=== PATIENT | female | born 1965 | race Caucasian/White ===

== ENCOUNTER 2020-08-08 08:57 | Outpatient (REF) | payer MEDICARE, MEDICAID, SELFPAY ==
--- NOTE | 2020-08-08 09:02 | EMG_ITS ---
HISTORY OF PRESENT ILLNESS: This is a 54-year-old woman who had surgery for brain tumor about 3 years ago in [place], complicated by a stroke. No details available. She is now here for pain and numbness in the right upper extremity. Neurological examination is unremarkable. IMPRESSION: Rule out carpal tunnel syndrome. NERVE CONDUCTION EMG STUDY: Normal electrodiagnostic study of the right upper extremity with no evidence of carpal tunnel syndrome or nerve entrapment. Normal EMG of the right C5 through T1 innervated muscles. MD YANNICK Jones/JORGE / [id number]
== END 2020-08-08 08:58 | disposition home or self-care (01) ==
LOC: HO.NEURO 08:57
PROVIDERS: PCP Family Medicine; Visit Provider Family Medicine
DX: R20.0 Anesthesia of skin (principal)
CPT/HCPCS: 95860; 95886; 95910

== ENCOUNTER 2020-08-28 08:18 | Outpatient (REF) | payer MEDICARE, MEDICAID, SELFPAY ==
--- NOTE | 2020-08-28 08:23 | MM_ITS ---
EXAMINATION: MM SCREENING DIGITAL BREAST TOMOSYNTHESIS, BILATERAL CLINICAL INFORMATION: Screening. Asymptomatic. Family history breast cancer, mother. The lifetime risk of breast cancer based on the Tyrer-Cuzick Model is 15%. COMPARISON: Mammography: 08/26/2019, 04/16/2018 TECHNIQUE: Digital breast tomosynthesis is performed in both the craniocaudal and mediolateral oblique views along with computer-aided detection (CAD). Synthesized 2D images are generated from the tomosynthesis. FINDINGS: The breasts are heterogeneously dense, which may obscure small masses (ACR BI-RADS breast composition Category c). There are no significant masses, abnormal calcifications, or other abnormalities. The axilla and skin contours are unremarkable. No significant changes. MM/MM tomosynthesis screening BI IMPRESSION: No mammographic evidence of malignancy. ASSESSMENT: BI-RADS 1: Negative RECOMMENDATION: Routine annual mammography screening. This patient's information was entered into a reminder system with a target due date for their next mammogram.
== END 2020-08-28 08:19 | disposition home or self-care (01) ==
LOC: HO.MAMMO 08:18
PROVIDERS: PCP Family Medicine; Visit Provider Family Medicine
DX: Z12.31 Encounter for screening mammogram for malignant neoplasm of breast (principal)
CPT/HCPCS: 77063; 77067

== ENCOUNTER 2021-09-02 15:29 | Outpatient (REF) | payer MEDICARE, MEDICAID, SELFPAY | END 2021-09-02 15:30 | disposition home or self-care (01) | LOC: HO.MAMMO 15:29 | PROVIDERS: PCP Family Medicine; Visit Provider Family Medicine | DX: Z13.89 Encounter for screening for other disorder (principal) ==

== ENCOUNTER 2021-10-02 13:32 | Outpatient (REF) | payer MEDICARE, MEDICAID, SELFPAY ==
--- NOTE | ~2021-10-02 | MM_ITS ---
EXAMINATION: MM SCREENING DIGITAL BREAST TOMOSYNTHESIS, BILATERAL CLINICAL INFORMATION: Screening. Asymptomatic. The lifetime risk of breast cancer based on the Tyrer-Cuzick Model is 14.3%. COMPARISON: Mammography: August 28, 2020 and studies dating back to December 18, 2011 TECHNIQUE: Digital breast tomosynthesis is performed in both the craniocaudal and mediolateral oblique views along with computer-aided detection (CAD). Synthesized 2D images are generated from the tomosynthesis. FINDINGS: The breasts are extremely dense, which lowers the sensitivity of mammography (ACR BI-RADS breast composition Category d). There are no significant masses, abnormal calcifications, or other abnormalities. MM/MM tomosynthesis screening BI IMPRESSION: There are no significant changes from prior study. ASSESSMENT: BI-RADS 1: Negative RECOMMENDATION: Routine annual mammography screening. This patient's information was entered into a reminder system with a target due date for their next mammogram.
== END 2021-10-02 13:33 | disposition home or self-care (01) ==
LOC: HO.MAMMO 13:32
PROVIDERS: Visit Provider Family Medicine
DX: Z12.31 Encounter for screening mammogram for malignant neoplasm of breast (principal)
CPT/HCPCS: 77063; 77067

== ENCOUNTER 2022-06-11 10:19 | Outpatient (REF) | payer OTHER, SELFPAY ==
--- NOTE | ~2022-06-11 | XR_ITS ---
EXAMINATION: XR KNEE, LEFT CLINICAL INFORMATION: Left knee pain COMPARISON: None TECHNIQUE: Four views of the left knee. This includes AP upright view. FINDINGS: No fracture or subluxation. Mild medial compartment joint space narrowing. Small medial and patellofemoral compartment marginal osteophytes. Enthesophyte formation of the patella. No joint effusion. The soft tissues are unremarkable. XR/XR knee LT 4V IMPRESSION: Very mild degenerative changes of the medial and patellofemoral compartments.
== END 2022-06-11 10:20 | disposition home or self-care (01) ==
LOC: HO.XRAY 10:19
PROVIDERS: PCP Family Medicine; Visit Provider Family Medicine
DX: M25.562 Pain in left knee (principal)
CPT/HCPCS: 73564

== ENCOUNTER 2022-07-17 13:23 | Outpatient (REF) | payer OTHER, SELFPAY | END 2022-07-17 13:24 | disposition home or self-care (01) | LOC: HO.MRI 13:23 | PROVIDERS: Visit Provider Family Medicine | DX: M25.562 Pain in left knee (principal) | CPT/HCPCS: 73721 ==

== ENCOUNTER 2022-07-20 15:07 | Outpatient (REF) | payer OTHER, SELFPAY | END 2022-07-20 15:08 | disposition home or self-care (01) | LOC: HO.HOSX 15:07 | PROVIDERS: Visit Provider Physician Assistant | DX: Z13.89 Encounter for screening for other disorder (principal) ==

== ENCOUNTER 2022-07-22 | Outpatient (REF) | payer OTHER, SELFPAY ==
--- NOTE | ~2022-07-22 | XR_ITS ---
EXAMINATION: XR KNEE AP STANDING, BILATERAL XR KNEE, LEFT CLINICAL INFORMATION: Knee pain. COMPARISON: 07/17/2022 and 06/11/2022. TECHNIQUE: AP bilateral standing view of the knees was obtained. Mamers view of the left knee. FINDINGS: BILATERAL KNEES: AP standing views of both knees demonstrate minimal marginal spurring about the medial joint space compartments. The joint space compartments are maintained. No fracture or dislocation is evident. LEFT KNEE: Mamers view of the left knee does not demonstrate any evidence of acute fracture. Minimal spurring is present about the margins without loss of joint space. XR/XR knee LT 1V IMPRESSION: No significant bony abnormality identified. Minimal degenerative change of the medial joint space compartments bilaterally and with mild spurring about the patellofemoral joint of the left knee.
--- NOTE | ~2022-07-22 | XR_ITS ---
EXAMINATION: XR KNEE AP STANDING, BILATERAL XR KNEE, LEFT CLINICAL INFORMATION: Knee pain. COMPARISON: 07/17/2022 and 06/11/2022. TECHNIQUE: AP bilateral standing view of the knees was obtained. [employer] view of the left knee. FINDINGS: BILATERAL KNEES: AP standing views of both knees demonstrate minimal marginal spurring about the medial joint space compartments. The joint space compartments are maintained. No fracture or dislocation is evident. LEFT KNEE: [employer] view of the left knee does not demonstrate any evidence of acute fracture. Minimal spurring is present about the margins without loss of joint space. XR/XR knee standing BI IMPRESSION: No significant bony abnormality identified. Minimal degenerative change of the medial joint space compartments bilaterally and with mild spurring about the patellofemoral joint of the left knee.
== END 2022-07-22 00:01 ==
LOC: HO.HOSX
PROVIDERS: Visit Provider Physician Assistant
DX: M25.562 Pain in left knee (principal); M54.16 Radiculopathy, lumbar region
CPT/HCPCS: 73560; 73565; 99212

== ENCOUNTER 2022-10-03 14:17 | Outpatient (REF) | payer OTHER, SELFPAY ==
--- NOTE | ~2022-10-03 | MM_ITS ---
EXAMINATION: MM SCREENING DIGITAL BREAST TOMOSYNTHESIS, BILATERAL CLINICAL INFORMATION: Screening. Asymptomatic. The lifetime risk of breast cancer based on the Tyrer-Cuzick Model is 7.1%. COMPARISON: Mammography: October 02, 2021 and studies dating back to February 22, 2016 TECHNIQUE: Digital breast tomosynthesis is performed in both the craniocaudal and mediolateral oblique views along with computer-aided detection (CAD). Synthesized 2D images are generated from the tomosynthesis. FINDINGS: The breasts are extremely dense, which lowers the sensitivity of mammography (ACR BI-RADS breast composition Category d). There are no significant masses, abnormal calcifications, or other abnormalities. MM/MM tomosynthesis screening BI IMPRESSION: No significant changes ASSESSMENT: BI-RADS 1: Negative RECOMMENDATION: Routine annual mammography screening. This patient's information was entered into a reminder system with a target due date for their next mammogram.
== END 2022-10-03 14:18 | disposition home or self-care (01) ==
LOC: HO.MAMMO 14:17
PROVIDERS: Visit Provider Family Medicine
DX: Z12.31 Encounter for screening mammogram for malignant neoplasm of breast (principal)
CPT/HCPCS: 77063; 77067

== ENCOUNTER 2023-07-23 13:39 | Outpatient (REF) | payer OTHER, SELFPAY ==
[2023-07-23 16:52] LABS: Estimated Average Glucose 146 mg/dL; Hemoglobin A1c % 6.7 % (<6.0)
== END 2023-07-23 13:40 | disposition home or self-care (01) ==
LOC: HO.HHCL 13:39
PROVIDERS: Visit Provider Family Medicine
DX: E11.9 Type 2 diabetes mellitus without complications (principal)
CPT/HCPCS: 36415; 83036

== ENCOUNTER 2023-10-23 08:43 | Outpatient (REF) | payer OTHER, SELFPAY | END 2023-10-23 08:44 | disposition home or self-care (01) | LOC: HO.MAMMO 08:43 | PROVIDERS: PCP Family Medicine; Visit Provider Family Medicine | DX: Z12.31 Encounter for screening mammogram for malignant neoplasm of breast (principal) | CPT/HCPCS: 77063; 77067 ==

== ENCOUNTER → 2023-10-23 09:00 | Outpatient (BNV) | payer OTHER, SELFPAY | PROVIDERS: PCP Family Medicine; Visit Provider Radiology Diagnostic Radiology | DX: Z12.31 Encounter for screening mammogram for malignant neoplasm of breast (principal) | CPT/HCPCS: 77063; 77067 ==

== ENCOUNTER 2023-11-19 09:21 | Outpatient (REF) | payer OTHER, SELFPAY ==
[2023-11-19 10:39] LABS: MANUAL DIFF FLAG NO
[2023-11-19 10:47] LABS: Basophils Percent Auto 0.3 % (0-2); Eosinophils Absolute Auto 0.1 X10*3/uL (0.0-0.4); Eosinophils Percent Auto 0.8 % (0-4); Hematocrit 45.5 % (37.0-47.0); Hemoglobin 14.9 g/dl (12.0-16.0); Imm Gran Abs Auto 0.02 X10*3/uL (0.00-0.03); Imm Gran Pct Auto 0.3 % (0.0-0.4); Lymphocytes Absolute Auto 2.7 X10*3/uL (1.2-4.9); Lymphocytes Percent Auto 34.7 % (20-40); Mean Corpuscular HGB Conc 32.7 g/dl (31.0-35.0); Mean Corpuscular Hemoglobin 28.7 pg (27.0-33.0); Mean Corpuscular Volume 87.5 fL (80.0-98.0); Mean Platelet Volume 10.6 fL (9.4-12.3); Monocytes Absolute Auto 0.6 X10*3/uL (0.1-1.2); Monocytes Percent Auto 7.8 % (2-11); Neutrophils Absolute Auto 4.3 x10*3/uL (2.0-8.3); Neutrophils Percent Auto 56.1 % (45-73); Platelet Count 198 X10*3/uL (160-400); Red Cell Distribution Width 13.3 % (11.0-16.0); White Blood Count 7.7 X10*3/uL (4.8-10.8)
[2023-11-19 11:21] LABS: Alanine Aminotransferase 32 U/L (0-31); Albumin Level 4.1 g/dL (3.5-5.0); Alkaline Phosphatase 76 U/L (39-117); Anion Gap 10 (12-20); Aspartate Amino Transferase 18 U/L (5-31); Bilirubin Total 0.8 mg/dL (0.0-1.0); Blood Urea Nitrogen 19 mg/dL (9-16); Calcium 9.8 mg/dL (8.4-10.2); Carbon Dioxide 27 mmol/L (22-29); Chloride 106 mmol/L (96-108); Estimated Glomerular Filt Rate > 60; Glucose Random 155 mg/dL (60-115); Potassium 4.4 mmol/L (3.3-5.1); Sodium 139 mmol/L (135-145); Total Protein 7.6 g/dL (6.5-8.0)
== END 2023-11-19 09:22 | disposition home or self-care (01) ==
LOC: HO.LAB 09:21
PROVIDERS: PCP Family Medicine; Visit Provider Nurse Practitioner
DX: Z01.818 Encounter for other preprocedural examination (principal)
CPT/HCPCS: 36415; 80053; 85025

== ENCOUNTER 2024-02-11 16:29 | Emergency (ER) | payer OTHER, SELFPAY ==
--- NOTE | ~2024-02-11 | CT_ITS ---
EXAMINATION: CT HEAD WITHOUT CONTRAST CLINICAL INFORMATION: Headache. Weakness. COMPARISON: CT head January 13, 2018 TECHNIQUE: Contiguous axial imaging was performed from the skull base to vertex without intravenous administration of contrast. Coronal and sagittal reformatted images are This CT examination was performed using dose optimization techniques as appropriate, variously including the following: *Automated exposure control *Adjustment of mA and/or kV according to patient size (this includes techniques or standardized protocols for targeted exams where dose is matched to indication/reason for exam; i.e. extremities or head) *Use of iterative reconstruction technique DLP: 557.36 mGy-cm FINDINGS: Right occipital craniotomy unchanged since prior study. Small area of focal encephalomalacia in the posterior portion right cerebral hemisphere stable since prior study. No acute intracranial abnormality. Ventricles are normal in size. No intracranial hemorrhage. No extra-axial collection. Box-white differentiation maintained. CT/CT head/brain wo IV con IMPRESSION: No acute intracranial pathology.
--- NOTE | ~2024-02-11 | CT_ITS ---
EXAMINATION: CT SOFT TISSUE NECK WITH CONTRAST CLINICAL INFORMATION: Soft tissue mass of the tongue. COMPARISON: CT neck from 08/31/2016. TECHNIQUE: Multidetector helical imaging was performed in the axial plane following the administration of 65 mL of Omnipaque 350 intravenous contrast. Multiple axial reformats and coronal/sagittal reconstructions were created the technologist workstation for review. This CT examination was performed using dose optimization techniques as appropriate, variously including the following: *Automated exposure control. *Adjustment of mA and/or kV according to patient size (this includes techniques or standardized protocols for targeted exams where dose is matched to indication/reason for exam; i.e. extremities or head). *Use of iterative reconstruction technique. DLP: 839 mGy-cm FINDINGS: No significant cutaneous thickening or subcutaneous inflammation. No discrete fluid collection within the deep tissues of the neck. The premaxillary, retromaxillary, pterygopalatine fossa, orbital apical, parapharyngeal, and prelaryngeal adipose tissue is maintained. Normal appearance of the parotid, submandibular, and thyroid glands. The left sublingual glands herniate through the left mylohyoid musculature, similar to exam from 2016. Scattered subcentimeter lymph nodes bilaterally, none of which are pathologically enlarged or abnormally enhancing. No demonstrated focal lesion or abnormal enhancement within the intrinsic tissues of the tongue. Normal mucosal contours of the pharynx and larynx without abnormal enhancement. Normal appearance of the hyoid bone, thyroid cartilage, or cartilaginous trachea. The airways remains widely patent. No radiopaque foreign bodies. The atlantooccipital and atlantoaxial articulations remain well aligned. There is anatomic alignment of the vertebral bodies and posterior elements. No evidence of acute fracture or subluxation of the cervical spine. The vertebral body heights are maintained. The intervertebral disc spaces are maintained. No evidence of epidural collection. There is no prevertebral soft tissue swelling. Normal opacification of the cervical arterial and venous structures. Changes of prior right retrosigmoid craniotomy for resection of a previously demonstrated mass along the right cerebellopontine angle. Chronic encephalomalacia of the lateral aspect of the right cerebellar hemisphere. The visualized portion of the skull base is without significant abnormalities. Mild mucosal thickening of the paranasal sinuses. The mastoid air cells and middle ear cavities are clear. No demonstrated significant periapical odontogenic disease. CT Upper Chest: Chronic partially calcified mediastinal lymph nodes. Otherwise, the visualized lung apices and upper mediastinum are within normal limits. CT/CT soft tissue neck w IV con IMPRESSION: 1. No demonstrated focal lesion, collection, lymphadenopathy, or abnormal enhancement within the soft tissues of the neck. 2. Chronic changes of prior right retrosigmoid craniotomy for resection of a previously demonstrated mass along the right cerebellopontine angle. Chronic encephalomalacia of the lateral aspect of the right cerebellar hemisphere.
[2024-02-11 16:50] VITALS: BP 123/78; PULSE 66; RESP 16; TEMP 36.8; O2SAT 98; BMI 26.4
--- NOTE | 2024-02-11 16:50 | ED.HA ---
HPI - Headache General Chief Complaint: Headache Stated Complaint: headache dizziness right eye bleeding Time Seen by Provider: 02/11/24 21:42 History of Present Illness HPI Narrative: The patient is a 58-year-old woman who says that at around 3 PM this afternoon she developed a headache that was associated with a sense of dizziness. It was a room spinning type dizziness. She was doing nothing in particular at the time. This was not associated with any fever, sweats, chills. She felt the pain primarily on the right side of her head. She says that she gets headaches from time to time but this was more significant than previous headaches. There was no associated neck stiffness. She had a craniotomy in 2017 for a meningioma. This was done at [facility] in [place]. The patient has also had problems with a sense of a lump under the left side of her tongue and under the left jaw. This has been present for some time. Related Data Home Medications ?Medication ?Instructions ?Recorded ?Confirmed acetaminophen 500 mg tablet 0 mg PO 07/22/22 atenolol 25 mg tablet 25 mg PO DAILY 07/22/22 blood sugar diagnostic (FreeStyle #10 ea 07/22/22 Lite Strips) clonazepam 0.5 mg tablet 0.5 mg PO DAILY PRN 07/22/22 diclofenac sodium 1 % topical gel 4 g topical BID 07/22/22 escitalopram oxalate 20 mg tablet 20 mg PO DAILY 07/22/22 glipizide 5 mg tablet 5 mg PO QAM 07/22/22 lancets 33 gauge (TRUEplus Lancets) #100 ea 07/22/22 levothyroxine 75 mcg tablet 75 mcg PO DAILY 07/22/22 lisinopril 5 mg tablet 5 mg PO DAILY 07/22/22 melatonin 1 mg tablet 1 mg PO BEDTIME PRN insomnia 07/22/22 metformin 750 mg tablet,extended 750 mg PO BID 07/22/22 release 24 hr omeprazole 20 mg capsule,delayed 20 mg PO DAILY 07/22/22 release pravastatin 10 mg tablet 10 mg PO DAILY 07/22/22 Previous Rx's ?Medication ?Instructions ?Recorded bisacodyl 5 mg tablet,delayed 10 mg (2 x 5 mg) PO BEDTIME 2 days 11/19/23 release (Dulcolax (bisacodyl)) #4 tabs peg 3350-electrolytes 236 240 ml PO Q10M 1 day #4,000 mL 11/19/23 gram-22.74 gram-6.74 gram-5.86 gram solution (Golytely) Allergies Allergy/AdvReac Type Severity Reaction Status Date / Time No Known Allergies Allergy Verified 02/11/24 16:55 Review of Systems Review of Systems: Yes all other systems are reviewed and are negative [facility] Past Medical History Medical History Benign meningioma Depression Dyslipidemia Hypertension Hypothyroid Anemia Surgical History H/O dilation and curettage H/O colonoscopy History of tubal ligation Family History Family History Mother Vaginal cancer Breast cancer Maternal Aunt Cancer Maternal Uncle Cancer Social History Social History Alcohol intake: never Patient Tobacco Use Status: Never used Tobacco Advance Directives: No Advance Directives Information Provided: Yes Current occupational status: unemployed Physical Exam Vital Signs: Vital Signs: Last Vital Signs Temp 97.9 F 02/11/24 22:39 Pulse 68 02/11/24 22:39 Resp 18 02/11/24 22:39 BP 118/76 02/11/24 22:39 Pulse Ox 98 02/11/24 22:39 O2 Del Method Room Air 02/11/24 22:39 BMI result Body Mass Index 26.4 Const: Other: The patient is awake and alert. She is pleasant cooperative. She does not appear toxic or in distress. HEENT: Other: No facial droop. Mucous membranes moist. There was a very vague suggestion of a slight elevation of the left side of the floor of the mouth. There is no tenderness of the floor of the mouth. I also feel that the patient's left submandibular gland is somewhat prominent and easily palpable. There is no trismus. Eyes: Other: Pupils are round and equal. There was a mild subconjunctival hemorrhage in the right eye. Neck: Other: No cervical adenopathy. The neck was entirely supple. Resp: Effort & Inspection: normal respiratory effort Auscultation: clear to auscultation bilaterally Cardio: Rate: regular rate Rhythm: regular rhythm Heart sounds: S1 normal heart sound present and S2 normal heart sound present Skin: Other: Skin is dry and unremarkable Neuro: Other: The patient is awake, alert, pleasant, cooperative. GCS is 15. She is oriented and appropriate. Her demeanor is nontoxic. Her neck is supple. Cranial nerves are intact. She has symmetrical strength in her extremities. No pronator drift. Gait is normal. She is neurologically intact and nontoxic. Extrem: Other: No peripheral edema Course Course Course Narrative: This is a rapid medical exam completed by Tracy LOBBY CONCIERGE: Additional HPI, ROS, PE not included below will be deferred to primary provider. Complaints of a right sided headache and dizziness as if the room is spinning. Has previously had a craniotomy to remove a benign tumor in [place] in 2017. Reports a mass under the tongue Denies fevers Medications Administered Discontinued Medications Generic Name Dose Route Start Last Admin Trade Name Freq PRN Reason Stop Dose Admin Diphenhydramine HCl 25 mg 02/11/24 21:55 02/11/24 22:04 Diphenhydramine Hcl 50 Mg/Ml Vial IVPUSH 02/11/24 21:56 25 mg ONCE ONE Administration Sodium Chloride 1,000 mls @ 999 mls/hr 02/11/24 22:00 02/11/24 22:01 Ns IV 02/11/24 23:00 999 mls/hr .Q1H1M SOFIA Administration Iohexol 60 ml 02/11/24 21:32 02/11/24 21:33 Iohexol 350 Mg/Ml 100 Ml Infus..Btl IV 02/11/24 21:33 60 ml ONCE ONE Administration Ketorolac Tromethamine 10 mg 02/11/24 21:55 02/11/24 22:04 Ketorolac Tromethamine 15 Mg/Ml Vial IVPUSH 02/11/24 21:56 10 mg ONCE ONE Administration Metoclopramide HCl 10 mg 02/11/24 21:55 02/11/24 22:03 Metoclopramide Hcl 10 Mg/2 Ml Vial IVPUSH 02/11/24 21:56 10 mg ONCE ONE Administration Medical Decision Making Medical Decision Making MDM Narrative: The patient is a very pleasant 58-year-old who presents with a headache that was associated with dizziness that started at around 15:00 today. She had a head CT that was done at approximately the 6 hour radha from the onset of her headaches that shows no acute findings. Clinically my suspicion for a subarachnoid hemorrhage is low. The patient's neck is very supple. I think that given the negative head CT and her benign clinical appearance that subarachnoid hemorrhage is probably very unlikely. She was treated for a migraine type headache with ketorolac, metoclopramide, and diphenhydramine. She felt much better. A secondary complaint was related to her mouth. She seems to have had a sense of swelling under the left tongue for some time. She seems to have a palpable gland on exam. Soft tissue neck CT has been ordered at triage in addition to the noncontrast head CT. The neck CT indicates ?the left sublingual glands herniate through the left mylohyoid musculature, similar to exam from 2016. ? My assumption is that this finding correlates with the findings on her physical exam. This suggests that these findings are stable. The patient felt better after IV treatment for her headache and I think she is well enough for discharge. She was advised to possibly follow up with the ENT if she would like additional evaluation regarding the left sublingual glands. Lab Data 02/11/24 18:57 02/11/24 18:57 Labs: Lab Results 02/11/24 Range/Units 18:57 WBC 7.2 (4.8-10.8) X10*3/uL RBC 4.99 (4.20-5.50) X10*6/uL Hgb 14.6 (12.0-16.0) g/dl Hct 43.9 (37.0-47.0) % MCV 88.0 (80.0-98.0) fL MCH 29.3 (27.0-33.0) pg MCHC 33.3 (31.0-35.0) g/dl RDW 12.7 (11.0-16.0) % Plt Count 208 (160-400) X10*3/uL MPV 10.5 (9.4-12.3) fL Immature Gran % (Auto) 0.1 (0.0-0.4) % Neut % (Auto) 55.2 (45-73) % Lymph % (Auto) 36.2 (20-40) % [place] % (Auto) 7.2 (2-11) % Eos % (Auto) 1.0 (0-4) % Baso % (Auto) 0.3 (0-2) % Lymph # (Auto) 2.6 (1.2-4.9) X10*3/uL [place] # (Auto) 0.5 (0.1-1.2) X10*3/uL Eos # (Auto) 0.1 (0.0-0.4) X10*3/uL Baso # (Auto) 0.0 (0.0-0.2) X10*3/uL Abs Immat Gran (auto) 0.01 (0.00-0.03) X10*3/uL Absolute Neuts (auto) 4.0 (2.0-8.3) x10*3/uL Absolute Nucleated RBC 0.000 (0.0-0.012) X10*3/uL Nucleated RBC % (auto) 0.0 (0.0-0.2) /100WBC Sodium 141 (135-145) mmol/L Potassium 4.1 (3.3-5.1) mmol/L Chloride 108 (96-108) mmol/L Carbon Dioxide 22 (22-29) mmol/L Anion Gap 15 (12-20) BUN 22 H (9-16) mg/dL Creatinine 0.71 (0.5-1.4) mg/dL Estim Creat Clear Calc 80.7 Estimated GFR > 60 Random Glucose 166 H (60-115) mg/dL Calcium 10.1 (8.4-10.2) mg/dL Total Bilirubin 0.5 (0.0-1.0) mg/dL AST 20 (5-31) U/L ALT 30 (0-31) U/L Alkaline Phosphatase 73 (39-117) U/L Total Protein 7.6 (6.5-8.0) g/dL Albumin 3.9 (3.5-5.0) g/dL Discharge Plan Discharge Clinical Impression: Headache, Fullness of submandibular gland Patient Disposition: Home, Self-Care Additional Instructions: Your testing in the emergency room today is very reassuring. There are no new findings on the CT scan of your head or on the CT scan of your neck. You seemed to have some chronic abnormality to your left submandibular gland. Fortunately this has appeared stable over many years. Please rest and take it easy tonight. Please plan on following up with your regular doctor soon to discuss this episode further. If at any point you wish to speak with a specialist about your left mandibular gland I would recommend that you contact an ENT doctor. I have by the name of Dr. Isidro as an ENT doctor in [place] for an option. Return to the emergency room if worse. Prescriptions: No Action escitalopram oxalate 20 mg tablet 20 mg PO DAILY clonazepam 0.5 mg tablet 0.5 mg PO DAILY PRN pravastatin 10 mg tablet 10 mg PO DAILY lisinopril 5 mg tablet 5 mg PO DAILY levothyroxine 75 mcg tablet 75 mcg PO DAILY melatonin 1 mg tablet 1 mg PO BEDTIME PRN (Reason: insomnia) metformin 750 mg tablet extended release 24 hr 750 mg PO BID glipizide 5 mg tablet 5 mg PO QAM atenolol 25 mg tablet 25 mg PO DAILY omeprazole 20 mg capsule,delayed release(DR/EC) 20 mg PO DAILY diclofenac sodium 1 % gel 4 g topical BID acetaminophen 500 mg tablet 0 mg PO (DME) lancets [TRUEplus Lancets] 33 gauge misc See Rx Instructions .ROUTE DAILY Qty: 100 Rx Instructions: As directed (DME) FreeStyle Lite Strips Strip See Rx Instructions .ROUTE BID Qty: 10 Rx Instructions: As directed peg 3350-electrolytes [Golytely] 236-22.74-6.74 -5.86 gram recon soln 240 ml PO Q10M 1 Days Qty: 4000 0RF Rx Instructions: until fecal effluent is clear; do not exceed a total volume of 2,000 mL bisacodyl [Dulcolax (bisacodyl)] 5 mg tablet,delayed release (DR/EC) 10 mg PO BEDTIME 2 Days Qty: 4 0RF Referrals: Clara Joseph MD [Primary Care Provider] - (Headache, chronic left submandibular gland swelling) Jules Isidro [Physician] - (Left submandibular gland swelling) Interventions: ED Discharge Assessment Last Done: 02/11/24 22:39 Discharge Date/Time: 02/11/24 22:43 Print Language: Sinhala
[2024-02-11 19:01] LABS: MANUAL DIFF FLAG NO
[2024-02-11 19:02] LABS: Basophils Percent Auto 0.3 % (0-2); Eosinophils Absolute Auto 0.1 X10*3/uL (0.0-0.4); Hematocrit 43.9 % (37.0-47.0); Hemoglobin 14.6 g/dl (12.0-16.0); Imm Gran Abs Auto 0.01 X10*3/uL (0.00-0.03); Imm Gran Pct Auto 0.1 % (0.0-0.4); Lymphocytes Absolute Auto 2.6 X10*3/uL (1.2-4.9); Lymphocytes Percent Auto 36.2 % (20-40); Mean Corpuscular HGB Conc 33.3 g/dl (31.0-35.0); Mean Corpuscular Hemoglobin 29.3 pg (27.0-33.0); Mean Platelet Volume 10.5 fL (9.4-12.3); Monocytes Absolute Auto 0.5 X10*3/uL (0.1-1.2); Monocytes Percent Auto 7.2 % (2-11); Neutrophils Percent Auto 55.2 % (45-73); Platelet Count 208 X10*3/uL (160-400); Red Blood Count 4.99 X10*6/uL (4.20-5.50); Red Cell Distribution Width 12.7 % (11.0-16.0); White Blood Count 7.2 X10*3/uL (4.8-10.8)
[2024-02-11 19:21] LABS: Alanine Aminotransferase 30 U/L (0-31); Albumin Level 3.9 g/dL (3.5-5.0); Alkaline Phosphatase 73 U/L (39-117); Anion Gap 15 (12-20); Aspartate Amino Transferase 20 U/L (5-31); Bilirubin Total 0.5 mg/dL (0.0-1.0); Blood Urea Nitrogen 22 mg/dL (9-16); Calcium 10.1 mg/dL (8.4-10.2); Carbon Dioxide 22 mmol/L (22-29); Chloride 108 mmol/L (96-108); Creatinine Clr Calc Pharmacy 80.7; Estimated Glomerular Filt Rate > 60; Glucose Random 166 mg/dL (60-115); Potassium 4.1 mmol/L (3.3-5.1); Sodium 141 mmol/L (135-145); Total Protein 7.6 g/dL (6.5-8.0)
[2024-02-11 21:09] VITALS: BP 118/76; PULSE 68; RESP 18; TEMP 36.6; O2SAT 98
[2024-02-11] MEDS: iohexoL 350 MG/ML 100 ML INFUS..BTL 60 ML IV (21:33)
[2024-02-11] MEDS: 0.9 % Sodium Chloride 1,000 ML 999 ML IV (22:01)
[2024-02-11] MEDS: Metoclopramide HCl 10 MG/2 ML VIAL IVPUSH (22:03)
[2024-02-11] MEDS: diphenhydrAMINE HCL 50 MG/ML VIAL 25 MG IVPUSH (22:04)
[2024-02-11] MEDS: Ketorolac Tromethamine 15 MG/ML VIAL 10 MG IVPUSH (22:04)
[2024-02-11 22:39] VITALS: BP 118/76; PULSE 68; RESP 18; TEMP 36.6; O2SAT 98
== END 2024-02-11 22:43 | disposition home or self-care (01) ==
PROVIDERS: Nurse Practitioner Family; Emergency Provider Emergency Medicine; PCP Family Medicine
DX: R51.9 Headache, unspecified (principal); R42 Dizziness and giddiness; M54.2 Cervicalgia; Z79.899 Other long term (current) drug therapy
CPT/HCPCS: 36415; 70450; 70491; 80053; 85025; 96374; 96375; 99283; 99284; J1200; J1885; J2765; Q9967

== ENCOUNTER 2024-02-15 10:04 | Outpatient (REF) | payer OTHER, SELFPAY ==
--- NOTE | ~2024-02-15 | XR_ITS ---
EXAMINATION: XR CHEST CLINICAL INFORMATION: Cough for one week COMPARISON: None available. TECHNIQUE: 2 views of the chest were obtained. FINDINGS: No significant abnormality is noted involving the heart, lungs, mediastinum, bony thorax or soft tissues. Some mild degenerative changes are present in the spine. XR/XR chest 2V IMPRESSION: Unremarkable examination.
== END 2024-02-15 10:05 | disposition home or self-care (01) ==
LOC: HO.HHCX 10:04
PROVIDERS: Visit Provider Emergency Medicine
DX: R05.1 Acute cough (principal)
CPT/HCPCS: 71046

== ENCOUNTER 2024-02-29 10:19 | Outpatient (REF) | payer OTHER, SELFPAY ==
[2024-02-29 11:47] LABS: Estimated Average Glucose 108 mg/dL; Hemoglobin A1c % 5.4 % (<6.0)
[2024-02-29 17:15] LABS: Alanine Aminotransferase 9 U/L (0-31); Albumin Level 4.3 g/dL (3.5-5.0); Alkaline Phosphatase 57 U/L (39-117); Anion Gap 13 (12-20); Aspartate Amino Transferase 14 U/L (5-31); Bilirubin Direct < 0.2 mg/dL (0.0-0.5); Bilirubin Total 0.1 mg/dL (0.0-1.0); Blood Urea Nitrogen 14 mg/dL (9-16); Calcium 9.3 mg/dL (8.4-10.2); Carbon Dioxide 25 mmol/L (22-29); Chloride 107 mmol/L (96-108); Cholesterol 169 mg/dL (<200); Estimated Glomerular Filt Rate > 60; Glucose Random 91 mg/dL (60-115); HDL Cholesterol 53 mg/dL (>40); LDL Cholesterol Calculated 107 mg/dL (<100); Potassium 4.4 mmol/L (3.3-5.1); Sodium 141 mmol/L (135-145); Total Protein 7.2 g/dL (6.5-8.0); Triglycerides 49 mg/dL (<150)
[2024-02-29 17:21] LABS: Creatinine Urine 64.92 mg/dL; Microalbumin Urine < 5.0 mg/L; TSH reflex Free T4 0.26 uIU/mL (0.32-4.0)
[2024-02-29 19:59] LABS: Free T4 (Free Thyroxine) 0.92 ng/dL (0.71-1.85)
== END 2024-02-29 10:20 | disposition home or self-care (01) ==
LOC: HO.HHCL 10:19
PROVIDERS: Visit Provider Family Medicine
DX: E11.9 Type 2 diabetes mellitus without complications (principal); E03.9 Hypothyroidism, unspecified
CPT/HCPCS: 36415; 80048; 80061; 80076; 82043; 82570; 83036; 84439; 84443

== ENCOUNTER 2024-04-11 09:51 | Outpatient (REF) | payer OTHER, SELFPAY ==
[2024-04-11 12:35] LABS: TSH reflex Free T4 1.45 uIU/mL (0.32-4.0)
== END 2024-04-11 09:52 | disposition home or self-care (01) ==
LOC: HO.HHCL 09:51
PROVIDERS: Visit Provider Family Medicine
DX: E03.9 Hypothyroidism, unspecified (principal)
CPT/HCPCS: 36415; 84443

== ENCOUNTER 2024-05-02 08:27 | Outpatient (REF) | payer OTHER, SELFPAY ==
[2024-05-02 11:50] LABS: Alanine Aminotransferase 23 U/L (0-31); Albumin Level 4.1 g/dL (3.5-5.0); Alkaline Phosphatase 63 U/L (39-117); Aspartate Amino Transferase 21 U/L (5-31); Bilirubin Direct 0.2 mg/dL (0.0-0.5); Bilirubin Total 0.9 mg/dL (0.0-1.0); Cholesterol 185 mg/dL (<200); HDL Cholesterol 63 mg/dL (>40); LDL Cholesterol Calculated 111 mg/dL (<100); Total Protein 7.7 g/dL (6.5-8.0); Triglycerides 57 mg/dL (<150)
== END 2024-05-02 08:28 | disposition home or self-care (01) ==
LOC: HO.HHCL 08:27
PROVIDERS: Visit Provider Family Medicine
DX: E78.5 Hyperlipidemia, unspecified (principal)
CPT/HCPCS: 36415; 80061; 80076

== ENCOUNTER 2024-05-08 09:41 | Emergency (ER) | payer OTHER, SELFPAY ==
--- NOTE | 2024-05-08 | ECG_ITS ---
Test Reason : CHEST PAIN Blood Pressure : / mmHG Vent. Rate : 081 BPM Atrial Rate : 081 BPM P-R Int : 144 ms QRS Dur : 078 ms QT Int : 384 ms P-R-T Axes : 048 -35 018 degrees QTc Int : 446 ms Normal sinus rhythm Left axis deviation Abnormal ECG No previous ECGs available Referred By: Generic ED Physician Electronically Signed By:Mesfin Elise
--- NOTE | ~2024-05-08 | XR_ITS ---
EXAMINATION: XR SHOULDER, LEFT CLINICAL INFORMATION: Left shoulder pain. COMPARISON: 10/13/2019 TECHNIQUE: Three views of the left shoulder. FINDINGS: Multiple foci of calcific tendinitis at the left greater tuberosity measure 1.6 x 0.6 x 0.9 cm, in aggregate, more pronounced as compared to prior. No acute fracture or malalignment. Mild acromioclavicular osteoarthritis. Glenohumeral joint is unremarkable. XR/XR shoulder LT min 2V IMPRESSION: 1. Calcific tendinitis at the left greater tuberosity, more pronounced as compared to prior. 2. Mild acromioclavicular osteoarthritis.
[2024-05-08 09:46] VITALS: BP 129/67; PULSE 95; RESP 20; TEMP 36; O2SAT 98; BMI 25.8
--- NOTE | 2024-05-08 10:05 | PC.NURSE ---
pt in triage with tech having ekg performed
--- NOTE | 2024-05-08 11:10 | ED_ITS ---
HPI - Extremity Problem General Chief complaint: Extremity Injury, Upper Stated complaint: L shoulder pain Time Seen by Provider: 05/08/24 10:12 Source: patient and patient placement coordinator Mode of arrival: ambulatory Limitations: language barrier History of Present Illness ED Provider: Sybil Gutierrez APRN HPI Narrative: 58-year-old female with a history of diabetes, hypertension, hyperlipidemia, anxiety, depression, hypothyroidism presents to the ER with complaints of 3 days of left-sided shoulder pain with no known injury or trauma. Patient reports no associated numbness, weakness, tingling of the extremity. Pain is worsened with movement of the extremity. She is right-hand dominant Taking Tylenol and Naprosyn at home with continued pain Related Data Home Medications ?Medication ?Instructions ?Recorded ?Confirmed acetaminophen 500 mg tablet 0 mg PO 07/22/22 atenolol 25 mg tablet 25 mg PO DAILY 07/22/22 blood sugar diagnostic (FreeStyle #10 ea 07/22/22 Lite Strips) clonazepam 0.5 mg tablet 0.5 mg PO DAILY PRN 07/22/22 diclofenac sodium 1 % topical gel 4 g topical BID 07/22/22 escitalopram oxalate 20 mg tablet 20 mg PO DAILY 07/22/22 glipizide 5 mg tablet 5 mg PO QAM 07/22/22 lancets 33 gauge (TRUEplus Lancets) #100 ea 07/22/22 levothyroxine 75 mcg tablet 75 mcg PO DAILY 07/22/22 lisinopril 5 mg tablet 5 mg PO DAILY 07/22/22 melatonin 1 mg tablet 1 mg PO BEDTIME PRN insomnia 07/22/22 metformin 750 mg tablet,extended 750 mg PO BID 07/22/22 release 24 hr omeprazole 20 mg capsule,delayed 20 mg PO DAILY 07/22/22 release pravastatin 10 mg tablet 10 mg PO DAILY 07/22/22 Previous Rx's ?Medication ?Instructions ?Recorded bisacodyl 5 mg tablet,delayed 10 mg (2 x 5 mg) PO BEDTIME 2 days 11/19/23 release (Dulcolax (bisacodyl)) #4 tabs peg 3350-electrolytes 236 240 ml PO Q10M 1 day #4,000 mL 11/19/23 gram-22.74 gram-6.74 gram-5.86 gram solution (Golytely) bisacodyl 5 mg tablet,delayed 20 mg (4 x 5 mg) PO ONCE 1 day #4 04/07/24 release (Dulcolax (bisacodyl)) tabs peg 3350-electrolytes 236 240 ml PO Q10M #4,000 mL 04/07/24 gram-22.74 gram-6.74 gram-5.86 gram solution diclofenac sodium 1 % topical gel 4 g topical QID #100 grams 05/08/24 (Voltaren Arthritis Pain) ketorolac 10 mg tablet 10 mg PO Q8H 5 days #15 tabs 05/08/24 prednisone 20 mg tablet 20 mg PO DAILY #5 tabs 05/08/24 Allergies Allergy/AdvReac Type Severity Reaction Status Date / Time No Known Allergies Allergy Verified 05/08/24 09:49 Review of Systems Review of Systems: Yes all other systems are reviewed and are negative Constitutional: Constitutional: Reports no additional constitutional complaints, Denies body ache(s), Denies chills, Denies fever(s), Denies head ache(s) and Denies weakness Eyes: Eyes: Reports no additional eye complaints and Denies change in vision ENT: Reports system reviewed and no additional complaints, except as documented, Denies dizziness, Denies headache(s), Denies nasal congestion, Denies nasal discharge and Denies neck pain Cardiovascular: Cardiovascular: Reports no additional cardiovascular complaints, Denies chest pain, Denies leg edema and Denies dyspnea Respiratory: Respiratory: Reports no additional respiratory complaints, Denies cough and Denies dyspnea Gastrointestinal: Gastrointestinal: Reports no additional gastrointestinal complaints, Denies abdominal pain, Denies diarrhea, Denies nausea and Denies vomiting Genitourinary: Genitourinary: Reports no additional female genitourinary complaints and Denies urinary incontinence Musculoskeletal: Musculoskeletal: Reports no additional musculoskeletal complaints, Denies back pain, Reports arthralgias, Denies joint swelling, Denies neck pain, Denies numbness, Reports radiating pain into limb and Denies tingling Integumentary/Breasts: Skin/Breast: Reports system reviewed and no additional complaints, except as docu and Denies rash Neurologic: Reports system reviewed and no additional complaints, except as documented, Denies Abnormal speech present, Denies dizziness, Denies headache(s), Denies numbness, Denies tingling and Denies weakness PMFSH Past Medical History Attestation statement: The following information was validated with the patient. Source: old records reviewed and nursing notes reviewed Medical History Benign meningioma Depression Dyslipidemia Hypertension Hypothyroid Anemia Surgical History H/O dilation and curettage H/O colonoscopy History of tubal ligation Family History Family History Mother Vaginal cancer Breast cancer Maternal Aunt Cancer Maternal Uncle Cancer Social History Social History Alcohol intake: never Patient Tobacco Use Status: Never used Tobacco Advance Directives: No Advance Directives Information Provided: Yes Do you have a plan to hurt others: No Plan Current occupational status: unemployed Physical Exam Vital Signs: Vital Signs: Last Vital Signs Temp 96.8 F 05/08/24 09:46 Pulse 95 05/08/24 09:46 Resp 20 05/08/24 09:46 BP 129/67 05/08/24 09:46 Pulse Ox 98 05/08/24 09:46 O2 Del Method Room Air 05/08/24 09:46 BMI result Body Mass Index 25.8 Const: General: cooperative, healthy appearing, comfortable and no acute distress Orientation/consciousness: patient oriented x3 Limitations: no limitations HEENT: Head: Yes normal to inspection Ears: hearing grossly normal bilaterally General nose exam: Normal external nose present Face and sinus: Yes normal facial exam Mouth: Normal oral and palatal mucosa present Throat: Yes posterior oropharynx normal Eyes: General: appearance normal, both eyes and all related structures Pupils: Equal, round and reactive pupils present Neck: Neck: Yes normal visual inspection Chest: Chest palpation & inspection: normal inspection of the chest Resp: Effort & Inspection: normal respiratory effort Auscultation: clear to auscultation bilaterally Cardio: Rate: regular rate Rhythm: regular rhythm Peripheral pulses: Peripheral pulses 2+ throughout GI: Inspection: Yes normal to inspection Palpation (GI): Soft to palpation and nontender Auscultation: normal bowel sounds Back/Spine/Pelvis: Thoracic/Lumbar Spine: thoracic and lumbar spine normal to inspection Skin: General skin exam: no rashes or lesions noted Neuro: General: patient oriented x3, no focal motor deficits and normal sensation to monofilament Cranial nerves: Yes Equal, round and reactive pupils present Cognition (Neuro): normal cognition Speech: No Abnormal speech present Gait exam (Neuro): Normal gait present Motor exam (neuro): 5/5 motor strength present throughout Extrem: Other: Pain on palpation over the left proximal humerus which is worsened with abduction of the extremity. No pain over the distal joints with full range of motion of the distal joints. 2+ radial and ulnar pulses. Normal sensation distally. General: Yes normal to inspection Course Course Course Narrative: X-ray shows tendinitis. EKG nonischemic. Patient will be given Toradol. Blood sugars are well controlled at home. Will give low-dose prednisone in addition to NSAIDs, Jeanine Reviewed worrisome signs and symptoms of when to return to the emergency room. Comfortable plan for discharge home Medical Decision Making Medical Decision Making MDM Narrative: 58-year-old female with a history of diabetes, hypertension, hyperlipidemia, anxiety, depression, hypothyroidism presents to the ER with complaints of 3 days of left-sided shoulder pain with no known injury or trauma. Patient reports no associated numbness, weakness, tingling of the extremity. Pain is worsened with movement of the extremity. She is right-hand dominant Pain on palpation over the left proximal humerus which is worsened with abduct ion of the extremity. No pain over the distal joints with full range of motion of the distal joints. 2+ radial and ulnar pulses. Normal sensation distally. Will check x-ray Differential Diagnosis Differential Diagnoses: The differential diagnosis associated with the presentation includes Tendonitis, bursitis Low suspicion for fracture, dislocation, vascular injury Admission/Observation Consideration of admission/observation: Escalation of care including admi ssion/observation considered Low suspicion for fracture, dislocation, vascular injury requiring advanced imaging, urgent orthopedic consultation Independent Interpretation I performed an independent interpretation of an: EKG and Plain X-Ray Interpretation: I independently viewed the x-ray and agree with the radiology report I independently reviewed the EKG which shows normal sinus rhythm with a rate 81, normal [place], normal QRS, or QT Radiology Impression Discussion of test interpretation with radiology: I have reviewed the radiologist's reading. Radiologist Impression: [address] [address] XRay Report Signed Patient: Jolie Werner MR#: [id number] : 1965 Acct:[id number] Age/Sex: 58 / F ADM Date: 05/08/24 Loc: HO.ED Attending Dr: Ordering Physician: Generic ED Physician Date of Service: 05/08/24 Procedure(s): XR shoulder LT min 2V Accession Number(s): [id number] cc: Clara Joseph MD; Generic ED Physician~ EXAMINATION: XR SHOULDER, LEFT CLINICAL INFORMATION: Left shoulder pain. COMPARISON: 10/13/2019 TECHNIQUE: Three views of the left shoulder. FINDINGS: Multiple foci of calcific tendinitis at the left greater tuberosity measure 1.6 x 0.6 x 0.9 cm, in aggregate, more pronounced as compared to prior. No acute fracture or malalignment. Mild acromioclavicular osteoarthritis. Glenohumeral joint is unremarkable. XR/XR shoulder LT min 2V IMPRESSION: 1. Calcific tendinitis at the left greater tuberosity, more pronounced as compared to prior. 2. Mild acromioclavicular osteoarthritis. Tests considered The following testing was considered but not selected: Low suspicion for fracture, dislocation, vascular injury requiring advanced imaging, Prescription Management I considered prescription management with: Pain Medication Chronic Conditions Patient?s care impacted by: Diabetes Discharge Plan Discharge Clinical Impression: Tendonitis Patient Disposition: Home, Self-Care Instructions: Tendinitis (ED) Additional Instructions: Heat or ice to the area Gentle stretching Take medications as prescribed Follow-up with orthopedics for any continued symptoms. Of note, you may need referral from primary care doctor. Physical therapy may also be helpful Prescriptions: New ketorolac 10 mg tablet 10 mg PO Q8H 5 Days Qty: 15 0RF diclofenac sodium [Voltaren Arthritis Pain] 1 % gel 4 g topical QID Qty: 100 0RF Rx Instructions: apply to affected area prednisone 20 mg tablet 20 mg PO DAILY Qty: 5 0RF No Action bisacodyl [Dulcolax (bisacodyl)] 5 mg tablet,delayed release (DR/EC) 20 mg PO ONCE 1 Days Qty: 4 0RF Rx Instructions: take at noon the day before colonoscopy peg 3350-electrolytes 236-22.74-6.74 -5.86 gram recon soln 240 ml PO Q10M Qty: 4000 0RF Rx Instructions: Refer to prep instructions given/ mailed to you from GI OFFICE. until fecal effluent is clear escitalopram oxalate 20 mg tablet 20 mg PO DAILY clonazepam 0.5 mg tablet 0.5 mg PO DAILY PRN pravastatin 10 mg tablet 10 mg PO DAILY lisinopril 5 mg tablet 5 mg PO DAILY levothyroxine 75 mcg tablet 75 mcg PO DAILY melatonin 1 mg tablet 1 mg PO BEDTIME PRN (Reason: insomnia) metformin 750 mg tablet extended release 24 hr 750 mg PO BID glipizide 5 mg tablet 5 mg PO QAM atenolol 25 mg tablet 25 mg PO DAILY omeprazole 20 mg capsule,delayed release(DR/EC) 20 mg PO DAILY diclofenac sodium 1 % gel 4 g topical BID acetaminophen 500 mg tablet 0 mg PO (DME) lancets [TRUEplus Lancets] 33 gauge misc See Rx Instructions .ROUTE DAILY Qty: 100 Rx Instructions: As directed (DME) FreeStyle Lite Strips Strip See Rx Instructions .ROUTE BID Qty: 10 Rx Instructions: As directed peg 3350-electrolytes [Golytely] 236-22.74-6.74 -5.86 gram recon soln 240 ml PO Q10M 1 Days Qty: 4000 0RF Rx Instructions: until fecal effluent is clear; do not exceed a total volume of 2,000 mL bisacodyl [Dulcolax (bisacodyl)] 5 mg tablet,delayed release (DR/EC) 10 mg PO BEDTIME 2 Days Qty: 4 0RF Referrals: [facility] – [place] [facility] [Provider Group] - 1 week Print Language: Macedonian
[2024-05-08] MEDS: Ketorolac Tromethamine 30 MG/ML VIAL IM (11:33)
[2024-05-08 11:41] VITALS: BP 129/67; PULSE 95; RESP 20; TEMP 36; O2SAT 98
--- NOTE | 2024-05-08 11:42 | PC.NURSE ---
pt medicated per DEC for 10 left shoulder pain
== END 2024-05-08 11:42 | disposition home or self-care (01) ==
PROVIDERS: Emergency Provider Emergency Medicine; PCP Family Medicine
DX: M75.32 Calcific tendinitis of left shoulder (principal); R07.89 Other chest pain; Z79.899 Other long term (current) drug therapy
CPT/HCPCS: 73030; 93005; 96372; 99284; J1885

== ENCOUNTER → 2024-05-08 10:06 | Outpatient (BNV) | payer OTHER, SELFPAY | PROVIDERS: Emergency Provider Emergency Medicine; PCP Family Medicine; Visit Provider Internal Medicine Cardiovascular Disease | DX: R07.9 Chest pain, unspecified (principal) | CPT/HCPCS: 93010 ==

== ENCOUNTER 2024-05-17 07:11 | Outpatient (REF) | payer OTHER, SELFPAY ==
[2024-05-17 08:27] LABS: Blood Urea Nitrogen 19 mg/dL (9-16); Estimated Glomerular Filt Rate > 60
== END 2024-05-17 07:12 | disposition home or self-care (01) ==
LOC: HO.LAB 07:11
PROVIDERS: PCP Family Medicine; Visit Provider Otolaryngology
DX: Z01.812 Encounter for preprocedural laboratory examination (principal); R22.1 Localized swelling, mass and lump, neck
CPT/HCPCS: 36415; 82565; 84520

== ENCOUNTER 2024-05-24 10:26 | Outpatient (AMB) | payer OTHER, SELFPAY ==
--- NOTE | 2024-05-24 10:29 | A.OFFVIS_ITS ---
Vital Signs 05/24/24 10:33 Height 5 ft 6 in Weight 160 lb BMI 25.8 Handedness Right Intake Visit Reasons: New Prob - LT shoulder pain Intake Note: Jolie is a 58 year old right hand dominant female who presents today for a evaluation of her left shoulder pain. No hx of Injury. Patient reports ongoing pain for about 2 weeks. Her pain is on the lateral aspect of her left shoulder. She states that her pain is worse when she is laying on her shoulder. Patient has tried taking Tylenol and it gave her relief. She mentions that she got an in jeciton at the ED which helped with the inflammation but she continues to have mild pain. [employer]: [employer] Present (Onel ([id number])) Allergies No Known Allergies Allergy (Verified 05/24/24 10:31) HPI HPI New Prob - LT shoulder pain: Details: 58-year-old right hand dominant female, who is Bahamian speaking, presents in the office today for an evaluation of left shoulder pain. The patient presented to the ED on 05/08/24 with a complaint of left shoulder pain for three days. X-rays of the left shoulder were obtained. She was prescribed ketorolac 10 mg PO Q8H, diclofenac sodium 4 g topical QID, and prednisone 20 mg PO daily. ? ? While in the office today, the patient reports ongoing pain for about two weeks. She claims her pain is on the lateral aspect of the left shoulder and increases when laying on the left upper extremity. Patient does not recall any known injury. She confirms the use of Tylenol with relief. She also reports receiving an injection (Toradol) in the ED which helped with inflammation but she continu es to have mild pain. ? ? Patient has a significant medical history of diabetes mellitus. Last A1c of 5.4 was on 02/29/24. ? PFS Medical History Benign meningioma Depression Dyslipidemia Hypertension Hypothyroid Anemia Surgical History H/O dilation and curettage H/O colonoscopy History of tubal ligation Family History Mother Vaginal cancer Breast cancer Maternal Aunt Cancer Maternal Uncle Cancer Social History Alcohol intake: never Patient Tobacco Use Status: Never used Tobacco Current occupational status: unemployed Review of Systems Const All systems reviewed & are unremarkable except as noted in HPI and below Physical Exam Vital Signs: BMI result Body Mass Index 25.8 Const General: cooperative, healthy appearing and no acute distress Resp Effort & Inspection: normal respiratory effort and able to speak in complete sentences Cardio Rate: regular rate Peripheral pulses: Peripheral pulses 2+ throughout GI Palpation (GI): Soft to palpation Skin Lesions: no lesions Rashes: no rashes Extrem Other: Left shoulder: Forward flexion and abduction to 90 degrees. Able to reach back pocket. Pain with cross-body reach. Unable to do resisted testing due to pain. ? Office Procedures Joint Injection/Aspiration Joint Injection/Aspiration Primary Site: left shoulder Prep: site was prepped using aseptic technique, ethochloride spray was applied and injection warnings given Injected: 40 mg of, DepoMedrol, with 8 mL of (2% plain lido ) and in the subcromial space Approach Used: posterolateral Procedure: The patient tolerated the procedure well, but had some pain with the injection and there was some relief with the local anesthesia Coding 31041 - Large joint Procedure code (CPT) selection complete Assessment & Plan Assessment & Plan (1) Calcific tendonitis of left shoulder: Code(s): M75.32 - Calcific tendinitis of left shoulder Category: Medical Plan Ms. Gil Jackson is a 58-year-old right hand dominant female, who is Bahamian speaking, presents in the office today for an evaluation of left shoulder pain. The patient presented to the ED on 05/08/24 with a complaint of left shoulder pain for three days. X-rays of the left shoulder were obtained. She was prescrib ed ketorolac 10 mg PO Q8H, diclofenac sodium 4 g topical QID, and prednisone 20 mg PO daily. ? ? While in the office today, the patient reports ongoing pain for about two weeks. She claims her pain is on the lateral aspect of the left shoulder and increases when laying on the left upper extremity. Patient does not recall any known injury. She confirms the use of Tylenol with relief. She also reports receiving an injection (Toradol) in the ED which helped with inflammation but she continues to have mild pain. ? ? Patient has a significant medical history of diabetes mellitus. Last A1c of 5.4 was on 02/29/24.? ? The patient was offered a cortisone injection in the left shoulder with 40 mg of Depo-Medrol. The patient was explained the risks, benefits, and alternatives to receiving this injection. After receiving consent for the injection, the patient had the procedure done while in the office today. The patient tolerated the procedure well with no complications.? ? Due to the patient?s history of diabetes, they were instructed to monitor her blood glucose level. The patient was informed that they could see a rise in their numbers and if the numbers became too high, they were instructed to call their PCP. The patient was also informed that they could have facial flushing as a side effect of the injection, but this will pass.? ? An order was placed for the patient to attend physical therapy. Follow-up will be PRN, or sooner if needed. ? ? X-rays of the left shoulder, obtained on 05/08/24, revealed: 1. Calcific tendinitis at the left greater tuberosity, more pronounced? as compared to prior.? 2. Mild acromioclavicular osteoarthritis.? Orders: Orders PT Evaluation and Treatment Today M75.32 - Calcific tendinitis of left shoulder Patient Instructions: Scribed by Mayuri Tee medical orderly, for Sabine Martinez PA-C on 05/24/2024 at 10:41 am, EST.? Coding Level of Care Code Est Pt Level 3 (07053) Diagnoses Calcific tendonitis of left shoulder M75.32 CPT Codes Coding - 77449 Large joint: 02617 - Large joint ([id number])
[2024-05-24 10:33] VITALS: BMI 25.8
== END 2024-05-24 11:09 | disposition home or self-care (01) ==
PROVIDERS: PCP Family Medicine; Visit Provider Physician Assistant
DX: M75.32 Calcific tendinitis of left shoulder (principal)
CPT/HCPCS: 20610; 99213

== ENCOUNTER → 2024-05-24 10:26 | Outpatient (BNVA) | payer OTHER, SELFPAY | PROVIDERS: PCP Family Medicine; Visit Provider Physician Assistant | DX: M75.32 Calcific tendinitis of left shoulder (principal) | CPT/HCPCS: 20610; 99212; J1010 ==

== ENCOUNTER 2024-07-21 11:00 | Outpatient (RCR) | payer OTHER, SELFPAY ==
--- NOTE | 2024-06-15 16:32 | MHC.PT.EP ---
[facility] [place] Office [place] Office [place] Office [address] [phone] F: [phone] F: [phone] F: [phone] F: [phone] Physical Therapy Plan of Care Date of Evaluation: 06/15/24 Date of Surgery: Diagnosis: L shoulder calcific tendonitis Assessment: Pt is a 58 y/o F with Hx of stroke, HTN and diabetes who is referred to PT for eval and treat of L shoulder calcific tendonitis resulting in decreased tolerance or ability for ADL's, reaching above head and functional reaching behind head or into back pocket secondary to decreased shoulder ROM and strength, calcific deposit at greater tuberosity and TTP over greater tuberosity and UT/deltoid. Pt is motivated and is deemed an appropriate candidate to receive skilled PT services to address their physical impairments in order to improve their function. Frequency and Duration: The patient will be seen 2x/week for 5 weeks Short Term Goals: Initiate home exercise program. Pt will report at most 4/10 pain; initial 8/10. Pt will improve L shoulder flex to 140; initial 85. Assisted Goals: Pt will be I with home exercise program. Pt will report at most 2/10 pain getting dressed; initial 8/10. Pt will report at most 2/10 pain reaching for a high shelf; initial 8/10. Pt will improve SPADI score by at least 13 points. Treatment Plan: Modalities to reduce pain, spasms and effusion. Manual therapy to restore motion and function. Therapeutic exercise to improve strength and flexibility. Neuromuscular re-education for posture and balance. Therapeutic activities to return to functional activities of daily living. Electronically signed by: Davis Rodrigez PT. Please sign and return to therapist. Thank you for your referral.
--- NOTE | 2024-07-21 13:01 | MHC.PT.DC ---
[facility] [place] Office [place] Office [place] Office [address] Gemini Meyer [address] [facility] [phone] F: [phone] F: [phone] F: [phone] F: [phone] Physical Therapy Discharge Report Diagnosis: L shoulder calcific tendonitis Date of Surgery: Date of Evaluation: 06/15/24 Date of Discharge: 07/21/24 Treatments to Date: 7 Cancellations to Date: No Shows to Date: Discharge Status: Achieved Goals Improved Function Independent with HEP Discharge Summary: Jolie has been an active and motivated participant in her program in and out of the home; she reports she has been doing her program at home and has been pain free wishing to DC today and PT is in agreement as she has met her goals. Electronically signed by: Davis Rodrigez PT. Please sign and return to therapist. Thank you for your referral.
== END 2024-07-21 13:01 | disposition home or self-care (01) ==
LOC: HO.PT 11:00
PROVIDERS: PCP Family Medicine; Visit Provider Physician Assistant
DX: M75.32 Calcific tendinitis of left shoulder (principal)
CPT/HCPCS: 97014; 97033; 97110; 97161; 97530

== ENCOUNTER 2024-10-11 08:19 | Outpatient (REF) | payer OTHER, SELFPAY ==
[2024-10-11 12:05] LABS: Alanine Aminotransferase 25 U/L (0-31); Albumin Level 4.3 g/dL (3.5-5.0); Alkaline Phosphatase 72 U/L (39-117); Aspartate Amino Transferase 25 U/L (5-31); Bilirubin Direct 0.3 mg/dL (0.0-0.5); Bilirubin Total 0.8 mg/dL (0.0-1.0); Cholesterol 198 mg/dL (<200); HDL Cholesterol 66 mg/dL (>40); LDL Cholesterol Calculated 116 mg/dL (<100); TSH reflex Free T4 3.06 uIU/mL (0.32-4.0); Triglycerides 83 mg/dL (<150)
== END 2024-10-11 08:20 | disposition home or self-care (01) ==
LOC: HO.HHCL 08:19
PROVIDERS: Visit Provider Family Medicine
DX: E78.5 Hyperlipidemia, unspecified (principal); E03.9 Hypothyroidism, unspecified
CPT/HCPCS: 36415; 80061; 80076; 84443

== ENCOUNTER 2024-10-13 11:04 | Outpatient (AMB) | payer OTHER, SELFPAY ==
--- NOTE | 2024-10-13 11:06 | MHC.OFFVIS ---
Intake Visit Reasons: [facility] referral for VV Intake Note: Pt c/o of intermittent LE swelling and pain. Safety Instruction Police Officer Required: Yes Safety Instruction Police Officer Name: [id number] Accompanied by: Self / Same As Patient Allergies No Known Allergies Allergy (Verified 05/24/24 10:31) HPI HPI [facility] referral for VV: Details: Jolie, a pleasant 59-year-old Georgian-speaking only female patient, is presenting today for concerns varicose veins, referred by her PCP. We utilized a qc scientist. Complaints include pain over varicosities, swelling of lower extremities, cramping, fatigue, and heaviness of the lower extremities. It has been affecting their daily activities including walking, standing, and physical activity. It is noted in bilateral legs. She is a diabetic, unknown last A1c. She is not a smoker Patient denies any previous venous surgery or injections. Patient denies any history of DVT/ PE. Patient denies any history of phlebitis. Trial of compression includes - elevation They now present for vascular evaluation regarding their varicose veins. [facility] Medical History Benign meningioma Depression Dyslipidemia Hypertension Hypothyroid Anemia Surgical History H/O dilation and curettage H/O colonoscopy History of tubal ligation Family History Mother Vaginal cancer Breast cancer Maternal Aunt Cancer Maternal Uncle Cancer Social History Alcohol intake: never Patient Tobacco Use Status: Never used Tobacco Current occupational status: unemployed Review of Systems Const Denies chills, Denies daytime sleepiness, Denies fatigue, Denies fever(s), Denies poor appetite, Denies snoring, Denies stops breathing during sleep, Denies weakness, Denies weight gain and Denies weight loss Eyes Denies loss of vision ENT Reports Normal hearing present, Denies dizziness and Denies hearing loss Card Denies chest pain, Denies irregular heart rhythm, Denies claudication, Denies leg edema, Denies lightheadedness, Denies palpitations, Denies dyspnea on exertion and Denies orthopnea Resp Denies cough, Denies excessive phlegm production, Denies dyspnea on exertion, Denies snoring and Denies wheezing GI Denies abdominal pain, Denies hematochezia, Denies change in bowel habits, Denies nausea and Denies vomiting Denies urinary frequency and Denies dysuria Musc Denies arthralgias, Denies muscle weakness, Denies numbness and Denies other Skin/Breast Denies nail changes and Denies rash Neuro Reports Normal hearing present, Denies Abnormal speech present, Denies dizziness, Denies loss of vision, Denies memory loss, Denies numbness, Denies Sensory deficit (Neuro) and Denies weakness Psych Denies depression and Denies memory loss Endo Denies fatigue and Denies palpitations Rishi/Lymph Denies easy bruising Aller/Immun Denies wheezing Physical Exam Const General: healthy appearing and no acute distress Orientation/consciousness: patient oriented x3 HEENT Head: Yes normal to inspection Ears: hearing grossly normal bilaterally Mouth: Normal oral and palatal mucosa present Resp Effort & Inspection: normal respiratory effort and able to speak in complete sentences Auscultation: clear to auscultation bilaterally Cardio Jugular venous distension: no JVD Rate: regular rate Rhythm: regular rhythm Heart sounds: S1 normal heart sound present and S2 normal heart sound present Bruits: no abdominal aortic bruits, no carotid bruits, no femoral bruits and no renal bruits Peripheral pulses: Peripheral pulses 2+ throughout GI Inspection: Yes normal to inspection Palpation (GI): No Abdominal aortic bruit present Skin General skin exam: no rashes or lesions noted Wounds: no wounds Hair: normal Neuro General: patient oriented x3 Cranial nerves: Yes Normal hearing present Cognition (Neuro): normal cognition Speech: No Abnormal speech present Gait exam (Neuro): Normal gait present Motor exam (neuro): 5/5 motor strength present throughout Sensory Exam: No Sensory deficit (Neuro) Extrem Other: Bilateral lower extremities: Trace peripheral edema noted. Spider veins noted around ankles. Small tortuosity noted on the right tibial area. Palpable DP pulses. CEAP: C - 3 E - primary A - superficial P - reflux General: Yes normal to inspection, Yes full ROM, Yes capillary refill normal and Yes normal gait Assessment & Plan Assessment & Plan (1) Varicose veins of both lower extremities with inflammation: Code(s): I83.11 - Varicose veins of right lower extremity with inflammation; I83.12 - Varicose veins of left lower extremity with inflammation Category: Medical Plan: Jolie is presenting today as a referral from her PCP for varicose veins. In short, the patient has evidence of venous insufficiency. I have discussed the pathophysiology with the patient. In addition I have provided informational material regarding venous disease to the patient. We have discussed conservative measures including compression, elevation, and exercise. I have also provided a handout regarding appropriate use of compression stockings (I discussed with the patient that unfortunately we do not have them translated into Georgian, she states she does read a little Andorran) and where to purchase good compression stockings as well. I had the rat breeder discuss the type of compression stockings and where she can purchase them and that it is more expensive if we prescribed them. I have taken the liberty of ordering venous insufficiency testing with the patient. They will follow up with me after testing. The patient had an opportunity to ask questions regarding the treatment plan. All questions were answered. Imaging studies, laboratory studies and physical exam results were discussed and reviewed in detail. No major barriers to understanding were identified. The patient expressed understanding and agreement with the above treatment plan. The patient is aware they should contact our office by phone for worsening of the current condition or the appearance of new symptoms. Thank you for allowing me to participate in the vascular care of this patient. If you have any questions or concerns regarding the treatment for the above condition please do not hesitate to contact me. The office telephone contact is [phone]. This note is constructed using voice recognition software. While every effort has been made to ensure accuracy, rn long term care errors may have been included. Thank you for allowing me to participate in the care of your patient. Yours sincerely, REBECCA Neves Orders: Orders US venous duplex LE BI 1 Week I83.11 - Varicose veins of right lower extremity with inflammation, I83.12 - Varicose veins of left lower extremity with inflammation Coding Level of Care Code New Pt Level 4 (62034) Diagnoses Varicose veins of both lower extremities with inflammation I83.11; I83.12
== END 2024-10-13 11:31 | disposition home or self-care (01) ==
PROVIDERS: PCP Family Medicine; Visit Provider Physician Assistant Surgical
DX: I83.11 Varicose veins of right lower extremity with inflammation (principal); I83.12 Varicose veins of left lower extremity with inflammation
CPT/HCPCS: 99204

== ENCOUNTER → 2024-10-13 11:04 | Outpatient (BNVA) | payer OTHER, SELFPAY | PROVIDERS: PCP Family Medicine; Visit Provider Physician Assistant Surgical | DX: I83.12 Varicose veins of left lower extremity with inflammation (principal); I83.11 Varicose veins of right lower extremity with inflammation | CPT/HCPCS: 99202 ==

== ENCOUNTER 2024-10-18 13:47 | Outpatient (REF) | payer OTHER, SELFPAY ==
--- NOTE | ~2024-10-18 | XR_ITS ---
EXAMINATION: XR HIP 2 OR MORE VIEWS LEFT WITH PELVIS HISTORY: chronic left hip pain COMPARISON: There are no prior studies for comparison. FINDINGS: A single AP view of the pelvis and two views of the left hip are submitted. Osseous mineralization is normal. There is no fracture or dislocation. There is moderate joint space narrowing. There is a 4.9 cm calcification in the pelvis which likely represents a uterine fibroid. XR/XR hip LT min 2V w/wo pel IMPRESSION: Moderate joint space narrowing. Electronically signed by: Fili Do MD 10/20/2024 09:49 AM EST
== END 2024-10-18 13:48 | disposition home or self-care (01) ==
LOC: HO.XRAY 13:47
PROVIDERS: PCP Family Medicine; Visit Provider Family Medicine
DX: M25.552 Pain in left hip (principal)
CPT/HCPCS: 73502

== ENCOUNTER → 2024-10-18 13:55 | Outpatient (BNV) | payer OTHER, SELFPAY | PROVIDERS: PCP Family Medicine; Visit Provider Radiology Diagnostic Radiology | DX: M25.552 Pain in left hip (principal) | CPT/HCPCS: 73502 ==

== ENCOUNTER 2024-10-22 09:11 | Emergency (ER) | payer OTHER, SELFPAY ==
--- NOTE | ~2024-10-22 | CT_ITS ---
CLINICAL HISTORY: headache CT head without contrast Comparison: 02/11/2024 Findings: No new intra-axial mass, midline shift, hydrocephalus, or acute hemorrhage. No significant atrophy-like change or white matter disease. There is no sinus or mastoid fluid. The orbits are unremarkable. There is no acute fracture. IMPRESSION: 1. No acute intracranial findings This document has been electronically signed by: Jeramy Beaver MD on 10/22/2024 11:03:24
[2024-10-22 09:22] VITALS: BP 156/81; PULSE 84; RESP 18; TEMP 36.6; O2SAT 98; BMI 25.4
[2024-10-22 09:41] VITALS: BP 146/57; PULSE 63; RESP 16; TEMP 37.1; O2SAT 97
--- NOTE | 2024-10-22 09:44 | ED.GENADULT ---
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 Cummings HPI narrative: 59-year-old female came in today for evaluation of headache and right eye blood shot and pain. 59-year-old female with history of right side craniotomy for a benign hemangioma removal in 2017 as a result patient has suffered from a minor stroke right-sided weakness residual, patient is able to function normally no need for instructional assistant to ambulate. Patient has been having headache on and off since the surgery, with worsening of the headache for the past 2 weeks, last night patient noticed blood shot in her right eye, no double vision, no visual loss, no weakness, no numbness. Related Data Home Medications ?Medication ?Instructions ?Recorded ?Confirmed acetaminophen 500 mg tablet 0 mg PO 07/22/22 atenolol 25 mg tablet 25 mg PO DAILY 07/22/22 blood sugar diagnostic (FreeStyle #10 ea 07/22/22 Lite Strips) clonazepam 0.5 mg tablet 0.5 mg PO DAILY PRN 07/22/22 escitalopram oxalate 20 mg tablet 20 mg PO DAILY 07/22/22 glipizide 5 mg tablet 5 mg PO QAM 07/22/22 lancets 33 gauge (TRUEplus Lancets) #100 ea 07/22/22 levothyroxine 75 mcg tablet 75 mcg PO DAILY 07/22/22 lisinopril 5 mg tablet 5 mg PO DAILY 07/22/22 melatonin 1 mg tablet 1 mg PO BEDTIME PRN insomnia 07/22/22 pravastatin 10 mg tablet 10 mg PO DAILY 07/22/22 famotidine 20 mg tablet 20 mg PO DAILY 10/13/24 Previous Rx's ?Medication ?Instructions ?Recorded bisacodyl 5 mg tablet,delayed 20 mg (4 x 5 mg) PO ONCE 1 day #4 04/07/24 release (Dulcolax (bisacodyl)) tabs peg 3350-electrolytes 236 240 ml PO Q10M #4,000 mL 04/07/24 gram-22.74 gram-6.74 gram-5.86 gram solution diclofenac sodium 1 % topical gel 4 g topical QID #100 grams 05/08/24 (Voltaren Arthritis Pain) ketorolac 10 mg tablet 10 mg PO Q8H 5 days #15 tabs 05/08/24 Allergies Allergy/AdvReac Type Severity Reaction Status Date / Time No Known Allergies Allergy Verified 10/22/24 09:25 Review of Systems Review of Systems: All other systems are reviewed and are negative Constitutional: Reports as per HPI and Reports no additional constitutional complaints Eyes: Reports as per HPI and Reports no additional eye complaints Reports system reviewed and no additional complaints, except as documented Cardiovascular: Reports as per HPI and Reports no additional cardiovascular complaints Respiratory: Reports as per HPI and Reports no additional respiratory complaints Gastrointestinal: Reports as per HPI and Reports no additional gastrointestinal complaints Genitourinary: Reports no additional female genitourinary complaints Musculoskeletal: Reports no additional musculoskeletal complaints Skin/Breast: Reports system reviewed and no additional complaints, except as docu Psychiatric: Reports no additional psychiatric complaints Endocrine: Reports no additional endocrine complaints Hematologic/Lymphatic: Reports no additional hematologic/lymphatic complaints Allergic/Immunologic: Reports no additional allergic/immunologic complaints Reports system reviewed and no additional complaints, except as documented and Reports Abnormal speech present [facility] Past Medical History Medical History Benign meningioma Depression Dyslipidemia Hypertension Hypothyroid Anemia Surgical History H/O dilation and curettage H/O colonoscopy History of tubal ligation Family History Family History Mother Vaginal cancer Breast cancer Maternal Aunt Cancer Maternal Uncle Cancer Social History Social History Alcohol intake: never Patient Tobacco Use Status: Never used Tobacco Smoked in Last 30 Days: No Use of substances other than those prescribed or required for medical reasons: No Advance Directives: No Advance Directives Information Provided: Yes Do you have a plan to hurt others: No Plan Current occupational status: unemployed Physical Exam ED Vital Signs: Vital Signs - 24 hr 10/22/24 09:22 10/22/24 09:41 Temperature 98 F 98.7 F Pulse Rate 84 63 Respiratory Rate 18 16 Blood Pressure 156/81 H 146/57 H Pulse Oximetry 98 97 Oxygen Delivery Method Room Air Room Air BMI result Body Mass Index 25.4 Vital signs have been reviewed and appear to be correct. Blood pressure elevated. Heart rate normal. Respiratory rate normal. Temperature normal. Oxygen saturation normal. Appearance: Alert. Oriented X3. No acute distress. Head: Normal external exam. Normocephalic. Atraumatic. No Mcdonald signs noted. No raccoon eyes noted Eyes: VA R 20/30,L20/40. General: appearance normal, both eyes and all related structures Visual Luu: normal visual luu by confrontation Alignment and Position: alignment normal and position normal Periorbital: periorbital findings normal Eyelids: Yes eyelids normal Conjunctivae: Right subconjunctival hemorrhage on the medial aspect of her right eye. Sclerae: sclerae normal Corneas: corneas normal Pupils: Equal, round and reactive pupils present and Pupil accommodation reflex normal EOM: EOM abnormal (Limited abduction of right eye) and No Nystagmus present Direct Ophthalmoscopy: normal light reflex, no photophobia, no papilledema and fundi normal bilaterally IOP right 14 left 16. ENT: TM's Normal. Pharynx normal. Uvula midline. Moist mucous membranes. No trismus noted. No drooling noted. No muffled voice noted. Neck: Normal inspection. Neck supple. FROM. No adenopathy. Thyroid Normal. No meningeal signs. No neck mass noted. CVS: Normal heart rate and rhythm. Heart sound normal. No murmurs noted. Pulses normal throughout. Respiratory: No respiratory distress. Painless inspiration. Breath sounds normal. No wheezes/rales/rhonchi noted. Chest nontender. No accessory muscle usage noted or decreased air movement noted. Abdomen: Soft and nontender. Bowel sounds normal in all 4 quadrants. No distention noted. No organomegaly noted. No visible injury noted. Back: No CVA tenderness. Full range of motion noted. Skin: Skin warm and dry. Normal skin color. Normal skin turgor. No rashes/lesions/lacerations noted. Extremities: No lower extremity edema. Extremities exhibit normal range of motion. Extremities nontender. Neuro: Mental status: Normal attention, orientation, memory, and affect. Cranial nerves: Pupils are equal, round and reactive to light, EOMI, visual luu are fall, face is symmetric, facial sensations are normal. Motor examination normal muscle tone, strength to 4 extremities. DTR are +2, planter's are flexor. Sensory exam; normal coordination, no ataxia, gait stable. Cerebellar exam: [id number]-ok-cvum and lxiy-ej-ihcj is normal. Extrapyramidal system: No tremors, no rigidity with normal facial expressions. Pronator drift not present Course Reevaluation(s) Reevaluation #1: Acute on chronic headache, right subconjunctival hemorrhage. No coagulopathy, no eye injury or trauma, patient feels better after Toradol and fluid, normal neuro exam. Will discharge to follow-up with PCP. Time: 10:41 Medications Administered Generic Name Dose Route Start Last Admin Trade Name Freq PRN Reason Stop Dose Admin Sodium Chloride 1,000 mls @ 999 mls/hr 10/22/24 09:58 10/22/24 10:22 Ns IV 10/22/24 10:58 999 mls/hr .Q1H1M ONE Administration Discontinued Medications Generic Name Dose Route Start Last Admin Trade Name Freq PRN Reason Stop Dose Admin Ketorolac Tromethamine 15 mg 10/22/24 09:58 10/22/24 10:23 Ketorolac Tromethamine 15 Mg/Ml Vial IVPUSH 10/22/24 09:59 15 mg ONCE ONE Administration Medical Decision Making Differential Diagnosis Differential Diagnoses: The differential diagnosis associated with the presentation includes (Subconjunctival hemorrhage, severe anemia, electrolyte derangement, CVA, acute on chronic headache, coagulopathy.) Admission/Observation Consideration of admission/observation: Escalation of care including admission/observation considered Lab Data MDM Lab Attestation statement: I reviewed the patient's lab results. 10/22/24 10:22 10/22/24 10:22 Labs: Lab Results 10/22/24 Range/Units 10:22 WBC 5.6 (4.8-10.8) X10*3/uL RBC 4.71 (4.20-5.50) X10*6/uL Hgb 13.8 (12.0-16.0) g/dl Hct 40.6 (37.0-47.0) % MCV 86.2 (80.0-98.0) fL MCH 29.3 (27.0-33.0) pg MCHC 34.0 (31.0-35.0) g/dl RDW 12.5 (11.0-16.0) % Plt Count 155 L D (160-400) X10*3/uL MPV 10.5 (9.4-12.3) fL Immature Gran % (Auto) 0.4 (0.0-0.4) % Neut % (Auto) 56.7 (45-73) % Lymph % (Auto) 31.5 (20-40) % Hoke % (Auto) 11.0 (2-11) % Eos % (Auto) 0.2 (0-4) % Baso % (Auto) 0.2 (0-2) % Lymph # (Auto) 1.8 (1.2-4.9) X10*3/uL Hoke # (Auto) 0.6 (0.1-1.2) X10*3/uL Eos # (Auto) 0.0 (0.0-0.4) X10*3/uL Baso # (Auto) 0.0 (0.0-0.2) X10*3/uL Abs Immat Gran (auto) 0.02 (0.00-0.03) X10*3/uL Absolute Neuts (auto) 3.2 (2.0-8.3) x10*3/uL Absolute Nucleated RBC 0.000 (0.0-0.012) X10*3/uL Nucleated RBC % (auto) 0.0 (0.0-0.2) /100WBC PT 11.3 (10.9-12.4) SEC INR 1.0 (0.9-1.1) APTT 28.0 (26.0-36.8) SEC Sodium 138 (135-145) mmol/L Potassium 4.7 (3.3-5.1) mmol/L Chloride 107 (96-108) mmol/L Carbon Dioxide 24 (22-29) mmol/L Anion Gap 12 (12-20) BUN 13 (9-16) mg/dL Creatinine 0.80 (0.5-1.4) mg/dL Estim Creat Clear Calc 69.5 Estimated GFR > 60 Random Glucose 143 H (60-115) mg/dL Calcium 9.5 (8.4-10.2) mg/dL Independent Interpretation I performed an independent interpretation of an: CT Scan (Head:) Radiology Impression Discussion of test interpretation with radiology: I have reviewed the radiologist's reading. Discharge Plan Discharge Clinical Impression: Headache, Subconjunctival hemorrhage of left eye Patient Disposition: Home, Self-Care Instructions: Subconjunctival Hemorrhage (ED) Prescriptions: No Action bisacodyl [Dulcolax (bisacodyl)] 5 mg tablet,delayed release (DR/EC) 20 mg PO ONCE 1 Days Qty: 4 0RF Rx Instructions: take at noon the day before colonoscopy peg 3350-electrolytes 236-22.74-6.74 -5.86 gram recon soln 240 ml PO Q10M Qty: 4000 0RF Rx Instructions: Refer to prep instructions given/ mailed to you from GI OFFICE. until fecal effluent is clear ketorolac 10 mg tablet 10 mg PO Q8H 5 Days Qty: 15 0RF diclofenac sodium [Voltaren Arthritis Pain] 1 % gel 4 g topical QID Qty: 100 0RF Rx Instructions: apply to affected area escitalopram oxalate 20 mg tablet 20 mg PO DAILY clonazepam 0.5 mg tablet 0.5 mg PO DAILY PRN pravastatin 10 mg tablet 10 mg PO DAILY lisinopril 5 mg tablet 5 mg PO DAILY levothyroxine 75 mcg tablet 75 mcg PO DAILY melatonin 1 mg tablet 1 mg PO BEDTIME PRN (Reason: insomnia) glipizide 5 mg tablet 5 mg PO QAM atenolol 25 mg tablet 25 mg PO DAILY acetaminophen 500 mg tablet 0 mg PO (DME) lancets [TRUEplus Lancets] 33 gauge misc See Rx Instructions .ROUTE DAILY Qty: 100 Rx Instructions: As directed (DME) FreeStyle Lite Strips Strip See Rx Instructions .ROUTE BID Qty: 10 Rx Instructions: As directed famotidine 20 mg tablet 20 mg PO DAILY Referrals: Clara Joseph MD [Primary Care Provider] - Print Language: Malay
[2024-10-22] MEDS: 0.9 % Sodium Chloride 1,000 ML 999 ML IV (10:22)
[2024-10-22] MEDS: Ketorolac Tromethamine 15 MG/ML VIAL IVPUSH (10:23)
[2024-10-22 10:27] LABS: MANUAL DIFF FLAG NO
[2024-10-22 10:36] LABS: Prothrombin Time 11.3 SEC (10.9-12.4)
[2024-10-22 10:37] LABS: Basophils Percent Auto 0.2 % (0-2); Eosinophils Percent Auto 0.2 % (0-4); Hematocrit 40.6 % (37.0-47.0); Hemoglobin 13.8 g/dl (12.0-16.0); Imm Gran Abs Auto 0.02 X10*3/uL (0.00-0.03); Imm Gran Pct Auto 0.4 % (0.0-0.4); Lymphocytes Absolute Auto 1.8 X10*3/uL (1.2-4.9); Lymphocytes Percent Auto 31.5 % (20-40); Mean Corpuscular Hemoglobin 29.3 pg (27.0-33.0); Mean Corpuscular Volume 86.2 fL (80.0-98.0); Mean Platelet Volume 10.5 fL (9.4-12.3); Monocytes Absolute Auto 0.6 X10*3/uL (0.1-1.2); Neutrophils Absolute Auto 3.2 x10*3/uL (2.0-8.3); Neutrophils Percent Auto 56.7 % (45-73); Platelet Count 155 X10*3/uL (160-400); Red Blood Count 4.71 X10*6/uL (4.20-5.50); Red Cell Distribution Width 12.5 % (11.0-16.0); White Blood Count 5.6 X10*3/uL (4.8-10.8)
[2024-10-22 10:40] LABS: Anion Gap 12 (12-20); Blood Urea Nitrogen 13 mg/dL (9-16); Calcium 9.5 mg/dL (8.4-10.2); Carbon Dioxide 24 mmol/L (22-29); Chloride 107 mmol/L (96-108); Creatinine Clr Calc Pharmacy 69.5; Estimated Glomerular Filt Rate > 60; Glucose Random 143 mg/dL (60-115); Potassium 4.7 mmol/L (3.3-5.1); Sodium 138 mmol/L (135-145)
[2024-10-22 10:48] LABS: Troponin-I High Sensitivity < 2.7 ng/L (<3.5-17.0)
[2024-10-22 11:35] VITALS: BP 128/70; PULSE 62; RESP 16; O2SAT 98
--- NOTE | 2024-10-22 11:39 | PC.NURSE ---
Pt came via triage from home for c/o of right eye redness and watering that started last night and headache that has been going on for the past 2 weeks but got worse last night. Hx of benign brain tumor in 2017 and stroke after tumor surgery pt reports. 22g Iv placed, labs obtained. IV fluids given per DEC.
[2024-10-22 12:22] VITALS: BP 137/60; PULSE 61; RESP 16; O2SAT 98
[2024-10-22 12:40] LABS: Appearance Urine Clear; Color Urine Yellow; Glucose Urine UA >=1000 mg/dL (Negative); Leukocyte Esterase Urine Negative (Negative); Nitrite Urine Negative (Negative); PH 5.5 (5.0-9.0); Specific Gravity - Urine 1.015 (1.005-1.025); UMIC TRIGGER UACC YES; Urine Blood Negative (Negative); Urine Ketones Trace mg/dL (Negative); Urine Protein Negative (Neg-Trace)
[2024-10-22 12:45] LABS: Bacteria Urine Trace (None Seen); Hyaline Casts Urine 0-2 /LPF (0-2); RBC Urine 0-2 /HPF (0-2); WBC Urine 0-5 /HPF (0-5)
[2024-10-22 14:55] VITALS: BP 128/60; PULSE 68; RESP 16; TEMP 36.9; O2SAT 97
[2024-10-22 16:13] VITALS: BP 128/52; PULSE 68; RESP 18; TEMP 36.9; O2SAT 97
== END 2024-10-22 16:14 | disposition home or self-care (01) ==
PROVIDERS: Emergency Provider Emergency Medicine; PCP Family Medicine
DX: R51.9 Headache, unspecified (principal); H11.31 Conjunctival hemorrhage, right eye; E11.9 Type 2 diabetes mellitus without complications; I10 Essential (primary) hypertension; D64.9 Anemia, unspecified; E03.9 Hypothyroidism, unspecified; Z79.899 Other long term (current) drug therapy; Z79.02 Long term (current) use of antithrombotics/antiplatelets
CPT/HCPCS: 36415; 70450; 80048; 81001; 84484; 85025; 85610; 85730; 96361; 96374; 99284; 99285; J1885

== ENCOUNTER → 2024-10-22 09:56 | Outpatient (BNV) | payer OTHER, SELFPAY | PROVIDERS: Emergency Provider Emergency Medicine; PCP Family Medicine; Visit Provider Specialist | DX: R51.9 Headache, unspecified (principal) | CPT/HCPCS: 70450 ==

== ENCOUNTER 2024-10-28 14:23 | Outpatient (REF) | payer OTHER, SELFPAY | END 2024-10-28 14:24 | disposition home or self-care (01) | LOC: HO.MAMMO 14:23 | PROVIDERS: PCP Family Medicine; Visit Provider Family Medicine | DX: Z12.31 Encounter for screening mammogram for malignant neoplasm of breast (principal) | CPT/HCPCS: 77063; 77067 ==

== ENCOUNTER 2024-11-08 13:34 | Outpatient (AMB) | payer OTHER, SELFPAY ==
--- NOTE | 2024-11-08 13:58 | A.OFFVIS_ITS ---
Vital Signs 11/08/24 14:02 Height 5 ft 4 in Weight 148 lb BMI 25.4 Handedness Right Intake Visit Reasons: New Prob - Left hip pain Intake Note: Jolie is a 59 year old female who presents today for a evaluation of her left hip pain. Patient reports ongoing pain for about 2 months. She states that her pain starts on the lateral aspect of the hip. Patient mentions that she notices a lump that comes and goes for a week. Pain is worse when she is laying down and her pain gets worse at night when sleeping. Patient has tried and failed Tylenol with no relief. 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 Gil Jackson is a 59-year-old female who presents to the office today for evaluation of left lateral hip pain. She denies any new injury or trauma to the area. She reports that she believes she has left hip osteoarthritis. She denies any groin pain. [facility] Medical History Benign meningioma Depression Dyslipidemia Hypertension Hypothyroid Anemia Surgical History H/O dilation and curettage H/O colonoscopy History of tubal ligation Family History Mother Vaginal cancer Breast cancer Maternal Aunt Cancer Maternal Uncle Cancer Social History Alcohol intake: never Patient Tobacco Use Status: Never used Tobacco Current occupational status: unemployed Review of Systems Const All systems reviewed & are unremarkable except as noted in HPI and below Physical Exam Vital Signs: BMI result Body Mass Index 25.4 Const General: cooperative, healthy appearing and no acute distress Resp Effort & Inspection: normal respiratory effort and able to speak in complete sentences Cardio Rate: regular rate Peripheral pulses: Peripheral pulses 2+ throughout Skin Lesions: no lesions Rashes: no rashes Extrem Other: Left hip: Normal to inspection. No ecchymosis, erythema, or edema. Full hip ROM in all planes. Tenderness to palpation over the greater trochanteric bursa. 5/5 strength with resisted hip flexion, knee extension, abduction, and abduction. Able to perform straight leg raise. NVI. Office Procedures AMB Joint Injection/Aspiration Joint Injection/Aspiration Primary Site: other (left hip greater troch bursa ) Prep: site was prepped using aseptic technique, ethochloride spray was applied and injection warnings given Injected: 40 mg of, DepoMedrol and with 8 mL of (2% plain lido ) Approach Used: other (Lateral ) Procedure: The patient tolerated the procedure well, but had some pain with the injection and there was some relief with the local anesthesia Coding 49890 - Glenohumeral/Tronchanteric Bursa/Intraarticular Procedure code (CPT) selection complete Assessment & Plan Assessment & Plan (1) Greater trochanteric bursitis of left hip: Code(s): M70.62 - Trochanteric bursitis, left hip Category: Medical Plan Ms. Gil Jackson is a 59-year-old female who presents to the office today for evaluation of left lateral hip pain. She denies any new injury or trauma to the area. She reports that she believes she has left hip osteoarthritis. She denies any groin pain. The patient was offered a cortisone injection in the left greater trochanteric bursa with 40 mg of DepoMedrol. The patient was explained the risks, benefits, and alternatives to receiving this injection. After receiving consent for the injection, the patient had the procedure done while in the office today. The pat ient tolerated the procedure well with no complications. Follow-up will be p.r.n., or sooner if needed X-rays that were obtained on 10/18/2024 are available for my review and reveal moderate left hip osteoarthritis. No acute fracture dislocation. Coding Level of Care Code Est Pt Level 4 (25166) Diagnoses Greater trochanteric bursitis of left hip M70.62 CPT Codes Coding - Joint 7: 12539 - Glenohumeral/Tronchanteric Bursa/Intraarticular ([id number])
[2024-11-08 14:02] VITALS: BMI 25.4
--- OUTSIDE RECORDS SUMMARY | 2024-11-08 14:34 | XMS_ITS | Encounter Summary ---
Author Organization [employer] Address [address] [place] [address] 7t [place] [address] Care Team Providers Care Rn Appeals Name Role Phone Clara Joseph MD Primary Care Provider +- [phone] Hamida Evans PharmD Unavailable January Unavailable Galdino Lee MD Unavailable [phone] Encounter Details Date Type Department Care Team (Late st Contact Info) Description 03/19/2023 Abstract [facility] MEDICINE [address] [place] [address] Clara Joseph MD [address] [place], [place] [phone] Social History Tobacco Use Types Packs/Day Years Used Date Smoking Tobacco: Never Passive Smoke Exposure: Never Smokeless Tobacco: Never Depression Answer Date Recorded Patient Health Questionnaire-9 Score 7 12/17/2022 Depression Answer Date Recorded Patient Health Questionnaire-2 Score 3 12/17/2022 Comments Unknown Sex and Gender Information Value Date Recorded Sex Assigned at Female 08/11/2022 10:18 AM EDT Legal Sex Female 10:18 AM EDT Gender Identity Female 08/11/2022 10:18 AM EDT Sexual Orientation Don't know 08/11/2022 10 :18 AM EDT COVID-19 Exposure Response Date Recorded In the last 10 days, have yo u been in contact with someone who was confirmed or suspected to have Coronavirus/COVID-19? No / Unsure 03/04/2023 1:51 PM EDT documented as of this encounter Plan of Treatment Upcoming Encounters Date Type Department Care Team (Late st Contact Info) Description 11/14/2024 8:00 AM EST Office Visit [facility] ADULT DENTAL [address] [place] [address] Lillian Crawford [address] [place] [address] 12/09/2024 1:00 PM EST Medication Management [facility] MED[facility]INE [address] [place] [address] Hamida Evans PharmD [address] [place] [phone] documented as of this encounter Goals Goal Patient Goal Type Associated Problems Recent Progress Patient-Stated? Author Blood Pressure < 140/90 Blood Pressure 110/58(2024 1:28 PM EST) No Hamida Herman PharmD Hemoglobin A1c < 7 Result Component 8.2( 1:34 PM EST) No Hamida Herman PharmD documented as of this encounter Visit Diagnoses Not on filedocumented in this encounter Additional Health Concerns Assessment Noted Time PHQ-9 Depression Total Score: 7 12/18/19 23 10:36 AM EST documented as of this encounter Care Teams Rn Appeals Relationship Specialty Start Date End Date Clara Joseph MD [address] [place] [address] PCP - General Family Medicine 10/12/18 Hamida Evans, PharmD [address] [place] [address] Pharmacist Internal Medicine 01/07/23January [address] 3rd [place] [address] Gastroenterology 09/30/24 Galdino Lee MD [address] [facility] [address] [place] [address] Ophthalmology 10/24/24 Mary Patel PA-C Vascular 10/13/24 documented as of this encounter
--- OUTSIDE RECORDS SUMMARY | 2024-11-08 14:34 | XMS_ITS | Encounter Summary ---
Author Organization [employer] Address [address] [facility] 7t [place] [address] Care Team Providers Care Hydroelectric Station Operator Chief Name Role Phone Clara Joseph MD Primary Care Provider + [phone] Hamida Evans PharmD Unavailable [phone] January Unavailable Galdino Lee MD Unavailable [phone] Encounter Details Date Type Department Care Team (Late st Contact Info) Description 09/28/2023 Abstract [facility] MEDICINE [address] [place] [address] Clara Joseph MD [address] [place], [place] [phone] Social History Tobacco Use Types Packs/Day Years Used Date Smoking Tobacco: Never Passive Smoke Exposure: Never Smokeless Tobacco: Never Depression Answer Date Recorded Patient Health Questionnaire-9 Score 7 12/17/2022 Housing Stability Answer Date Recorded What is your housing situation today? I have ghada tripathi 07/27/[address] you li ve. Do you have problems with any of the following? None of the above 07/27/2023 Food Insecurity Answer Date Recorded Within the past 12 months, y ou worried that your food would run out before you got money to buy more: Never True 07/27/2023 Within the past 12 months,th e food you bought just didn't last and you didn't have enough money to get more: Never True Transportation Answer Date Recorded In the past 12 months, has l ack of transportation kept you from medical appts, meetings, work or from getting things needed for daily living? No 07/27/2023 Utilities Answer Date Recorded In the past 12 months, has t he electric, gas, oil or water company threatened to shut off services in your home? No 07/27/2023 Depression Answer Date Recorded Patient Health Questionnaire-2 Score 3 12/17/2022 Comments Unknown Sex and Gender Information Value Date Recorded Sex Assigned at Female 08/11/2022 10:18 AM EDT Legal Sex Female 10:18 AM EDT Gender Identity Female 08/11/2022 10:18 AM EDT Sexual Orientation Don't know 08/11/2022 10 :18 AM EDT documented as of this encounter Plan of Treatment Upcoming Encounters Date Type Department Care Team (Late st Contact Info) Description 11/14/2024 8:00 AM EST Office Visit [facility] ADULT DENTAL [address] [place] [address] Yvette, Lillian [address] [place] [address] 12/09/2024 1:00 PM EST Medication Management [facility] [address] [place] [address] Piers-Luz Marina Pniedasa, PharmD [address] [place] [address] documented as of this encounter Goals Goal Patient Goal Type Associated Problems Recent Progress Patient-Stated? Author Blood Pressure < 140/90 Blood Pressure 110/58(2024 1:28 PM EST) No Piers-Gambl e, Hamida, PharmD Hemoglobin A1c < 7 Result Component 8.2( 1:34 PM EST) No Piers-Gambl e, Hamida, PharmD documented as of this encounter Procedures Procedure Name Priority Date/Time Associated Diagnosis Comments DIABETES EYE EXAM Routine 09/25/2023 documented in this encounter Results * Diabetes Eye Exam (09/25/2023) Eye Exam Normal Normal us Historical Provider HEALTH MAINTENANCE Final Result documented in this encounter Visit Diagnoses Not on filedocumented in this encounter Additional Health Concerns Assessment Noted Time PHQ-9 Depression Total Score: 7 12/18/19 23 10:36 AM EST documented as of this encounter Care Teams Hydroelectric Station Operator Chief Relationship Specialty Start Date End Date Clara Joseph MD [address] [place] [address] PCP - General Family Medicine 10/12/18 Hamida Evans, QuocD [address] [place] [address] Pharmacist Internal Medicine 01/07/23January [address] 3rd [place] [address] Gastroenterology 09/30/24 Galdino Lee MD [address] [place] [address] Ophthalmology 10/24/24 Mary Patel PA-C Vascular 10/13/24 documented as of this encounter
--- OUTSIDE RECORDS SUMMARY | 2024-11-08 14:34 | XMS_ITS | Encounter Summary ---
Author Organization [employer] Address [address] [facility] 7t [place] [address] Care Team Providers Care Demo Specialist Name Role Phone Clara Joseph MD Primary Care Provider +- [phone] Hamida Evans PharmD Unavailable [phone] Danieljanuary Unavailable Encounter Details Date Type Department Care Team (Late st Contact Info) Description 10/11/2024 Orders Only [facility] MEDICINE [address] [place] [address] Clara Joseph MD [address] [place] [address] Social History Tobacco Use Types Packs/Day Years Used Date Smoking Tobacco: Never Passive Smoke Exposure: Never Smokeless Tobacco: Never Alcohol Use Standard Drinks/Week Comments Never 0 (1 standard drink = 0.6 oz pur e alcohol) Depression Answer Date Recorded Patient Health Questionnaire-9 Score 4 01/15/2024 Patient Health Questionnaire-9 Score 4 01/15/2024 Last PHQ-9: Questionnaire Data Not on file 0 01/15/2024 Housing Stability Answer Date Recorded What is your housing situation today? I have ghada tripathi 01/15/[address] you li ve. Do you have problems with any of the following? None of the above 01/15/2024 Food Insecurity Answer Date Recorded Within the past 12 months, y ou worried that your food would run out before you got money to buy more: Never True 01/15/2024 Within the past 12 months,th e food you bought just didn't last and you didn't have enough money to get more: Never True 02/2024 Transportation Answer Date Recorded In the past 12 months, has l ack of transportation kept you from medical appts, meetings, work or from getting things needed for daily living? No 01/15/2024 Utilities Answer Date Recorded In the past 12 months, has t he electric, gas, oil or water company threatened to shut off services in your home? No 01/15/2024 Depression Answer Date Recorded Patient Health Questionnaire-2 Score 2 01/15/2024 Comments Unknown Sex and Gender Information Value [...] Description 11/14/2024 8:00 AM EST Office Visit [facility] ADULT DENTAL [address] [place] [address] Yvette, Lillian [address] [place] [address] 12/09/2024 1:00 PM EST Medication Management [facility] MEDICINE [address] [place] [address] Hamida Evans, QuocD [address] [place] [address] documented as of this encounter Goals Goal Patient Goal Type Associated Problems Recent Progress Patient-Stated? Author Blood Pressure < 140/90 Blood Pressure 110/58(2024 1:28 PM EST) No Hamida Herman, PharmD Hemoglobin A1c < 7 Result Component 8.2( 1:34 PM EST) No aHmida Herman PharmD documented as of this encounter Procedures Procedure Name Priority Date/Time Associated Diagnosis Comments HEPATIC FUNCTION PANEL Routine 10/11/2024 8:20 AM EST LIPID PANEL, STANDARD Routine 10/11/2024 8:20 AM EST documented in this encounter Results * (ABNORMAL) Lipid Panel, Standard (10/11/2024 8:20 AM EST) Triglycerides 83 <150 mg/dL [facility] Comment:Desirable Triglyceri de: less than 150 mg/dLBorderline High Triglyceride 150-199 mg/dLHigh Triglyceride: 200-499 mg/dLVery High Triglyceride: greater than or equal to 5OO mg/dL Cholesterol 198 <200 mg/dL [facility] Comment:Desirable Cholestero l: less than 200 mg/dLBorderline High Cholesterol: 200-239 mg/dLHigh Cholesterol: greater than 239 mg/dL LDL Cholesterol Calculated 116(H) <100 mg/dL [facility] Comment:Desirable LDL: less than 100 mg/dLNear Optimal/Above Optimal LDL: 110- 129 mg/dLBorderline High LDL: 130-159 mg/dLHigh LDL: 160-189 mg/dLVery High LDL: greater than or equal to 190 mg/dL HDL Cholesterol 66 >40 mg/dL [facility] Comment:Desirable HDL: great er than 40 mg/dL Note: This HDL assay may give artificially low results in patients with liver disease. 10/11/2024 8:20 AM EST 10/11/2024 10:57 AM EST us Clara Joseph MD LAB BLOOD ORDERABLES Final Result [facility] [address] [place] [phone] * Hepatic Function Panel (10/11/2024 8:20 AM EST) Bilirubin, Total 0.8 0.0 - 1.0 mg/dL [facility] Bilirubin, Direct 0.3 0.0 - 0.5 mg/dL [facility] Aspartate Amino Transferase 25 5 - 31 U/L [facility] Alanine Aminotransferase 25 0 - 31 U/L [facility] Total Protein 8.0 6.5 - 8.0 g/dL [facility] Albumin Level 4.3 3.5 - 5.0 g/dL [facility] Alkaline Phosphatase 72 39 - 117 U/L [facility] 10/11/2024 8:20 AM EST 10/11/2024 10:57 AM EST Clara Joseph MD LAB BLOOD ORDERABLES Final Result [facility] [address] [place] [address] [phone] documented in this encounter Visit Diagnoses Not on filedocumented in this encounter Additional Health Concerns Assessment Noted Time PHQ-9 Depression Total Score: 4 01/15/20 10:43 AM EDT documented as of this encounter Care Teams Demo Specialist Relationship Specialty Start Date End Date Clara Joseph MD [address] [place] [address] PCP - General Family Medicine 10/12/18 Hamida Evans, PharmD [address] [place] [phone] Pharmacist Internal Medicine 01/07/23 Fredy January [address] [place] [address] Drive 3rd [place] [address] Gastroenterology 09/30/24 documented as of this encounter
--- OUTSIDE RECORDS SUMMARY | 2024-11-08 14:34 | XMS_ITS | Encounter Summary ---
Author Organization [employer] Address [address] [facility] [address]t [place] [address] Care Team Providers Care Emt I/99 Name Role Phone Clara Joseph MD Primary Care Provider +- [phone] Hamida Evans PharmD Unavailable [phone] January Unavailable Galdino Lee MD Unavailable [phone] Encounter Details Date Type Department Care Team (Late st Contact Info) Description 09/30/2024 Orders Only [facility] MEDICINE [address] [place], [place] [phone] Clara Joseph MD [address] [place], [place] [phone] Social History Tobacco Use Types Packs/Day Years [...] Description 11/14/2024 8:00 AM EST Office Visit [facility] ADULT DENTAL [address] [place] [address] Yvette, Lillian [address] [place] [address] 12/09/2024 1:00 PM EST Medication Management [facility] MEDICINE [address] [place] [address] Arts-Hamida Pineda, PharmD [address] [place] [address] documented as of this encounter Goals Goal Patient Goal Type Associated Problems Recent Progress Patient-Stated? Author Blood Pressure < 140/90 Blood Pressure 110/58(2024 1:28 PM EST) No Piers-Gambl e, Hamida, PharmD Hemoglobin A1c < 7 Result Component 8.2( 1:34 PM EST) No Piers-Gambl e, Hamida, PharmD documented as of this encounter Visit Diagnoses Not on filedocumented in this encounter Additional Health Concerns Assessment Noted Time PHQ-9 Depression Total Score: 4 01/15/20 10:43 AM EDT documented as of this encounter Care Teams Emt I/99 Relationship Specialty Start Date End Date Augusta, Clara, MD [address] [place] [address] PCP - General Family Medicine 10/12/18 Hamida Evans, QuocD [address] [place] [address] Pharmacist Internal Medicine 01/07/23January [address] 3rd [place] [address] Gastroenterology 09/30/24 Galdino Lee MD [address] [facility] [address] [place] [address] Ophthalmology 10/24/24 Mary Patel PA-C Vascular 10/13/24 documented as of this encounter
--- OUTSIDE RECORDS SUMMARY | 2024-11-08 14:34 | XMS_ITS | Clinical Summary ---
Author Organization [employer] Address [address] [facility] [address] [place] [address] Care Team Providers Care Economic Development Director Name Role Phone Clara Joseph MD Primary Care Provider + [phone] Hamida Evans PharmD Unavailable [phone] January Unavailable Galdino Lee MD Unavailable [phone] Allergies No known active allergies Medications escitalopram (Lexapro) 20 MG tabletIndication s:Depressive disorder Take 20 mg by mouth Once per day. 022 Active empagliflozin (Jardiance) 25 MGIndications:Ty pe 2 diabetes mellitus without complication, without long-term current use of insulin ([facility]) TAKE 1 TABLET BY MOUTH EVERY MORNING 30 tablet 6 024 Active lisinopril 5 MG tabletIndication s:Hypertension, unspecified type,Type 2 diabetes mellitus without complication, without long-term current use of insulin ([facility]) TAKE 1 TABLET BY MOUTH EVERY EVENING 30 tablet 11 024 Active melatonin tabletIndication s:Primary insomnia TAKE 1 TABLET BY MOUTH AT BEDTIME NEEDED FOR SLEEP 30 tablet 5 024 Active levothyroxine (Synthroid, Levoxyl) 75 MCG tabletIndication s:Acquired hypothyroidism TAKE 1 TABLET BY MOUTH EVERY MORNING 90 tablet 3 024 Active atenolol (Tenormin) 25 MG tabletIndication s:Primary hypertension TAKE 1 TABLET BY MOUTH EVERYDAY AT NOON 90 tablet 3 024 Active glucose (Glutose) 40 % gel oral gelIndications:T ype 2 diabetes mellitus without complication, without long-term current use of insulin ([facility]) Use as directed for low blood sugar 40 g 11 024 Active omeprazole OTC (PriLOSEC OTC) 20 MG EC tabletIndication s:Gastroesophage al reflux disease, unspecified whether esophagitis present Take 1 tablet (20 mg) by mouth before breakfast and before evening meal. Do not crush, chew, or split. 60 tablet 11 024 2024 Active TRUEplus Lancets 33G miscIndications: Type 2 diabetes mellitus without complication, without long-term current use of insulin ([facility]) TEST BLOOD SUGAR THREE TIMES DAILY 100 each 1 024 Active FREESTYLE LITE test stripIndications :Type 2 diabetes mellitus without complication, without long-term current use of insulin (CMS/HCC) TEST BLOOD SUGAR THREE TIMES DAILY 100 strip 1 024 Active MAGNESIUM OXIDE 400 POIndications:Po stmenopausal PT PURCHASING OTC Active rosuvastatin (Crestor) 40 MG tabletIndication s:Dyslipidemia TAKE 1 TABLET BY MOUTH AT BEDTIME 90 tablet 024 Active linaGLIPtin (Tradjenta) 5 MG tabletIndication s:Type 2 diabetes mellitus without complication, without long-term current use of insulin (CMS/[facility]) Take 1 tablet (5 mg) by mouth Once per day. 90 tablet 024 Active glipiZIDE (Glucotrol) 5 MG tabletIndication s:Type 2 diabetes mellitus without complication, without long-term current use of insulin ([facility]) TAKE 1 TABLET BY MOUTH ONCE DAILY BEFORE DINNER DIRECTED. DO NOT TAKE IF SKIPPING MEAL. 90 tablet 3 025 Active ezetimibe (Zetia) 10 MG tabletIndication s:Type 2 diabetes mellitus without complication, without long-term current use of insulin (CMS/[facility]) Take 1 tablet (10 mg) by mouth Once per day. 90 tablet 3 025 Active TRUEplus Lancets 33G miscIndications: Type 2 diabetes mellitus without complication, without long-term current use of insulin (CMS/HCC) TEST BLOOD SUGAR THREE TIMES DAILY 100 each 11 023 2023 Discontinued glucose blood (FREESTYLE LITE) test stripIndications :Type 2 diabetes mellitus without complication, without long-term current use of insulin ([facility]) TEST BLOOD SUGAR THREE TIMES DAILY 100 each 11 023 2023 Discontinued magnesium oxide (Mag-Ox) 400 mg tablet PATIENT PURCHASING OTC 2023 Discontinued(D uplicate order (will not trigger notification to Pharmacy)) rosuvastatin (Crestor) 40 MG tabletIndication s:Dyslipidemia TAKE 1 TABLET BY MOUTH AT BEDTIME 90 tablet 024 2023 Discontinued(R eorder (will not trigger notification to Pharmacy)) Dulaglutide (Trulicity) 1.5 MG/0.5ML solution auto-injectorInd ications:Type 2 diabetes mellitus without complication, without long-term current use of insulin ([facility]) INJECT ONE PEN (=1.5MG) SUBCUTANEOUSLY ONCE A WEEK DIRECTED 2 mL 3 024 2023 Discontinued(S dori effects) omeprazole (PriLOSEC) [address] capsuleIndicatio ns:Gastroesophag eal reflux disease, unspecified whether esophagitis present 024 2023 Discontinued(M ed list cleanup (will not trigger notification to Pharmacy)) Active Problems Patient Care Coordination No te Formatting of this note migh t be different from the original. Enrolled in [facility] DM and HTN clinic with Hamida Evans, QuocD, [facility] [employer] Contractor: Jeaneth, member services number [phone] [employer] Agency: [facility] [employer] [facility] [place], [facility] Problem Noted Date Diagnosed Date Meningioma 10/24/2024 Postmenopausal 10/24/2024 Overview (10/24/2024): - Prescribed MAGNESIUM OXIDE 400 PO 10/24/24 Assessment & Plan (10/24/2024 12:53 PM EST): - Prescribed MAGNESIUM OXIDE 400 PO 10/24/24 Gastroesophageal reflux disease 10/24/2024 Left hip pain 09/30/2024 Overview (10/20/2024): - hip LT min 2V w/wo pel 10/18/23 IMPRESSION: Moderate joint space narrowing. Complicated varicose veins 09/30/2024 Overview (10/13/2024): - Seen by Mary Patel PA-C of vascular 09/12/25 Abfraction 06/17/2024 Tooth hypersensitivity 06/17/2024 Left shoulder pain 05/09/2024 Overview (05/24/2024): -X ray 05/08/24 done in ER: Calcific tendinitis at the left greater tuberosity, more pronounced as compared to prior. Mild acromioclavicular osteoarthritis. -Seen by Sabine Martinez PA-C, orthopedics 05/24/24 for cortisone injection Pain of submandibular gland 04/06/2024 Overview (05/25/2024): Seen by ENT 03/16/24 Dr Isidro for left submandibular pain and swelling. Course of Omnicef given with recommend for CT if no improvement. -Seen by ENT 04/27/24 noted to have left submandibular gland hypertrophy with tenderness despite antibiotic course. CT scan of the neck was ordered Assessment & Plan (04/08/2024 11:13 AM EDT): Seen by ENT 03/16/24 Dr Isidro for left submandibular pain and swelling. Course of Omnicef given with recommend for CT if no improvement. Refusal of blood transfusion s as patient is Restorationist 04/05/2024 Colon cancer screening 09/23/2023 Overview (10/24/2024): -colonsocpy with Dr. Mejia 2013 -FOBT done by insurance negative 02/2023 -Referral done to GI 09/23/2023 -seen 11/19/2023 for colonoscopy intake, colonoscopy scheduled then canceled due to taking diabetic meds that am, they canceled twice - We will be calling GI to schedule a colonoscopy for patient 10/24/24 Assessment & Plan (10/24/2024 12:04 PM EST): -colonsocpy with Dr. Mejia 2013 -FOBT done by insurance negative 02/2023 -Referral done to GI 09/23/2023 -seen 11/19/2023 for colonoscopy intake, colonoscopy scheduled then canceled due to taking diabetic meds that am, they canceled twice - We will be calling GI to schedule a colonoscopy for patient 10/24/24 Assessment & Plan (04/08/2024 11:13 AM EDT): -colonsocpy with Dr. Mejia 2013 -FOBT done by insurance negative 02/2023 -Referral done to GI 09/23/2023 -seen 11/19/2023 for colonoscopy intake, colonoscopy scheduled then canceled due to taking diabetic meds that am -encouraged to call for rescheduling 04/06/24 Assessment & Plan (09/23/2023 11:18 AM EST): -colonsocpy with Dr. Mejia 2013 -FOBT done by insurance negative 02/2023 -Referral done to GI 09/23/2023 Nail lesion 09/23/2023 Overview (09/23/2023): Noted incidentally on diabetic foot exam. Photo taken. Llikely bruise, but advised to self monitor and If it does not improve , seek medical attention Assessment & Plan (09/23/2023 12:29 PM EST): Noted incidentally on diabetic foot exam. Photo taken. Llikely bruise, but advised to self monitor and If it does not improve , seek medical attention Localized gingival recession, moderate 3 Other specified health status 02/24/2023 Overview (09/30/2024): -next physical due after January 14, 2025 -eye care facilitated by followed by Dr. Galdino Lee of [facility] -dental home is pt does not remember name Assessment & Plan (09/23/2023 11:18 AM EST): -next physical due after January, -eye care facilitated by followed by Dr. Galdino Lee of [facility] -dental home is pt does not remember name History of meningioma 12/17/2022 Overview (02/12/2024): - Hx right sided mass meningioma incidentally found on MRI of the brain that revealed 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 - S/p surgical resection 03/23/[address] [facility]. - Continued instability, dizziness and right facial numbness and decreased taste. - continue yearly MRIs, last done 10/2018 no significant change -CT head 11/16/23 Right occipital craniotomy unchanged since prior study. Small area of focal encephalomalacia in the posterior portion right cerebral hemisphere stable since prior study. No acute intracranial abnormality. Ventricles are normal in size. No intracranial hemorrhage. No extra-axial collection. Box-white differentiation maintained. Assessment & Plan (09/21/2023 10:29 AM EST): - Hx right sided mass meningioma incidentally found on MRI of the brain that revealed 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 - S/p surgical resection 03/23/[address] [facility]. - Continued instability, dizziness and right facial numbness and decreased taste. - continue yearly MRIs, last done 10/2018 no significant change Assessment & Plan (01/23/2023 9:35 AM EDT): - Hx right sided mass meningioma incidentally found on MRI of the brain that revealed 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 - S/p surgical resection 03/23/[address] [facility]. - Continued instability, dizziness and right facial numbness and decreased taste. - continue yearly MRIs, last done 10/2018 no significant change Assessment & Plan (12/17/2022 9:11 AM EST): - Hx right sided mass meningioma incidentally found on MRI of the brain that revealed 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 - S/p surgical resection 03/23/17 at [facility] in [place]. - Continued instability, dizziness and right facial numbness and decreased taste. 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 - Pt followed by therapist and psychiatry. - She is compliant wit Clonazepam and Citalopram. Assessment & Plan (04/08/2024 11:13 AM EDT): Depression. - Pt followed by therapist and psychiatry. - She is compliant wit Clonazepam and Citalopram. Assessment & Plan (09/21/2023 10:36 AM EST): Depression. - Pt followed by therapist and psychiatry. - She is compliant wit Clonazepam and Citalopram. Assessment & Plan (01/23/2023 9:35 AM EDT): Depression. - Pt followed by therapist and psychiatry. - She is compliant wit Clonazepam and Citalopram. Assessment & Plan (12/17/2022 10:50 AM EST): Not controlled and not able to keep up with daily activities of living like cleaning, shoping, doing the dishes and she is looking for a personal care assistance. Heartburn 12/17/2022 Overview (12/17/2022): Resolved with omeprazole. Use prn. Advised against intake of irritating foods: acidic, fried, high fat, caffeine. Avoid lying down within 30-60 min after food intake. Assessment & Plan (09/21/2023 10:37 AM EST): Resolved with omeprazole. Use prn. Advised against intake of irritating foods: acidic, fried, high fat, caffeine. Avoid lying down within 30-60 min after food intake. Assessment & Plan (12/17/2022 9:12 AM EST): Resolved with omeprazole. Use prn. Advised against intake of irritating foods: acidic, fried, high fat, caffeine. Avoid lying down within 30-60 min after food intake. Onychomycosis of left great toe 12/17/2022 Assessment & Plan (12/17/2022 10:55 AM EST): Will do apple cider vinegar soaks and treat with.. Hypothyroidism 01/31/2013 Overview (04/08/2024): Lab Results Component Value Date TSH 0.26 (L) 02/29/2024 TSH 3.59 01/20/2023 Assessment & Plan (04/08/2024 11:13 AM EDT): Lab Results Component Value Date TSH 0.26 (L) 02/29/2024 TSH 3.59 01/20/2023 Assessment & Plan (01/15/2024 10:38 AM EDT): - Last TSH was 3.59 01/20/2023 - Continue levothyroxine 75mcg Assessment & Plan (09/21/2023 10:29 AM EST): - Last TSH was 3.75 03/2021 - Continue levothyroxine 75mcg Assessment & Plan (01/23/2023 9:35 AM EDT): - Last TSH was 3.75 03/2021 - Continue levothyroxine 75mcg. Assessment & Plan (12/17/2022 9:11 AM EST): - Last TSH was 3.75 03/2021 - Continue levothyroxine 75mcg. Allergic rhinitis 01/31/2013 Diabetes mellitus, type 2 06/25/2012 Overview (08/23/2024): Diabetes is controlled. Diabetes is followed with pharmacy [facility] by Dr. Hamida Evans PharmD, [facility]. Lab Results Component Value Date HGBA1C 7.1 (A) 08/23/2024 HGBA1C 5.4 02/29/2024 HGBA1C 8.6 (A) 01/15/2024 Lab Results Component Value Date CREATININE 0.78 02/29/2024 EGFR >60 02/29/2024 MICROALBCREU TNP 02/29/2024 LDLCHOLCAL 111 (H) 05/02/2024 -Santi/Arb: lisinopril 5mg -Statin therapy: rosuvastatin 20mg -Diabetic eye exam: per pt with Dr. Lee in 2022. -Diabetic foot exam: 09/23/23 -Continue lifestyle modifications -Continue current medications: Jardiance 25 mg -Discontinue Metformin 500 mg 01/15/24 due to GI upset. -Discontinue Glipizide 01/15/24 -Trulicity restarted because she declines Insulin 01/15/24, increased to 1.5mg once weekly by [facility] 02/25/24 Assessment & Plan (04/08/2024 11:12 AM EDT): Diabetes is controlled. Diabetes is followed with pharmacy [facility] by Dr. Hamida Evans PharmD, [facility]. Lab Results Component Value Date HGBA1C 5.4 02/29/2024 HGBA1C 8.6 (A) 01/15/2024 HGBA1C 6.7 (H) 07/23/2023 Lab Results Component Value Date CREATININE 0.78 02/29/2024 EGFR >60 02/29/2024 MICROALBCREU TNP 02/29/2024 LDLCHOLCAL 107 (H) 02/29/2024 -Santi/Arb: lisinopril 5mg -Statin therapy: rosuvastatin 20mg -Diabetic eye exam: per pt with Dr. Lee in 2022. -Diabetic foot exam: 09/23/23 -Continue lifestyle modifications -Continue current medications: Jardiance 25 mg -Discontinue Metformin 500 mg 01/15/24 due to GI upset. -Discontinue Glipizide 01/15/24 -Trulicity restarted because she declines Insulin 01/15/24, increased to 1.5mg once weekly by [facility] 02/25/24 Assessment & Plan (01/15/2024 10:31 AM EDT): Diabetes is uncontrolled. - Lab Results Component Value Date HGBA1C 6.7 (H) 07/23/2023 HGBA1C 7.8 (H) 04/09/2023 HGBA1C 10.2 (A) 12/17/2022 -No results found for: POCA1C - Lab Results Component Value Date MICROALBUR 2.1 03/12/2021 CREATININE 0.70 11/19/2023 -Santi/Arb: lisinopril 5mg -Statin therapy: rosuvastatin 20mg -Diabetic eye exam: per pt with Dr. Lee in 2022, will call for note. -Diabetic foot exam: 09/23/23 -Continue lifestyle modifications -Continue current medications: Jardiance 25 mg - Discontinue Metformin 500 mg 01/15/24 - Will restart Trulicity because she declines Insulin 01/15/24 - Discontinue Glipizide 01/15/24 Assessment & Plan (09/23/2023 12:24 PM EST): Diabetes is controlled. - Lab Results Component Value Date HGBA1C 6.7 (H) 07/23/2023 HGBA1C 7.8 (H) 04/09/2023 HGBA1C 10.2 (A) 12/17/2022 -No results found for: POCA1C - Lab Results Component Value Date MICROALBUR 2.1 03/12/2021 CREATININE 0.75 01/20/2023 -Santi/Arb: lisinopril 5mg -Statin therapy: rosuvastatin 20mg -Diabetic eye exam: per pt with Dr. Lee in 2022, will call for note. -Diabetic foot exam: 09/23/23 -Continue lifestyle modifications -Continue current medications: Assessment & Plan (12/17/2022 11:03 AM EST): Not controlled. A1c 10.2% 12/17/22. Referral to [facility] 12/17/22. Dyslipidemia 06/25/2012 Overview (08/23/2024): Lab Results Component Value Date TRIG 61 04/09/2023 -Previously changed from pravastatin to rosuvastatin for high intensity statin by [facility] - Rosuvastatin increased from 20mg once daily to 40mg once daily by [facility] 08/23/24 due to hyperlipidemia LDL Cholesterol Calculated Date Value Ref Range Status 05/02/2024 111 (H) <100 mg/dL Final Comment: Desirable LDL: less than 100 mg/dLNear Optimal/Above Optimal LDL: 110-129 mg/dLBorderline High LDL: 130-159 mg/dLHigh LDL: 160-189 mg/dLVery High LDL: greater than or equal to 190 mg/dL Assessment & Plan (09/23/2023 11:17 AM EST): Lab Results Component Value Date TRIG 61 04/09/2023 -continue lifestyle modifications ' Hypertension 06/25/2012 Overview (09/23/2023): -Blood pressure is at goal -Continue lifestyle modifications -Continue current medications Assessment & Plan (04/08/2024 11:12 AM EDT): -Blood pressure is at goal -Continue lifestyle modifications -Continue current medications Assessment & Plan (09/23/2023 11:17 AM EST): -Blood pressure is at goal -Continue lifestyle modifications -Continue current medications Assessment & Plan (12/17/2022 11:02 AM EST): Nto controlled. Refer to [facility] 12/17/22. Resolved Problems Problem Noted Date Diagnosed Date Resolved Date Dizzy 09/30/2024 10/20/2024 Excessive attrition of teeth , limited to enamel 05/11/2024 10/20/2024 Diabetes due to undrl condit ion w oth diabetic neuro comp 01/19/2024 10/20/2024 Dental calculus 04/02/2023 10/20/2024 Nausea and vomiting 02/19/2023 09/23/20 Overview (02/19/2023): -likely viral gastroenteritis -no evidence of dehydration on exam -no evidence of acute abdomen -supportive care with fluids -ER precautions discussed Assessment & Plan (09/21/2023 10:37 AM EST): -likely viral gastroenteritis -no evidence of dehydration on exam -no evidence of acute abdomen -supportive care with fluids -ER precautions discussed Assessment & Plan (02/19/2023 1:36 PM EDT): -likely viral gastroenteritis -no evidence of dehydration on exam -no evidence of acute abdomen -supportive care with fluids -ER precautions discussed Benign meningioma 11/21/2021 12/17/2022 Encounters Date Type Department Care Team Description 11/04/2024 Travel 10/28/2024 Orders Only [facility] [place] [address] Clara Joseph MD 10/24/2024 11:30 AM EST Office Visit [facility] [place] [address] Clara Joseph MD Gastroesophageal reflux disease, unspecified whether esophagitis present (Primary Dx); Postmenopausal; Meningioma ([facility]); 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 prior episode ([facility]); Type 2 diabetes mellitus without complication, without long-term current use of insulin ([facility]); Dietary counseling; Exercise counseling; Overweight; Colon cancer screening 10/24/2024 Telephone [facility] [place] [address] Claar Joseph MD [facility] GI Appt 10/24/2024 Travel 10/22/2024 Orders Only GENERIC EXTERNAL DATA DEPARTMENT Provider, Generic External Data 10/21/2024 Telephone [facility] [place] [address] Clara Joseph MD 10/19/2024 Telephone [facility] [place] [address] Clara Joseph MD Lab Orders 10/13/2024 Patient Outreach [facility] [place] [address] Clara Joseph MD Pre-visit Planning ([facility] screening was completed on 01/15/2024) 10/11/2024 Orders Only [facility] [place] [address] Clara Joseph MD 10/10/2024 Travel 10/09/2024 Refill [facility] [place] [address] Clara Joseph MD Type 2 diabetes mellitus without complication, without long-term current use of insulin (CMS/HCC) 10/07/2024 Telephone [facility] [place] [address] Clara Joseph MD 10/03/2024 Telephone [facility] [place] [address] Clara Joseph MD 09/30/2024 10:00 AM EST Office Visit [facility] [place] [address] Clara Joseph MD Left hip pain (Primary Dx); Dizzy; Complicated varicose veins; Type 2 diabetes mellitus without complication, without long-term current use of insulin (CMS/HCC); Gastroesophageal reflux disease, unspecified whether esophagitis present; 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 prior episode (CMS/HCC); Dyslipidemia; History of meningioma; Primary hypertension; Hypothyroidism, unspecified type; Other specified health status; Colon cancer screening 09/30/2024 Telephone [facility] [place] [address] Clara Joseph MD 09/30/2024 Orders Only [facility] [place] [address] Clara Joseph MD 09/30/2024 Travel 09/29/2024 Telephone [facility] [place] [address] Clara Joseph MD Medication Question 09/25/2024 Refill [facility] [place] [address] Clara Joseph MD Primary hypertension 09/15/2024 Refill [facility] [place] [address] Hamida Evans, [place] Type 2 diabetes mellitus without complication, without long-term current use of insulin (CMS/HCC) 09/05/2024 4:20 PM EST Office Visit [facility] [place] [address] Zeenat Saab, [employer] IN[employer]ER Epigastric pain (Primary Dx) 09/05/2024 Telephone [facility] [address] [place] [phone] Clara Joseph MD Nurse Triage 08/23/2024 Travel 08/22/2024 Orders Only [facility] [address] [place] [phone] Clara Joseph MD Type 2 diabetes mellitus without complication, without long-term current use of insulin ([facility]) (Primary Dx); Primary hypertension 08/21/2024 Refill [facility] [address] [place] [address] [phone] Clara Joseph MD Acquired hypothyroidism 08/19/2024 Telephone [facility] [address] [place] [address] [phone] Clara Joseph MD 08/17/2024 9:20 AM EST Office Visit [facility] [address] [place] [address] [phone] Marina Roca, Acute right eye pain (Primary Dx) 08/16/2024 Telephone [facility] [address] [place] [address] [phone] Clara Joseph MD Nurse Triage from Last 3 Months Immunizations Name Administration Dates Next Due Hep B, adult 07/18/2015,09/13/2014,05/01/2014 Influenza injectable quadriv alent IIV4 with preservative 07/02/2018 Influenza injectable quadriv alent preservative free 07/01/2023,06/30/2022,07/23/2021,08/02,08/04/2019,07/18/2015 Influenza, IIV3, injectable 09/13/2014, 0 Influenza, Split (incl. rachel fied surface antigen) 06/29/2013,06/25/2012 Influenza, seasonal, injecta ble, preservative free 06/30/2024,07/07/2016 Pfizer Covid-19 Vaccine 12+ 06/30/2024,1 ,09/01/2022,01/16,12/26/2020 Pfizer Covid-19 Vaccine 12+ Bivalent 09/01/2022, 01/21/2022 Pfizer Covid-19 Vaccine 12+ damian-sucrose (Box Cap) 01/21/2022 Pneumococcal Conjugate PCV 20 01/20/2023 Pneumococcal Polysaccharide PPSV23 07/18/2015, RSV Bivalent 01/26/2024 TD (adult), 2 Lf tetanus tox oid, preservative free, adsorbed 06/30/2022 Tdap 06/25/2012 Zoster, Recombinant 01/20/2022,11/21/2021 Family History Medical History Relation Name Comments Breast cancer Mother Vaginal cancer Mother Relation Name Status Comments Mother Social History Tobacco Use Types Packs/Day Years Used Date Smoking Tobacco: Never Passive Smoke Exposure: Never Smokeless Tobacco: Never Tobacco Cessation:Counseling Given: Not Answered Alcohol Use Standard Drinks/Week Comments Never 0 [...] Recorded Patient Health Questionnaire-2 Score 2 01/15/2024 Internet Access Answer Date Recorded Internet Access Q1 Yes 10/13/2024 Internet Access Q2 Not on file 10/13/2024 Comments Unknown Sex and Gender Information Value Date Recorded Sex Assigned at Female 08/11/2022 10:18 AM EDT Legal Sex Female 10:18 AM EDT Gender Identity Female 08/11/2022 10:18 AM EDT Sexual Orientation Don't know 08/11/2022 10 :18 AM EDT Last Filed Vital Signs Vital Sign Reading Time Taken Comments Blood Pressure 110/58 11/04/2024 1:28 PM EST Pulse 64 11/04/2024 1:28 PM EST Temperature 36.2 ??C (97.2 ??F) 10/24/2024 11:[address] Respiratory Rate 16 10/24/2024 11:39 AM EST Oxygen Saturation 100% 09/30/2024 9:38 AM EST Inhaled Oxygen Concentration - - Weight 68.9 kg (152 lb) 10/24/2024 11:39 AM EST Height 162.6 cm (5' 4 ) 10/24/2024 11:39 AM EST Body Mass Index 26.09 10/24/2024 11:39 AM EST Plan of Treatment Upcoming Encounters Date Type Department Care Team (Late st Contact Info) Description 11/14/2024 8:00 AM EST Office Visit [facility] ADULT DENTAL [address] [place] [address] Qasim Crawfordaris [address] [place] [address] 12/09/2024 1:00 PM EST Medication Management [facility] MEDICINE [address] [place] [address] Hamida Evans, PharmD [address] [place] [address] Health Maintenance Due Date Last Done Comments CT Colonography 1965 FIT DNA/Cologuard 1965 Sigmoidoscopy 1965 FIT 02/10/2024 02/09/2023, 02/09/2023 FOBT 02/10/2024 02/09/2023, 02/09/2023 Dental Oral Exam 11/12/2024 05/11/2024, , 05/19/2022, Additional history exists Dental Prophylaxis 11/12/2024 05/11/2024, 0 04/02/2023, 05/19/2022, Additional history exists Depression Screening 01/14/2025 01/15/2024, 01/15/20 SDOH Screening 01/14/2025 01/15/2024 Diabetes: Hemoglobin A1C 02/02/2025 025, 08/23/2024, 02/29/2024, Additional history exists Diabetes: Urine Protein Screening 02/28/2025 02/29/2024, 03/12/2021, 12/19/2019 Dental X-Ray: Bitewings 05/12/2025 05/11/20 24, 04/02/2023, 05/19/2022, Additional history exists Eye Exam 09/25/2025 09/25/2023 Alcohol/Substance Use Screening 09/30/2025 09/30/2024 Diabetes: Foot Exam 09/30/2025 09/30/2024, 09/30/2024, 09/30/2024, Additional history exists Lipid Panel 10/11/2025 10/11/2024, 04/12, 02/29/2024, Additional history exists Tobacco Screening 10/24/2025 10/24/2024 Mammogram 10/28/2026 10/28/2024, 10/12, 10/03/2022, Additional history exists Cervical Cancer Screening 03/14/2027 HPV/Cotest 03/14/2027 03/14/2022, 01/09/2017 Pap Smear 03/14/2027 03/14/2022, 03/14/2022 Dental X-Ray: Full Mouth 05/12/2027 05/11/2024, 06/12 DTaP/Tdap/Td Vaccines (3 - Td or Tdap) 06/30/2032 06/30/2022, 06/25/2012 Colonoscopy 01/29/2034 01/30/2024, 02/09, 02/22/2014 Colorectal Cancer Screening 01/29/2034 Hepatitis B Vaccines Completed 07/18/2015, 09/13/2014, 05/01/2014 Zoster Vaccines Completed 01/20/2022, 11/21/2021 HIV Screening Completed 01/20/2023 Hepatitis C Screening Completed 01/20/2023 Pneumococcal Vaccine: Pediatrics (0 to 5 Years) and At-Risk Patients (6 to 64 Years) Completed 01/20/2023, 07/18/2015, 07/29/2006 RSV Patients and Patients Aged 60 years or older Completed 01/26/2024 COVID-19 Vaccine Completed 06/30/2024, 01/2023, 09/01/2022, Additional history exists Influenza Vaccine Completed 06/30/2024, , 06/30/2022, Additional history exists HIB Vaccines Aged Out No longer eligi ble based on patient's age to complete this topic HPV Vaccines Aged Out No longer eligi ble based on patient's age to complete this topic Hepatitis A Vaccines Aged Out No long er eligible based on patient's age to complete this topic IPV Vaccines Aged Out No longer eligi ble based on patient's age to complete this topic Meningococcal Vaccine Aged Out No prakash sue eligible based on patient's age to complete this topic RSV under 20 months Aged Out No longe r eligible based on patient's age to complete this topic Rotavirus Vaccines Aged Out No longer eligible based on patient's age to complete this topic Goals Goal Patient Goal Type Associated Problems Recent Progress Patient-Stated? Author Blood Pressure < 140/90 Blood Pressure 110/58(2024 1:28 PM EST) No Hamida Herman PharmD Hemoglobin A1c < 7 Result Component 8.2( 1:34 PM EST) No Hamida Herman PharmD Procedures Procedure Name Priority Date/Time Associated Diagnosis Comments POCT GLYCATED HEMOGLOBIN, TOTAL Routine 11/04/2024 1:34 PM EST Type 2 diabetes mellitus without complication, without long-term current use of insulin ([facility]) BI MAMMOGRAM SCREENING TOMOSYNTHESIS BILATERAL Routine 10/28/2024 2:30 PM EST URINALYSIS, COMPLETE, WITH REFLEX TO CULTURE Routine 10/22/2024 12:[address] HEAD WO CONTRAST Routine 10/22/2024 1 1:03 AM EST HIGH SENSITIVITY TROPONIN I Routine 10/22/2024 10:22 AM EST BASIC METABOLIC PANEL Routine 10/22/2024 10:22 AM EST APTT Routine 10/22/2024 10:22 AM EST PROTHROMBIN TIME-INR Routine 10/22/2024 10:22 AM EST CBC WITH AUTO DIFFERENTIAL Routine 10/22/2024 10:22 AM EST XR HIP 2 OR 3 VIEWS LEFT Routine 10/18/2024 2:15 PM EST Left hip pain LIPID PANEL, STANDARD Routine 10/11/2024 8:20 AM EST HEPATIC FUNCTION PANEL Routine 8:20 AM EST TSH W/REFLEX TO FT4 Routine 10/11/2024 8 :20 AM EST Hypothyroidism, unspecified type POCT GLYCATED HEMOGLOBIN, TOTAL Routine 08/23/2024 11:12 AM EST Type 2 diabetes mellitus without complication, without long-term current use of insulin (CMS/HCC) PROPHYLAXIS - ADULT Routine 05/11/2024 9 :00 AM EDT Dental calculus DIAGNOSTIC - DIAGNOSTIC IMAGING - INTRAORAL - COMPREHENSIVE SERIES OF RADIOGRAPHIC IMAGES Routine 05/11/2024 9:00 AM EDT Dental calculus Localized gingival recession, moderate PERIODIC ORAL EVALUATION - ESTABLISHED PATIENT Routine 05/11/2024 9:00 AM EDT ALBUMIN, RANDOM URINE W/CREATININE Routine 02/29/2024 12:00 AM EDT Type 2 diabetes mellitus without complication, without long-term current use of insulin (CMS/HCC) HM COLONOSCOPY Routine 01/30/2024 12:30 PM EDT HM DIABETES EYE EXAM Routine 09/25/2023 FECAL GLOBIN BY IMMUNOCHEMISTRY Routine 02/09/2023 3:08 PM EDT HEPATITIS C AB W/REFL TO HCV RNA, QN, PCR Routine 01/20/2023 8:39 AM EDT Routine screening for STI (sexually transmitted infection) HIV 1/2 ANTIGEN/ANTIBODY, FOURTH GENERATION W/RFL Routine 01/20/2023 8:39 AM EDT Routine screening for STI (sexually transmitted infection) THINPREP IMAGING PAP AND HPV MRNA E6/E7, WITH CT/NG, TRICHOMONAS Routine 03/14/2022 12:12 PM EDT PAP SMEAR Routine 03/14/2022 12:00 AM EDT from Last 3 Months or Most Recently Relevant to Health Maintenance Results * (ABNORMAL) POCT HGB A1C (11/04/2024 1:34 PM EST) Only the most recent of2 resultswithin the time period is included. Hemoglobin A1C 8.2(A) 4.0 - 6.0 % QC Media Lot # [id number] Lot# Expiration Date ,[id number] Blood 11/04/2024 1:34 PM EST Clara Joseph MD POINT OF CARE TEST ENTER/E DIT ORDERABLES Final Result * BI Mammogram Screening Tomosynthesis Bilateral (10/28/2024 2:30 PM EST) Anatomical Region Laterality Modality Breast Bilateral Mammography 10/28/2024 2:30 PM EST Narrative 11/06/2024 4:16 PM EST ? [facility] ? [address] ?[place] [address] ? Mammography Report ? Signed ? Patient: Cordero Manuel,Jolie ?MR#: MM ?? [id number] ? : 1965 ?Acct:[id number] ? Age/Sex: 59 / F ?ADM Date: 01/17/25 ? Loc: HO.MAMMO ? Attending Dr: Clara Joseph MD ? Ordering Physician: Clara Joseph MD ?Results: 1N ?? egative ? Date of Service: 10/28/24 ?Follow Up: 1 Year From Orig ?? inal Mammogram ? Procedure(s): MM tomosynthesis screening BI ?? Accession Number(s): [id number] ? cc: Clara Joseph MD ? EXAMINATION: ?? MM SCREENING DIGITAL BREAST TOMOSYNTHESIS, BILATERAL ? CLINICAL INFORMATION: ? Screening. Asymptomatic. ? COMPARISON: ?? Mammography: Comparison is made with available priors ? TECHNIQUE: ?? Digital breast mammography with tomosynthesis is performed in both the ?? craniocaudal and mediolateral oblique views along with computer-aided ?? detection (CAD). ? FINDINGS: ?? The breasts are heterogeneously dense, which may obscure small masses ?? (ACR BI-RADS breast composition Category c). ? There are no significant masses, abnormal calcifications, or other ?? abnormalities. ? MM/MM tomosynthesis screening BI ?? IMPRESSION: ?? No mammographic evidence of malignancy. ? ASSESSMENT: ? BI-RADS BI-RADS 1 - Negative ? RECOMMENDATION: ?? Routine annual mammography screening. ? 1 year F/U ? This examination should not preclude the clinical evaluation of a ?? suspicious palpable abnormality. ? This patient's information was entered into a reminder system with a ?? target due date for their next mammogram. ? Electronically signed by: ??Bridgett Delong DO ??11/06/2024 04:13 PM EST ?? RP ? Dictated By: ?Bridgett Delong DO ? Signed By: ?<Electronically signed by Bridgett Delong, DO in OV> ? 11/06/24 1613 ? DD/ 1430 ? TD/TT: 10/28/24 1450 ? Litigation Support Analyst: ? Procedure Note Donotuseinterpreter, Image - [facility] [address] [place] [address] Mammography Report Signed Patient: Yeimy WerneradMR#: [id number] : 1965Acct:[id number] Age/Sex: 59 / FADM Date: 10/28/24 Loc: HO.MAMMO Attending Dr: Clara Joseph MD Ordering Physician: Clara Joseph MDResults: 1N egative Date of Service: 10/28/24Follow Up: 1 Year From Orig inal Mammogram Procedure(s): MM tomosynthesis screening BI Accession Number(s): [id number] cc: Clara Joseph MD EXAMINATION: MM SCREENING DIGITAL BREAST TOMOSYNTHESIS, BILATERAL CLINICAL INFORMATION: Screening. Asymptomatic. COMPARISON: Mammography: Comparison is made with available priors TECHNIQUE: Digital breast mammography with tomosynthesis is performed in both the craniocaudal and mediolateral oblique views along with computer-aided detection (CAD). FINDINGS: The breasts are heterogeneously dense, which may obscure small masses (ACR BI-RADS breast composition Category c). There are no significant masses, abnormal calcifications, or other abnormalities. MM/MM tomosynthesis screening BI IMPRESSION: No mammographic evidence of malignancy. ASSESSMENT: BI-RADS BI-RADS 1 - Negative RECOMMENDATION: Routine annual mammography screening. 1 year F/U This examination should not preclude the clinical evaluation of a suspicious palpable abnormality. This patient's information was entered into a reminder system with a target due date for their next mammogram. Electronically signed by: Bridgett Delong DO 11/06/2024 04:13 PM [facility] Dictated By: Bridgett Delong DO Signed By: <Electronically signed by Bridgett Delong DO in OV> 11/06/24 1613 DD/ 1430 TD/TT: 10/28/24 1450 Litigation Support Analyst: us Clara Joseph MD IMG BI PROCEDURES Edited R esult - Final * (ABNORMAL) Urinalysis, Complete, with Reflex to Culture (10/22/2024 12:26 PM EST) Color Urine Yellow [facility] Appearance Urine Clear [facility] PH 5.5 5.0 - 9.0 [facility] Glucose Urine UA >=1000(A) Negative mg/dL [facility] Urine Blood Negative Negative [facility] Specific [place] - Urine 1.015 1.005 - 1.025 [facility] Urine Protein Negative Neg-Trace mg/dL [facility] Urine Ketones Trace Negative mg/dL [facility] Nitrite Urine Negative Negative [facility] Leukocyte Esterase Urine Negative Negative [facility] RBC Urine 0-2 0 - 2 /HPF [facility] Urine WBC 0-5 0 - 5 /HPF [facility] Urine Squamous Epithelial Cell 11-20 0 - 2 /HPF [facility] Urine Bacteria Trace None Seen [facility] Hyaline Casts, Urine 0-2 0 - 2 /LPF [facility] 10/22/2024 12:2 6 PM EST 10/22/2024 12:36 PM EST Narrative [facility] - 10/22/2024 12:50 PM EST [id number], Clean Catch us Generic External Data Provider LAB URINE ORDERAB LES Final Result [facility] [address] [place] [address] [phone] * CT Head w/o Contrast (10/22/2024 11:03 AM EST) Anatomical Region Laterality Modality Head, Neck Computed Tomogra phy 10/22/2024 11:0 3 AM EST Narrative 10/22/2024 11:04 AM EST ? [facility] ?[address] ?[place] [address] ? CT Scan Report ? Signed ? Patient: Cordero Manuel,Jolie ?MR#: MM ?? [id number] ? : 1965 ?Acct:[id number] ? Age/Sex: 59 / F ?ADM Date: 10/22/24 ? Loc: HO.ED ? Attending Dr: ? Ordering Physician: Chalino Cummings MD ?? Date of Service: 10/22/24 ?? Procedure(s): CT head/brain wo IV con ?? Accession Number(s): [id number] ? cc: Clara Joseph MD; Chalino Cummings MD ? Report Number: ?? [id number]: Total DLP = ??533.00 mGy-cm ? CLINICAL HISTORY: headache ? CT head without contrast ? Comparison: 02/11/2024 ? Findings: ?? No new intra-axial mass, midline shift, hydrocephalus, or acute ?? hemorrhage. ?? No significant atrophy-like change or white matter disease. ? There is no sinus or mastoid fluid. ?? The orbits are unremarkable. ?? There is no acute fracture. ? IMPRESSION: ?? 1. No acute intracranial findings ? This document has been electronically signed by: Jeramy Beaver MD on ?? 10/22/2024 11:03:24 ? Dictated By: ?Jeramy Beaver MD ? Signed By: ?<Electronically signed by Jeramy Beaver MD in OV> ?10/22/24 1103 ? DD/ 1103 ? TD/TT: 10/22/24 1103 ? Litigation Support Analyst: ? Procedure Note Allison, Image - 10/22/[address] [address] [address] Scan Report Signed Patient: Yeimy WerneradMR#: [id number] : 1965Acct:[id number] Age/Sex: 59 / FADM Date: 10/22/24 Loc: HO.ED Attending Dr: Ordering Physician: Chalino Cummings MD Date of Service: 10/22/24 Procedure(s): CT head/brain wo IV con Accession Number(s): [id number] cc: Clara Joseph MD; Chalino Cummings MD Report Number: [id number]: Total DLP = 533.00 mGy-cm CLINICAL HISTORY: headache CT head without contrast Comparison: 02/11/2024 Findings: No new intra-axial mass, midline shift, hydrocephalus, or acute hemorrhage. No significant atrophy-like change or white matter disease. There is no sinus or mastoid fluid. The orbits are unremarkable. There is no acute fracture. IMPRESSION: 1. No acute intracranial findings This document has been electronically signed by: Jeramy Beaver MD on 10/22/2024 11:03:24 Dictated By: Jeramy Beaver MD Signed By: <Electronically signed by Jeramy Beaver MD in OV> 10/22/24 1103 DD/ 110 TD/TT: 10/22/24 110 Litigation Support Analyst: [facility] External Provider IMG CT PROCEDURES Edited Result - Final * High Sensitivity Troponin I (10/22/2024 10:22 AM EST) Pathologist [facility] TROPONIN I HIGH SENSITIVITY <2.7 <3.5 - 17.0 ng/L [facility] Comment:The [place] high sens itivity Troponin-I results should beused in conjunction with other diagnostic information suchas ECG, clinical observations and information, and patientsymptoms to aid in the diagnosis of [place]. 10/22/2024 10:2 2 AM EST 10/22/2024 10:25 AM EST Generic External Data Provider LAB BLOOD ORDERAB LES Final Result [facility] [address] [place] [phone] * (ABNORMAL) CBC auto differential (10/22/2024 10:22 AM EST) Pathologist [facility] White Blood Count 5.6 4.8 - 10.8 X10*3/uL [facility] Red Blood Count 4.71 4.20 - 5.50 X10*6/uL [facility] Hemoglobin 13.8 12.0 - 16.0 g/dl [facility] Hematocrit 40.6 37.0 - 47.0 % [facility] Mean Corpuscular Volume 86.2 80.0 - 98.0 fL [facility] Mean Corpuscular Hemoglobin 29.3 27.0 - 33.0 pg [facility] Mean Corpuscular HGB Conc 34.0 31.0 - 35.0 g/dl [facility] Red Cell Distribution Width 12.5 11.0 - 16.0 % [facility] Platelet Count 155(L) 160 - 400 X10*3/uL [facility] Mean Platelet Volume 10.5 9.4 - 12.3 fL [facility] Neutrophils Percent Auto 56.7 45 - 73 % [facility] Imm Gran Pct Auto 0.4 0.0 - 0.4 % [facility] Lymphocytes Percent Auto 31.5 20 - 40 % [facility] Monocytes Percent Auto 11.0 2 - 11 % [facility] Eosinophils Percent Auto 0.2 0 - 4 % [facility] Basophils Percent Auto 0.2 0 - 2 % [facility] NRBC Pct Auto 0.0 0.0 - 0.2 /100WBC [facility] Neutrophils Absolute Auto 3.2 2.0 - 8.3 x10*3/uL [facility] Imm Gran Abs Auto 0.02 0.00 - 0.03 X10*3/uL [facility] Lymphocytes Absolute Auto 1.8 1.2 - 4.9 X10*3/uL [facility] Monocytes Absolute Auto 0.6 0.1 - 1.2 X10*3/uL [facility] Eosinophils Absolute Auto 0.0 0.0 - 0.4 X10*3/uL [facility] Basophils Absolute Auto 0.0 0.0 - 0.2 X10*3/uL [facility] NRBC Abs Auto 0.000 0.0 - 0.012 X10*3/uL [facility] 10/22/2024 10:2 2 AM EST 10/22/2024 10:25 AM EST Generic External Data Provider LAB BLOOD ORDERAB LES Final Result Performing Organization Address [facility] Co de Phone Number [facility] [address] [place] [phone] * Partial Thromboplastin Time, Activated (APTT) (10/22/2024 10:22 AM EST) Partial Thromboplastin Time 28.0 26.0 - 36.8 SEC [facility] Comment:For information rega rding the monitoring of direct thrombininhibitors, please refer to Pharmacy. 10/22/2024 10:2 2 AM EST 10/22/2024 10:25 AM EST Generic External Data Provider LAB BLOOD ORDERAB LES Final Result Performing Organization Address [facility] Co de Phone Number [facility] [address] [place] [phone] * Prothrombin Time-INR (10/22/2024 10:22 AM EST) Prothrombin Time 11.3 10.9 - 12.4 SEC [facility] INTERNATIONAL NORM RATIO 1.0 0.9 - 1.1 [facility] Comment:INTERNATIONAL NORMAL IZED RATIO (INR) REFERENCE RANGES Reference RangeFor patients not on anticoagulant therapy: 0.9 - 1.1INR ranges for oral anticoagulanttherapy:For prevention and treatment of venous thrombosis and pulmonary embolism: 2.0 - 3.0For acute myocardial infarction with aspirin therapy: 2.0 - 3.0For acute myocardial infarction without aspirin therapy: 3.0 - 4.0For patients with mechanical prosthetic heart valves: 2.5 - 3.5 10/22/2024 10:2 2 AM EST 10/22/2024 10:25 AM EST Generic External Data Provider LAB BLOOD ORDERAB LES Final Result Performing Organization Address [facility]/ZIP Co de Phone Number [facility] [address] [place] [phone] * (ABNORMAL) Basic Metabolic Panel (10/22/2024 10:22 AM EST) Sodium 138 135 - 145 mmol/L [facility] Potassium 4.7 3.3 - 5.1 mmol/L [facility] Comment:Slight Hemolysis.Int erpret result with caution. Chloride 107 96 - 108 mmol/L [facility] Carbon Dioxide 24 22 - 29 mmol/L [facility] Anion Gap 12 12 - 20 [facility] Urea Nitrogen (BUN) 13 9 - 16 mg/dL [facility] Creatinine, Serum 0.80 0.5 - 1.4 mg/dL [facility] Creatinine Clr Calc Pharmacy 69.5 [facility] Comment:Provided height and weight: 162.56 cm,67.132 kg.eGFR (calculated from the MDRD study equation) and eCrCl(calculated from the Cockcroft-Gault equation) are based ondifferent parameters and may not yield comparable results.If eCrCl result is absurd, please check patient'sheight/weight. Estimated Glomerular Filt Rate >60 [facility] Comment:Chronic Kidney Disea se: Estimated GFR < 60 mL/min/1.62w9Sciylr Kidney Disease: Estimated GFR < 15 mL/min/1.73m2 Glucose 143(H) 60 - 115 mg/dL [facility] Calcium 9.5 8.4 - 10.2 mg/dL [facility] 10/22/2024 10:2 2 AM EST 10/22/2024 10:25 AM EST us Generic External Data Provider LAB BLOOD ORDERAB LES Final Result [facility] [address] [place] [phone] * XR Hip 2 or 3 Views Left (10/18/2024 2:15 PM EST) Anatomical Region Laterality Modality Lower Extremities, Hip Left Radiograp hic Imaging 10/18/2024 2:15 PM EST Narrative 10/20/2024 9:52 AM EST ? [facility] ?[address] ?[place] [address] ?XRay Report ? Signed ? Patient: Cordero Manuel,Jolie ?MR#: MM ?? [id number] ? : 1965 ?Acct:[id number] ? Age/Sex: 59 / F ?ADM Date: 10/18/24 ? Loc: HO.XRAY ? Attending Dr: Clara Joseph MD ? Ordering Physician: Clara Joseph MD ?? Date of Service: 10/18/24 ?? Procedure(s): XR hip LT min 2V w/wo pel ?? Accession Number(s): [id number] ? cc: lCara Joseph MD ? EXAMINATION: ??XR HIP 2 OR MORE VIEWS LEFT WITH PELVIS ? HISTORY: chronic left hip pain ? COMPARISON: There are no prior studies for comparison. ? FINDINGS: ?? A single AP view of the pelvis and two views of the left ?? hip are submitted. ??Osseous mineralization is normal. ??There is no ?? fracture or dislocation. ??There is moderate joint space narrowing. ? There is a 4.9 cm calcification in the pelvis which likely represents a ?? uterine fibroid. ? XR/XR hip LT min 2V w/wo pel ?? IMPRESSION: ?? Moderate joint space narrowing. ? Electronically signed by: ??Fili Do MD ??10/20/2024 09:49 AM EST ?? RP ? Dictated By: ?Fili Do MD ? Signed By: ?<Electronically signed by Fili Do MD in OV> ?10/20/24 0949 ? DD/ 1415 ? TD/TT: 10/18/24 1421 ? Litigation Support Analyst: ? Procedure Note Kye Cooper - 10/20/[address] [address] XRay Report Signed Patient: Gil JacksonYeimyadMR#: MM [id number] : 1965Acct:[id number] Age/Sex: 59 / FADM Date: 10/18/24 Loc: HO.XRAY Attending Dr: Clara Joseph MD Ordering Physician: Clara Joseph MD Date of Service: 10/18/24 Procedure(s): XR hip LT min 2V w/wo pel Accession Number(s): [id number] cc: Clara Joseph MD EXAMINATION: XR HIP 2 OR MORE VIEWS LEFT WITH PELVIS HISTORY: chronic left hip pain COMPARISON: There are no prior studies for comparison. FINDINGS: A single AP view of the pelvis and two views of the left hip are submitted. Osseous mineralization is normal. There is no fracture or dislocation. There is moderate joint space narrowing. There is a 4.9 cm calcification in the pelvis which likely represents a uterine fibroid. XR/XR hip LT min 2V w/wo pel IMPRESSION: Moderate joint space narrowing. Electronically signed by: Fili Do MD 10/20/2024 09:49 AM EST Dictated By: Fili Do MD Signed By: <Electronically signed by Fili Do MD in OV> 10/20/24 0949 DD/ 1415 TD/TT: 10/18/24 1421 Litigation Support Analyst: Clara Joseph MD IMG XR PROCEDURES Final Re sult * TSH W/Reflex to FT4 (10/11/2024 8:20 AM EST) TSH reflex Free T4 3.06 0.32 - 4.0 uIU/mL [facility] Blood Venous blood specimen / Unknown 10/11/2024 8:20 AM EST 10/11/2024 10:57 AM EST Clara Joseph MD LAB BLOOD ORDERABLES Final Result [facility] [address] [place] [phone] * Hepatic Function Panel (10/11/2024 8:20 AM EST) Bilirubin, Total 0.8 0.0 - 1.0 mg/dL [facility] Bilirubin, Direct 0.3 0.0 - 0.5 mg/dL [facility] Aspartate Amino Transferase 25 5 - 31 U/L [facility] Alanine Aminotransferase 25 0 - 31 U/L [facility] Total Protein 8.0 6.5 - 8.0 g/dL [facility] Albumin Level 4.3 3.5 - 5.0 g/dL [facility] Alkaline Phosphatase 72 39 - 117 U/L [facility] 10/11/2024 8:20 AM EST 10/11/2024 10:57 AM EST us Clara Joseph MD LAB BLOOD ORDERABLES Final Result [facility] [address] [place] [phone] * (ABNORMAL) Lipid Panel, Standard (10/11/2024 8:20 AM EST) Triglycerides 83 <150 mg/dL [facility] Comment:Desirable Triglyceri de: less than 150 mg/dLBorderline High Triglyceride 150-199 mg/dLHigh Triglyceride: 200-499 mg/dLVery High Triglyceride: greater than or equal to 5OO mg/dL Cholesterol 198 <200 mg/dL [facility] Comment:Desirable Cholestero l: less than 200 mg/dLBorderline High Cholesterol: 200-239 mg/dLHigh Cholesterol: greater than 239 mg/dL LDL Cholesterol Calculated 116(H) <100 mg/dL [facility] Comment:Desirable LDL: less than 100 mg/dLNear Optimal/Above Optimal LDL: 110- 129 mg/dLBorderline High LDL: 130-159 mg/dLHigh LDL: 160-189 mg/dLVery High LDL: greater than or equal to 190 mg/dL HDL Cholesterol 66 >40 mg/dL [facility] Comment:Desirable HDL: great er than 40 mg/dL Note: This HDL assay may give artificially low results in patients with liver disease. 10/11/2024 8:20 AM EST 10/11/2024 10:57 AM EST Result [facility] Clara Joseph MD LAB BLOOD ORDERABLES Final Result Performing Organization Address [facility] Co de Phone Number [facility] [address] [place] [phone] * Albumin, Random Urine W/Creatinine (02/29/2024 12:00 AM EDT) Creatinine, Urine 64.92 mg/dL [facility] Microalbumin Urine <5.0 mg/L [facility] Microalbum Creatinine Ratio Ur TNP <30 ug/mg cr [facility] Comment:Unable to calculate albumin/creatinine ratio due to lowmicroalbumin or creatinine result. Urine 02/29/2024 02/29/2024 Result [facility] Clara Joseph MD LAB URINE ORDERABLES Final Result Performing Organization Address [facility] Co de Phone Number [facility] [address] [place] [phone] * Colonoscopy (01/30/2024 12:30 PM EDT) Result [facility] Historical Provider HEALTH MAINTENANCE Final Result * Diabetes Eye Exam (09/25/2023) Eye Exam Normal Normal Result [facility] Historical Provider HEALTH MAINTENANCE Final Result * Fecal Globin by Immunochemistry (02/09/2023 3:08 PM EDT) Stool Rectal contents / Unknown 02/09/2023 3:08 PM EDT Result [facility] Historical Provider LAB BODY FLUIDS AND STOOL S ORDERABLES Final Result * Hepatitis C Antibody with Reflex to HCV, RNA, Quantitative, Real-Time PCR (01/20/2023 8:39 AM EDT) Hepatitis C Antibody NON-REACT EILEEN NON-REACT EILEEN [facility] Index 0.16 <1.00 [facility] [employer] [facility] Comment: HCV antibody was non-reactive. There is no laboratory evidence of HCV infection. In most cases, no further action is required. However, if recent HCV exposure is suspected, a test for HCV RNA (test code 75929) is suggested. For additional information please refer to http://[employer].Merfac/faq/SFH29e8 (This link is being provided for informational/ educational purposes only.) Blood Venous blood specimen / Unknown 01/20/2023 8:39 AM EDT 01/20/2023 8:40 AM EDT Narrative [facility] - 01/20/2023 10:18 PM EDT FASTING:YES FASTING: YES us Clara Joseph MD LAB BLOOD ORDERABLES Final Result [facility] [address], [place] [address] [facility] [address] [place] [address] * HIV-1/2 Antigen and Antibodies, Fourth Generation, with Reflexes (01/20/2023 8:39 AM EDT) HIV Antigen/Antibody, 4th Generation NON-REAC TIVE NON-REAC TIVE [facility] Comment: HIV-1 antigen and HIV-1/HIV-2 antibodies were not detected. There is no laboratory evidence of HIV infection. PLEASE NOTE: This information has been disclosed to you from records whose confidentiality may be protected by state law. ??If your state requires such protection, then the state law prohibits you from making any further disclosure of the information without the specific written consent of the person to whom it pertains, or as otherwise permitted by law. A general authorization for the release of medical or other information is NOT sufficient for this purpose. ?? For additional information please refer to http://[employer].Merfac/faq/RAC770 (This link is being provided for informational/ educational purposes only.) The performance of this assay has not been clinically validated in patients less than 2 years old. Blood Venous blood specimen / Unknown 01/20/2023 8:39 AM EDT 01/20/2023 8:40 AM EDT Narrative [facility] - 01/20/2023 10:18 PM EDT FASTING:YES FASTING: YES Clara Joseph MD LAB BLOOD ORDERABLES Final Result [facility] [address], [place] [address] [facility] [address] [place] [address] * THINPREP TIS PAP AND HPV mRNA E6/E7, CT/NG, TRICH (03/14/2022 12:12 PM EDT) Chlamydia trachomatis RNA, TMA, Urogenital NOT DETECTED NOT DETECTED [facility] Clinical Information: None given [facility] COMMENT SEE COMMENT [facility] Comment: The analytical performance characteristics of this assay, when used to test SurePath(TM) specimens have been determined by [facility]. The modifications have not been cleared or approved by the FDA. This assay has been validated pursuant to the CLIA regulations and is used for clinical purposes. ?? For additional information, please refer to https://education.Merfac/faq/WRK402 (This link is being provided for information/ educational purposes only.) ?? COMMENT SEE COMMENT [facility] Comment: EXPLANATORY NOTE: ? The Pap is a screening test for cervical cancer. It is ?? not a diagnostic test and is subject to false negative ?? and false positive results. It is most reliable when a ?? satisfactory sample, regularly obtained, is submitted ?? with relevant clinical findings and history, and when ?? the Pap result is evaluated along with historic and ?? current clinical information. ?? COMMENT: This Pap test has been evaluated with computer assisted technology. [facility] Button And Buckle Maker: SEE COMMENT [facility] Comment: CMG, CT(ASCP) CT screening location: [employer] [address] ??[id number] HPV nRNA E6/E7 Not Detected Not Detected [facility] Comment: Methodology: Instrumentation Designer-Mediated Amplification This assay detects E6/E7 viral messenger RNA (mRNA) from 14 high-risk HPV types (16,18,31,33,35,39,45,51,52,56,58,59,66,68). ? Cervical sources are required for HPV testing. If a vaginal source from a patient who has had a total hysterectomy with removal of cervix was ?? submitted, please contact the testing laboratory for alternative testing options. ?? For additional information, please refer to http://[employer].Merfac/faq/JBR110l9 (This link if provided for information/ educational purposes only.) Interpretation/Re sult: Negative for intraepithelial lesion or malignancy. [facility] LMP: NONE GIVEN [facility] Neisseria gonorrhoeae RNA, TMA, Urogenital NOT DETECTED NOT DETECTED [facility] Prev. BX: NONE GIVEN [facility] Prev. PAP: NONE GIVEN [facility] SOURCE: Cervix [facility] Statement Of Adequacy: SEE COMMENT [facility] Comment: Satisfactory for evaluation. Endocervical/transformation zone component present. Age and/or menstrual status not provided Trichomonas vaginalis, QL, TMA, PAP Vial NOT DETECTED NOT DETECTED [facility] Comment: The analytical performance characteristics of this assay have been determined by [facility]. The modifications have not been cleared or approved by the FDA. This assay has been validated pursuant to the CLIA regulations and is used for clinical purposes. ?? For additional information, please refer to http://[employer].Merfac/ faq/Trichomonastma (This link is being provided for information/ educational purposes only.) ?? 03/14/2022 12:1 2 PM EDT Clara Joseph MD LAB PATHOLOGY ORDERABLES F inal Result [facility] [address] * Pap Smear (03/14/2022 12:00 AM EDT) Swab Historical Provider MD LAB CYTOLOGY ORDERABLES F inal Result IMAGING from Last 3 Months or Most Recently Relevant to Health Maintenance Insurance [facility] - [facility] Advance Directives Documents on File Type Date Recorded Patient Senior Accounting Associate Expl anation Advance Directives and Living Will 09/30/2024 Health Care Proxy 09/30/24 Care Teams Economic Development Director Relationship Specialty Start Date End Date Clara Joseph MD [address] [place] [address] PCP - General Family Medicine 10/12/18 Hamida Evans, QuocD [address] [place] [address] Pharmacist Internal Medicine 01/07/23January [address] [place] [address] Gastroenterology 09/30/24 Galdino Lee MD [address] [place] [address] Ophthalmology 10/24/24 Mary Patel PA-C Vascular 10/13/24
--- OUTSIDE RECORDS SUMMARY | 2024-11-08 14:34 | XMS_ITS | Encounter Summary ---
Author Organization [facility] Address [address] [place] [address] Care Team Providers Care Rolloff Truck Driver Name Role Phone Clara Joseph MD Primary Care Provider [phone]- [phone] Hamida Evans PharmD Unavailable [phone] January Unavailable Galdino Lee MD Unavailable [phone] Reason for Visit * Reason Onset Date Comments Nurse Triage 09/05/2024 Encounter Details Date Type Department Care Team (Late st Contact Info) Description 09/05/2024 Telephone [facility] [address] [place], [place] [phone] Clara Joseph MD [address] [place], [place] [phone] Nurse Triage Social History Tobacco Use Types Packs/Day Years [...] AM EDT documented as of this encounter Miscellaneous Notes * Telephone Encounter - Renetta Carter RN - 09/05/2024 12:14 PM EST [place] [id number]. Pt reports multiple symptoms. Headache, abdominal pain and left leg pain. Pt reports left leg pain is probably arthritis and makes ambulation difficult. Pt is taking motrin for this with some result. Pt reports abdominal pain which famotidine has been prescribed for and it is not helping. Pt also reports a tenant in the house makes it difficult to get out of the house because tenant williamson in the front. Pt requests to be seen by provider. Pt is advised to come to [facility] which is open till 8pm today to see a provider. Pt agrees to ask sister for a ride to come to [facility] today. Insurance is verified as active. Protocol Used: Abdominal Pain - Female (Adult) Protocol-Based Disposition: See in Office or Video Visit Today Video visit not offered Positive Triage Question: * Patient wants to be seen * All higher-acuity triage questions were negative Care Advice Discussed: * Reassurance and Education - Mild Stomachache * Rest * Drink Clear Fluids * Reasons To Call Back - Severe pain lasts over 1 hour - Constant pain lasts over 2 hours - Intermittent pains (comes and goes, cramps) lasts over 48 hours - You are - You become worse * Telephone Encounter - Albert Renteria - 09/05/2024 11:42 AM EST Symptom: Leg Pain - Not From Injury Outcome: Schedule an urgent appointment (within 1 hour) or talk to a nurse or provider soon Reason: Trouble walking The caller accepted this outcome. documented in this encounter Plan of Treatment Upcoming Encounters Date Type Department Care Team (Late st Contact Info) Description 11/14/2024 8:00 AM EST Office Visit [facility] [address] [place] [address] Yvette, Lillian [address] [place] [address] 12/09/2024 1:00 PM EST Medication Management [facility] [address] [place] [address] ArtsHamida Tapia, PharmD [address] [place] [address] documented as of this encounter Goals Goal Patient Goal Type Associated Problems Recent Progress Patient-Stated? Author Blood Pressure < 140/90 Blood Pressure 110/58(2024 1:28 PM EST) No Piers-Gambl e, Hamida, PharmD Hemoglobin A1c < 7 Result Component 8.2( 1:34 PM EST) No Arts-Gambl sulma, Hamida, PharmD documented as of this encounter Visit Diagnoses Not on filedocumented in this encounter Additional Health Concerns Assessment Noted Time PHQ-9 Depression Total Score: 4 01/15/20 24 10:43 AM EDT documented as of this encounter Care Teams Rolloff Truck Driver Relationship Specialty Start Date End Date Clara Joseph MD [address] [place] [address] PCP - General Family Medicine 10/12/18 ArtsHamida Tapia, PharmD [address] [place] [address] Pharmacist Internal Medicine 01/07/23 Gertrudis Daniel [address] [place] [address] Gastroenterology 09/30/24 Galdino Lee MD [address] [facility] [address] [place] [address] Ophthalmology 10/24/24 Mary Patel PA-C Vascular 10/13/24 documented as of this encounter
--- OUTSIDE RECORDS SUMMARY | 2024-11-08 14:34 | XMS_ITS | Encounter Summary ---
Author Organization [employer] Address [address] [place] [address] Care Team Providers Care Artist Model Name Role Phone Clara Joseph MD Primary Care Provider [phone]- [phone] Hamida Evans PharmD Unavailable [phone] January Unavailable Galdino Lee MD Unavailable [phone] Encounter Details Date Type Department Care Team (Latest Contact Info) Description 10/24/2024 11:30 AM EST Office Visit [facility] [address] [place], [place] [phone] Clara Joseph MD [address] [place], [place] [phone] Gastroesophageal reflux disease, unspecified whether esophagitis present (Primary Dx); Postmenopausal; Meningioma (CMS/HCC); 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 prior episode ([facility]/H[facility]); Type 2 diabetes mellitus without complication, without long-term current use of insulin ([facility]); Dietary counseling; Exercise counseling; Overweight; Colon cancer screening Social History Tobacco Use Types Packs/Day Years [...] AM EDT documented as of this encounter Last Filed Vital Signs Vital Sign Reading Time Taken Comments Blood Pressure 138/70 10/24/2024 1:01 PM EST Pulse 62 10/24/2024 11:39 AM EST Temperature 36.2 ??C (97.2 ??F) 10/24/2024 11:[address] Respiratory Rate 16 10/24/2024 11:39 AM EST Oxygen Saturation - - Inhaled Oxygen Concentration - - Weight 68.9 kg (152 lb) 10/24/2024 11:39 AM EST Height 162.6 cm (5' 4 ) 10/24/2024 11:39 AM EST Body Mass Index 26.09 10/24/2024 11:39 AM EST documented in this encounter Progress Notes * Clara Joseph MD - 10/24/2024 11:30 AM EST Subjective Patient ID: Jolie Jackson is a 59 y.o. 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 For the past 2 or 3 months, pt reports her eye feels like it's been twitching. She reports it will tremble and she'll even feel palpitations in her eye. The palpitations have led to headaches which resulted in her having to go to the hospital. Since then her eye pain has only worsened. Pt reports she currently does not have an appt with her eye doctor, Dr. Dave. Pt reports she hasn't been able to complete a colonoscopy because when she calls, she will try to leave a message. Pt insist she doesn't receive a call back and believes it's because the office doesn't have a Kinyarwanda speaker. Seen on 10/22/24 in [facility]. 59-year-old female with history of right side craniotomy, fora benign hemangioma removal in 2017. As a result patient has suffered from a minor stroke and right-sided weakness residual. Patient is able to function normally no need for surveyor's assistant to ambulate. Patient has been having headache on and off since the surgery, with worsening of the headache for the p ast 2 weeks. Last night patient noticed blood shot in her right eye, no double vision, no visual loss, no weakness, and no numbness. CT revealed Findings: No new intra-axial mass, midline shift, hydrocephalus, or acute hemorrhage. No significant atrophy-like change or white matter disease. There is no sinus or mastoid fluid. The orbits are unremarkable. There is no acute fracture. IMPRESSION: 1. No acute intracranial findings. Diagnosed with Headache, Subconjunctival hemorrhage of left eye. Review of Systems Constitutional: Negative for fatigue, fever and unexpected weight change. Respiratory: Negative for cough. Cardiovascular: Negative for chest pain. Gastrointestinal: Negative for abdominal pain. Genitourinary: Negative for difficulty urinating. Objective Visit Vitals BP 138/70 Pulse 62 Temp 97.2 ??F (36.2 ??C) (Oral) Resp 16 Body mass index is 26.09 kg/m??. Physical Exam Constitutional: Appearance: Normal appearance. Eyes: Conjunctiva/sclera: Right eye: Hemorrhage (Subconjunctival hemorrhage on right eye) present. Cardiovascular: Rate and Rhythm: Normal rate and regular rhythm. Heart sounds: Normal heart sounds. Pulmonary: Effort: Pulmonary effort is normal. Breath sounds: Normal breath sounds. Abdominal: Tenderness: There is no abdominal tenderness. Musculoskeletal: Cervical back: Normal range of motion and neck supple. Neurological: General: No focal deficit present. Mental Status: She is alert. Psychiatric: Behavior: Behavior normal. Problem List Items Addressed This Visit Gastroesophageal reflux disease - Primary Postmenopausal - Prescribed MAGNESIUM OXIDE 400 PO 10/24/24 Relevant Medications MAGNESIUM OXIDE 400 PO Meningioma ([facility]) 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 prior episode ([facility]) Diabetes mellitus, type 2 ([facility]) Colon cancer screening -colonsocpy with Dr. Mejia 2013 -FOBT done by insurance negative 02/2023 -Referral done to GI 09/23/2023 -seen 11/19/2023 for colonoscopy intake, colonoscopy scheduled then canceled due to taking diabetic meds that am, they canceled twice - We will be calling GI to schedule a colonoscopy for patient 10/24/24 Other Visit Diagnoses Dietary counseling Exercise counseling Overweight Follow up in about 12 weeks (around 01/16/2025) for Annual Evaluation. I, Marina Guo, am serving as a scribe to document services personally performed by Dr. Clara Joseph, based on the patient's response to questions by provider and providers statements to me. documented in this encounter Miscellaneous Notes * Assessment & Plan Note - Marina Guo MA - 10/24/2024 12:53 PM EST Associated Problem(s): Postmenopausal - Prescribed MAGNESIUM OXIDE 400 PO 10/24/24 * Assessment & Plan Note - Marina Guo MA - 10/24/2024 12:04 PM EST Associated Problem(s): Colon cancer screening -colonsocpy with Dr. Mejia 2013 -FOBT done by insurance negative 02/2023 -Referral done to GI 09/23/2023 -seen 11/19/2023 for colonoscopy intake, colonoscopy scheduled then canceled due to taking diabetic meds that am, they canceled twice - We will be calling GI to schedule a colonoscopy for patient 10/24/24 documented in this encounter Plan of Treatment Upcoming Encounters Date Type Department Care Team (Late st Contact Info) Description 11/14/2024 8:00 AM EST Office Visit [facility] [address] [place] [address] Yvette, Lillian [address] [place] [address] 12/09/2024 1:00 PM EST Medication Management [facility] [address] [place] [address] Hamida Evans, QuocD [address] [place] [address] documented as of this encounter Goals Goal Patient Goal Type Associated Problems Recent Progress Patient-Stated? 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 ([facility]/HCC) Type 2 diabetes mellitus without complication, without long-term current use of insulin ([facility]) Dietary counseling Dietary surveillance and counseling Exercise counseling Overweight Colon cancer screening Special screening for malignant neoplasms, colon documented in this encounter Additional Health Concerns Assessment Noted Time PHQ-9 Depression Total Score: 4 01/15/20 24 10:43 AM EDT documented as of this encounter Care Teams Artist Model Relationship Specialty Start Date End Date Clara Joseph MD [address] [place] [phone] PCP - General Family Medicine 10/12/18 Hamida Evans, Fletcher [address] [place] [address] Pharmacist Internal Medicine 01/07/23 Fredy January [address]rd [place] [address] Gastroenterology 09/30/24 Galdino Lee MD [address] [facility] [address] [place] [address] Ophthalmology 10/24/24 Mary Patel PA-C Vascular 10/13/24 documented as of this encounter
--- OUTSIDE RECORDS SUMMARY | 2024-11-08 14:34 | XMS_ITS | Encounter Summary ---
Author Organization [employer] Address [address] [facility] 7t [place] [address] Care Team Providers Care Laborer Pie Bakery Name Role Phone Clara Joseph MD Primary Care Provider + [phone] Hamida Evans PharmD Unavailable +[phone]- [phone] January Unavailable Galdino [place] MD Unavailable [phone] Encounter Details Date Type Department Care Team (Late st Contact Info) Description 10/28/2024 Orders Only [facility] MEDICINE [address] [place], [place] [phone] Clara Joseph MD [address] [place], [place] [phone] Social History Tobacco Use Types Packs/Day Years [...] Description 11/14/2024 8:00 AM EST Office Visit [facility] ADULT DENTAL [address] [place] [address] Yvette, Lillian [address] [place] [address] 12/09/2024 1:00 PM EST Medication Management [facility] MEDICINE [address] [place] [address] Hamida Evans PharmD [address] [place] [address] documented as of this encounter Goals Goal Patient Goal Type Associated Problems Recent Progress Patient-Stated? Author Blood Pressure < 140/90 Blood Pressure 110/58(2024 1:28 PM EST) No Hamida Herman, PharmD Hemoglobin A1c < 7 Result Component 8.2( 1:34 PM EST) No Hamida Herman PharmD documented as of this encounter Procedures Procedure Name Priority Date/Time Associated Diagnosis Comments BI MAMMOGRAM SCREENING TOMOSYNTHESIS BILATERAL Routine 10/28/2024 2:30 PM EST documented in this encounter Results * BI Mammogram Screening Tomosynthesis Bilateral (10/28/2024 2:30 PM EST) Anatomical Region Laterality Modality Breast Bilateral Mammography 10/28/2024 2:30 PM EST Narrative 11/06/2024 4:16 PM EST ? [facility] ? [address] ?[place] [address] ? Mammography Report ? Signed ? Patient: Cordero Manuel,Jolie ?MR#: [id number] ?? [id number] ? : 1965 ?Acct:[id number] ? Age/Sex: 59 / F ?ADM Date: 10/28/ ? Loc: HO.MAMMO ? Attending Dr: Clara Joseph MD ? Ordering Physician: Clara Joseph MD ?Results: 1N ?? egative ? Date of Service: 10/28/ ?Follow Up: 1 Year From Orig ?? inal Mammogram ? Procedure(s): MM tomosynthesis screening BI ?? Accession Number(s): [id number] ? cc: Clara Joseph MD ? EXAMINATION: [...] ??Bridgett Delong DO ??11/06/2024 04:13 PM EST ? Dictated By: ?Bridgett Delong DO ? Signed By: ?<Electronically signed by Bridgett Delong, DO in OV> ? 11/06/24 1613 ? DD/ 1430 ? TD/TT: 10/28/24 1450 ? Starch Factory Laborer: ? Procedure Note Francecody, Image - 11/06/2024 Jj [facility] [address] [place] [address] Mammography Report Signed Patient: Yeimy WerneradMR#: [id number] : 1965Acct:[id number] Age/Sex: 59 / FADM Date: 10/28/24 Loc: HO.MAMMO Attending Dr: Clara Joseph MD Ordering Physician: Clara Joseph MDResults: 1N egative Date of Service: 10/28/24Follow Up: 1 Year From Orig inal Mammogram Procedure(s): MM tomosynthesis screening BI Accession Number(s): [id number] cc: Clara Joseph MD EXAMINATION: MM SCREENING [...] by: Bridgett Delong DO 11/06/2024 04:13 PM EST Dictated By: Bridgett Delong DO Signed By: <Electronically signed by Bridgett Delong DO in OV> 11/06/24 1613 DD/ 1430 TD/TT: 10/28/24 1450 Starch Factory Laborer: us Clara Joseph MD IMG BI PROCEDURES Edited R esult - Final documented in this encounter Visit Diagnoses Not on filedocumented in this encounter Additional Health Concerns Assessment Noted Time PHQ-9 Depression Total Score: 4 01/15/20 24 10:43 AM EDT documented as of this encounter Care Teams Laborer Pie Bakery Relationship Specialty Start Date End Date Clara Joseph MD [address] [place] [address] PCP - General Family Medicine 10/12/18 Hamida Evans, QuocD [address] [place] [address] Pharmacist Internal Medicine 01/07/23January [address] [place] [address] 3rd [place] [address] Gastroenterology 09/30/24 Galdino [place] MD [address] [facility] [facility] [address] [facility] [address] [place] [address] Ophthalmology 10/24/24 Mary Patel PA-C Vascular 10/13/24 documented as of this encounter
--- OUTSIDE RECORDS SUMMARY | 2024-11-08 14:34 | XMS_ITS | Encounter Summary ---
Author Organization [employer] [facility] Address [address] [place] [address] 7t [place] [address] Care Team Providers Care Hotel Receptionist Name Role Phone Clara Joseph MD Primary Care Provider + [phone] Hamida Evans PharmD Unavailable January Unavailable Galdino [place] MD Unavailable [phone] Reason for Visit * Reason Comments Med Refill Encounter Details Date Type Department Care Team (Late st Contact Info) Description 02/04/2023 Refill [facility] MEDICINE 230 [place], [place] [phone] Clara Joseph MD 230 [place], [place] [phone] Onychomycosis of left great toe Social History Tobacco Use Types Packs/Day Years Used Date Smoking Tobacco: Never Smokeless Tobacco: Never Depression Answer Date [...] suspected to have Coronavirus/COVID-19? No / Unsure 02/03/2023 1:59 PM EDT documented as of this encounter Plan of Treatment Upcoming Encounters Date Type Department Care Team (Late st Contact Info) Description 11/14/2024 8:00 AM EST Office Visit [facility] ADULT DENTAL 230 [place] [address] Yvette, Lillian [address] [place] [address] 12/09/2024 1:00 PM EST Medication Management [facility] MEDICINE 230 [place] [address] Hamida Evans, PharmD 230 [place] [address] documented as of this encounter Goals Goal Patient Goal Type Associated Problems Recent Progress Patient-Stated? Author Blood Pressure < 140/90 Blood Pressure 110/58(2024 1:28 PM EST) No Hamida Herman, PharmD Hemoglobin A1c < 7 Result Component 8.2( 1:34 PM EST) No Hamida Herman PharmD documented as of this encounter Visit Diagnoses Diagnosis Onychomycosis of left great toe documented in this encounter Additional Health Concerns Assessment Noted Time PHQ-9 Depression Total Score: 7 12/18/19 23 10:36 AM EST documented as of this encounter Care Teams Hotel Receptionist Relationship Specialty Start Date End Date Clara Joseph MD [address] [place] [address] PCP - General Family Medicine 10/12/18 Hamida Evans, PharmD [address] [place] [address] Pharmacist Internal Medicine 01/07/[address] 3rd [place] [address] Gastroenterology 09/30/24 Galdino [place] MD 2 [facility] [address] [place] [address] Ophthalmology 10/24/24 Mary Patel PA-C Vascular 10/13/24 documented as of this encounter
--- OUTSIDE RECORDS SUMMARY | 2024-11-08 14:34 | XMS_ITS | Encounter Summary ---
Author Organization [employer] Address [address] [place] [address] 7t [place] [address] Care Team Providers Care Weights And Measures Inspector Name Role Phone Clara Joseph MD Primary Care Provider +- [phone] Hamida Evans PharmD Unavailable January Unavailable Galdino [place] MD Unavailable [phone] Encounter Details Date Type Department Care Team (Late st Contact Info) Description 03/19/2023 Abstract [facility] 230 [place] [address] Clara Joseph MD 230 [place], [place] [phone] Social History Tobacco Use Types Packs/Day Years [...] Description 11/14/2024 8:00 AM EST Office Visit [facility] ADULT DENTAL 230 [place], [place] [phone] Qasim Crawfordaris 230 [place], [place] 12/09/2024 1:00 PM EST Medication Management [facility] [address] [place], [place] [phone] Hamida Evasn PharmD 230 [place], [place] documented as of this encounter Goals Goal Patient Goal Type Associated Problems Recent Progress Patient-Stated? Author Blood Pressure < 140/90 Blood Pressure 110/58(2024 1:28 PM EST) No Arts-Hamida Skelton, PharmD Hemoglobin A1c < 7 Result Component 8.2( 1:34 PM EST) No Hamida Herman PharmD documented as of this encounter Procedures Procedure Name Priority Date/Time Associated Diagnosis Comments FECAL GLOBIN BY IMMUNOCHEMISTRY Routine 02/09/2023 3:08 PM EDT documented in this encounter Results * Fecal Globin by Immunochemistry (02/09/2023 3:08 PM EDT) Stool Rectal contents / Unknown 02/09/2023 3:08 PM EDT Historical Provider LAB BODY FLUIDS AND STOOL S ORDERABLES Final Result documented in this encounter Visit Diagnoses Not on filedocumented in this encounter Additional Health Concerns Assessment Noted Time PHQ-9 Depression Total Score: 7 12/18/19 23 10:36 AM EST documented as of this encounter Care Teams Weights And Measures Inspector Relationship Specialty Start Date End Date Clara Joseph MD [address] [place] [address] [phone] PCP - General Family Medicine 10/12/18 Hamida Evans, PharmD [address] [place] [phone] Pharmacist Internal Medicine 01/07/[address] 3rd [place] [address] Gastroenterology 09/30/24 Galdino [place] MD [address] [place] [address] Ophthalmology 10/24/24 Mary Patel PA-C Vascular 10/13/24 documented as of this encounter
--- OUTSIDE RECORDS SUMMARY | 2024-11-08 14:34 | XMS_ITS | Encounter Summary ---
Author Organization [employer] [facility] Address [address] [place] [address] 7t [place] [address] Care Team Providers Care Thermal Molder Name Role Phone Clara Joseph MD Primary Care Provider +- [phone] Hamida Evans PharmD Unavailable January Unavailable Galdino [place] MD Unavailable [phone] Reason for Visit * Reason Onset Date Comments Appointment Request 01/07/2023 Encounter Details Date Type Department Care Team (Late st Contact Info) Description 01/07/2023 Telephone [facility] MEDICINE 230 [place], [place] [phone] Clara Joseph MD 230 [place], [place] [phone] Appointment Request Social History Tobacco Use Types Packs/Day Years [...] suspected to have Coronavirus/COVID-19? No / Unsure 01/06/2023 1:35 PM EDT documented as of this encounter Miscellaneous Notes * Telephone Encounter - Ricardo Butler - 01/07/2023 3:57 PM EDT Tc from pt requesting an appt with provider to speak about INSIDE SALES DIRECTOR services. Please contact pt at [phone] Citizen [place] Speaker documented in this encounter Plan of Treatment Upcoming Encounters Date Type Department Care Team (Late st Contact Info) Description 11/14/2024 8:00 AM EST Office Visit [facility] ADULT DENTAL [address] [place] [address] Yvette Lillian 230 [place] [address] 12/09/2024 1:00 PM EST Medication Management [facility] MEDICINE [address] [place] [address] Hamida Evans, PharmD 230 [place] [address] documented as of this encounter Goals Goal Patient Goal Type Associated Problems Recent Progress Patient-Stated? Author Blood Pressure < 140/90 Blood Pressure 110/58(2024 1:28 PM EST) No Piers-Gambl e, Hamida, PharmD Hemoglobin A1c < 7 Result Component 8.2( 1:34 PM EST) No Arts-Ashal Luz Marina ozunasa, PharmD documented as of this encounter Visit Diagnoses Not on filedocumented in this encounter Additional Health Concerns Assessment Noted Time PHQ-9 Depression Total Score: 7 12/18/19 23 10:36 AM EST documented as of this encounter Care Teams Thermal Molder Relationship Specialty Start Date End Date Clara Joseph MD [address] [place] [address] PCP - General Family Medicine 10/12/18 Hamida Evans, PharmD [address] [place] [address] Pharmacist Internal Medicine 01/07/23DanielJanuary [address] 3rd [place] [address] Gastroenterology 09/30/24 Galdino [place] MD [address] [place] [address] Ophthalmology 10/24/24 Mary Patel PA-C Vascular 10/13/24 documented as of this encounter
--- OUTSIDE RECORDS SUMMARY | 2024-11-08 14:34 | XMS_ITS | Encounter Summary ---
Author Organization [employer] Address [address] [facility] 7t [place] [address] Care Team Providers Care Welder/Fabricator Name Role Phone Clara Joseph MD Primary Care Provider +1- [phone] Hamida Evans PharmD Unavailable [phone]- [phone] January Unavailable Reason for Visit * Reason Onset Date Comments Lab Orders 10/19/2024 Encounter Details Date Type Department Care Team (Late st Contact Info) Description 10/19/2024 Telephone [facility] 230 [place] [address] Clara Joseph MD 230 [place], [place] [phone] Lab Orders Social History Tobacco Use Types Packs/Day Years [...] encounter Miscellaneous Notes * Telephone Encounter - Sandra Nix RN - 10/19/2024 11:59 AM EST Call returned to patient to clarify. Patient reports she is unsure if there is lab work or imaging she was supposed to do. Reports she found a paper that said she should have thyroid labs but she isn't sure if she needs to do something. Informed patient that she had a TSH drawn on 10/11 and It was within normal range. Advised patient that she has appointment with PCP Dr. Joseph on 10/24/2024. Patient reports feeling well, she just wanted to clarify the paperwork she found. All questions answered. Patient verbalizes understanding and agreement with plan of care at this time. [employer] interpretor ID [id number] * Telephone Encounter - Albert Renteria - 10/19/2024 11:23 AM EST Tc from pt requesting a callback as pt is confused as lab order has to be done before appointment [phone] documented in this encounter Plan of Treatment Upcoming Encounters Date Type Department Care Team (Late st Contact Info) Description 11/14/2024 8:00 AM EST Office Visit [facility] ADULT DENTAL 230 [place] [address] Lillian Crawford [address] [place] [address] 12/09/2024 1:00 PM EST Medication Management [facility] MEDICINE [address] [place] [address] Hamida Evans, PharmD 230 [place] [address] documented as of this encounter Goals Goal Patient Goal Type Associated Problems Recent Progress Patient-Stated? Author Blood Pressure < 140/90 Blood Pressure 110/58(2024 1:28 PM EST) No Arts-Luz Marina Skeltonsa, PharmD Hemoglobin A1c < 7 Result Component 8.2( 1:34 PM EST) No Hamida Herman, PharmD documented as of this encounter Visit Diagnoses Not on filedocumented in this encounter Additional Health Concerns Assessment Noted Time PHQ-9 Depression Total Score: 4 01/15/20 24 10:43 AM EDT documented as of this encounter Care Teams Welder/Fabricator Relationship Specialty Start Date End Date Clara Joseph MD [address] [place] [address] PCP - General Family Medicine 10/12/18 Hamida Evans, PharmD [address] [place] [address] Pharmacist Internal Medicine 01/07/23 Gertrudis Daniel [address] [place] [address] 3rd [place] [address] Gastroenterology 09/30/24 Mary Patel PA-C Vascular 10/13/24 documented as of this encounter
--- OUTSIDE RECORDS SUMMARY | 2024-11-08 14:34 | XMS_ITS | Encounter Summary ---
Author Organization [employer] Address [address] [facility] 7t [place] [address] Care Team Providers Care Lead Shipper Name Role Phone Clara Joseph MD Primary Care Provider [phone]- [phone] Hamida Evans PharmD Unavailable [phone]- [phone] January Unavailable Encounter Details Date Type Department Care Team (Latest Contact Info) Description 10/10/2024 Travel Social History Tobacco Use Types Packs/Day Years [...] Description 11/14/2024 8:00 AM EST Office Visit [facility] ADULT DENTAL 230 [place] [address] Yvette, Lillian 230 [place] [address] 12/09/2024 1:00 PM EST Medication Management [facility] MEDICINE [address] [place] [address] Hamida Evans, PharmD 230 [place] [address] documented as of this encounter Goals Goal Patient Goal Type Associated Problems Recent Progress Patient-Stated? Author Blood Pressure < 140/90 Blood Pressure 110/58(2024 1:28 PM EST) No Piers-Gambl e, Hamida, PharmD Hemoglobin A1c < 7 Result Component 8.2( 1:34 PM EST) No Arts-Ashal Hamida ozuna, PharmD documented as of this encounter Visit Diagnoses Not on filedocumented in this encounter Additional Health Concerns Assessment Noted Time PHQ-9 Depression Total Score: 4 01/15/20 24 10:43 AM EDT documented as of this encounter Care Teams Lead Shipper Relationship Specialty Start Date End Date Clara Joseph MD [address] [place] [address] PCP - General Family Medicine 10/12/18 Hamida Evans, PharmD [address] [place] [address] [place] [address] Pharmacist Internal Medicine 01/07/[address] [place] [address] 3rd [place] [address] Gastroenterology 09/30/24 documented as of this encounter
--- OUTSIDE RECORDS SUMMARY | 2024-11-08 14:34 | XMS_ITS | Encounter Summary ---
Author Organization [employer] Address [address] [facility] 7t [place] [address] Care Team Providers Care Cipher Expert Name Role Phone Clara Joseph MD Primary Care Provider + [phone] Hamida Evnas PharmD Unavailable [phone]- [phone] January Unavailable Galdino [place] MD Unavailable [phone] Reason for Visit * Reason Onset Date Comments [facility] Appt 10/24/2024 Encounter Details Date Type Department Care Team (Late st Contact Info) Description 10/24/2024 Telephone [facility] MEDICINE 230 [place] [address] Clara Joseph MD 230 [place], [place] [phone] [facility] GI Appt Social History Tobacco Use Types Packs/Day Years [...] encounter Miscellaneous Notes * Telephone Encounter - iLla Thurston RN - 10/24/2024 1:14 PM EST TC placed to [facility] and left a detaild VM to call back the office regarding r/s pt Colonoscopy appt * Telephone Encounter - Clara Joseph MD - 10/24/2024 11:59 AM EST Please ask GI to reschedule pt for coloscopy. It was canceled twice due to her not knowing she was supposed to stop certain meds. She has left message but not heard back. She does not speak [place] and reports she she calls she does not understand. Thank you. documented in this encounter Plan of Treatment Upcoming Encounters Date Type Department Care Team (Late st Contact Info) Description 11/14/2024 8:00 AM EST Office Visit [facility] ADULT DENTAL 230 [place] [address] Lillian Crawford 230 [place] [address] 12/09/2024 1:00 PM EST Medication Management [facility] MEDICINE 230 [place] [address] Hamida Evans PharmD [address] [place] [address] documented as of this encounter Goals Goal [...] documented as of this encounter Care Teams Cipher Expert Relationship Specialty Start Date End Date Clara Joseph MD [address] [place] [address] PCP - General Family Medicine 10/12/18 Hamida Evans, PharmD [address] [place] [address] Pharmacist Internal Medicine 01/07/23January [address] 3rd [place] [address] Gastroenterology 09/30/24 Galdino [place] MD [address] [place] [address] Ophthalmology 10/24/24 Mary Patel PA-C Vascular 10/13/24 documented as of this encounter
--- OUTSIDE RECORDS SUMMARY | 2024-11-08 14:34 | XMS_ITS | Encounter Summary ---
Author Organization [employer] Address [address] [facility] 7t [place] [address] Care Team Providers Care Charter Bus Driver Name Role Phone Clara Joseph MD Primary Care Provider +- [phone] Hamida Evans PharmD Unavailable [phone]- [phone] Danieljanuary Unavailable Encounter Details Date Type Department Care Team (Late st Contact Info) Description 10/21/2024 Telephone [facility] 230 [place] [address] Clara Joseph MD 230 [place] [address] Social History Tobacco Use Types Packs/Day Years [...] encounter Miscellaneous Notes * Telephone Encounter - Maricruz Gasca - 10/21/2024 10:23 AM EST Xray normal letter sent out on 10/21/2024 documented in this encounter Plan of Treatment Upcoming Encounters Date Type Department Care Team (Late st Contact Info) Description 11/14/2024 8:00 AM EST Office Visit [facility] ADULT D[facility] [address] [place] [address] Yvette, Lillian [address] [place] [address] 12/09/2024 1:00 PM EST Medication Management [facility] [address] [place] [address] Hamida Evans PharmD 230 [place] [address] documented as of this encounter Goals Goal Patient Goal Type Associated Problems Recent Progress Patient-Stated? Author Blood Pressure < 140/90 Blood Pressure 110/58(2024 1:28 PM EST) No Hamida Herman PharmD Hemoglobin A1c < 7 Result Component 8.2( 5 1:34 PM EST) No Hamida Herman, PharmD documented as of this encounter Visit Diagnoses Not on filedocumented in this encounter Additional Health Concerns Assessment Noted Time PHQ-9 Depression Total Score: 4 01/15/20 24 10:43 AM EDT documented as of this encounter Care Teams Charter Bus Driver Relationship Specialty Start Date End Date Clara Joseph MD 230 [place] [address] PCP - General Family Medicine 10/12/18 Hamida Evans, PharmD [address] [place] [address] Pharmacist Internal Medicine 01/07/23January [address] [place] [address] Drive 3rd [place] [address] Gastroenterology 09/30/24 Mary Patel PA-C Vascular 10/13/24 documented as of this encounter
--- OUTSIDE RECORDS SUMMARY | 2024-11-08 14:34 | XMS_ITS | Encounter Summary ---
Author Organization [employer] Address [address] [facility] 7t [place] [address] Care Team Providers Care Reliability Specialist Name Role Phone Clara Joseph MD Primary Care Provider +1- [phone] Hamida Evans PharmD Unavailable [phone]- [phone] January Unavailable Galdino [place] MD Unavailable [phone] Encounter Details Date Type Department Care Team (Late st Contact Info) Description 04/05/2024 Orders Only [facility] 230 [place] [address] Provider, MD Irineo Social History Tobacco Use Types Packs/Day Years [...] Description 11/14/2024 8:00 AM EST Office Visit [facility] ADULT DENTAL [address] [place] [address] Yvette, Lillian [address] [place] [address] 12/09/2024 1:00 PM EST Medication Management [facility] MEDICINE [address] [place] [address] Piers-Hamida Pineda, PharmD 230 [place] [address] documented as of this encounter Goals Goal Patient Goal Type Associated Problems Recent Progress Patient-Stated? Author Blood Pressure < 140/90 Blood Pressure 110/58(2024 1:28 PM EST) No Piers-Gambl e, Hamida, PharmD Hemoglobin A1c < 7 Result Component 8.2( 1:34 PM EST) No Arts-Gambl e, Hamida, PharmD documented as of this encounter Procedures Procedure Name Priority Date/Time Associated Diagnosis Comments HM COLONOSCOPY Routine 01/30/2024 12:30 PM EDT documented in this encounter Results * Hm Colonoscopy (01/30/2024 12:30 PM EDT) us Historical Provider HEALTH MAINTENANCE Final Result documented in this encounter Visit Diagnoses Not on filedocumented in this encounter Additional Health Concerns Assessment Noted Time PHQ-9 Depression Total Score: 4 01/15/20 10:43 AM EDT documented as of this encounter Care Teams Reliability Specialist Relationship Specialty Start Date End Date Clara Joseph MD [address] [place] [address] PCP - General Family Medicine 10/12/18 Hamida Evans, QuocD [address] [place] [address] Pharmacist Internal Medicine 01/07/23January [address] 3rd [place] [address] Gastroenterology 09/30/24 Galdino [place] MD [address] [place] [address] Ophthalmology 10/24/24 Mary Patel PA-C Vascular 10/13/24 documented as of this encounter
--- OUTSIDE RECORDS SUMMARY | 2024-11-08 14:34 | XMS_ITS | Encounter Summary ---
Author Organization [employer] Address [address] [facility] 7t [place] [address] Care Team Providers Care Pbx Mechanic Name Role Phone Clara Jospeh MD Primary Care Provider + [phone] Hamida Evans PharmD Unavailable [phone]- [phone] January Unavailable Galdino Lee MD Unavailable [phone] Encounter Details Date Type Department Care Team (Latest Contact Info) Description 11/04/2024 Travel Social History Tobacco Use Types Packs/Day [...] Description 11/14/2024 8:00 AM EST Office Visit [facility] [address] [place] [phone] Yvette, Lillian [address] [place] [address] 12/09/2024 1:00 PM EST Medication Management [facility] [address] [place] [address] Arts-Hamida Pineda, PharmD [address] [place] [address] documented as of this encounter Goals Goal [...] documented as of this encounter Care Teams Pbx Mechanic Relationship Specialty Start Date End Date Clara Joseph MD [address] [place] [address] PCP - General Family Medicine 10/12/18 Hamida Evans, Fletcher [address] [place] [address] Pharmacist Internal Medicine 01/07/23 Fredy Gertrudis [address] 3rd [place] [address] Gastroenterology 09/30/24 Galdino Lee MD [address] [place] [address] Ophthalmology 10/24/24 Mary Patel PA-C Vascular 10/13/24 documented as of this encounter
--- OUTSIDE RECORDS SUMMARY | 2024-11-08 14:34 | XMS_ITS | Encounter Summary ---
Author Organization [employer] Address 75 [facility] 7t [place] [address] Care Team Providers Care Folded Cloth Taper Name Role Phone Clara Joseph MD Primary Care Provider + [phone] Hamida Evans PharmD Unavailable [phone] January Unavailable Galdino Lee MD Unavailable [phone] Encounter Details Date Type Department Care Team (Latest Contact Info) Description 10/24/2024 Travel Social History Tobacco Use Types Packs/Day [...] Description 11/14/2024 8:00 AM EST Office Visit [facility] ADULT DENT[facility] [address] [place] [address] Yvette, Lillian [address] [place] [address] 12/09/2024 1:00 PM EST Medication Management [facility] [address] [place] [address] Arts-Hamida Pineda, PharmD [address] [place] [address] documented as of this encounter Goals Goal [...] documented as of this encounter Care Teams Folded Cloth Taper Relationship Specialty Start Date End Date Clara Joseph MD [address] [place] [address] PCP - General Family Medicine 10/12/18 Hamida Evans, Fletcher [address] [place] [address] Pharmacist Internal Medicine 01/07/23 Fredy Gertrudis [address] 3rd [place] [address] Gastroenterology 09/30/24 Galdino Lee MD [address] [place] [address] Ophthalmology 10/24/24 Mary Patel PA-C Vascular 10/13/24 documented as of this encounter
--- OUTSIDE RECORDS SUMMARY | 2024-11-08 14:34 | XMS_ITS | Encounter Summary ---
Author Organization [employer] Address 75 [facility] 7t [place] [address] Care Team Providers Care Medical Office Administrator Name Role Phone Clara Joseph MD Primary Care Provider [phone]- [phone] Hamida Evans PharmD Unavailable [phone]- [phone] January Unavailable Reason for Visit * Reason Comments Med Refill Encounter Details Date Type Department Care Team (Late st Contact Info) Description 10/09/2024 Refill [facility] [address] [place] [address] Clara Joseph MD [address] [place], [place] [phone] Type 2 diabetes mellitus without complication, without long-term current use of insulin ([facility]) Social History Tobacco Use Types Packs/Day Years [...] Description 11/14/2024 8:00 AM EST Office Visit [facility]ULT [facility] [address] [place] [address] Yvette, Lillian [address] [place] [address] 12/09/2024 1:00 PM EST Medication Management [facility] [address] [place] [address] Hamida Evans PharmD [address] [place] [address] documented as of this encounter Goals Goal Patient Goal Type Associated Problems Recent Progress Patient-Stated? Author Blood Pressure < 140/90 Blood Pressure 110/58(2024 1:28 PM EST) No Hamida Herman PharmD Hemoglobin A1c < 7 Result Component 8.2( 1:34 PM EST) No Hamida Herman PharmD documented as of this encounter Visit Diagnoses Diagnosis Type 2 diabetes mellitus without complication, without long-term current use of insulin ([facility]) documented in this encounter Additional Health Concerns Assessment Noted Time PHQ-9 Depression Total Score: 4 01/15/20 10:43 AM EDT documented as of this encounter Care Teams Medical Office Administrator Relationship Specialty Start Date End Date Clara Joseph MD [address] [place] [address] PCP - General Family Medicine 10/12/18 Hamida Evans, QuocD [address] [place] [address] Pharmacist Internal Medicine 01/07/23January [address] [place] [address] Drive 3rd [place] [address] Gastroenterology 09/30/24 documented as of this encounter
--- OUTSIDE RECORDS SUMMARY | 2024-11-08 14:34 | XMS_ITS | Encounter Summary ---
Author Organization [employer] Address 75 [facility] 7t [place] [address] Care Team Providers Care Senior Engineering Associate Name Role Phone Clara Joseph MD Primary Care Provider [phone]- [phone] Hamida Evans PharmD Unavailable [phone]- [phone] January Unavailable Encounter Details Date Type Department Care Team (Late st Contact Info) Description 10/22/2024 Orders Only GENERIC EXTERNAL DATA DEPARTMENT Provider, Generic External Data Social History Tobacco Use Types Packs/Day Years [...] Description 11/14/2024 8:00 AM EST Office Visit [facility] ADULT DENT[facility] [address] [place] [address] Yvette, Lillian [address] [place] [address] 12/09/2024 1:00 PM EST Medication Management [facility] [address] [place] [address] ArtsHamida Tapia, PharmD [address] [place] [address] documented as of this encounter Goals Goal Patient Goal Type Associated Problems Recent Progress Patient-Stated? Author Blood Pressure < 140/90 Blood Pressure 110/58(2024 1:28 PM EST) No Arts-Kvng ozuna, Hamida, PharmD Hemoglobin A1c < 7 Result Component 8.2( 1:34 PM EST) No Arts-Ashal sulma, Hamida, PharmD documented as of this encounter Procedures Procedure Name Priority Date/Time Associated Diagnosis Comments URINALYSIS, COMPLETE, WITH REFLEX TO CULTURE Routine 10/22/2024 12:[address] HEAD WO CONTRAST Routine 10/22/2024 1 1:03 AM EST HIGH SENSITIVITY TROPONIN I Routine 10/22/2024 10:22 AM EST CBC WITH AUTO DIFFERENTIAL Routine 10/22/2024 10:22 AM EST APTT Routine 10/22/2024 10:22 AM EST PROTHROMBIN TIME-INR Routine 10/22/2024 10:22 AM EST BASIC METABOLIC PANEL Routine 10/22/2024 10:22 AM EST documented in this encounter Results * (ABNORMAL) Urinalysis, Complete, with Reflex to Culture (10/22/2024 12:26 PM EST) Color Urine Yellow [facility] Appearance Urine Clear [facility] PH 5.5 5.0 - 9.0 [facility] Glucose Urine UA >=1000(A) Negative mg/dL [facility] Urine Blood Negative Negative [facility] Specific [place] - Urine 1.015 1.005 - 1.025 [facility] Urine Protein Negative Neg-Trace mg/dL [facility] Urine Ketones Trace Negative mg/dL [facility] Nitrite Urine Negative Negative [facility] Leukocyte Esterase Urine Negative Negative [facility] RBC Urine 0-2 0 - 2 /HPF [facility] Urine WBC 0-5 0 - 5 /HPF [facility] Urine Squamous Epithelial Cell 11-20 0 - 2 /HPF [facility] Urine Bacteria Trace None Seen [facility] Hyaline Casts, Urine 0-2 0 - 2 /LPF [facility] 10/22/2024 12:2 6 PM EST 10/22/2024 12:36 PM EST Narrative [facility] - 10/22/2024 12:50 PM EST [id number], [employer] us Generic External Data Provider LAB URINE ORDERAB LES Final Result [facility] [address] [place] [address] [phone] * CT Head w/o Contrast (10/22/2024 11:03 AM EST) Anatomical Region Laterality Modality Head, Neck Computed Tomogra phy 10/22/2024 11:0 3 AM EST Narrative 10/22/2024 11:04 AM EST ? [facility] ?[address] ?[place] [address] ? CT Scan Report ? Signed ? Patient: Cordero Manuel,Jolie ?MR#: [id number] ?? [id number] ? : 1965 ?Acct:[id number] ? Age/Sex: 59 / F ?ADM Date: 10/22/24 ? Loc: HO.ED ? Attending Dr: ? Ordering Physician: Chalino Cummings MD ?? Date of Service: 10/22/24 ?? Procedure(s): CT head/brain wo IV con ?? Accession Number(s): [id number] ? cc: Clara Joseph MD; Chalino Cummings MD ? Report Number: ?? [id number]: Total DLP = ??533.00 mGy-cm ? CLINICAL [...] ? Signed By: ?<Electronically signed by Jeramy Bevaer MD in OV> ?10/22/24 1103 ? DD/ 1103 ? TD/TT: 10/22/24 1103 ? Healthcare Administrator: ? Procedure Note Allison, Kye - 10/22/[address] [address] [address] Scan Report Signed Patient: Gil WebbYeimy leoadMR#: [id number] : 1965Acct:[id number] Age/Sex: 59 / FADM Date: 10/22/24 Loc: HO.ED Attending Dr: Ordering Physician: Chalino Cummings MD Date of Service: 10/22/24 Procedure(s): CT head/brain wo IV con Accession Number(s): [id number] cc: Clara Joseph MD; Chalino Cummings MD Report Number: [id number]: Total DLP = 533.00 mGy-cm CLINICAL HISTORY: [...] Beaver MD in OV> 10/22/24 1103 DD/ 1103 TD/TT: 10/22/24 1103 Healthcare Administrator: [facility] External Provider IMG CT PROCEDURES Edited Result - Final * High Sensitivity Troponin I (10/22/2024 10:22 AM EST) TROPONIN I HIGH SENSITIVITY <2.7 <3.5 - 17.0 ng/L [facility] Comment:The [place] high sens itivity Troponin-I results should beused in conjunction with other diagnostic information suchas ECG, clinical observations and information, and patientsymptoms to aid in the diagnosis of AR. 10/22/2024 10:2 2 AM EST 10/22/2024 10:25 AM EST Generic External Data Provider LAB BLOOD ORDERAB LES Final Result [facility] [address] [place] [phone] * (ABNORMAL) Basic Metabolic Panel (10/22/2024 10:22 AM EST) Sodium 138 135 - 145 mmol/L [facility] Potassium 4.7 3.3 - 5.1 mmol/L [facility] Comment:Slight Hemolysis.Int erpret result with caution. Chloride 107 96 - 108 mmol/L [facility] Carbon Dioxide 24 22 - 29 mmol/L [facility] Anion Gap 12 12 - 20 [facility] Urea Nitrogen (BUN) 13 9 - 16 mg/dL [facility] Creatinine, Serum 0.80 0.5 - 1.4 mg/dL [facility] Creatinine Clr Calc Pharmacy 69.5 [facility] Comment:Provided height and weight: 162.56 cm,67.132 kg.eGFR (calculated from the MDRD study equation) and eCrCl(calculated from the Cockcroft-Gault equation) are based ondifferent parameters and may not yield comparable results.If eCrCl result is absurd, please check patient'sheight/weight. Estimated Glomerular Filt Rate >60 [facility] Comment:Chronic Kidney Disea se: Estimated GFR < 60 mL/min/1.12d7Nfcmlj Kidney Disease: Estimated GFR < 15 mL/min/1.73m2 Glucose 143(H) 60 - 115 mg/dL [facility] Calcium 9.5 8.4 - 10.2 mg/dL [facility] 10/22/2024 10:2 2 AM EST 10/22/2024 10:25 AM EST us Generic External Data Provider LAB BLOOD ORDERAB LES Final Result [facility] [address] [place] [phone] * Partial Thromboplastin Time, Activated (APTT) (10/22/2024 10:22 AM EST) Partial Thromboplastin Time 28.0 26.0 - 36.8 SEC [facility] Comment:For information rega rding the monitoring of direct thrombininhibitors, please refer to Pharmacy. 10/22/2024 10:2 2 AM EST 10/22/2024 10:25 AM EST us Generic External Data Provider LAB BLOOD ORDERAB LES Final Result Performing Organization Address City/[facility]/ZIP Co de Phone Number [facility] [address] [place] [phone] * Prothrombin Time-INR (10/22/2024 10:22 AM EST) Prothrombin Time 11.3 10.9 - 12.4 SEC [facility] INTERNATIONAL NORM RATIO 1.0 0.9 - 1.1 [facility] Comment:INTERNATIONAL NORMAL IZED RATIO (INR) [...] ORDERAB LES Final Result Performing Organization Address City/[facility]/ZIP Co de Phone Number [facility] [address] [place] [phone] * (ABNORMAL) CBC auto differential (10/22/2024 10:22 AM EST) White Blood Count 5.6 4.8 - 10.8 X10*3/uL [facility] Red Blood Count 4.71 4.20 - 5.50 X10*6/uL [facility] Hemoglobin 13.8 12.0 - 16.0 g/dl [facility] Hematocrit 40.6 37.0 - 47.0 % [facility] Mean Corpuscular Volume 86.2 80.0 - 98.0 fL [facility] Mean Corpuscular Hemoglobin 29.3 27.0 - 33.0 pg [facility] Mean Corpuscular HGB Conc 34.0 31.0 - 35.0 g/dl [facility] Red Cell Distribution Width 12.5 11.0 - 16.0 % [facility] Platelet Count 155(L) 160 - 400 X10*3/uL [facility] Mean Platelet Volume 10.5 9.4 - 12.3 fL [facility] Neutrophils Percent Auto 56.7 45 - 73 % [facility] Imm Gran Pct Auto 0.4 0.0 - 0.4 % [facility] Lymphocytes Percent Auto 31.5 20 - 40 % [facility] Monocytes Percent Auto 11.0 2 - 11 % [facility] Eosinophils Percent Auto 0.2 0 - 4 % [facility] Basophils Percent Auto 0.2 0 - 2 % [facility] NRBC Pct Auto 0.0 0.0 - 0.2 /100WBC [facility] Neutrophils Absolute Auto 3.2 2.0 - 8.3 x10*3/uL [facility] Imm Gran Abs Auto 0.02 0.00 - 0.03 X10*3/uL [facility] Lymphocytes Absolute Auto 1.8 1.2 - 4.9 X10*3/uL [facility] Monocytes Absolute Auto 0.6 0.1 - 1.2 X10*3/uL [facility] Eosinophils Absolute Auto 0.0 0.0 - 0.4 X10*3/uL [facility] Basophils Absolute Auto 0.0 0.0 - 0.2 X10*3/uL [facility] NRBC Abs Auto 0.000 0.0 - 0.012 X10*3/uL [facility] 10/22/2024 10:2 2 AM EST 10/22/2024 10:25 AM EST us Generic External Data Provider LAB BLOOD ORDERAB LES Final Result [facility] [address] [place] [address] [phone] documented in this encounter Visit Diagnoses Not on filedocumented in this encounter Additional Health Concerns Assessment Noted Time PHQ-9 Depression Total Score: 4 01/15/20 24 10:43 AM EDT documented as of this encounter Care Teams Senior Engineering Associate Relationship Specialty Start Date End Date Clara Joseph MD [address] [place] [address] PCP - General Family Medicine 10/12/18 Hamida Evans, QuocD [address] [place] [address] Pharmacist Internal Medicine 01/07/[address] [place] [address] Gastroenterology 09/30/24 Mary Patel PA-C Vascular 10/13/24 documented as of this encounter
--- OUTSIDE RECORDS SUMMARY | 2024-11-08 14:34 | XMS_ITS | Encounter Summary ---
Author Organization [employer] Address 75 [facility] 7t [place] [address] Care Team Providers Care Recreational Therapy Aide Name Role Phone Clara Joseph MD Primary Care Provider + [phone] Hamida Evans PharmD Unavailable January Unavailable Galdino Lee MD Unavailable [phone] Encounter Details Date Type Department Care Team (Late st Contact Info) Description 10/20/2022 Orders Only [facility] [address] [place] [address] Marina Mendes LPN Social History Tobacco Use Types Packs/Day Years Used Date Smoking Tobacco: Never Assessed Comments Unknown Sex and Gender Information Value [...] Description 11/14/2024 8:00 AM EST Office Visit [facility] ADULT [facility] [address] [place], [place] [phone] Qasim Crawfordaris [address] [place], [place] [phone] 12/09/2024 1:00 PM EST Medication Management [facility] [address] [place], [place] [phone] Hamida Evans, PharmD [address] [place] [address] documented as of this encounter Visit Diagnoses Not on filedocumented in this encounter Care Teams Recreational Therapy Aide Relationship Specialty Start Date End Date Clara Joseph MD [address] [place] [address] PCP - General Family Medicine 10/12/18 Hamida Evans, QuocD [address] [place] [address] Pharmacist Internal Medicine 01/07/23 Fredy January [address] 3rd [place] [address] Gastroenterology 09/30/24 Galdino Lee MD 2 [facility] [address] [place] [address] Ophthalmology 10/24/24 Mary Patel PA-C Vascular 10/13/24 documented as of this encounter
--- OUTSIDE RECORDS SUMMARY | 2024-11-08 14:34 | XMS_ITS | Encounter Summary ---
Author Organization [employer] Address [address] [place] [address] 7t [place] [address] Care Team Providers Care Supervisor Patching Name Role Phone Clara Joseph MD Primary Care Provider +- [phone] Hamida Evans PharmD Unavailable January Unavailable Galdino Lee MD Unavailable [phone] Encounter Details Date Type Department Care Team (Late st Contact Info) Description 03/19/2023 Abstract [facility] [address] [place] [address] Clara Joseph MD [address] [place], [place] [phone] Social History Tobacco Use Types Packs/Day Years [...] Description 11/14/2024 8:00 AM EST Office Visit [facility]ULT [facility] [address] [place] [address] Lillian Crawford [address] [place] [address] 12/09/2024 1:00 PM EST Medication Management [facility] [address] [place] [address] Hamida Evans PharmD [address] [place] [address] documented as of this encounter Goals Goal [...] documented as of this encounter Care Teams Supervisor Patching Relationship Specialty Start Date End Date Clara Joseph MD [address] [place] [address] PCP - General Family Medicine 10/12/18 Hamida Evans, PharmD [address] [place] [address] Pharmacist Internal Medicine 01/07/23January [address] 3rd [place] [address] Gastroenterology 09/30/24 Galdino Lee MD 2 [facility] [address] [place] [address] Ophthalmology 10/24/24 Mary Patel PA-C Vascular 10/13/24 documented as of this encounter
--- OUTSIDE RECORDS SUMMARY | 2024-11-08 14:34 | XMS_ITS | Encounter Summary ---
Author Organization [employer] Address [address] [facility] 7t [place] [address] Care Team Providers Care Councilman Name Role Phone Clara Joseph MD Primary Care Provider +- [phone] Hamida Evans PharmD Unavailable [phone] January Unavailable Reason for Referral * Consultation (Routine) - Authorized Specialty Diagnoses / Procedures Referred By Ernestine t Referred To Contact Orthopaedic Surgery Diagnoses Left hip pain Clara Joseph MD [address] [place], [place] Phone: tel: fax: [facility] [address] [place], [place] Phone: tel: Referral ID Status Reason Start Date Expiration Date Visits Requested Visits Authorized [id number] Authorized Specialty Services Required 4 09/30/2025 1 1 * Consultation (Routine) - Authorized Specialty Diagnoses / Procedures Referred By Contac t Referred To Contact Vascular Surgery Diagnoses Complicated varicose veins Clara Joseph MD [address] [place], [place] Phone: tel: fax: Adis Hurley MD [address] [place], [place] Phone: tel: fax: Referral ID Status Reason Start Date Expiration Date Visits Requested Visits Authorized [id number] Authorized Specialty Services Required 4 09/30/2025 1 1 * Consultation (Routine) - Closed Specialty Diagnoses / Procedures Referred By Ernestine del toro Referred To Contact Physical Therapy Diagnoses Left hip pain Dizzy Clara Joseph MD [address] [place] [address] Phone: tel: fax: [facility] [address] [place] [address] Phone: tel: fax: Referral ID Status Reason Start Date Expiration Date V isits Requested Visits Authorized [id number] Closed Specialty Services Required 09/30/2024 09/30/2025 1 1 Encounter Details Date Type Department Care Team (Late st Contact Info) Description 09/30/2024 10:00 AM EST Office Visit [facility] [address] [place] [phone] Clara Joseph MD [address] [place] [address] Left hip pain (Primary Dx); Dizzy; Complicated varicose veins; Type 2 diabetes mellitus without complication, without long-term current use of insulin (CMS/HCC); Gastroesophageal reflux disease, unspecified whether esophagitis present; 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 prior episode (CMS/HCC); Dyslipidemia; History of meningioma; Primary hypertension; Hypothyroidism, unspecified type; Other specified health status; Colon cancer screening Social History Tobacco Use [...] Sign Reading Time Taken Comments Blood Pressure 140/79 09/30/2024 9:38 AM EST Pulse 72 09/30/2024 9:38 AM EST Temperature 36.1 ??C (96.9 ??F) 09/30/2024 9:38 AM ES T Respiratory Rate 19 09/30/2024 9:38 AM EST Oxygen Saturation 100% 09/30/2024 9:38 AM EST Inhaled Oxygen Concentration - - Weight 69.2 kg (152 lb 9.6 oz) 09/30/2024 9:38 AM EST Height 162.6 cm (5' 4 ) 09/30/2024 9:38 AM EST Body Mass Index 26.19 09/30/2024 9:38 AM EST documented in this encounter Progress Notes * Clara Joseph MD - 09/30/2024 10:00 AM EST Subjective Jolie is a 58 y.o. female with type 2 diabetes, chronic dizziness due to hx meningeoma resection, depression who presents to the office today for left leg pain. She reports chronic left leg pain, worse over her lateral hip. Worse with stairs or standing. She requests a disability plate in hopes that she can get a disability space in front of her home due to pain in leg when walking. I explained that she likely does not qualify due to being able to walk > 200 feet without assistive device. She reports that she would benefit from cane due to leg pain and dizziness She agrees to physical therapy to see if symptoms can be improved and for evaluation to see if assistive device is appropriate. Social History Tobacco: denied Drugs: none Alcohol: No Sexuality: Denies current sexual activity Suicide/Depression: The patient denies any present symptoms of depression or anxiety. Review of Systems Current Outpatient Medications: atenolol (Tenormin) 25 MG tablet, TAKE 1 TABLET BY MOUTH EVERYDAY AT NOON, Disp: 90 tablet, Rfl: 3 Dulaglutide (Trulicity) 1.5 MG/0.5ML solution auto-injector, INJECT ONE PEN (=1.5MG) SUBCUTANEOUSLYONCE A WEEK DIRECTED, Disp: 2 mL, Rfl: 3 empagliflozin (Jardiance) 25 MG, TAKE 1 TABLET BY MOUTH EVERY MORNING, Disp: 30 tablet, Rfl: 6 escitalopram (Lexapro) 20 MG tablet, Take 20 mg by mouth Once per day., Disp: , Rfl: glucose (Glutose) 40 % gel oral gel, Use as directed for low blood sugar, Disp: 40 g, Rfl: 11 glucose blood (FREESTYLE LITE) test strip, TEST BLOOD SUGAR THREE TIMES DAILY, Disp: 100 each, Rfl:11 levothyroxine (Synthroid, Levoxyl) 75 MCG tablet, TAKE 1 TABLET BY MOUTH EVERY MORNING, Disp: 90 tablet, Rfl: 3 lisinopril 5 MG tablet, TAKE 1 TABLET BY MOUTH EVERY EVENING, Disp: 30 tablet, Rfl: 11 magnesium oxide (Mag-Ox) 400 mg tablet, PATIENT PURCHASING OTC, Disp: , Rfl: melatonin tablet, TAKE 1 TABLET BY MOUTH AT BEDTIME NEEDED FOR SLEEP, Disp: 30 tablet, Rfl: 5 omeprazole OTC (PriLOSEC OTC) 20 MG EC tablet, Take 1 tablet (20 mg) by mouth before breakfast and before evening meal. Do not crush, chew, or split., Disp: 60 tablet, Rfl: 11 rosuvastatin (Crestor) 40 MG tablet, TAKE 1 TABLET BY MOUTH AT BEDTIME, Disp: 90 tablet, Rfl: 0 TRUEplus Lancets 33G misc, TEST BLOOD SUGAR THREE TIMES DAILY, Disp: 100 each, Rfl: 11 No Known Allergies Past Medical History: Diagnosis Date Anxiety Arthritis Bleeding gums 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 prior episode ([facility]) 12/17/2022 Depression. - Pt followed by therapist and psychiatry. - She is compliant wit Clonazepam and Citalopram. Depression Diabetes mellitus ([facility]) Diabetes mellitus, type 2 ([facility]) 06/25/2012 Diabetes is controlled. Diabetes is followed with pharmacy [facility] by Dr. Hamida Evans PharmD, [facility]. Lab Results Component Value Date HGBA1C 7.1 (A) 08/23/2024 HGBA1C 5.4 02/29/2024 HGBA1C 8.6 (A) 01/15/2024 Lab Results Component Value Date CREATININE 0.78 02/29/2024 EGFR Disease of thyroid gland Dyslipidemia 06/25/2012 Lab Results Component Value Date TRIG 61 04/09/2023 -Previously changed from pravastatin to rosuvastatin for high intensity statin by [facility] - Rosuvastatin increased from 20mg once daily to 40mg once daily by [facility] 08/23/24 due to hyperlipidemia LDL Cholesterol Calculated Date Value Ref RangeStatus 05/02/2024 111 (H) <100 mg/d GERD (gastroesophageal reflux disease) High cholesterol History of meningioma 12/17/2022 - Hx right sided mass meningioma incidentally found on MRI of the brain that revealed 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 - S/p surgical resection 03/23/17 at [facility]. - Continued instability, dizziness and right facial numbness and decreased taste. - continue yearly MRIs, last done 10/2018 no significan History of stroke Hypertension Hypothyroidism 01/31/2013 Lab Results Component Value Date TSH 0.26 (L) 02/29/2024 TSH 3.59 01/20/2023 Past Surgical History: Procedure Laterality Date BRAIN MENINGIOMA EXCISION [facility] Family History Problem Relation Name Age of Onset Breast cancer Mother Vaginal cancer Mother Objective Visit Vitals BP 140/79 Pulse 72 Temp 96.9 ??F (36.1 ??C) (Temporal) Resp 19 Ht 5' 4 (1.626 m) Wt 152 lb 9.6 oz (69.2 kg) SpO2 100% BMI 26.19 kg/m?? Smoking Status Never BSA 1.77 m?? Physical Exam Constitutional: Appearance: Normal appearance. HENT: Head: Normocephalic. Right Ear: Tympanic membrane normal. Left Ear: Tympanic membrane normal. Mouth/Throat: Pharynx: Oropharynx is clear. Eyes: Pupils: Pupils are equal, round, and reactive to light. Cardiovascular: Pulses: Dorsalis pedis pulses are 2+ on the right side and 2+ on the left side. Abdominal: Palpations: There is no mass. Tenderness: There is no abdominal tenderness. Musculoskeletal: Cervical back: Normal range of motion and neck supple. Left hip: Tenderness and bony tenderness present. No deformity or lacerations. Normal range of motion. Right foot: No deformity or Charcot foot. Left foot: No deformity or Charcot foot. Comments: Varicose veins left LE, tenderness over lateral hip at trochanteric bursa. Tight hamstrings. Feet: Right foot: Protective Sensation: 5 sites tested. 5 sites sensed. Skin integrity: Skin integrity normal. Toenail Condition: Right toenails are normal. Left foot: Protective Sensation: 5 sites tested. 5 sites sensed. Skin integrity: Skin integrity normal. Toenail Condition: Left toenails are normal. Lymphadenopathy: Cervical: No cervical adenopathy. Skin: General: Skin is warm and dry. Neurological: Mental Status: She is alert. 58 y.o. female physical exam. Problem List Items Addressed This Visit Left hip pain - Primary Relevant Orders Referral to Physical Therapy Referral to Orthopaedic Surgery XR Hip 2 or 3 Views Left Dizzy Relevant Orders Referral to Physical Therapy Complicated varicose veins Relevant Orders Referral to Vascular Surgery Diabetes mellitus, type 2 (CMS/HCC) Relevant Medications glucose (Glutose) 40 % gel oral gel 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 prior episode (CMS/HCC) Dyslipidemia History of meningioma Hypertension Hypothyroidism Relevant Orders TSH W/Reflex to FT4 Other specified health status Colon cancer screening Other Visit Diagnoses Gastroesophageal reflux disease, unspecified whether esophagitis present Relevant Medications omeprazole OTC (PriLOSEC OTC) 20 MG EC tablet Follow up in about 5 months (around 02/28/2025) for physical. documented in this encounter Plan of Treatment Upcoming Encounters Date Type Department Care Team (Late st Contact Info) Description 11/14/2024 8:00 AM EST Office Visit [facility] [address] [place] [address] Yvette, Lillian [address] [place] [address] 12/09/2024 1:00 PM EST Medication Management [facility] [address] [place] [address] Hamida Evans PharmD [address] [place] [address] Scheduled Referrals Name Type Priority Associated Diagnoses Order Schedule Referral to Physical Therapy Outpatient Referral Routine Left hip pain Dizzy Expected: 09/30/2024 (Approximate), Expires: 09/30/2025 Referral to Vascular Surgery Outpatient Referral Routine Complicated varicose veins Expected: 09/30/2024 (Approximate), Expires: 09/30/2025 Referral to Orthopaedic Surgery Outpatient Referral Routine Left hip pain Expected: 09/30/2024 (Approximate), Expires: 09/30/2025 documented as of this encounter Goals Goal Patient Goal Type Associated Problems Recent Progress Patient-Stated? Author Blood Pressure < 140/90 Blood Pressure 110/58(2024 1:28 PM EST) No Hamida Herman, PharmD Hemoglobin A1c < 7 Result Component 8.2( 1:34 PM EST) No Hamida Herman PharmD documented as of this encounter Procedures Procedure Name Priority Date/Time Associated Diagnosis Comments XR HIP 2 OR 3 VIEWS LEFT Routine 10/18/2024 2:15 PM EST Left hip pain TSH W/REFLEX TO FT4 Routine 10/11/2024 8 :20 AM EST Hypothyroidism, unspecified type documented in this encounter Results * XR Hip 2 or 3 Views Left (10/18/2024 2:15 PM EST) Anatomical Region Laterality Modality Lower Extremities, Hip Left Radiograp hic Imaging 10/18/2024 2:15 PM EST Narrative 10/20/2024 9:52 AM EST ? [facility] ?[address] ?[place] [address] ?XRay Report ? Signed ? Patient: Cordero Manuel,Jolie ?MR#: [id number] ?? [id number] ? : 1965 ?Acct:[id number] ? Age/Sex: 59 / F ?ADM Date: 10/18/24 ? Loc: HO.XRAY ? Attending Dr: Clara Joseph MD ? Ordering Physician: Clara Joseph MD ?? Date of Service: 10/18/24 ?? Procedure(s): XR hip LT min 2V w/wo pel ?? Accession Number(s): [id number] ? cc: Clara Joseph MD ? EXAMINATION: ??XR HIP 2 [...] DD/ 1415 ? TD/TT: 10/18/24 1421 ? [employer]: ? Procedure Note Allison, Kye - 10/20/[address] [address] XRay Report Signed Patient: Yeimy WerneradMR#: [id number] : 1965Acct:[id number] Age/Sex: 59 / FADM Date: 10/18/24 Loc: HO.XRAY Attending Dr: Clara Joseph MD Ordering Physician: Clara Joseph MD Date of Service: 10/18/24 Procedure(s): XR hip LT min 2V w/wo pel Accession Number(s): [id number] cc: Clara Joseph MD EXAMINATION: XR HIP [...] 10/20/24 0949 DD/ 1415 TD/TT: 10/18/24 1421 [employer]: Clara Joseph MD IMG XR PROCEDURES Final Re sult * TSH W/Reflex to FT4 (10/11/2024 8:20 AM EST) TSH reflex Free T4 3.06 0.32 - 4.0 uIU/mL [facility] Blood Venous blood specimen / Unknown 10/11/2024 8:20 AM EST 10/11/2024 10:57 AM EST Clara Joseph MD LAB BLOOD ORDERABLES Final Result [facility] [address] [place] [address] [phone] documented in this encounter Visit Diagnoses Diagnosis Left hip pain- Primary Pain in joint, pelvic region and thigh Dizzy Dizziness and giddiness Complicated varicose veins Varicose veins of lower extremities with other complications Type 2 diabetes mellitus without complication, without long-term current use of insulin ([facility]/HCC) Gastroesophageal reflux disease, unspecified whether esophagitis present 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 prior episode (CMS/HCC) Dyslipidemia Other and unspecified hyperlipidemia History of meningioma Primary hypertension Unspecified essential hypertension Hypothyroidism, unspecified type Other specified health status Colon cancer screening Special screening for malignant neoplasms, colon documented in this encounter Additional Health Concerns Assessment Noted Time PHQ-9 Depression Total Score: 4 01/15/20 24 10:43 AM EDT documented as of this encounter Care Teams Councilman Relationship Specialty Start Date End Date Opal, MD Clara [address] [place] [address] PCP - General Family Medicine 10/12/18 Hamida Evans PharmD [address] [place] [address] Pharmacist Internal Medicine 01/07/23 Fredy Gertrudis [address] [place] [address] Drive 3rd [place] [address] Gastroenterology 09/30/24 Mary Patel PA-C Vascular 10/13/24 documented as of this encounter
--- OUTSIDE RECORDS SUMMARY | 2024-11-08 14:35 | XMS_ITS | Encounter Summary ---
Author Organization [employer] [facility] Address [address] [place] [address] 7t [place] [address] Care Team Providers Care Furnace Attendant Name Role Phone Clara Joseph MD Primary Care Provider + [phone] Hamida Evans PharmD Unavailable [phone] January Unavailable Galdino Lee MD Unavailable [phone] Encounter Details Date Type Department Care Team (Late st Contact Info) Description 04/06/2023 Abstract [facility] [address] [place], [place] [phone] Yvette, Lillian [address] [place], [place] [phone] Social History Tobacco Use Types Packs/Day Years [...] suspected to have Coronavirus/COVID-19? No / Unsure 04/09/2023 8:54 AM EDT documented as of this encounter Plan of Treatment Upcoming Encounters Date Type Department Care Team (Late st Contact Info) Description 11/14/2024 8:00 AM EST Office Visit [facility] [address] [place] [address] Lillian Crawford [address] [place] [address] 12/09/2024 1:00 PM EST Medication Management [facility] [address] [place] [address] Hamida Evans PharmD [address] [place] [address] documented as of this encounter Goals Goal [...] documented as of this encounter Care Teams Furnace Attendant Relationship Specialty Start Date End Date Clara Joseph MD [address] [place] [address] PCP - General Family Medicine 10/12/18 Hamida Evans PharmD [address] [place] [address] Pharmacist Internal Medicine 01/07/23January [address] 3rd [place] [address] Gastroenterology 09/30/24 Galdino Lee MD [address] [place] [address] Ophthalmology 10/24/24 Mary Patel PA-C Vascular 10/13/24 documented as of this encounter
--- OUTSIDE RECORDS SUMMARY | 2024-11-08 14:35 | XMS_ITS | Encounter Summary ---
Author Organization [employer] [facility] Address [address] [facility] 7t [place] [address] Care Team Providers Care Perforator Name Role Phone Clara Joseph MD Primary Care Provider + [phone] Hamida Evans PharmD Unavailable [phone] January Unavailable Galdino Lee MD Unavailable [phone] Encounter Details Date Type Department Care Team (Latest Contact Info) Description 12/27/2018 Abstract [facility] CONVERSIONS Dental, Provider, DDS Social History Tobacco Use Types Packs/Day Years [...] Description 11/14/2024 8:00 AM EST Office Visit [facility] ADULT [facility] [address] [place], [place] [phone] Yvette Lillian [address] [place] [address] 12/09/2024 1:00 PM EST Medication Management [facility] [address] [place] [address] Hamida Evans, PharmD [address] [place], [place] [phone] documented as of this encounter Visit Diagnoses Not on filedocumented in this encounter Care Teams Perforator Relationship Specialty Start Date End Date Clara Joseph MD [address] [place] [address] PCP - General Family Medicine 10/12/18 Hamida Evans, Fletcher [address] [place] [address] Pharmacist Internal Medicine 01/07/23January [address] 3rd [place] [address] Gastroenterology 09/30/24 Galdino Lee MD [address] [place] [address] Ophthalmology 10/24/24 Mary Patel PA-C Vascular 10/13/24 documented as of this encounter
--- OUTSIDE RECORDS SUMMARY | 2024-11-08 14:35 | XMS_ITS | Encounter Summary ---
Author Organization [employer] Address [address] [facility] 7 [place] [address] Care Team Providers Care Quill Layer Name Role Phone Clara Joseph MD Primary Care Provider [phone] Hamida Evans PharmD Unavailable [phone] January Unavailable Reason for Visit * Reason Comments Pre-visit Planning SDOH screening was c ompleted on 01/15/2024 Encounter Details Date Type Department Care Team (Late st Contact Info) Description 10/13/2024 Patient Outreach [facility] [address] [place], [place] [phone] Clara Joseph MD [address] [place], [place] [phone] Pre-visit Planning (SDOH screening was completed on 01/15/2024) Social History Tobacco Use Types Packs/Day Years [...] AM EDT documented as of this encounter Progress Notes * Orly Melo - 10/13/2024 1:40 PM EST PEDRO Magallon placed successful outbound call to patient for pre-visit planning. Patient name and confirmed. Patient confirms appt date and time, and has transportation arrangements. Biggest concern for appointment at this time is patient had a follow up appt with a specialist at [facility] and still having cramps, leg pain, dizziness and stomach issues but pt will discuss with PCP in person. Patientadvised to bring to appointment a photo id and insurance card. Appropriate screenings completed in anticipation of appointment. documented in this encounter Plan of Treatment Upcoming Encounters Date Type Department Care Team (Late st Contact Info) Description 11/14/2024 8:00 AM EST Office Visit [facility] ADULT DENTAL [address] [place] [address] Yvette, Lillian [address] [place] [address] 12/09/2024 1:00 PM EST Medication Management [facility] [address] [place] [address] Hamida Evans PharmD [address] [place] [address] documented as of this encounter Goals Goal [...] documented as of this encounter Care Teams Quill Layer Relationship Specialty Start Date End Date Clara Joseph MD [address] [place] [address] PCP - General Family Medicine 10/12/18 Hamida Evans PharmD [address] [place] [address] Pharmacist Internal Medicine 01/07/23 Gertrudis Daniel [address] [place] [address] 3rd [place] [address] Gastroenterology 09/30/24 Mary Patel PA-C Vascular 10/13/24 documented as of this encounter
--- OUTSIDE RECORDS SUMMARY | 2024-11-08 14:35 | XMS_ITS | Encounter Summary ---
Author Organization [employer] [facility] Address [address] [place] [address] 7t [place] [address] Care Team Providers Care Junior Electrical Engineer Name Role Phone Clara Joseph MD Primary Care Provider + [phone] Hamida Evans PharmD Unavailable [phone] January Unavailable Galdino Lee MD Unavailable [phone] Encounter Details Date Type Department Care Team (Late st Contact Info) Description 11/14/2022 Abstract [facility] MED[facility] [address] [place] [address] Clara Joseph MD [address] [place], [place] [phone] Social History Tobacco Use Types Packs/Day Years [...] Description 11/14/2024 8:00 AM EST Office Visit [facility] ADULT DENTAL [address] [place] [address] Lillian Crawford [address] [place] [address] 12/09/2024 1:00 PM EST Medication Management [facility] [address] [place] [address] Hamida Evans PharmD [address] [place] [address] documented as of this encounter Procedures Procedure Name Priority Date/Time Associated Diagnosis Comments PAP SMEAR Routine 03/14/2022 12:00 AM EDT MAMMOGRAPHY Routine 10/02/2021 COLONOSCOPY Routine 02/22/2014 documented in this encounter Results * Pap Smear (03/14/2022 12:00 AM EDT) Swab Historical Provider LAB CYTOLOGY ORDERABLES F inal Result IMAGING * Mammography (10/02/2021) Mammogram normal Anatomical Region Laterality Modality Other Historical Provider HEALTH MAINTENANCE Final Result * Colonoscopy (02/22/2014) Colonoscopy normal with Dr. Mejia Historical Provider HEALTH MAINTENANCE Final Result documented in this encounter Visit Diagnoses Not on filedocumented in this encounter Care Teams Junior Electrical Engineer Relationship Specialty Start Date End Date Clara Joseph MD [address] [place] [address] PCP - General Family Medicine 10/12/18 Hamida Evans, PharmD [address] [place] [address] Pharmacist Internal Medicine 01/07/23 Fredy January [address]rd [place] [address] Gastroenterology 09/30/24 Galdino Lee MD [address] [place] [address] Ophthalmology 10/24/24 Mary Patel PA-C Vascular 10/13/24 documented as of this encounter
--- OUTSIDE RECORDS SUMMARY | 2024-11-08 14:35 | XMS_ITS | Encounter Summary ---
Author Organization [employer] [facility] Address [address] [facility] 7t [place] [address] Care Team Providers Care Knitter Wire Mesh Name Role Phone Clara Joseph MD Primary Care Provider + [phone] Hamida Evans PharmD Unavailable [phone] January Unavailable Galdino Lee MD Unavailable [phone] Encounter Details Date Type Department Care Team (Latest Contact Info) Description 10/01/2021 Abstract [facility] CONVERSIONS Dental, Provider, DDS Social History [...] Description 11/14/2024 8:00 AM EST Office Visit [facility] ADULT DENTAL [address] [place], [place] [phone] Yvette Lillian [address] [place], [place] [phone] 12/09/2024 1:00 PM EST Medication Management [facility] [address] [place], [place] [phone] Hamida Evans, PharmD [address] [place], [place] [phone] documented as of this encounter Visit Diagnoses Not on filedocumented in this encounter Care Teams Knitter Wire Mesh Relationship Specialty Start Date End Date Clara Joseph MD [address] [place] [address] PCP - General Family Medicine 10/12/18 Hamida Evans, Fletcher [address] [place] [address] Pharmacist Internal Medicine 01/07/23January [address] 3rd [place] [address] Gastroenterology 09/30/24 Galdino Lee MD [address] [place] [address] Ophthalmology 10/24/24 Mary Patel PA-C Vascular 10/13/24 documented as of this encounter
--- OUTSIDE RECORDS SUMMARY | 2024-11-08 14:35 | XMS_ITS | Encounter Summary ---
Author Organization [email or web address] Address [address] [place] [address] [address] [place] [address] Care Team Providers Care Clinical Esthetician Name Role Phone Clara Joseph MD Primary Care Provider [phone]- [phone] Hamida Evans PharmD Unavailable January Unavailable Galdino Lee MD Unavailable [phone] Encounter Details Date Type Department Care Team (Late st Contact Info) Description 03/19/2023 Abstract [facility] MEDICINE [address] [place] [address] Clara Joseph MD [address] [place], [place] [phone] Social History Tobacco Use Types Packs/Day Years [...] Description 11/14/2024 8:00 AM EST Office Visit [facility] ADULT DENTAL [address] [place] [address] Lillian Crawford [address] [place] [address] 12/09/2024 1:00 PM EST Medication Management [facility] [address] [place] [address] Hamida Evans PharmD [address] [place] [address] documented as of this encounter Goals Goal Patient Goal Type Associated Problems Recent Progress Patient-Stated? Author Blood Pressure < 140/90 Blood Pressure 110/58(2024 1:28 PM EST) No Hamida Herman PharmD Hemoglobin A1c < 7 Result Component 8.2( 1:34 PM EST) No Hamida Herman PharmD documented as of this encounter Procedures Procedure Name Priority Date/Time Associated Diagnosis Comments HM COLONOSCOPY Routine 02/26/2023 3:21 PM EDT documented in this encounter Visit Diagnoses Not on filedocumented in this encounter Additional Health Concerns Assessment Noted Time PHQ-9 Depression Total Score: 7 12/18/19 23 10:36 AM EST documented as of this encounter Care Teams Clinical Esthetician Relationship Specialty Start Date End Date Clara Joseph MD [address] [place] [id number] PCP - General Family Medicine 10/12/18 Hamida Evans, PharmD [address] [place] [phone] Pharmacist Internal Medicine 01/07/23January [address] [place] [address] Gastroenterology 09/30/24 Galdino Lee MD [address] [place] [address] Ophthalmology 10/24/24 Mary Patel PA-C Vascular 10/13/24 documented as of this encounter
== END 2024-11-08 14:34 | disposition home or self-care (01) ==
PROVIDERS: PCP Family Medicine; Visit Provider Physician Assistant
DX: M70.62 Trochanteric bursitis, left hip (principal)
CPT/HCPCS: 20610; 99214

== ENCOUNTER → 2024-11-08 13:34 | Outpatient (BNVA) | payer OTHER, SELFPAY | PROVIDERS: PCP Family Medicine; Visit Provider Physician Assistant | DX: M70.62 Trochanteric bursitis, left hip (principal) | CPT/HCPCS: 20610; 99212; J1010; J2003 ==

== ENCOUNTER 2024-12-05 09:42 | Outpatient (RCR) | payer OTHER, SELFPAY | END 2024-12-22 11:18 | disposition home or self-care (01) | LOC: HO.PT 09:42 | PROVIDERS: PCP Family Medicine; Visit Provider Family Medicine | DX: M25.552 Pain in left hip (principal) | CPT/HCPCS: 97110; 97140; 97161; 97530; 97535 ==

== ENCOUNTER 2025-01-04 09:17 | Outpatient (REF) | payer OTHER, SELFPAY ==
[2025-01-04 11:42] LABS: Alanine Aminotransferase 65 U/L (0-31); Albumin Level 3.9 g/dL (3.5-5.0); Alkaline Phosphatase 71 U/L (39-117); Aspartate Amino Transferase 43 U/L (5-31); Bilirubin Direct 0.3 mg/dL (0.0-0.5); Cholesterol 146 mg/dL (<200); HDL Cholesterol 57 mg/dL (>40); LDL Cholesterol Calculated 79 mg/dL (<100); Total Protein 7.3 g/dL (6.5-8.0); Triglycerides 50 mg/dL (<150)
== END 2025-01-04 09:18 | disposition home or self-care (01) ==
LOC: HO.HHCL 09:17
PROVIDERS: Visit Provider Family Medicine
DX: E78.5 Hyperlipidemia, unspecified (principal)
CPT/HCPCS: 36415; 80061; 80076

== ENCOUNTER 2025-03-09 10:08 | Outpatient (REF) | payer OTHER, SELFPAY ==
--- OUTSIDE RECORDS SUMMARY | 2025-03-09 10:29 | XMS_ITS | Clinical Summary ---
Author Organization [employer] Address [address] [place] [address] [address] [place] [address] Care Team Providers Care Box Hinge And Lock Attacher Name Role Phone Clara Joseph MD Primary Care Provider + [phone] Hamida Evans PharmD Unavailable January Unavailable Galdino Lee MD Unavailable [phone] Sabine Martinez Unavailable Allergies No known active allergies Medications escitalopram (Lexapro) 20 MG tabletIndications: Depressive disorder Take 20 mg by mouth Once per day. 2 Active lisinopril 5 MG tabletIndications: Hypertension, unspecified type,Type 2 diabetes mellitus without complication, without long-term current use of insulin (CMS/[facility]) TAKE 1 TABLET BY MOUTH EVERY EVENING 30 tablet 11 4 Active levothyroxine (Synthroid, Levoxyl) 75 MCG tabletIndications: Acquired hypothyroidism TAKE 1 TABLET BY MOUTH EVERY MORNING 90 tablet 3 4 Active atenolol (Tenormin) 25 MG tabletIndications: Primary hypertension TAKE 1 TABLET BY MOUTH EVERYDAY AT NOON 90 tablet 3 4 Active glucose (Glutose) 40 % gel oral gelIndications:Typ e 2 diabetes mellitus without complication, without long-term current use of insulin (CMS/[facility]) Use as directed for low blood sugar 40 g 11 4 Active FREESTYLE LITE test stripIndications:T ype 2 diabetes mellitus without complication, without long-term current use of insulin (CMS/HCC) TEST BLOOD SUGAR THREE TIMES DAILY 100 strip 1 4 Active glipiZIDE (Glucotrol) 5 MG tabletIndications: Type 2 diabetes mellitus without complication, without long-term current use of insulin ([facility]) TAKE 1 TABLET BY MOUTH ONCE DAILY BEFORE DINNER DIRECTED. DO NOT TAKE IF SKIPPING MEAL. 90 tablet 3 5 Active ezetimibe (Zetia) 10 MG tabletIndications: Type 2 diabetes mellitus without complication, without long-term current use of insulin ([facility]) Take 1 tablet (10 mg) by mouth Once per day. 90 tablet 3 5 Active empagliflozin (Jardiance) 25 MGIndications:Type 2 diabetes mellitus without complication, without long-term current use of insulin ([facility]) TAKE 1 TABLET BY MOUTH EVERY MORNING 30 tablet 6 5 Active omeprazole (PriLOSEC) [address] capsule TAKE 1 CAPSULE BY MOUTH TWICE DAILY IN THE MORNING AND IN THE EVENING BEFORE MEALS DO NOT BREAK, CRUSH, DISSOLVE OR CHEW 5 Active rosuvastatin (Crestor) 40 MG tabletIndications: Dyslipidemia TAKE 1 TABLET BY MOUTH AT BEDTIME 90 tablet 3 5 Active linaGLIPtin (Tradjenta) 5 MG tabletIndications: Type 2 diabetes mellitus without complication, without long-term current use of insulin ([facility]) Take 1 tablet (5 mg) by mouth Once per day. 90 tablet 3 5 Active Multiple Vitamin (multivitamin) capsule PT REPORTS PURCHASING OTC Active Turmeric-Tracie 130-5 MG chewable tablet PT REPORTS PURCHASING OTC Active TRUEplus Lancets 33G miscIndications:Ty pe 2 diabetes mellitus without complication, without long-term current use of insulin ([facility]) TEST BLOOD SUGAR THREE TIMES DAILY 100 each 5 5 Active melatonin tabletIndications: Primary insomnia TAKE 1 TABLET BY MOUTH AT BEDTIME NEEDED FOR SLEEP 30 tablet 5 5 Active neomycin-polymyxin -dexAMETHasone (Polydex) 3.5-21786-8.1 ointment ophthalmic ointment 5 Active Active Problems Patient Care Coordination No te Formatting of this note migh t be different from the original. Enrolled in [facility] DM and HTN clinic with Quoc GerardoD, [facility] [employer] Shotgun Shell Loading Machine Operator: Jeaneth, member services number [phone] Business Development Sales Executive Agency: [facility], [facility] Problem Noted Date Diagnosed Date Varicose veins of both lower extremities 025 Overview (03/08/2025): -seen by James Patel 10/2024 the patient has evidence of venous insufficiency. I have discussed the pathophysiology with the patient. In addition I have provided informational material regarding venous disease to the patient. We have discussed conservative measures including compression, elevation, and exercise. I have also provided a handout regarding appropriate use of compression stockings (I discussed with the patient that unfortunately we do not have them translated into [place], she states she does read a little [place]) and where to purchase good compression stockings as well. I had the water pumper discuss the type of compression stockings and where she can purchase them and that it is more expensive if we prescribed them. I have taken the liberty of ordering venous insufficiency testing with the patient. They will follow up with me after testing. The patient had an opportunity to ask questions regarding the treatment plan. All questions were answered. Imaging studies, laboratory studies and physical exam results were discussed and reviewed in detail. No major barriers to understanding were identified. The patient expressed understanding and agreement with the above treatment plan. The patient is aware they should contact our office by phone for worsening of the current condition or the appearance of new symptoms. The office telephone contact is [phone]. Meningioma 10/24/2024 Postmenopausal 10/24/2024 Overview (10/24/2024): - Prescribed MAGNESIUM OXIDE 400 PO 10/24/24 Assessment & Plan (10/24/2024 12:53 PM EST): - Prescribed MAGNESIUM OXIDE 400 PO 10/24/24 Gastroesophageal reflux disease 10/24/2024 Left hip pain 09/30/2024 Overview (11/08/2024): - hip LT min 2V w/wo pel 10/18/23 IMPRESSION: Moderate joint space narrowing. -seen by Dr. Martinez [facility] 11/08/24 and given cortisone injection in the left greater trochanteric bursa with 40 mg of DepoMedrol. Complicated varicose veins 09/30/2024 Overview (03/08/2025): - Seen by Mary Patel PA-C of vascular 09/12/25 US ordered and pt to follow up. Given number to call for follow up. Assessment & Plan (03/08/2025 10:37 AM EDT): - Seen by Mary Patel PA-C of vascular 09/12/25 US ordered and pt to follow up. Given number to call for follow up. Left shoulder pain 05/09/2024 Overview (05/24/2024): -X [...] of blood transfusion s as patient is Tenriism 04/05/2024 Colon cancer screening 09/23/2023 Overview (10/24/2024): -colonsocpy with Dr. Mejia 2013 -FOBT done by insurance negative 02/2023 -Referral done to GI 09/23/2023 -seen 11/19/2023 for colonoscopy intake, colonoscopy scheduled then canceled due to taking diabetic meds that am, they canceled twice - We will be calling GI to schedule a colonoscopy for patient 10/24/24 Assessment & Plan (03/08/2025 10:20 AM EDT): -colonsocpy with Dr. Mejia 2013 [...] does not improve , seek medical attention Other specified health status 02/24/2023 Overview (03/08/2025): -next physical due after 03/08/26 -eye care facilitated by followed by Dr. Galdino Lee of [facility] -dental home is pt does not remember name -health care proxy filed Assessment & Plan (03/08/2025 10:21 AM EDT): -next physical due after 03/08/26 -eye care facilitated by followed by Dr. Galdino Lee of [facility] -dental home is pt does not remember name -health care proxy filed Assessment & Plan (09/23/2023 11:18 AM EST): -next physical due after January, -eye care facilitated by followed by Dr. 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 - S/p surgical resection 03/23/17 at [facility]. - Continued instability, dizziness and right [...] nerve. - S/p surgical resection 03/23/17 at [facility]. - Continued instability, dizziness and right [...] nerve. - S/p surgical resection 03/23/17 at [facility]. - Continued instability, dizziness and right [...] nerve. - S/p surgical resection 03/23/17 at [facility]. - Continued instability, dizziness and right facial numbness and decreased taste. 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 - Pt followed by therapist and psychiatry. - She is compliant wit Clonazepam and Citalopram. Assessment & Plan (03/08/2025 10:19 AM EDT): Depression. - Pt followed by [...] down within 30-60 min after food intake. Hypothyroidism 01/31/2013 Overview (03/08/2025): Lab Results Component Value Date TSH 3.06 10/11/2024 TSH 1.45 04/11/2024 TSH 0.26 (L) 02/29/2024 TSH 3.59 01/20/2023 Assessment & Plan (03/08/2025 10:20 AM EDT): Lab Results Component Value Date TSH 3.06 10/11/2024 TSH 1.45 04/11/2024 TSH 0.26 (L) 02/29/2024 TSH 3.59 01/20/2023 [...] 01/31/2013 Diabetes mellitus, type 2 06/25/2012 Overview (02/13/2025): Diabetes is controlled. Diabetes is followed with pharmacy [facility] by Dr. Hamida Evans PharmD, [facility]. Lab Results Component Value Date HGBA1C 8.0 (A) 02/10/2025 HGBA1C 8.2 (A) 11/04/2024 HGBA1C 7.1 (A) 08/23/2024 Lab Results Component Value Date CREATININE 0.80 10/22/2024 EGFR >60 10/22/2024 MICROALBCREU TNP 02/29/2024 LDLCHOLCAL 79 01/04/2025 -Santi/Arb: lisinopril 5mg -Statin therapy: rosuvastatin 40mg -zetia added by [facility] -Diabetic eye exam: with Dr. Lee in 02/10/25 -Diabetic foot exam: 09/23/23 -Continue lifestyle modifications -Continue current medications: - Jardiance 25 mg -Discontinue Metformin 500 mg 01/15/24 due to GI upset. -Trulicity discontinued due to GI upset; tradjenta 5mg once daily started - Glipizide 5mg once daily before dinner Assessment & Plan (03/08/2025 10:19 AM EDT): Diabetes is controlled. Diabetes is followed with pharmacy [facility] by Dr. Hamida Evans PharmD, [facility]. Lab Results Component Value Date HGBA1C 8.0 (A) 02/10/2025 HGBA1C 8.2 (A) 11/04/2024 HGBA1C 7.1 (A) 08/23/2024 Lab Results Component Value Date CREATININE 0.80 10/22/2024 EGFR >60 10/22/2024 MICROALBCREU TNP 02/29/2024 LDLCHOLCAL 79 01/04/2025 -Santi/Arb: lisinopril 5mg -Statin therapy: rosuvastatin 40mg -zetia added by [facility] -Diabetic eye exam: with Dr. Lee in 02/10/25 -Diabetic foot exam: 09/23/23 -Continue lifestyle modifications -Continue current medications: - Jardiance 25 mg -Discontinue Metformin 500 mg 01/15/24 due to GI upset. -Trulicity discontinued due to GI upset; tradjenta 5mg once daily started - Glipizide 5mg once daily before dinner Assessment & Plan (04/08/2024 11:12 AM EDT): Diabetes is controlled. Diabetes is followed with pharmacy [facility] by Dr. Hamida Evans PharmD, [facility]. Lab Results Component Value Date HGBA1C 5.4 [...] Not controlled. A1c 10.2% 12/17/22. Referral to [facility] 12/17/22. Dyslipidemia 06/25/2012 Overview (03/08/2025): Lab Results Component Value Date TRIG 50 01/04/2025 TRIG 61 04/09/2023 CHOL 146 01/04/2025 LDLCHOLCAL 79 01/04/2025 HDL 57 01/04/2025 -Previously changed from pravastatin to rosuvastatin for high intensity statin by [facility] - Rosuvastatin increased from 20mg once daily to 40mg once daily by [facility] 08/23/24 due to hyperlipidemia LDL Cholesterol Calculated Date Value Ref Range Status 01/04/2025 79 <100 mg/dL Final Comment: Desirable LDL: less than 100 mg/dLNear Optimal/Above Optimal LDL: 110-129 mg/dLBorderline High LDL: 130-159 mg/dLHigh LDL: 160-189 mg/dLVery High LDL: greater than or equal to 190 mg/dL Assessment & Plan (03/08/2025 10:19 AM EDT): Lab Results Component Value Date TRIG 50 01/04/2025 TRIG 61 04/09/2023 CHOL 146 01/04/2025 LDLCHOLCAL 79 01/04/2025 HDL 57 01/04/2025 -Previously changed from pravastatin to rosuvastatin for high intensity statin by [facility] - Rosuvastatin increased from 20mg once daily to 40mg once daily by [facility] 08/23/24 due to hyperlipidemia LDL Cholesterol Calculated Date Value Ref Range Status 01/04/2025 79 <100 mg/dL Final Comment: Desirable LDL: less [...] modifications -Continue current medications Assessment & Plan (03/08/2025 10:20 AM EDT): -Blood pressure is at goal [...] Diagnosed Date Resolved Date Dizzy 09/30/2024 10/20/2024 Abfraction 06/17/2024 03/08/2025 Tooth hypersensitivity 06/17/202403/08 Excessive attrition of teeth , limited to enamel 05/11/2024 10/20/2024 Diabetes due to undrl condit ion w oth diabetic neuro comp 01/19/2024 10/20/2024 Dental calculus 04/02/2023 10/20/2024 Localized gingival recession, moderate 04/02/2023 03/08/2025 Nausea and vomiting 02/19/2023 09/23/20 Overview (02/19/2023): [...] -supportive care with fluids -ER precautions discussed Onychomycosis of left great toe 12/17/2022 03/08/2025 Assessment & Plan (12/17/2022 10:55 AM EST): Will do apple cider vinegar soaks and treat with.. Benign meningioma 11/21/2021 12/17/2022 Encounters Date Type Department Care Team Description 03/09/2025 Refill [facility] [place] [address] Liz Franklin NP Type 2 diabetes mellitus without complication, without long-term current use of insulin (CMS/HCC) 03/08/2025 10:15 AM EDT Office Visit [facility] [place] [address] Clara Joseph MD Type 2 diabetes mellitus without complication, without long-term current use of insulin (CMS/HCC) (Primary Dx); Primary hypertension; Dyslipidemia; Hypothyroidism, unspecified type; 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 prior episode (CMS/HCC); Other specified health status; Transaminitis; Colon cancer screening; Varicose veins of both lower extremities with pain; Complicated varicose veins 03/08/2025 Telephone [facility] [place] [address] Clara Joseph MD Colonoscopy Sheduling 03/08/2025 Travel 03/07/2025 Telephone [facility] [place] [address] Clara Joseph MD Chart Prep 02/10/2025 Travel 01/28/2025 Refill [facility] [place] [address] Clara Joseph MD Primary insomnia 01/04/2025 Orders Only [facility] [place] [address] Clara Joseph MD 01/02/2025 Refill [facility] [place] [address] Liz Franklin NP Type 2 diabetes mellitus without complication, without long-term current use of insulin ([facility]) 12/30/2024 Travel 12/09/2024 Travel from Last 3 Months Immunizations Immunization Administration Dates Next Due Hep B, adult [...] Answer Date Recorded Patient Health Questionnaire-9 Score 16 03/08/2025 Patient Health Questionnaire-9 Score 16 03/08/2025 Last PHQ-9: Questionnaire Data Not on file 0 03/08/2025 Housing Stability Answer Date Recorded What is your housing situation today? I have ghada sing 03/08/[address] you li ve. Do you have problems with any of the following? None of the above 03/08/2025 Food Insecurity Answer Date Recorded Within the past 12 months, y ou worried that your food would run out before you got money to buy more: Never True 03/08/2025 Within the past 12 months,th e food you bought just didn't last and you didn't have enough money to get more: Never True Transportation Answer Date Recorded In the past 12 months, has l ack of transportation kept you from medical appts, meetings, work or from getting things needed for daily living? No 03/08/2025 Utilities Answer Date Recorded In the past 12 months, has t he electric, gas, oil or water company threatened to shut off services in your home? No 03/08/2025 Depression Answer Date Recorded Patient Health Questionnaire-2 Score 4 03/08/2025 Internet Access Answer Date Recorded Internet Access Q1 No 03/08/2025 Internet Access Q2 I do not want or need it 02/10 Comments Unknown Sex and Gender Information Value Date Recorded Sex Assigned at Female 08/11/2022 10:18 AM EDT Legal Sex Female 10:18 AM EDT Gender Identity Female 08/11/2022 10:18 AM EDT Sexual Orientation Don't know 08/11/2022 10 :18 AM EDT Last Filed Vital Signs Vital Sign Reading Time Taken Comments Blood Pressure 114/66 03/08/2025 10:01 AM EDT Pulse 64 03/08/2025 10:01 AM EDT Temperature 35.9 ??C (96.7 ??F) 03/08/2025 10:01 AM E DT Respiratory Rate 20 03/08/2025 10:01 AM EDT Oxygen Saturation 97% 03/08/2025 10:01 AM EDT Inhaled Oxygen Concentration - - Weight 71 kg (156 lb 9.6 oz) 03/08/2025 10:01 AM EDT Height 162.6 cm (5' 4 ) 10/24/2024 11:39 AM EST Body Mass Index 26.88 10/24/2024 11:39 AM EST Plan of Treatment Upcoming Encounters Date Type Department Care Team (Late st Contact Info) Description 03/13/2025 10:30 AM EDT Medication Management [facility] MED[facility] [address] [place] [address] Hamida Evans, PharmD [address] [place] [address] 05/15/2025 8:00 AM EDT Office Visit [facility] ADULT DENTAL [address] [place] [address] Yvette, Lillian [address] [place] [address] Health Maintenance Due Date Last Done Comments CT Colonography 1965 FIT DNA/Cologuard 1965 Sigmoidoscopy 1965 FIT 02/10/2024 02/09/2023, 02/09/2023 FOBT 02/10/2024 02/09/2023, 02/09/2023 Dental Oral Exam 11/12/2024 05/11/2024, , 05/19/2022, Additional history exists Diabetes: Urine Protein Screening 02/28/2025 02/29/2024, 03/12/2021, 12/19/2019 Dental X-Ray: Bitewings 05/12/2025 05/11/20, 04/02/2023, 05/19/2022, Additional history exists Dental Prophylaxis 05/15/2025 11/14/2024, 0 05/11/2024, 04/02/2023, Additional history exists Diabetes: Hemoglobin A1C 06/08/2025 025, 02/10/2025, 11/04/2024, Additional history exists Depression Monitoring 09/08/2025 03/08/2025, 025 Alcohol/Substance Use Screening 09/30/2025 09/30/2024 Diabetes: Foot Exam 09/30/2025 09/30/2024, 09/30/2024, 09/30/2024, Additional history exists Lipid Panel 01/04/2026 01/04/2025, 09/13, 05/02/2024, Additional history exists Disability Screening 03/08/2026 03/08/2025 SDOH Screening 03/08/2026 03/08/2025 Tobacco Screening 03/08/2026 03/08/2025 Mammogram 10/28/2026 10/28/2024, 10/12, 10/03/2022, Additional history exists Eye Exam 02/10/2027 02/10/2025, 09/25/2023 Cervical Cancer Screening 03/14/2027 HPV/Cotest 03/14/2027 03/14/2022, 01/09/2017 Pap Smear 03/14/2027 03/14/2022, 03/14/2022 Dental X-Ray: Full Mouth 05/12/2027 05/11/2024, 06/12 DTaP/Tdap/Td Vaccines (3 - Td or Tdap) 06/30/2032 06/30/2022, 06/25/2012 Colonoscopy 01/29/2034 01/30/2024, 02/09, 02/22/2014 Colorectal Cancer Screening 01/29/2034 Hepatitis B Vaccines Completed 07/18/2015, 09/13/2014, 05/01/2014 Zoster Vaccines Completed 01/20/2022, 11/21/2021 HIV Screening Completed 01/20/2023 Hepatitis C Screening Completed 01/20/2023 Pneumococcal Vaccine: 50+ Years Completed 01/20/2023, 07/18/2015, 07/29/2006 RSV Patients and [...] patient's age to complete this topic Meningococcal B Vaccine Aged Out No l onger eligible based on patient's age to complete [...] Author Blood Pressure < 140/90 Blood Pressure 114/66(2024 10:01 AM EDT) No Hamida Herman PharmD Hemoglobin A1c < 7 Result Component 8.2( 10:15 AM EDT) No Hamida Herman PharmD Procedures Procedure Name Priority Date/Time Associated Diagnosis Comments POCT GLUCOSE Routine 03/08/2025 10:16 AM EDT Type 2 diabetes mellitus without complication, without long-term current use of insulin ([facility]) POCT GLYCOSYLATED HEMOGLOBIN (HGB A1C) Routine 03/08/2025 10:15 AM EDT Type 2 diabetes mellitus without complication, without long-term current use of insulin (CMS/[facility]) POCT GLYCATED HEMOGLOBIN, TOTAL Routine 02/10/2025 10:35 AM EDT Type 2 diabetes mellitus without complication, without long-term current use of insulin (CMS/[facility]) LIPID PANEL, STANDARD Routine 01/04/2025 9:18 AM EDT HEPATIC FUNCTION PANEL Routine 9:18 AM EDT PROPHYLAXIS - ADULT Routine 11/14/2024 8 :00 AM EST Dental calculus BI MAMMOGRAM SCREENING TOMOSYNTHESIS BILATERAL Routine 10/28/2024 2:30 PM EST INTRAORAL - COMPLETE SERIES OF RADIOGRAPHIC IMAGES Routine 05/11/2024 9:00 AM EDT Dental calculus Localized gingival recession, moderate PERIODIC ORAL EVALUATION - ESTABLISHED PATIENT Routine 05/11/2024 9:00 AM EDT ALBUMIN, RANDOM URINE W/CREATININE Routine 02/29/2024 12:00 AM EDT Type 2 diabetes mellitus without complication, without long-term current use of insulin (CMS/[facility]) HM COLONOSCOPY Routine 01/30/2024 12:30 PM EDT [...] Recently Relevant to Health Maintenance Results * POCT glucose manually resulted (03/08/2025 10:16 AM EDT) Glucose Blood, POC 146 60 - 200 mg/dL QC Media Lot # [id number] Lot# Expiration Date Blood Capillary blood specimen / Unknown 03/08/2025 10:16 AM EDT Clara Joseph MD POINT OF CARE TEST ENTER/E DIT ORDERABLES Final Result * (ABNORMAL) POCT glycosylated hemoglobin (Hgb A1c) (03/08/2025 10:15 AM EDT) Hemoglobin A1C 8.2(A) 4.0 - 6.0 % QC Media Lot # [id number] Lot# Expiration Date Blood Capillary blood specimen / Unknown 03/08/2025 10:15 AM EDT Clara Joseph MD POINT OF CARE TEST ENTER/E DIT ORDERABLES Final Result * (ABNORMAL) POCT A1C (02/10/2025 10:35 AM EDT) Hemoglobin A1C 8.0(A) 4.0 - 6.0 % QC Media Lot # [id number] Lot# Expiration Date [id number] Blood 02/10/2025 10:3 5 AM EDT Clara Joseph MD POINT OF CARE TEST ENTER/E DIT ORDERABLES Final Result * (ABNORMAL) Hepatic Function Panel (01/04/2025 9:18 AM EDT) Bilirubin, Total 1.0 0.0 - 1.0 mg/dL [facility] Bilirubin, Direct 0.3 0.0 - 0.5 mg/dL [facility] Aspartate Amino Transferase 43(H) 5 - 31 U/L [facility] Comment:Slight Hemolysis.Int erpret result with caution. Alanine Aminotransferase 65(H) 0 - 31 U/L [facility] Total Protein 7.3 6.5 - 8.0 g/dL [facility] Albumin Level 3.9 3.5 - 5.0 g/dL [facility] Alkaline Phosphatase 71 39 - 117 U/L [facility] 01/04/2025 9:18 AM EDT 01/04/2025 11:05 AM EDT Clara Joseph MD LAB BLOOD ORDERABLES Final Result [facility] [address] [place] [phone] * Lipid Panel, Standard (01/04/2025 9:18 AM EDT) Triglycerides 50 <150 mg/dL [facility] Comment:Desirable Triglyceri de: less than 150 mg/dLBorderline High Triglyceride 150-199 mg/dLHigh Triglyceride: 200-499 mg/dLVery High Triglyceride: greater than or equal to 5OO mg/dL Cholesterol 146 <200 mg/dL [facility] Comment:Desirable Cholestero l: less than 200 mg/dLBorderline High Cholesterol: 200-239 mg/dLHigh Cholesterol: greater than 239 mg/dL LDL Cholesterol Calculated 79 <100 mg/dL [facility] Comment:Desirable LDL: less than 100 mg/dLNear Optimal/Above Optimal LDL: 110- 129 mg/dLBorderline High LDL: 130-159 mg/dLHigh LDL: 160-189 mg/dLVery High LDL: greater than or equal to 190 mg/dL HDL Cholesterol 57 >40 mg/dL [facility] Comment:Desirable HDL: great er than 40 mg/dL Note: This HDL assay may give artificially low results in patients with liver disease. 01/04/2025 9:18 AM EDT 01/04/2025 11:05 AM EDT Clara Joseph MD LAB BLOOD ORDERABLES Final Result Performing Organization Address City/State/[facility] Co de Phone Number [facility] [address] [place] [phone] * BI Mammogram Screening Tomosynthesis Bilateral (10/28/2024 2:30 PM EST) Anatomical Region Laterality Modality Breast Bilateral Mammography 10/28/2024 2:30 PM EST Narrative 11/06/2024 4:16 PM EST ? [facility] ? [address] [facility] ?[place] [phone] ? Mammography Report ? Signed ? Patient: Cordero Manuel,Jolie ?MR#: [id number] ?? [id number] ? : 1965 ?Acct:[id number] ? Age/Sex: 59 / F ?ADM Date: 01/17/25 ? Loc: HO.MAMMO ? Attending Dr: Clara Joseph MD ? Ordering Physician: Clara Joseph MD ?Results: 1N ?? egative ? Date of Service: 10/28/24 ?Follow Up: 1 Year From Orig ?? inal Mammogram ? Procedure(s): MM tomosynthesis screening BI ?? Accession Number(s): [id number] ? cc: Clara Joseph MD ? EXAMINATION: [...] DD/ 1430 ? TD/TT: 10/28/24 1450 ? Material Disposition Inspector: ? Procedure Note Donotuseinterpreter, Image - 11/06/2024 [facility] [address] [place] [address] Mammography Report Signed Patient: Yeimy WerneradMR#: [id number] : 1965Acct:[id number] Age/Sex: 59 / FADM Date: 10/28/24 Loc: HO.MAMMO Attending Dr: Clara Joseph MD Ordering Physician: Clara Joseph MDResults: 1N egative Date of Service: 10/28/24Follow Up: 1 Year From Orig inal Mammogram Procedure(s): MM tomosynthesis screening BI Accession Number(s): [id number] cc: Clara Joseph MD EXAMINATION: MM SCREENING [...] by: Bridgett Delong DO 11/06/2024 04:13 PM [facility] Dictated By: Bridgett Delong DO Signed By: <Electronically signed by Bridgett Delong DO in OV> 11/06/24 1619 DD/ 1430 TD/TT: 10/28/24 1450 Material Disposition Inspector: us Clara Joseph MD IMG BI PROCEDURES Edited R esult - Final * Albumin, Random Urine W/Creatinine (02/29/2024 12:00 AM EDT) Creatinine, Urine 64.92 mg/dL [facility] Microalbumin Urine <5.0 mg/L [facility] Microalbum Creatinine Ratio Ur TNP <30 ug/mg cr [facility] Comment:Unable to calculate albumin/creatinine ratio due to lowmicroalbumin or creatinine result. Urine 02/29/2024 02/29/2024 Result [facility] Clara Joseph MD LAB URINE ORDERABLES Final Result [facility] [address] [place] [phone] * Colonoscopy (01/30/2024 12:30 PM EDT) Historical Provider HEALTH MAINTENANCE Final Result * Diabetes Eye Exam (09/25/2023) Eye Exam Normal Normal [facility] Provider HEALTH MAINTENANCE Final Result * Fecal Globin by Immunochemistry (02/09/2023 3:08 PM EDT) Stool Rectal contents / Unknown 02/09/2023 3:08 PM EDT Result [facility] Historical Provider LAB BODY FLUIDS AND STOOL S ORDERABLES Final Result * Hepatitis C Antibody with Reflex to HCV, RNA, Quantitative, Real-Time PCR (01/20/2023 8:39 AM EDT) Hepatitis C Antibody NON-REACT EILEEN NON-REACT EILEEN [employer] [facility] [place] [employer] Index 0.16 <1.00 [employer] [place] [employer] Comment: HCV antibody was non-reactive. There is no laboratory evidence of HCV infection. In most cases, no further action is required. However, if recent HCV exposure is suspected, a test for HCV RNA (test code 44911) is suggested. For additional information please refer to http://Arrively.Web Wonks/faq/TMK08b9 (This link is being provided for informational/ educational purposes only.) Blood Venous blood specimen / Unknown 01/20/2023 8:39 AM EDT 01/20/2023 8:40 AM EDT Narrative [facility] - 01/20/2023 10:18 PM EDT FASTING:YES FASTING: YES Clara Joseph MD LAB BLOOD ORDERABLES Final Result [facility] [address], [place] [address] [facility] [place] [employer] [address] [place] [address] * HIV-1/2 Antigen and Antibodies, Fourth Generation, with Reflexes (01/20/2023 8:39 AM EDT) Pathologist [facility] HIV Antigen/Antibody, 4th Generation NON-REAC TIVE NON-REAC TIVE [employer] [facility] [place] [employer] Comment: HIV-1 antigen and HIV-1/HIV-2 antibodies were [...] ?? For additional information please refer to http://Arrively.Spireon.[facility]/faq/DZH646 (This link is being provided for informational/ educational purposes only.) The performance of this assay has not been clinically validated in patients less than 2 years old. Blood Venous blood specimen / Unknown 01/20/2023 8:39 AM EDT 01/20/2023 8:40 AM EDT Narrative [facility] - 01/20/2023 10:18 PM EDT FASTING:YES FASTING: YES Clara Joesph MD LAB BLOOD ORDERABLES Final Result [facility] [address] [facility], [place] [address] [employer] [facility] [address] [place] [address] * THINPREP TIS PAP AND HPV mRNA E6/E7, CT/NG, TRICH (03/14/2022 12:12 PM EDT) Chlamydia trachomatis RNA, TMA, Urogenital NOT DETECTED NOT DETECTED [facility] Clinical Information: None given [facility] COMMENT SEE COMMENT [facility] Comment: The analytical performance characteristics of this assay, when used to test SurePath(TM) specimens have been determined by [facility]. The modifications have not been cleared or approved by the FDA. This assay has been validated pursuant to the CLIA regulations and is used for clinical purposes. ?? For additional information, please refer to https://education.Web Wonks/faq/BAC383 (This link is being provided for information/ [...] has been evaluated with computer assisted technology. [employer] Sort Line Worker: SEE COMMENT [facility] Comment: CMG, CT(ASCP) CT screening location: [facility] [address] ??[address] HPV nRNA E6/E7 Not Detected Not Detected [employer] Comment: Methodology: Appeals Officer-Mediated Amplification This assay detects E6/E7 viral messenger RNA (mRNA) from 14 high-risk HPV types (16,18,31,33,35,39,45,51,52,56,58,59,66,68). ? Cervical sources are required for HPV testing. If a vaginal source from a patient who has had a total hysterectomy with removal of cervix was ?? submitted, please contact the testing laboratory for alternative testing options. ?? For additional information, please refer to http://Arrively.Web Wonks/faq/UTQ204p6 (This link if provided for information/ educational [...] of this assay have been determined by [facility] [facility]. The modifications have not been cleared or approved by the FDA. This assay has been validated pursuant to the CLIA regulations and is used for clinical purposes. ?? For additional information, please refer to http://Arrively.Web Wonks/ faq/Trichomonastma (This link is being provided for information/ educational purposes only.) ?? 03/14/2022 12:1 2 PM EDT Clara Joseph MD LAB PATHOLOGY ORDERABLES F inal Result [facility] [address] * Pap Smear (03/14/2022 12:00 AM EDT) Swab Historical Provider MD LAB CYTOLOGY ORDERABLES F inal Result IMAGING from Last 3 Months or Most Recently Relevant to Health Maintenance Insurance [id number] CARE < 65 DENTAL [facility] Advance Directives Documents on File Type Date Recorded Patient Building Admin Expl anation Advance Directives and Living Will 09/30/2024 Health Care Proxy 09/30/24 Care Teams Box Hinge And Lock Attacher Relationship Specialty Start Date End Date Craig, MD Clara [address] [place] [phone] PCP - General Family Medicine 10/12/18 Hamida Evans, QuocD [address] [place] [address] Pharmacist Internal Medicine 01/07/23 Gertrudis Daniel [address] [place] [address] Gastroenterology 09/30/24 Galdino Lee MD [address] [facility] [address] [place] [address] Ophthalmology 10/24/24 Sabine Martinez [address] [place] [address] Orthopaedic Surgery 11/08/24 Mary Patel PA-C Vascular 10/13/24
[2025-03-09 12:05] LABS: Estimated Average Glucose 186 mg/dL; Hemoglobin A1c % 8.1 % (<6.0); Total Hemoglobin (HGBA1C) 3863.7593 umol/L
[2025-03-09 12:21] LABS: Alanine Aminotransferase 97 U/L (0-31); Albumin Level 4.5 g/dL (3.5-5.0); Alkaline Phosphatase 87 U/L (39-117); Aspartate Amino Transferase 65 U/L (5-31); Bilirubin Direct 0.3 mg/dL (0.0-0.5); Bilirubin Total 0.7 mg/dL (0.0-1.0); Total Protein 7.9 g/dL (6.5-8.0)
[2025-03-09 12:35] LABS: TSH reflex Free T4 1.75 uIU/mL (0.32-4.0)
[2025-03-09 13:06] LABS: Creatinine Urine 35.79 mg/dL; Microalbumin Urine < 5.0 mg/L
== END 2025-03-09 10:09 | disposition home or self-care (01) ==
LOC: HO.HHCL 10:08
PROVIDERS: Visit Provider Family Medicine
DX: E11.9 Type 2 diabetes mellitus without complications (principal); E03.9 Hypothyroidism, unspecified; R74.01 Elevation of levels of liver transaminase levels
CPT/HCPCS: 36415; 80076; 82043; 82570; 83036; 84443

== ENCOUNTER 2025-05-02 08:14 | Outpatient (REF) | payer OTHER, SELFPAY ==
--- NOTE | ~2025-05-02 | US_ITS ---
CLINICAL HISTORY: elevated LFTs, transaminitis US abdomen complete Comparison: None provided Findings: The visualized pancreas is normal. The aorta and inferior vena cava are normal caliber. Mildly coarsened echotexture of the liver. Liver measures 13.2 cm in length. There is no intrahepatic bile duct dilatation. Common bile duct measures 0.3 cm in diameter. Sonographic Willis's sign is negative. Gallbladder wall thickness is 0.1 cm. The main portal vein is Patent. Right kidney is 10.9 cm in length. There is a left renal cyst measuring 1.6 cm. Left kidney is 10.8 cm in length. Spleen is 8.8 cm in length. No ascites. IMPRESSION: Findings in the liver which may be indicative of diffuse hepatocellular process. This document has been electronically signed by: Rajendra Millard DO on 05/03/2025 09:25:26
--- OUTSIDE RECORDS SUMMARY | 2025-05-02 08:20 | XMS_ITS | Clinical Summary ---
Author Organization [facility] Address [address] [place] [address] [address] [place] [address] Care Team Providers Care Binder Stripper Hand Name Role Phone Clara Joseph MD Primary Care Provider + [phone] Hamida Evans PharmD Unavailable January Unavailable Galdino Lee MD Unavailable [phone] Sabine Martinez Unavailable Allergies No known active allergies Medications escitalopram (Lexapro) 20 MG tabletIndications: Depressive disorder Take 20 mg by mouth Once per day. 2 Active lisinopril 5 MG tabletIndications: Hypertension, unspecified type,Type 2 diabetes mellitus without complication, without long-term current use of insulin ([facility]) TAKE 1 TABLET BY MOUTH EVERY EVENING [...] complication, without long-term current use of insulin ([facility]) Use as directed for low blood sugar 40 g 11 4 Active ezetimibe (Zetia) 10 MG tabletIndications: Type 2 diabetes mellitus without complication, without long-term current use of insulin (CMS/HCC) Take 1 tablet (10 mg) by mouth Once per day. 90 tablet 3 5 Active empagliflozin (Jardiance) 25 MGIndications:Type 2 diabetes mellitus without complication, without long-term current use of insulin ([facility]) TAKE 1 TABLET BY MOUTH EVERY MORNING [...] complication, without long-term current use of insulin ([facility]) Take 1 tablet (5 mg) by mouth Once per day. 90 tablet 3 5 Active Multiple Vitamin (multivitamin) capsule PT REPORTS PURCHASING OTC Active Turmeric-Tracie 130-5 MG chewable tablet PT REPORTS PURCHASING OTC Active TRUEplus Lancets 33G miscIndications:Ty pe 2 diabetes mellitus without complication, without long-term current use of insulin ([facility]) TEST BLOOD SUGAR THREE TIMES DAILY 100 each 5 5 Active melatonin tabletIndications: Primary insomnia TAKE 1 TABLET BY MOUTH AT BEDTIME NEEDED FOR SLEEP 30 tablet 5 5 Active neomycin-polymyxin -dexAMETHasone (Polydex) 3.5-19009-4.1 ointment ophthalmic ointment 5 Active FREESTYLE LITE test stripIndications:T ype 2 diabetes mellitus without complication, without long-term current use of insulin ([facility]) TEST BLOOD SUGAR THREE TIMES DAILY 100 strip 11 5 Active glipiZIDE (Glucotrol) 5 MG tabletIndications: Type 2 diabetes mellitus without complication, without long-term current use of insulin ([facility]) TAKE 1 TABLET BY MOUTH TWICE DAILY BEFORE BREAKFAST AND DINNER. DO NOT TAKE IF SKIPPING MEAL. 180 tablet 3 5 Active Active Problems Patient Care Coordination No te Formatting of this note migh t be different from the original. Enrolled in [facility] DM and HTN clinic with Hamida Evans, PharmD, [facility] [place] Fishing Hand: Jeaneth, member services number [phone] Machine Ii Trimmer Agency: [facility] Problem Noted Date Diagnosed Date Transaminitis 03/09/2025 Overview (03/09/2025): Lab Results Component Value Date AST 65 (H) 03/09/2025 AST 43 (H) 01/04/2025 AST 16 04/09/2023 AST 13 01/20/2023 ALT 97 (H) 03/09/2025 ALT 65 (H) 01/04/2025 ALT 17 04/09/2023 ALT 17 01/20/2023 TOTALBILIRUB 0.7 03/09/2025 TOTALBILIRUB 1.0 01/04/2025 INR 1.0 10/22/2024 PLT 155 (L) 10/22/2024 CREATININE 0.80 10/22/2024 NA 138 10/22/2024 -Us ordered 03/09/25 Assessment & Plan (03/09/2025 4:05 PM EDT): Lab Results Component Value Date AST 65 (H) 03/09/2025 AST 43 (H) 01/04/2025 AST 16 04/09/2023 AST 13 01/20/2023 ALT 97 (H) 03/09/2025 ALT 65 (H) 01/04/2025 ALT 17 04/09/2023 ALT 17 01/20/2023 TOTALBILIRUB 0.7 03/09/2025 TOTALBILIRUB 1.0 01/04/2025 INR 1.0 10/22/2024 PLT 155 (L) 10/22/2024 CREATININE 0.80 10/22/2024 NA 138 10/22/2024 -Us ordered 03/09/25 Varicose veins of both lower extremities 025 [...] we do not have them translated into [place] Islander, she states she does read a little Mongolian) and where to purchase good compression stockings as well. 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 The office telephone contact is [phone]. Meningioma 10/24/2024 Postmenopausal 10/24/2024 Overview (10/24/2024): - Prescribed MAGNESIUM OXIDE 400 PO 10/24/24 Assessment & Plan (10/24/2024 12:53 PM EST): - Prescribed MAGNESIUM OXIDE 400 PO 10/24/24 Gastroesophageal reflux disease 10/24/2024 Left hip pain 09/30/2024 Overview (11/08/2024): - hip LT min 2V w/wo pel 10/18/23 IMPRESSION: Moderate joint space narrowing. -seen by Dr. Martinez [facility] 11/08/24 and given cortisone injection [...] of blood transfusion s as patient is Jain 04/05/2024 Colon cancer screening 09/23/2023 Overview (10/24/2024): [...] by followed by Dr[facility] Galdino [facility] of [facility] -dental home is pt does not remember name -health care proxy filed Assessment & Plan (03/08/2025 10:21 AM EDT): -next physical due after 03/08/26 -eye care facilitated by followed by Dr. Galdino Lee of [facility] -dental home is pt does not remember name -health care proxy filed Assessment & Plan (09/23/2023 11:18 AM EST): -next physical due after January, -eye care facilitated by followed by Dr. 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 - S/p surgical resection 03/23/17 at [facility]. - Continued instability, dizziness and [...] nerve. - S/p surgical resection 03/23/17 at [facility]. - Continued instability, dizziness and [...] nerve. - S/p surgical resection 03/23/17 at [facility]. - Continued instability, dizziness and [...] nerve. - S/p surgical resection 03/23/17 at [facility]. - Continued instability, dizziness and [...] pharmacy CDTM by Dr. Hamida Evans PharmD, [facility]. Lab Results Component Value Date HGBA1C 8.0 (A) 02/10/2025 HGBA1C 8.2 (A) 11/04/2024 HGBA1C 7.1 (A) 08/23/2024 Lab Results Component Value Date CREATININE 0.80 10/22/2024 EGFR >60 10/22/2024 MICROALBCREU TNP 02/29/2024 LDLCHOLCAL 79 01/04/2025 -Santi/Arb: lisinopril 5mg -Statin therapy: rosuvastatin 40mg -zetia added by [facility] -Diabetic eye exam: with Dr. Lee in [...] pharmacy CDTM by Dr. Hamida Evans PharmD, [facility]. Lab Results Component Value Date HGBA1C 8.0 (A) 02/10/2025 HGBA1C 8.2 (A) 11/04/2024 HGBA1C 7.1 (A) 08/23/2024 Lab Results Component Value Date CREATININE 0.80 10/22/2024 EGFR >60 10/22/2024 MICROALBCREU TNP 02/29/2024 LDLCHOLCAL 79 01/04/2025 -Santi/Arb: lisinopril 5mg -Statin therapy: rosuvastatin 40mg -zetia added by [facility] -Diabetic eye exam: with Dr. Lee in [...] pharmacy CDTM by Dr. Hamida Evans PharmD, [facility]. Lab Results Component Value Date [...] Referral to [facility] 12/17/22. Dyslipidemia 06/25/2012 Overview (03/08/2025): Lab Results Component Value Date TRIG 50 01/04/2025 TRIG 61 04/09/2023 CHOL 146 01/04/2025 LDLCHOLCAL 79 01/04/2025 HDL 57 01/04/2025 -Previously changed from pravastatin to rosuvastatin for high intensity statin by [facility] - Rosuvastatin increased from 20mg once daily to 40mg once daily by [facility] 08/23/24 due to hyperlipidemia LDL [...] to rosuvastatin for high intensity statin by [facility] - Rosuvastatin increased from 20mg once daily to 40mg once daily by [facility] 08/23/24 due to hyperlipidemia LDL [...] Encounters Date Type Department Care Team Description 03/13/2025 Travel 03/09/2025 Results Follow-Up [facility] [address] [place] [phone] Clara Joseph MD POCT glucose manually resulted, POCT glycosylated hemoglobin (Hgb A1c), Albumin, Random Urine W/Creatinine, Additional followed-up results: 3 03/09/2025 Orders Only [facility] [address] [place] [phone] Clara Joseph MD Transaminitis (Primary Dx) 03/09/2025 Refill [facility] [address] [place] [phone] Liz Franklin NP Type 2 diabetes mellitus without complication, without long-term current use of insulin (CMS/HCC) 03/08/2025 10:15 AM EDT Office Visit [address] [address] Clara Joseph MD Type 2 diabetes mellitus without complication, without long-term current use of insulin (CMS/HCC) (Primary Dx); Primary hypertension; Dyslipidemia; Hypothyroidism, unspecified type; 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 prior episode (CMS/HCC); Other specified health status; Transaminitis; Colon cancer screening; Varicose veins of both lower extremities with pain; Complicated varicose veins 03/08/[address] [address] Clara Joseph MD Colonoscopy Sheduling 03/08/2025 Travel 03/07/[address] [address] Clara Joseph MD Chart Prep 02/10/2025 Travel from Last 3 Months Immunizations Immunization [...] housing situation today? I have ghada tripathi 03/08/[address] you li [...] Sign Reading Time Taken Comments Blood Pressure 110/60 03/13/2025 10:41 AM EDT Pulse 78 03/13/2025 10:41 AM EDT Temperature 35.9 C (96.7 F) 03/08/2025 10:01 AM EDT Respiratory Rate 20 03/08/2025 10:01 AM EDT Oxygen Saturation 97% 03/08/2025 10:01 AM EDT Inhaled Oxygen Concentration - - Weight 71 kg (156 lb 9.6 oz) 03/08/2025 10:01 AM EDT Height 162.6 cm (5' 4 ) 10/24/2024 11:39 AM EST Body Mass Index 26.88 10/24/2024 11:39 AM EST Plan of Treatment Upcoming Encounters Date Type Department Care Team (Late st Contact Info) Description 05/15/2025 8:00 AM EDT Office Visit [facility] [address] [place] [address] Yvette, Lillian [address] [place] [address] 06/05/2025 9:00 AM EDT Medication Management [facility] [address] [place] [address] Hamida Evans, PharmD [address] [place] [address] Health Maintenance Due Date Last Done Comments CT Colonography 1965 FIT DNA/Cologuard 1965 Sigmoidoscopy 1965 FIT 02/10/2024 02/09/2023, 02/09/2023 FOBT 02/10/2024 02/09/2023, 02/09/2023 Dental Oral Exam 11/12/2024 05/11/2024, , 05/19/2022, Additional history exists Dental X-Ray: Bitewings 05/12/2025 05/11/20, 04/02/2023, 05/19/2022, Additional history exists Dental Prophylaxis 05/15/2025 11/14/2024, 0 05/11/2024, 04/02/2023, Additional history exists Diabetes: Hemoglobin A1C 06/09/2025 025, 03/08/2025, 02/10/2025, Additional history exists Influenza Vaccine (#1) 2025 , 07/01/2023, 06/30/2022, Additional history exists Depression Monitoring 09/08/2025 03/08/2025, 025 Alcohol/Substance Use Screening 09/30/2025 09/30/2024 Diabetes: Foot Exam 09/30/2025 09/30/2024, 09/30/2024, 09/30/2024, Additional history exists Lipid Panel 01/04/2026 01/04/2025, 09/13, 05/02/2024, Additional history exists Disability Screening 03/08/2026 03/08/2025 SDOH Screening 03/08/2026 03/08/2025 Tobacco Screening 03/08/2026 03/08/2025 Diabetes: Urine Protein Screening 03/09/2026 03/09/2025, 02/29/2024, 03/12/2021, Additional history exists Mammogram 10/28/2026 10/28/2024, 10/12, 10/03/2022, Additional history [...] Completed 06/30/2024, 01/2023, 09/01/2022, Additional history exists HIB Vaccines Aged Out [...] Author Blood Pressure < 140/90 Blood Pressure 110/60(2024 10:41 AM EDT) No Hamida Herman PharmD Hemoglobin A1c < 7 Result Component 8.1( 10:10 AM EDT) No Hamida Herman PharmD Procedures Procedure Name Priority Date/Time Associated Diagnosis Comments HEMOGLOBIN A1C Routine 03/09/2025 10:10 AM EDT Type 2 diabetes mellitus without complication, without long-term current use of insulin ([facility]) TSH W/REFLEX TO FT4 Routine 03/09/2025 1 0:10 AM EDT Hypothyroidism, unspecified type HEPATIC FUNCTION PANEL Routine 10:10 AM EDT Transaminitis ALBUMIN, RANDOM URINE W/CREATININE Routine 03/09/2025 10:10 AM EDT Type 2 diabetes mellitus without complication, without long-term current use of insulin ([facility]) POCT GLUCOSE Routine 03/08/2025 10:16 AM EDT Type 2 diabetes mellitus without complication, without long-term current use of insulin ([facility]) POCT GLYCOSYLATED HEMOGLOBIN (HGB A1C) Routine 03/08/2025 10:15 AM EDT Type 2 diabetes mellitus without complication, without long-term current use of insulin ([facility]) POCT GLYCATED HEMOGLOBIN, TOTAL Routine 02/10/2025 10:35 AM EDT Type 2 diabetes mellitus without complication, without long-term current use of insulin ([facility]) LIPID PANEL, STANDARD Routine 01/04/2025 9:18 AM EDT PROPHYLAXIS - ADULT Routine 11/14/2024 8 :00 AM EST Dental calculus BI MAMMOGRAM SCREENING TOMOSYNTHESIS BILATERAL Routine 10/28/2024 2:30 PM EST INTRAORAL - COMPLETE SERIES OF RADIOGRAPHIC IMAGES Routine 05/11/2024 9:00 AM EDT Dental calculus Localized gingival recession, moderate PERIODIC ORAL EVALUATION - ESTABLISHED PATIENT Routine 05/11/2024 9:00 AM EDT HM COLONOSCOPY Routine 01/30/2024 12:30 PM EDT [...] Recently Relevant to Health Maintenance Results * TSH W/Reflex to FT4 (03/09/2025 10:10 AM EDT) TSH reflex Free T4 1.75 0.32 - 4.0 uIU/mL [facility] Blood Venous blood specimen / Unknown 03/09/2025 10:10 AM EDT 03/09/2025 11:44 AM EDT Clara Joseph MD LAB BLOOD ORDERABLES Final Result [facility] [address] [place] [phone] * Albumin, Random Urine W/Creatinine (03/09/2025 10:10 AM EDT) Creatinine, Urine 35.79 mg/dL [facility] Microalbumin Urine <5.0 mg/L [facility] Microalbum Creatinine Ratio Ur TNP <30 ug/mg cr [facility] Comment:Unable to calculate albumin/creatinine ratio due to lowmicroalbumin or creatinine result. Urine 03/09/2025 10:1 0 AM EDT 03/09/2025 12:03 PM EDT Clara Joseph MD LAB URINE ORDERABLES Final Result Performing Organization Address [facility] Co de Phone Number [facility] [address] [place] [address] [phone] * (ABNORMAL) Hemoglobin A1c (03/09/2025 10:10 AM EDT) Hemoglobin A1c 8.1(H) <6.0 % [facility] Comment:Hemoglobin A1C Refer ence Range Adults: 4.8 - 6.0 % Non diabetic: < 6.0 % Goal: < 7.0 %Additional Action Suggested: > 8.0 %Note: Hemoglobin A1c results are invalid for patients with abnormal amounts of HbF. Blood transfusions may impact the HbA1c concentration in the patient sample. Estimated Average Glucose 186 mg/dL [facility] Comment:eAG = Estimated ave rage glucose which is %A1C expressed asaverage glucose, using the formula of the A3L-YhrevxxQzzlatn Glucose study (ADAG), Diabetes Care, Vol.31,#8,May. 2007 Blood Venous blood specimen / Unknown 03/09/2025 10:10 AM EDT 03/09/2025 11:44 AM EDT Clara Joseph MD LAB BLOOD ORDERABLES Final Result Performing Organization Address [facility] Co de Phone Number [facility] [address] [place] [phone] * (ABNORMAL) Hepatic Function Panel (03/09/2025 10:10 AM EDT) Bilirubin, Total 0.7 0.0 - 1.0 mg/dL [facility] Bilirubin, Direct 0.3 0.0 - 0.5 mg/dL [facility] Aspartate Amino Transferase 65(H) 5 - 31 U/L [facility] Alanine Aminotransferase 97(H) 0 - 31 U/L [facility] Total Protein 7.9 6.5 - 8.0 g/dL [facility] Albumin Level 4.5 3.5 - 5.0 g/dL [facility] Alkaline Phosphatase 87 39 - 117 U/L [facility] Blood Venous blood specimen / Unknown 03/09/2025 10:10 AM EDT 03/09/2025 11:44 AM EDT us Clara Joseph MD LAB BLOOD ORDERABLES Final Result [facility] [address] [place] [address] [phone] * POCT glucose manually resulted (03/08/2025 10:16 [...] Media Lot # [id number] Lot# Expiration Date Blood 02/10/2025 10:3 5 AM EDT us Clara Joseph MD POINT OF CARE TEST ENTER/E DIT ORDERABLES Final Result * Lipid Panel, Standard (01/04/2025 9:18 AM EDT) Triglycerides 50 <150 mg/dL [facility] Comment:Desirable Triglyceri de: less than 150 mg/dLBorderline High Triglyceride 150-199 mg/dLHigh Triglyceride: 200-499 mg/dLVery High Triglyceride: greater than or equal to 5OO mg/dL Cholesterol 146 <200 mg/dL [facility] Comment:Desirable Cholestero l: less than 200 mg/dLBorderline High Cholesterol: 200-239 mg/dLHigh Cholesterol: greater than 239 mg/dL LDL Cholesterol Calculated 79 <100 mg/dL [facility] Comment:Desirable LDL: less than 100 mg/dLNear Optimal/Above Optimal LDL: 110- 129 mg/dLBorderline High LDL: 130-159 mg/dLHigh LDL: 160-189 mg/dLVery High LDL: greater than or equal to 190 mg/dL HDL Cholesterol 57 >40 mg/dL [facility] Comment:Desirable HDL: great er than 40 mg/dL Note: This HDL assay may give artificially low results in patients with liver disease. 01/04/2025 9:18 AM EDT 01/04/2025 11:05 AM EDT Clara Joseph MD LAB BLOOD ORDERABLES Final Result [facility] [address] [place] [address] [phone] * BI Mammogram Screening Tomosynthesis Bilateral (10/28/2024 2:30 PM EST) Anatomical Region Laterality Modality Breast Bilateral Mammography 10/28/2024 2:30 PM EST Narrative 11/06/2024 4:16 PM EST [facility] [address] [place] [address] Mammography Report Signed Patient: Jolie Werner MR#: [id number] : 1965 Acct:[id number] Age/Sex: 59 / F ADM Date: 10/28/24 Loc: HO.MAMMO Attending Dr: Clara Joseph MD Ordering Physician: Clara Joseph MD Results: 1N egative Date of Service: 10/28/24 Follow Up: 1 Year From Orig inal Mammogram Procedure(s): MM tomosynthesis screening BI Accession Number(s): [id number] cc: Clara Joseph MD EXAMINATION: MM SCREENING [...] by: Bridgett Delong DO 11/06/2024 04:13 PM [facility] Dictated By: Bridgett Delong DO Signed By: <Electronically signed by Bridgett Delong DO in OV> 11/06/24 1613 DD/ 1430 TD/TT: 10/28/24 1450 Market Survey Representative: Procedure Note Donotuseinterpreter, Image - 11/06/2024 [facility] [address] [place] [address] Mammography Report Signed Patient: Yeimy WerneradMR#: [id number] : 1965Acct:[id number] Age/Sex: 59 / FADM Date: 10/28/24 Loc: JOSEO Attending Dr: Clara Joseph MD Ordering Physician: Clara Joseph MDResults: 1N egative Date of Service: 10/28/24Follow Up: 1 Year From Orig inal Mammogram Procedure(s): MM tomosynthesis screening BI Accession Number(s): [id number] cc: Clara Joseph MD EXAMINATION: MM SCREENING [...] 11/06/24 1613 DD/ 1430 TD/TT: 10/28/24 1450 Market Survey Representative: Clara Joseph MD IMG BI PROCEDURES Edited R esult - Final * Hm Colonoscopy (01/30/2024 12:30 PM EDT) Historical Provider HEALTH MAINTENANCE Final Result * Hm Diabetes Eye Exam (09/25/2023) Eye Exam Normal Normal Historical Provider HEALTH MAINTENANCE Final Result * Fecal Globin by Immunochemistry (02/09/2023 3:08 PM EDT) Stool Rectal contents / Unknown 02/09/2023 3:08 PM EDT Historical Provider LAB BODY FLUIDS AND STOOL S ORDERABLES Final Result * Hepatitis C Antibody with Reflex to HCV, RNA, Quantitative, Real-Time PCR (01/20/2023 8:39 AM EDT) Hepatitis C Antibody NON-REACT EILEEN NON-REACT EILEEN [facility] Index 0.16 <1.00 [facility] Comment: HCV antibody was non-reactive. There is no laboratory evidence of HCV infection. In most cases, no further action is required. However, if recent HCV exposure is suspected, a test for HCV RNA (test code 71971) is suggested. For additional information please refer to http://education.Kukunu/faq/JFR60m0 (This link is being provided for informational/ educational purposes only.) Blood Venous blood specimen / Unknown 01/20/2023 8:39 AM EDT 01/20/2023 8:40 AM EDT Narrative [facility] - 01/20/2023 10:18 PM EDT FASTING:YES FASTING: YES us Clara Joseph MD LAB BLOOD ORDERABLES Final Result [facility] [address], [place] [phone] [facility] [address] [place] [phone] * HIV-1/2 Antigen and Antibodies, Fourth Generation, with Reflexes (01/20/2023 8:39 AM EDT) [facility] HIV Antigen/Antibody, 4th Generation NON-REAC TIVE NON-REAC TIVE [facility] Comment: HIV-1 antigen and HIV-1/HIV-2 antibodies were not detected. There is no laboratory evidence of HIV infection. PLEASE NOTE: This information has been disclosed to you from records whose confidentiality may be protected by state law. If your state requires such protection, then the state law prohibits you from making any further disclosure of the information without the specific written consent of the person to whom it pertains, or as otherwise permitted by law. A general authorization for the release of medical or other information is NOT sufficient for this purpose. For additional information please refer to http://Syncing.Net.Kukunu/faq/ETS531 (This link is being provided for informational/ educational purposes only.) The performance of this assay has not been clinically validated in patients less than 2 years old. Blood Venous blood specimen / Unknown 01/20/2023 8:39 AM EDT 01/20/2023 8:40 AM EDT Narrative [facility] - 01/20/2023 10:18 PM EDT FASTING:YES FASTING: YES us Clara Joseph MD LAB BLOOD ORDERABLES Final Result [facility] [address] [place] [address], [place] [phone] [facility] [address] [place] [phone] * THINPREP TIS PAP AND HPV mRNA E6/E7, CT/NG, TRICH (03/14/2022 12:12 PM EDT) Chlamydia trachomatis RNA, TMA, Urogenital NOT DETECTED NOT DETECTED [facility] Clinical Information: None given [facility] COMMENT SEE COMMENT [facility] Comment: The analytical performance characteristics of this assay, when used to test SurePath(TM) specimens have been determined by [employer]. The modifications have not been cleared or approved by the FDA. This assay has been validated pursuant to the CLIA regulations and is used for clinical purposes. For additional information, please refer to https://Syncing.Net.Kukunu/faq/JGW354 (This link is being provided for information/ educational purposes only.) COMMENT SEE COMMENT [facility] Comment: EXPLANATORY NOTE: The Pap is a screening test for cervical cancer. It is not a diagnostic test and is subject to false negative and false positive results. It is most reliable when a satisfactory sample, regularly obtained, is submitted with relevant clinical findings and history, and when the Pap result is evaluated along with historic and current clinical information. COMMENT: This Pap test has been evaluated with computer assisted technology. [facility] Burnisher And Bumper: SEE COMMENT [facility] Comment: CMG, CT(ASCP) CT screening location: [employer] [address] [address] HPV nRNA E6/E7 Not Detected Not Detected [facility] Comment: Methodology: Hide Worker-Mediated Amplification This assay detects E6/E7 viral messenger RNA (mRNA) from 14 high-risk HPV types (16,18,31,33,35,39,45,51,52,56,58,59,66,68). Cervical sources are required for HPV testing. If a vaginal source from a patient who has had a total hysterectomy with removal of cervix was submitted, please contact the testing laboratory for alternative testing options. For additional information, please refer to http://Syncing.Net.Kukunu/faq/WYZ523s1 (This link if provided for information/ educational [...] of this assay have been determined by [employer]. The modifications have not been cleared or approved by the FDA. This assay has been validated pursuant to the CLIA regulations and is used for clinical purposes. For additional information, please refer to http://education.Kukunu/ faq/Trichomonastma (This link is being provided for information/ educational purposes only.) 03/14/2022 12:1 2 PM EDT Clara Joseph MD LAB PATHOLOGY ORDERABLES F inal Result [facility] [address] * Pap Smear (03/14/2022 12:00 AM EDT) Swab [facility] Provider LAB CYTOLOGY ORDERABLES F inal Result IMAGING from Last 3 Months or Most Recently Relevant to Health Maintenance Insurance [facility] < 65 DENTAL [facility] Advance Directives Documents on File Type Date 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 Advance Directives and Living Will 09/30/2024 Health Care Proxy 09/30/24 Care Teams Binder Stripper Hand Relationship Specialty Start Date End Date Clara Joseph MD [address] [place] [address] PCP - General Family Medicine 10/12/18 Hamida Evans, PharmD [address] [place] [address] Pharmacist Internal Medicine 01/07/23DanielJanuary [address] [place] [address] Gastroenterology 09/30/24 Galdino Lee MD [address] [facility] [address] [place] [address] Ophthalmology 10/24/24 Sabine Martinez [address] [place] [address] Orthopaedic Surgery 11/08/24 Mary Patel PA-C Vascular 10/13/24
== END 2025-05-02 08:15 | disposition home or self-care (01) ==
LOC: HO.US 08:14
PROVIDERS: PCP Family Medicine; Visit Provider Family Medicine
DX: R74.01 Elevation of levels of liver transaminase levels (principal)
CPT/HCPCS: 76700

== ENCOUNTER → 2025-05-02 08:16 | Outpatient (BNV) | payer OTHER, SELFPAY | PROVIDERS: PCP Family Medicine; Visit Provider Family Medicine | DX: R74.01 Elevation of levels of liver transaminase levels (principal); R94.5 Abnormal results of liver function studies | CPT/HCPCS: 76700 ==

== ENCOUNTER 2025-05-26 13:08 | Outpatient (REF) | payer OTHER, SELFPAY ==
--- NOTE | ~2025-05-26 | US_ITS ---
EXAMINATION: US LOWER EXTREMITY VENOUS (REFLUX EXAM), BILATERAL CLINICAL INFORMATION: Varices. COMPARISON: None. TECHNIQUE: Color flow triplex imaging and compression Doppler was performed to evaluate both the deep and the superficial systems bilaterally. To evaluate the superficial system, the examination was performed in the upright position. Color-flow Doppler ultrasound and compression ultrasound were utilized. In addition, maneuvers were utilized to demonstrate reflux. FINDINGS: 1. DEEP VENOUS ULTRASOUND OF THE RIGHT LOWER EXTREMITY: Common Femoral Vein: Compressible, normal respiratory variation and augmented flow. Femoral Vein: Compressible, normal color flow and augmentation. Popliteal Vein: Compressible, normal augmentation. Deep Reflux: There is no evidence of reflux in the deep system in either the common femoral vein, superficial femoral or the popliteal vein. There is no evidence of a Finch's cyst. 2. SUPERFICIAL ULTRASOUND WITH DOPPLER OF RIGHT LOWER EXTREMITY: GREAT SAPHENOUS VEIN: Saphenofemoral Junction: 0.5 cm; Reflux: 0 ms Proximal Thigh: 0.5 cm; Reflux: 0 ms Mid Thigh: 0.4 cm; Reflux: 1316 ms Distal Thigh: 0.4 cm; Reflux: 0 ms At Knee: There are 0.4 cm; Reflux: 0 ms Proximal Calf: 0.3 cm; Reflux: 2256 ms Mid Calf: 0.2 cm; Reflux: 0 ms Distal Calf: 0.2 cm; Reflux: 0 ms DUPLICATED MEDIAL GREAT SAPHENOUS VEIN: Diameter: None imaged Reflux: NA DUPLICATED LATERAL GREAT SAPHENOUS VEIN: Diameter: None imaged Reflux: NA SMALL SAPHENOUS VEIN: Saphenopopliteal Junction: 0.2 cm; Reflux: 0 ms Proximal: 0.3 cm; Reflux: 0 ms Distal: 0.2 cm; Reflux: 0 ms VEIN OF GIACOMINI: Size: 0.2 cm Reflux: NA PERFORATORS: Location: Great saphenous vein, proximal calf region. Small saphenous vein mid segment. Size: 0.2 cm. Reflux: 2564 ms at the great saphenous vein proximal calf region. VARICOSITIES: Location: None imaged. Size: NA Reflux: NA 3. DEEP VENOUS ULTRASOUND OF THE LEFT LOWER EXTREMITY: Common Femoral Vein: Compressible, normal respiratory variation and augmented flow. Femoral Vein: Compressible, normal color flow and augmentation. Popliteal Vein: Compressible, normal augmentation. Deep Reflux: There is no evidence of reflux in the deep system in either the common femoral vein, superficial femoral or the popliteal vein. There is no evidence of a Finch's cyst. 4. SUPERFICIAL ULTRASOUND WITH DOPPLER OF LEFT LOWER EXTREMITY: GREAT SAPHENOUS VEIN: Saphenofemoral Junction: 0.4 cm; Reflux: 0 ms Proximal Thigh: 0.7 cm; Reflux: 1200 ms Mid Thigh: 0.4 cm; Reflux: 2388 ms Distal Thigh: 0.5 cm; Reflux: 2364 ms At Knee: 0.6 cm; Reflux: 2388 ms Proximal Calf: 0.4 cm; Reflux: 1208 ms Mid Calf: 0.2 cm; Reflux: 0 ms Distal Calf: 0.3 cm; Reflux: 0 ms DUPLICATED MEDIAL GREAT SAPHENOUS VEIN: Diameter: None imaged Reflux: NA DUPLICATED LATERAL GREAT SAPHENOUS VEIN: Diameter: None imaged. Reflux: NA SMALL SAPHENOUS VEIN: Saphenopopliteal Junction: 0.2 cm; Reflux: 0 ms Proximal: 0.2 cm; Reflux: 0 ms Distal: 0.1 cm; Reflux: 0 ms VEIN OF GIACOMINI: Size: 0.2 cm. Reflux: NA PERFORATORS: Location: Great saphenous vein proximal calf and mid thigh. Small saphenous vein mid segment. Proximal to distal calf. Size: 0.1-0.3 cm. Reflux: NA VARICOSITIES: Location: Great saphenous vein at the knee. Size: 0.4 cm. Reflux: 2760 ms. US/US venous insuf bilat IMPRESSION: Right: Venous insufficiency, great saphenous vein at the mid thigh and below the knee. Perforators with reflux in the proximal calf region of the great saphenous vein. Left: Venous insufficiency, great saphenous vein from the proximal thigh to below the knee. 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 Perforators without reflux. Electronically signed by: Robert Huynh MD 05/26/2025 04:10 PM EDT
== END 2025-05-26 13:09 | disposition home or self-care (01) ==
LOC: HO.US 13:08
PROVIDERS: PCP Family Medicine; Visit Provider Physician Assistant Surgical
DX: I83.11 Varicose veins of right lower extremity with inflammation (principal); I83.12 Varicose veins of left lower extremity with inflammation
CPT/HCPCS: 93970

== ENCOUNTER → 2025-05-26 13:12 | Outpatient (BNV) | payer OTHER, SELFPAY | PROVIDERS: PCP Family Medicine; Visit Provider Radiology Diagnostic Radiology | DX: I83.93 Asymptomatic varicose veins of bilateral lower extremities (principal) | CPT/HCPCS: 93970 ==

== ENCOUNTER 2025-07-20 08:44 | Outpatient (AMB) | payer OTHER, SELFPAY ==
--- NOTE | 2025-07-20 09:07 | MHC.OFFVIS ---
Vital Signs 07/20/25 09:08 Height 5 ft 4 in Weight 148 lb BMI 25.4 Intake Visit Reasons: follow up [facility] 05/26/25 Intake Note: follow up [facility] 05/26/25, Left LE worse than the right LE, worsening pain over the last 4 to 5 months w/ or w/o ambulation Loss Prevention Manager Required: Yes Loss Prevention Manager Language: Cable Stretcher And Tester Services: Loss Prevention Manager Present Loss Prevention Manager Name: Cortney [id number] Information Interpreted: clinical only Accompanied by: Self / Same As Patient Allergies No Known Allergies Allergy (Verified 07/20/25 09:11) [facility] HPI follow up [facility] 05/26/25: Details: The patient is a 59-year-old female presenting with venous insufficiency in the left leg. She reports continued swelling and discomfort of the lower extremity left more so than right. She has had a trial of compression with minimal relief. The condition was confirmed via ultrasound, which showed inadequate venous function in the left leg. [facility] Medical History Benign meningioma Depression Dyslipidemia Hypertension Hypothyroid Anemia Surgical History H/O dilation and curettage H/O colonoscopy History of tubal ligation Family History Mother Vaginal cancer Breast cancer Maternal Aunt Cancer Maternal Uncle Cancer Social History Alcohol intake: never Patient Tobacco Use Status: Never used Tobacco Current occupational status: unemployed Review of Systems Const Reports as per HPI ENT Reports no additional complaints Card Denies chest pain, Denies chest pain at rest and Denies chest pain with activity Resp Denies chest congestion and Denies cough GI Reports no additional complaints Musc Details: pain over varicosities, aching of lower extremities, swelling, cramping, heaviness and tiredness, itching Denies abnormal gait Skin/Breast Reports pruritus and Denies wounds Neuro Reports no additional complaints and Denies abnormal gait Psych Denies no additional complaints Physical Exam Vital Signs: BMI result Body Mass Index 25.4 Const General: cooperative, healthy appearing and comfortable Orientation/consciousness: oriented to person, oriented to place and oriented to time Neck Carotids: no bruits Chest Chest palpation & inspection: normal inspection of the chest and normal palpation of entire chest wall Resp Effort & Inspection: normal respiratory effort and able to speak in complete sentences Cardio Rate: regular rate Heart sounds: S1 normal heart sound present and S2 normal heart sound present Peripheral pulses: Peripheral pulses 2+ throughout GI Inspection: Yes normal to inspection Skin Other: +2 edema, left greater than right CEAP Classification C4 - skin color changes Ep - Etiology Primary As - superficial veins P - reflux General skin exam: dry skin Neuro General: oriented to person, oriented to place and oriented to time Extrem Right lower extremity: full ROM, normal capillary refill and edema Left lower extremity: full ROM, normal capillary refill and edema Psych Mental Status: mental status grossly normal Results Reviewed Results Reviewed: Brief summary of venous insufficiency testing is as follows: right great saphenous vein: negative right small saphenous vein: negative right accessory vein: none present left great saphenous vein: Positive left small saphenous vein: negative left accessory vein: none present Please note there is no evidence of any venous aneurysms or significant tortuosity Assessment & Plan Assessment & Plan (1) Varicose veins of left lower extremity with inflammation: Code(s): I83.12 - Varicose veins of left lower extremity with inflammation Category: Medical Plan: This patient has varicose veins with inflammation. They continue to be a source of discomfort for the patient. The patient has tried conservative treatment with compression, leg elevation and exercise program for over 3 months time. They have been compliant with all treatment. This has provided minimal relief for the patient. I do not anticipate this course of treatment will alter the underlying etiology. The patient has been scheduled for lower extremity venous treatment inclusive of --- left great saphenous vein Cyanoacralate ablation. Risks, benefits, and complications of this procedure has been discussed in detail with the patient including but not limited to bleeding, infection, and the development of a DVT. The patient has demonstrated a clear understanding and has consented. We will schedule the patient as soon as possible. Thank you for allowing us to participate in this patient's care. If there are any questions or concerns please do not hesitate to contact us. Coding Level of Care Code Est Pt Level 4 (57000) Diagnoses Varicose veins of left lower extremity with inflammation I83.12
[2025-07-20 09:08] VITALS: BMI 25.4
== END 2025-07-20 09:34 | disposition home or self-care (01) ==
LOC: HO.HVS 08:45
PROVIDERS: PCP Family Medicine; Visit Provider Surgery Vascular Surgery
DX: I83.12 Varicose veins of left lower extremity with inflammation (principal)
CPT/HCPCS: 99214

== ENCOUNTER → 2025-07-20 08:44 | Outpatient (BNVA) | payer OTHER, SELFPAY | PROVIDERS: PCP Family Medicine; Visit Provider Surgery Vascular Surgery | DX: I83.12 Varicose veins of left lower extremity with inflammation (principal) | CPT/HCPCS: 99212 ==

== ENCOUNTER 2025-07-28 07:26 | Outpatient (AMB) | payer OTHER, SELFPAY ==
--- OUTSIDE RECORDS SUMMARY | 2025-07-28 07:30 | XMS_ITS | Clinical Summary ---
Author Organization [employer] Address [address] [facility] [address] [place] [address] Care Team Providers Care Mixer Helper Name Role Phone Clara Joseph MD Primary Care Provider + [phone] Hamida Evans PharmD Unavailable +- [phone] January Unavailable Galdino Lee MD Unavailable [phone] Sabine Martinez Unavailable Adis Hurley MD Unavailable Allergies No known active allergies Medications escitalopram (Lexapro) 20 MG tabletIndications :Depressive disorder Take 20 mg by mouth Once per day. Active lisinopril 5 MG tabletIndications :Hypertension, unspecified type,Type 2 diabetes mellitus without complication, without long-term current use of insulin (HCC) TAKE 1 TABLET BY MOUTH EVERY EVENING 30 tablet 11 024 Active levothyroxine (Synthroid, Levoxyl) 75 MCG tabletIndications :Acquired hypothyroidism TAKE 1 TABLET BY MOUTH EVERY MORNING 90 tablet 3 024 Active atenolol (Tenormin) 25 MG tabletIndications :Primary hypertension TAKE 1 TABLET BY MOUTH EVERYDAY AT NOON 90 tablet 3 024 Active glucose (Glutose) 40 % gel oral gelIndications:Ty pe 2 diabetes mellitus without complication, without long-term current use of insulin (HCC) Use as directed for low blood sugar 40 g 11 024 Active ezetimibe (Zetia) 10 MG tabletIndications :Type 2 diabetes mellitus without complication, without long-term current use of insulin (HCC) Take 1 tablet (10 mg) by mouth Once per day. 90 tablet 3 025 Active omeprazole (PriLOSEC) [address] capsule TAKE 1 CAPSULE BY MOUTH TWICE DAILY IN THE MORNING AND IN THE EVENING BEFORE MEALS DO NOT BREAK, CRUSH, DISSOLVE OR CHEW Active rosuvastatin (Crestor) 40 MG tabletIndications :Dyslipidemia TAKE 1 TABLET BY MOUTH AT BEDTIME 90 tablet 3 025 Active linaGLIPtin (Tradjenta) 5 MG tabletIndications :Type 2 diabetes mellitus without complication, without long-term current use of insulin ([facility]) Take 1 tablet (5 mg) by mouth Once per day. 90 tablet 3 025 Active Multiple Vitamin (multivitamin) capsule PT REPORTS PURCHASING OTC Active Turmeric-Tracie 130-5 MG chewable tablet PT REPORTS PURCHASING OTC Active TRUEplus Lancets 33G miscIndications:T ype 2 diabetes mellitus without complication, without long-term current use of insulin ([facility]) TEST BLOOD SUGAR THREE TIMES DAILY 100 each 5 025 Active melatonin tabletIndications :Primary insomnia TAKE 1 TABLET BY MOUTH AT BEDTIME NEEDED FOR SLEEP 30 tablet 5 025 Active FREESTYLE LITE test stripIndications: Type 2 diabetes mellitus without complication, without long-term current use of insulin ([facility]) TEST BLOOD SUGAR THREE TIMES DAILY 100 strip 11 025 Active Jardiance 25 MGIndications:Typ e 2 diabetes mellitus without complication, without long-term current use of insulin ([facility]) TAKE 1 TABLET BY MOUTH EVERY MORNING 30 tablet 6 025 Active acetaminophen (Tylenol 8 Hour) 650 MG ER tablet Take 1 tablet (650 mg) by mouth every 8 (eight) hours if needed for mild pain. Do not crush, chew, or split. 30 tablet 025 Active glipiZIDE (Glucotrol) 5 MG tabletIndications :Type 2 diabetes mellitus without complication, without long-term current use of insulin ([facility]) TAKE 1 TABLET BY MOUTH BEFORE BREAKFAST AND 2 TABLETS BEFORE DINNER. DO NOT TAKE IF SKIPPING MEAL. 270 tablet 025 Active neomycin-polymyxi n-dexAMETHasone (Polydex) 3.5-92488-8.1 ointment ophthalmic ointment 025 2024 Discontinued(O ther) glipiZIDE (Glucotrol) 5 MG tabletIndications :Type 2 diabetes mellitus without complication, without long-term current use of insulin (HCC) TAKE 1 TABLET BY MOUTH TWICE DAILY BEFORE BREAKFAST AND DINNER. DO NOT TAKE IF SKIPPING MEAL. 180 tablet 3 025 2024 Discontinued amoxicillin (Amoxil) 500 MG capsule Take 1 capsule (500 mg) by mouth every 8 (eight) hours for 7 days. 21 capsule 025 2024 Active Problems Patient Care Coordination No te Formatting of this note migh t be different from the original. Enrolled in [facility] DM and HTN clinic with Quoc GerardoD, [facility] Senior Office Assistant: Jeaneth, member services number [phone] Digital Production Manager Agency: [facility], [facility] Problem Noted Date Diagnosed Date Tendonitis 07/07/2025 Varicose veins of both lower extremities with in flammation 07/07/2025 Overview (07/24/2025): -seen by Dr. Hurley 07/23/25 plan for eft great saphenous vein Cyanoacralate ablation Transaminitis 03/09/2025 Overview (05/03/2025): Lab Results Component Value Date AST 65 (H) 03/09/2025 AST 43 (H) 01/04/2025 AST 16 04/09/2023 AST 13 01/20/2023 ALT 97 (H) 03/09/2025 ALT 65 (H) 01/04/2025 ALT 17 04/09/2023 ALT 17 01/20/2023 TOTALBILIRUB 0.7 03/09/2025 TOTALBILIRUB 1.0 01/04/2025 INR 1.0 10/22/2024 PLT 155 (L) 10/22/2024 CREATININE 0.80 10/22/2024 NA 138 10/22/2024 -US 05/03/25 IMPRESSION: Findings in the liver which may be indicative of diffuse hepatocellular process. Assessment & Plan (03/09/2025 4:05 PM EDT): [...] we do not have them translated into Kiswahili, she states she does read a little Mohawk) and where to purchase good compression stockings as well. I had the transportation worker discuss the type of compression stockings and [...] new symptoms. The office telephone contact is [phone]. Meningioma ([facility]) 10/24/2024 Postmenopausal 10/24/2024 Overview (10/24/2024): - Prescribed MAGNESIUM OXIDE 400 PO 10/24/24 Assessment & Plan (10/24/2024 12:53 PM EST): - Prescribed MAGNESIUM OXIDE 400 PO 10/24/24 Gastroesophageal reflux disease 10/24/2024 Left hip pain 09/30/2024 Overview (11/08/2024): - hip LT min 2V w/wo pel 10/18/23 IMPRESSION: Moderate joint space narrowing. -seen by Dr. Martinez [facility] 11/08/24 and given cortisone injection in [...] of blood transfusion s as patient is Mu-ism 04/05/2024 Colon cancer screening 09/23/2023 Overview (10/24/2024): -colonsocpy with Dr. Roberto Meza -FOBT done by insurance negative 02/2023 -Referral done to GI 09/23/2023 -seen 11/19/2023 for colonoscopy intake, colonoscopy scheduled then canceled due to taking diabetic meds that am, they canceled twice - We will be calling GI to schedule a colonoscopy for patient 10/24/24 Assessment & Plan (03/08/2025 10:20 AM EDT): -colonsocpy with Dr. Roberto Meza -FOBT done by insurance negative 02/2023 -Referral done to GI 09/23/2023 -seen 11/19/2023 for colonoscopy intake, colonoscopy scheduled then canceled due to taking diabetic meds that am, they canceled twice - We will be calling GI to schedule a colonoscopy for patient 10/24/24 Assessment & Plan (10/24/2024 12:04 PM EST): -colonsocpy with Dr. Roberto Meza -FOBT done by insurance negative 02/2023 -Referral done to GI 09/23/2023 -seen 11/19/2023 for colonoscopy intake, colonoscopy scheduled then canceled due to taking diabetic meds that am, they canceled twice - We will be calling GI to schedule a colonoscopy for patient 10/24/24 Assessment & Plan (04/08/2024 11:13 AM EDT): -colonsocpy with Dr. Roberto Meza -FOBT done by insurance negative 02/2023 -Referral [...] by followed by Dr. Galdino Lee of [facility] -dental home is pt does not remember name -health care proxy filed Assessment & Plan (03/08/2025 10:21 AM EDT): -next physical due after 03/08/26 -eye care facilitated by followed by Dr. Galdino Lee of [facility] -dental home is pt does not remember name -health care proxy filed Assessment & Plan (09/23/2023 11:18 AM EST): -next physical due after January, -eye care facilitated by followed by Dr. 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 - S/p surgical resection 03/23/17 at [facility]. - Continued instability, dizziness and right [...] nerve. - S/p surgical resection 03/23/17 at [facility]. - Continued instability, dizziness and right [...] nerve. - S/p surgical resection 03/23/17 at [facility]. - Continued instability, dizziness and right [...] nerve. - S/p surgical resection 03/23/17 at [facility]. - Continued instability, dizziness and right facial numbness and decreased taste. 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 - Pt followed [...] with pharmacy CDTM by Dr. Hamida Evans PharmJohn, [facility]. Lab Results Component Value Date HGBA1C 8.0 (A) 02/10/2025 HGBA1C 8.2 (A) 11/04/2024 HGBA1C 7.1 (A) 08/23/2024 Lab Results Component Value Date CREATININE 0.80 10/22/2024 EGFR >60 10/22/2024 MICROALBCREU TNP 02/29/2024 LDLCHOLCAL 79 01/04/2025 -Santi/Arb: lisinopril 5mg -Statin therapy: rosuvastatin 40mg -zetia added by [facility] -Diabetic eye exam: with Dr. Lee in [...] by Dr. Hamida Evans PharmD, [facility]. Lab Results Component Value Date HGBA1C 8.0 (A) 02/10/2025 HGBA1C 8.2 (A) 11/04/2024 HGBA1C 7.1 (A) 08/23/2024 Lab Results Component Value Date CREATININE 0.80 10/22/2024 EGFR >60 10/22/2024 MICROALBCREU TNP 02/29/2024 LDLCHOLCAL 79 01/04/2025 -Santi/Arb: lisinopril 5mg -Statin therapy: rosuvastatin 40mg -zetia added by [facility] -Diabetic eye exam: with Dr. Lee in [...] by Dr. Hamida Evans PharmD, [facility]. Lab Results Component Value Date HGBA1C 5.4 [...] Not controlled. A1c 10.2% 12/17/22. Referral to [facility] 12/17/22. Dyslipidemia 06/25/2012 Overview (03/08/2025): Lab Results Component Value Date TRIG 50 01/04/2025 TRIG 61 04/09/2023 CHOL 146 01/04/2025 LDLCHOLCAL 79 01/04/2025 HDL 57 01/04/2025 -Previously changed from pravastatin to rosuvastatin for high intensity statin by [facility] - Rosuvastatin increased from 20mg once daily to 40mg once daily by [facility] 08/23/24 due to hyperlipidemia LDL Cholesterol [...] to rosuvastatin for high intensity statin by [facility] - Rosuvastatin increased from 20mg once daily to 40mg once daily by [facility] 08/23/24 due to hyperlipidemia LDL Cholesterol [...] Problem Noted Date Diagnosed Date Resolved Date Calcific tendonitis of left shoulder 07/07/2025 07/24/2025 Subconjunctival hemorrhage of left eye 07/07/2025 07/24/2025 Localized gingival recession, moderate 05/15/2025 07/24/2025 Dental calculus 05/15/2025 07/24/2025 Abfraction 05/15/2025 07/24/2025 Alveolitis of jaw, right 05/15/2025 Excessive attrition of teeth , limited to enamel 05/15/2025 07/24/2025 Dizzy 09/30/2024 10/20/2024 Abfraction 06/17/2024 03/08/2025 Tooth hypersensitivity 06/17/202403/08 Excessive attrition of teeth , limited to enamel 05/11/2024 10/20/2024 Diabetes due to undrl condit ion w oth diabetic neuro comp 01/19/2024 10/20/2024 Dental calculus 04/02/2023 10/20/2024 Localized gingival recession, moderate 04/02/2023 03/08/2025 Nausea and vomiting 02/19/2023 09/23/20 23 Overview (02/19/2023): -likely viral gastroenteritis -no evidence [...] vinegar soaks and treat with.. Benign meningioma ([facility]) 11/21/2021 12/17/2022 Encounters Date Type Department Care Team Description 07/17/2025 Travel 07/10/[address] [facility] [address] [place] [address] Clara Joseph MD August Recalls 07/10/2025 Travel 07/07/2025 11:30 AM EDT Office Visit [facility] [address] [place] [address] Henok Cristina DDS Alveolitis of jaw, right (Primary Dx) 06/28/2025 9:00 AM EDT Office Visit [facility] [address] [place] [address] Henok Cristina DDS Periodontal disease (Primary Dx) 06/22/[address] [facility] [address] [place] [address] Clara Joseph MD Type 2 diabetes mellitus without complication, without long-term current use of insulin ([facility]) 06/04/[address] [facility] [address] [place] [id number] Clara Joseph MD Type 2 diabetes mellitus without complication, without long-term current use of insulin ([facility]) (Primary Dx) 06/02/[address] [address] Hamida Evans, PharmD 06/02/2025 Travel 05/26/2025 Orders Only [facility] External Provider, [facility] 05/15/2025 8:00 AM EDT Office Visit [facility] [address] [place] [address] Lillian Crawfodr Localized gingival recession, moderate (Primary Dx); Dental calculus; Abfraction; Periodontal disease; Excessive attrition of teeth, limited to enamel 05/03/2025 Results Follow-Up [address] [address] Clara Joseph MD US Abdomen Complete from Last 3 Months Immunizations Immunization Administration Dates Next Due Hep B, adult 07/18/2015,09/13/2014,05/01/2014 Influenza injectable quadriv alent IIV4 with preservative 07/02/2018 Influenza injectable quadriv alent preservative free 07/01/2023,06/30/2022,07/23/2021,08/02,08/04/2019,07/18/2015 Influenza, IIV3, injectable 09/13/2014, 0 Influenza, Split (incl. rachel fied surface antigen) 06/29/2013,06/25/2012 Influenza, seasonal, injecta ble, preservative free 07/17/2025,06/30/2024,07/07/2016 Pfizer Covid-19 Vaccine 12+ 06/30/2024,1 ,09/01/2022,01/16,12/26/2020 Pfizer [...] is your housing situation today? I have ghadaevelyn tripathi 03/08/[address] you [...] Sign Reading Time Taken Comments Blood Pressure 112/58 07/17/2025 9:28 AM EDT Pulse 52 07/17/2025 9:28 AM EDT Temperature 35.9 C (96.7 F) [...] Care Team (Late st Contact Info) Description 08/23/2025 10:15 AM EST Office Visit [facility] [address] [place] [phone] Clara Joseph MD [address] [place] [address] 09/25/2025 9:00 AM EST Medication Management [facility] [address] [place] [address] Hamida Evans, QuocD [address] [place] [address] 11/24/2025 8:45 AM EST Office Visit [facility] [address] [place] [address] Lillian Crawford [address] [place] [address] Health Maintenance Due Date Last Done Comments CT Colonography 1965 FIT DNA/Cologuard 1965 Sigmoidoscopy 1965 FIT 02/10/2024 02/09/2023, 02/09/2023 FOBT 02/10/2024 02/09/2023, 02/09/2023 Diabetes: Hemoglobin A1C 09/02/2025 025, 03/09/2025, 03/08/2025, Additional history exists Depression Monitoring 09/08/2025 03/08/2025, 025 Alcohol/Substance Use Screening 09/30/2025 09/30/2024 Diabetes: Foot Exam 09/30/2025 09/30/2024, 09/30/2024, 09/30/2024, Additional history exists Dental Oral Exam 11/16/2025 05/15/2025, , 04/02/2023, Additional history exists Dental Prophylaxis 11/16/2025 05/15/2025, 0 11/14/2024, 05/11/2024, Additional history exists Lipid Panel 01/04/2026 01/04/2025, 09/13, 05/02/2024, Additional history exists Disability Screening 03/08/2026 03/08/2025 SDOH Screening 03/08/2026 03/08/2025 Diabetes: Urine Protein Screening 03/09/2026 03/09/2025, 02/29/2024, 03/12/2021, Additional history exists Dental X-Ray: Bitewings 05/16/2026 05/15/20, 05/11/2024, 04/02/2023, Additional history exists Tobacco Screening 07/07/2026 07/07/2025 Mammogram 10/28/2026 10/28/2024, 10/12, 10/03/2022, Additional history exists Eye Exam 02/10/2027 02/10/2025, 09/25/2023 Cervical Cancer Screening 03/14/2027 HPV/Cotest 03/14/2027 03/14/2022, 01/09/2017 Pap Smear 03/14/2027 03/14/2022, 03/14/2022 Dental X-Ray: Full Mouth 07/08/2028 025, 05/11/2024, 06/30/2019 DTaP/Tdap/Td Vaccines (3 - Td or Tdap) [...] 09/01/2022, Additional history exists Influenza Vaccine Completed 07/17/2025, , 07/01/2023, Additional history exists HIB Vaccines Aged Out [...] Author Blood Pressure < 140/90 Blood Pressure 112/58(2024 9:28 AM EDT) No Hamiad Herman, PharmD Hemoglobin A1c < 7 Result Component 7.4( 9:17 AM EDT) Hamida Zhu PharmD Procedures Procedure Name Priority Date/Time Associated Diagnosis Comments PANORAMIC RADIOGRAPHIC IMAGE Routine 07/07/2025 11:30 AM EDT CASE PRESENTATION, DETAILED AND EXTENSIVE TREATMENT PLANNING Routine 06/28/2025 9:00 AM EDT 32 EXTRACTION, ERUPTED TOOTH REQ REMOVAL OF BONE AND/OR SECTIONING OF TOOTH Routine 06/28/2025 9:00 AM EDT POCT GLYCATED HEMOGLOBIN, TOTAL Routine 06/02/2025 9:17 AM EDT Type 2 diabetes mellitus without complication, without long-term current use of insulin ([facility]) VASC US LOWER EXTREMITY VENOUS INSUFFICIENCY BILATERAL Routine 05/26/2025 1:31 PM EDT COMPREHENSIVE PERIODONTAL EVALUATION - NEW OR ESTABLISHED PATIENT Routine 05/15/2025 8:00 AM EDT PERIODIC ORAL EVALUATION - ESTABLISHED PATIENT Routine 05/15/2025 8:00 AM EDT CASE PRESENTATION, DETAILED AND EXTENSIVE TREATMENT PLANNING Routine 05/15/2025 8:00 AM EDT Localized gingival recession, moderate Dental calculus Abfraction Periodontal disease Excessive attrition of teeth, limited to enamel ORAL HYGIENE INSTRUCTIONS Routine 05/15/2025 8:00 AM EDT Localized gingival recession, moderate Dental calculus Abfraction Periodontal disease Excessive attrition of teeth, limited to enamel TOPICAL APPLICATION OF FLUORIDE VARNISH Routine 05/15/2025 8:00 AM EDT Localized gingival recession, moderate Dental calculus Abfraction Periodontal disease Excessive attrition of teeth, limited to enamel INTRAORAL - PERIAPICAL EACH ADDITIONAL RADIOGRAPHIC IMAGE Routine 05/15/2025 8:00 AM EDT Localized gingival recession, moderate Dental calculus Abfraction Periodontal disease Excessive attrition of teeth, limited to enamel INTRAORAL - PERIAPICAL FIRST RADIOGRAPHIC IMAGE Routine 05/15/2025 8:00 AM EDT Localized gingival recession, moderate Dental calculus Abfraction Periodontal disease Excessive attrition of teeth, limited to enamel BITEWINGS - 4 RADIOGRAPHIC IMAGES Routine 05/15/2025 8:00 AM EDT Localized gingival recession, moderate Dental calculus Abfraction Periodontal disease Excessive attrition of teeth, limited to enamel PROPHYLAXIS - ADULT Routine 05/15/2025 8 :00 AM EDT Dental calculus Periodontal disease US ABDOMEN COMPLETE Routine 05/03/2025 9 :25 AM EDT Transaminitis ALBUMIN, RANDOM URINE W/CREATININE Routine 03/09/2025 10:10 AM EDT Type 2 diabetes mellitus without complication, without long-term current use of insulin ([facility]) LIPID PANEL, STANDARD Routine 01/04/2025 9:18 AM EDT BI MAMMOGRAM SCREENING TOMOSYNTHESIS BILATERAL Routine 10/28/2024 2:30 PM EST HM COLONOSCOPY Routine 01/30/2024 12:30 PM EDT [...] to Health Maintenance Results * (ABNORMAL) POCT A1c (06/02/2025 9:17 AM EDT) Hemoglobin A1C 7.4(A) 4.0 - 5.7 % QC Media Lot # [id number] Lot# Expiration Date [id number] Blood 06/02/2025 9:17 AM EDT Clara Joseph MD POINT OF CARE TEST ENTER/E DIT ORDERABLES Final Result * VASC US Lower Extremity Venous Insufficiency Bilateral (05/26/2025 1:31 PM EDT) 05/26/2025 1:31 PM EDT [facility] - 05/26/2025 4:13 PM EDT [address] [address] Ultrasound Report Signed Patient: Jolie Werner MR#: [id number] : 1965 Acct:[id number] Age/Sex: 59 / F ADM Date: 05/26/25 Loc: HO.US Attending Dr: Mary Patel PA-C Ordering Physician: Mary Patel PA-C Date of Service: 05/26/25 Procedure(s): US venous insuf bilat Accession Number(s): [id number] cc: Clara Joseph MD; Mary Patel PA-C EXAMINATION: US LOWER EXTREMITY VENOUS (REFLUX EXAM), BILATERAL CLINICAL INFORMATION: Varices. COMPARISON: None. TECHNIQUE: Color flow triplex imaging and compression Doppler was performed to evaluate both the deep and the superficial systems bilaterally. To evaluate the superficial system, the examination was performed in the upright position. Color-flow Doppler ultrasound and compression ultrasound were utilized. In addition, maneuvers were utilized to demonstrate reflux. FINDINGS: 1. DEEP VENOUS ULTRASOUND OF THE RIGHT LOWER EXTREMITY: Common Femoral Vein: Compressible, normal respiratory variation and augmented flow. Femoral Vein: Compressible, normal color flow and augmentation. Popliteal Vein: Compressible, normal augmentation. Deep Reflux: There is no evidence of reflux in the deep system in either the common femoral vein, superficial femoral or the popliteal vein. There is no evidence of a Finch's cyst. 2. SUPERFICIAL ULTRASOUND WITH DOPPLER OF RIGHT LOWER EXTREMITY: GREAT SAPHENOUS VEIN: Saphenofemoral Junction: 0.5 cm; Reflux: 0 ms Proximal Thigh: 0.5 cm; Reflux: 0 ms Mid Thigh: 0.4 cm; Reflux: 1316 ms Distal Thigh: 0.4 cm; Reflux: 0 ms At Knee: There are 0.4 cm; Reflux: 0 ms Proximal Calf: 0.3 cm; Reflux: 2256 ms Mid Calf: 0.2 cm; Reflux: 0 ms Distal Calf: 0.2 cm; Reflux: 0 ms DUPLICATED MEDIAL GREAT SAPHENOUS VEIN: Diameter: None imaged Reflux: NA DUPLICATED LATERAL GREAT SAPHENOUS VEIN: Diameter: None imaged Reflux: NA SMALL SAPHENOUS VEIN: Saphenopopliteal Junction: 0.2 cm; Reflux: 0 ms Proximal: 0.3 cm; Reflux: 0 ms Distal: 0.2 cm; Reflux: 0 ms VEIN OF GIACOMINI: Size: 0.2 cm Reflux: NA PERFORATORS: Location: Great saphenous vein, proximal calf region. Small saphenous vein mid segment. Size: 0.2 cm. Reflux: 2564 ms at the great saphenous vein proximal calf region. VARICOSITIES: Location: None imaged. Size: NA Reflux: NA 3. DEEP VENOUS ULTRASOUND OF THE LEFT LOWER EXTREMITY: Common Femoral Vein: Compressible, normal respiratory variation and augmented flow. Femoral Vein: Compressible, normal color flow and augmentation. Popliteal Vein: Compressible, normal augmentation. Deep Reflux: There is no evidence of reflux in the deep system in either the common femoral vein, superficial femoral or the popliteal vein. There is no evidence of a Finch's cyst. 4. SUPERFICIAL ULTRASOUND WITH DOPPLER OF LEFT LOWER EXTREMITY: GREAT SAPHENOUS VEIN: Saphenofemoral Junction: 0.4 cm; Reflux: 0 ms Proximal Thigh: 0.7 cm; Reflux: 1200 ms Mid Thigh: 0.4 cm; Reflux: 2388 ms Distal Thigh: 0.5 cm; Reflux: 2364 ms At Knee: 0.6 cm; Reflux: 2388 ms Proximal Calf: 0.4 cm; Reflux: 1208 ms Mid Calf: 0.2 cm; Reflux: 0 ms Distal Calf: 0.3 cm; Reflux: 0 ms DUPLICATED MEDIAL GREAT SAPHENOUS VEIN: Diameter: None imaged Reflux: NA DUPLICATED LATERAL GREAT SAPHENOUS VEIN: Diameter: None imaged. Reflux: NA SMALL SAPHENOUS VEIN: Saphenopopliteal Junction: 0.2 cm; Reflux: 0 ms Proximal: 0.2 cm; Reflux: 0 ms Distal: 0.1 cm; Reflux: 0 ms VEIN OF GIACOMINI: Size: 0.2 cm. Reflux: NA PERFORATORS: Location: Great saphenous vein proximal calf and mid thigh. Small saphenous vein mid segment. Proximal to distal calf. Size: 0.1-0.3 cm. Reflux: NA VARICOSITIES: Location: Great saphenous vein at the knee. Size: 0.4 cm. Reflux: 2760 ms. US/US venous insuf bilat IMPRESSION: Right: Venous insufficiency, great saphenous vein at the mid thigh and below the knee. Perforators with reflux in the proximal calf region of the great saphenous vein. Left: Venous insufficiency, great saphenous vein from the proximal thigh to below the knee. 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 Perforators without reflux. Electronically signed by: Robert Huynh MD 05/26/2025 04:10 PM EDT RP Dictated By: Robert Brown MD Signed By: <Electronically signed by Robert Allison MD in OV> 05/26/25 1610 DD/ 1331 TD/TT: 05/26/25 1423 Alining Inspector: Procedure Note Donotuseinterpreter, Image - 05/26/2025 [place] [address] Ultrasound Report Signed Patient: Yeimy WerneradMR#: [id number] : 1965Acct:[id number] Age/Sex: 59 / FADM Date: 05/26/25 Loc: . Attending Dr: Mary Patel PA-C Ordering Physician: Mary Patel PA-C Date of Service: 05/26/25 Procedure(s): US venous insuf bilat Accession Number(s): [id number] cc: Clara Joseph MD; Mary Patel PA-C EXAMINATION: US LOWER EXTREMITY VENOUS (REFLUX EXAM), BILATERAL CLINICAL INFORMATION: Varices. COMPARISON: None. TECHNIQUE: Color flow triplex imaging and compression Doppler was performed to evaluate both the deep and the superficial systems bilaterally. To evaluate the superficial system, the examination was performed in the upright position. Color-flow Doppler ultrasound and compression ultrasound were utilized. In addition, maneuvers were utilized to demonstrate reflux. FINDINGS: 1. DEEP VENOUS ULTRASOUND OF THE RIGHT LOWER EXTREMITY: Common Femoral Vein: Compressible, normal respiratory variation and augmented flow. Femoral Vein: Compressible, normal color flow and augmentation. Popliteal Vein: Compressible, normal augmentation. Deep Reflux: There is no evidence of reflux in the deep system in either the common femoral vein, superficial femoral or the popliteal vein. There is no evidence of a Finch's cyst. 2. SUPERFICIAL ULTRASOUND WITH DOPPLER OF RIGHT LOWER EXTREMITY: GREAT SAPHENOUS VEIN: Saphenofemoral Junction: 0.5 cm; Reflux: 0 ms Proximal Thigh: 0.5 cm; Reflux: 0 ms Mid Thigh: 0.4 cm; Reflux: 1316 ms Distal Thigh: 0.4 cm; Reflux: 0 ms At Knee: There are 0.4 cm; Reflux: 0 ms Proximal Calf: 0.3 cm; Reflux: 2256 ms Mid Calf: 0.2 cm; Reflux: 0 ms Distal Calf: 0.2 cm; Reflux: 0 ms DUPLICATED MEDIAL GREAT SAPHENOUS VEIN: Diameter: None imaged Reflux: NA DUPLICATED LATERAL GREAT SAPHENOUS VEIN: Diameter: None imaged Reflux: NA SMALL SAPHENOUS VEIN: Saphenopopliteal Junction: 0.2 cm; Reflux: 0 ms Proximal: 0.3 cm; Reflux: 0 ms Distal: 0.2 cm; Reflux: 0 ms VEIN OF GIACOMINI: Size: 0.2 cm Reflux: NA PERFORATORS: Location: Great saphenous vein, proximal calf region. Small saphenous vein mid segment. Size: 0.2 cm. Reflux: 2564 ms at the great saphenous vein proximal calf region. VARICOSITIES: Location: None imaged. Size: NA Reflux: NA 3. DEEP VENOUS ULTRASOUND OF THE LEFT LOWER EXTREMITY: Common Femoral Vein: Compressible, normal respiratory variation and augmented flow. Femoral Vein: Compressible, normal color flow and augmentation. Popliteal Vein: Compressible, normal augmentation. Deep Reflux: There is no evidence of reflux in the deep system in either the common femoral vein, superficial femoral or the popliteal vein. There is no evidence of a Finch's cyst. 4. SUPERFICIAL ULTRASOUND WITH DOPPLER OF LEFT LOWER EXTREMITY: GREAT SAPHENOUS VEIN: Saphenofemoral Junction: 0.4 cm; Reflux: 0 ms Proximal Thigh: 0.7 cm; Reflux: 1200 ms Mid Thigh: 0.4 cm; Reflux: 2388 ms Distal Thigh: 0.5 cm; Reflux: 2364 ms At Knee: 0.6 cm; Reflux: 2388 ms Proximal Calf: 0.4 cm; Reflux: 1208 ms Mid Calf: 0.2 cm; Reflux: 0 ms Distal Calf: 0.3 cm; Reflux: 0 ms DUPLICATED MEDIAL GREAT SAPHENOUS VEIN: Diameter: None imaged Reflux: NA DUPLICATED LATERAL GREAT SAPHENOUS VEIN: Diameter: None imaged. Reflux: NA SMALL SAPHENOUS VEIN: Saphenopopliteal Junction: 0.2 cm; Reflux: 0 ms Proximal: 0.2 cm; Reflux: 0 ms Distal: 0.1 cm; Reflux: 0 ms VEIN OF GIACOMINI: Size: 0.2 cm. Reflux: NA PERFORATORS: Location: Great saphenous vein proximal calf and mid thigh. Small saphenous vein mid segment. Proximal to distal calf. Size: 0.1-0.3 cm. Reflux: NA VARICOSITIES: Location: Great saphenous vein at the knee. Size: 0.4 cm. Reflux: 2760 ms. US/US venous insuf bilat IMPRESSION: Right: Venous insufficiency, great saphenous vein at the mid thigh and below the knee. Perforators with reflux in the proximal calf region of the great saphenous vein. Left: Venous insufficiency, great saphenous vein from the proximal thigh to below the knee. 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 Perforators without reflux. Electronically signed by: Robert Huynh MD 05/26/2025 04:10 PM EDT RP Dictated By: Robert Brown MD Signed By: <Electronically signed by Robert Allison MDin OV> 05/26/25 1610 DD/ 1331 TD/TT: 05/26/25 1423 Alining Inspector: us [facility] External Provider CV VASC ULAR PROCEDURES Final Result [facility] [address] [place] [phone] * US Abdomen Complete (05/03/2025 9:25 AM EDT) Anatomical Region Laterality Modality Abdomen Ultrasound 05/03/2025 9:25 AM EDT Narrative 05/03/2025 9:27 AM EDT [address] [address] Ultrasound Report Signed Patient: Jolie Werner MR#: [id number] : 1965 Acct:[id number] Age/Sex: 59 / F ADM Date: 05/02/25 Loc: HO.US Attending Dr: Clara Joseph MD Ordering Physician: Clara Joseph MD Date of Service: 05/02/25 Procedure(s): US abdomen complete Accession Number(s): [id number] cc: Clara Joseph MD CLINICAL HISTORY: elevated LFTs, transaminitis US abdomen complete Comparison: None provided Findings: The visualized pancreas is normal. The aorta and inferior vena cava are normal caliber. Mildly coarsened echotexture of the liver. Liver measures 13.2 cm in length. There is no intrahepatic bile duct dilatation. Common bile duct measures 0.3 cm in diameter. Sonographic Willis's sign is negative. Gallbladder wall thickness is 0.1 cm. The main portal vein is Patent. Right kidney is 10.9 cm in length. There is a left renal cyst measuring 1.6 cm. Left kidney is 10.8 cm in length. Spleen is 8.8 cm in length. No ascites. IMPRESSION: Findings in the liver which may be indicative of diffuse hepatocellular process. This document has been electronically signed by: Rajendra Millard DO on 05/03/2025 09:25:26 Dictated By: Rajendra Millard DO Signed By: <Electronically signed by Rajendra Millard DO in OV> 05/03/25925 DD/ 4 TD/TT: 05/03/25924 Alining Inspector: Procedure Note Donotuseinterpreter, Image - 05/03/2025 [place] [address] Ultrasound Report Signed Patient: Yeimy WerneradMR#: [id number] : 1965Acct:[id number] Age/Sex: 59 / FADM Date: 05/02/25 Loc: HO.US Attending Dr: Clara Joseph MD Ordering Physician: Clara Joseph MD Date of Service: 05/02/25 Procedure(s): US abdomen complete Accession Number(s): [id number] cc: Clara Joseph MD CLINICAL HISTORY: elevated LFTs, transaminitis US abdomen complete Comparison: None provided Findings: The visualized pancreas is normal. The aorta and inferior vena cava are normal caliber. Mildly coarsened echotexture of the liver. Liver measures 13.2 cm in length. There is no intrahepatic bile duct dilatation. Common bile duct measures 0.3 cm in diameter. Sonographic Willis's sign is negative. Gallbladder wall thickness is 0.1 cm. The main portal vein is Patent. Right kidney is 10.9 cm in length. There is a left renal cyst measuring 1.6 cm. Left kidney is 10.8 cm in length. Spleen is 8.8 cm in length. No ascites. IMPRESSION: Findings in the liver which may be indicative of diffuse hepatocellular process. This document has been electronically signed by: Rajendra Millard DO on 05/03/2025 09:25:26 Dictated By: Rajendra Millard DO Signed By: <Electronically signed by Rajendra Millard DO in OV> 05/03/25925 DD/ 4 TD/TT: 05/03/25924 Alining Inspector: Clara Joseph MD IMG US PROCEDURES Final Re sult * Albumin, Random Urine W/Creatinine (03/09/2025 10:10 AM EDT) Creatinine, Urine 35.79 mg/dL [facility] Microalbumin Urine <5.0 mg/L [facility] Microalbum Creatinine Ratio Ur TNP <30 ug/mg cr [facility] Comment:Unable to calculate albumin/creatinine ratio due to lowmicroalbumin or creatinine result. Urine 03/09/2025 10:1 0 AM EDT 03/09/2025 12:03 PM EDT Clara Joseph MD LAB URINE ORDERABLES Final Result [facility] [address] [place] [phone] * Lipid Panel, Standard (01/04/2025 9:18 AM EDT) Triglycerides 50 <150 mg/dL [facility] Comment:Desirable Triglyceri de: less than 150 mg/dLBorderline High Triglyceride 150-199 mg/dLHigh Triglyceride: 200-499 mg/dLVery High Triglyceride: greater than or equal to 5OO mg/dL Cholesterol 146 <200 mg/dL [facility] Comment:Desirable Cholestero l: less than 200 mg/dLBorderline High Cholesterol: 200-239 mg/dLHigh Cholesterol: greater than 239 mg/dL LDL Cholesterol Calculated 79 <100 mg/dL [facility] Comment:Desirable LDL: less than 100 mg/dLNear Optimal/Above Optimal LDL: 110- 129 mg/dLBorderline High LDL: 130-159 mg/dLHigh LDL: 160-189 mg/dLVery High LDL: greater than or equal to 190 mg/dL HDL Cholesterol 57 >40 mg/dL [facility] Comment:Desirable HDL: great er than 40 mg/dL Note: This HDL assay may give artificially low results in patients with liver disease. 01/04/2025 9:18 AM EDT 01/04/2025 11:05 AM EDT Clara Joseph MD LAB BLOOD ORDERABLES Final Result [facility] [address] [place] [phone] * BI Mammogram Screening Tomosynthesis Bilateral (10/28/2024 2:30 PM EST) Anatomical Region Laterality Modality Breast Bilateral Mammography 10/28/2024 2:30 PM EST Narrative 11/06/2024 4:16 PM EST [facility] [address] [place] [address] Mammography Report Signed Patient: Jolie Werner MR#: [id number] : 1965 Acct:[id number] Age/Sex: 59 / F ADM Date: 10/28/24 Loc: HO.MAMMO Attending Dr: Clara Joseph MD Ordering Physician: Clara Joseph MD Results: 1N egative Date of Service: 10/28/24 Follow Up: 1 Year From Orig inal Mammogram Procedure(s): MM tomosynthesis screening BI Accession Number(s): [id number] cc: Clara Joseph MD EXAMINATION: MM SCREENING [...] 11/06/24 1613 DD/ 1430 TD/TT: 10/28/24 1450 Alining Inspector: Procedure Note Donotuseinterpreter, Image - 11/06/2024 [facility] [address] [place] [address] Mammography Report Signed Patient: Yeimy WerneradMR#: [id number] : 1965Acct:[id number] Age/Sex: 59 / FADM Date: 10/28/24 Loc: HO.MAMMO Attending Dr: Clara Joseph MD Ordering Physician: Clara Joseph MDResults: 1N egative Date of Service: 10/28/24Follow Up: 1 Year From Orig inal Mammogram Procedure(s): MM tomosynthesis screening BI Accession Number(s): [id number] cc: Clara Joseph MD EXAMINATION: MM SCREENING [...] 11/06/24 1613 DD/ 1430 TD/TT: 10/28/24 1450 Alining Inspector: Clara Joseph MD IMG BI PROCEDURES Edited R esult - Final * Colonoscopy (01/30/2024 12:30 PM EDT) Historical [...] Hepatitis C Antibody NON-REACT EILEEN NON-REACT EILEEN [facility] Index 0.16 <1.00 [facility] Comment: HCV antibody was non-reactive. There is no laboratory evidence of HCV infection. In most cases, no further action is required. However, if recent HCV exposure is suspected, a test for HCV RNA (test code 73410) is suggested. For additional information please refer to http://Glamour.com.ng.[employer]/faq/ZRX69t8 (This link is being provided for informational/ educational purposes only.) Blood Venous blood specimen / Unknown 01/20/2023 8:39 AM EDT 01/20/2023 8:40 AM EDT Narrative [facility] - 01/20/2023 10:18 PM EDT FASTING:YES FASTING: YES Clara Joseph MD LAB BLOOD ORDERABLES Final Result [facility] [address] [facility], [place] [address] [facility] [address] [place] [address] * HIV-1/2 Antigen and Antibodies, Fourth Generation, with Reflexes (01/20/2023 8:39 AM EDT) HIV Antigen/Antibody, 4th Generation NON-REAC TIVE NON-REAC TIVE [facility] Comment: HIV-1 antigen and HIV-1/HIV-2 antibodies were [...] purpose. For additional information please refer to http://Glamour.com.ng.[employer]/faq/FYP837 (This link is being provided for informational/ educational purposes only.) The performance of this assay has not been clinically validated in patients less than 2 years old. Blood Venous blood specimen / Unknown 01/20/2023 8:39 AM EDT 01/20/2023 8:40 AM EDT Narrative [facility] - 01/20/2023 10:18 PM EDT FASTING:YES FASTING: YES Clara Joseph MD LAB BLOOD ORDERABLES Final Result [facility] [address] [place] [address], [place] [address] [facility] [employer] [address] [place] [phone] * THINPREP TIS PAP AND HPV mRNA E6/E7, CT/NG, TRICH (03/14/2022 12:12 PM EDT) Chlamydia trachomatis RNA, TMA, Urogenital NOT DETECTED NOT DETECTED [facility] Clinical Information: None given [facility] COMMENT SEE COMMENT [facility] Comment: The analytical performance characteristics of this assay, when used to test SurePath(TM) specimens have been determined by [facility]. The modifications have not been cleared or approved by the FDA. This assay has been validated pursuant to the CLIA regulations and is used for clinical purposes. For additional information, please refer to https://education.[employer]/faq/HKM223 (This link is being provided for information/ [...] has been evaluated with computer assisted technology. [facility] Wireless Team Member: SEE COMMENT [facility] Comment: CMG, CT(ASCP) CT screening location: [address] [address] HPV nRNA E6/E7 Not Detected Not Detected [facility] Comment: Methodology: [employer] Inspector-Mediated Amplification This assay detects E6/E7 viral messenger RNA (mRNA) from 14 high-risk HPV types (16,18,31,33,35,39,45,51,52,56,58,59,66,68). Cervical sources are required for HPV testing. If a vaginal source from a patient who has had a total hysterectomy with removal of cervix was submitted, please contact the testing laboratory for alternative testing options. For additional information, please refer to http://education.[employer]/faq/TRV569p9 (This link if provided for information/ educational [...] of this assay have been determined by [facility]. The modifications have not been cleared or approved by the FDA. This assay has been validated pursuant to the CLIA regulations and is used for clinical purposes. For additional information, please refer to http://Glamour.com.ng.[employer]/ faq/Trichomonastma (This link is being provided for information/ educational purposes only.) 03/14/2022 12:1 2 PM EDT Clara Joseph MD LAB PATHOLOGY ORDERABLES F inal Result [facility] [address] [place] [address], * Pap Smear (03/14/2022 12:00 AM EDT) Swab us Historical Provider LAB CYTOLOGY ORDERABLES F inal Result IMAGING from Last 3 Months or Most Recently Relevant to Health Maintenance Insurance [facility] < [address] [facility] Advance Directives Documents on File Type Date Recorded Patient General Technician Expl anation Advance Directives and Living Will 09/30/2024 Health Care Proxy 09/30/24 Care Teams Mixer Helper Relationship Specialty Start Date End Date Trinity, MD Clara [address] [place] [address] PCP - General Family Medicine 10/12/18 Hamida Evans, QuocD [address] [place] [address] Pharmacist Internal Medicine 01/07/23January [address] 3rd [place] [address] Gastroenterology 09/30/24 Galdino Lee MD [address] [place] [address] Ophthalmology 10/24/24 Sabine Martinez [address] [place] [address] Orthopaedic Surgery 11/08/24 Adis Hurley MD [address] [place] [address] Vascular Surgery 07/24/25 Mray Patel PA-C Vascular 10/13/24
--- OUTSIDE RECORDS SUMMARY | 2025-07-28 07:30 | XMS_ITS | Encounter Summary ---
Author Organization [employer] Address [address] [facility] 7t [place] [address] Care Team Providers Care Business Management Associate Name Role Phone Clara Joseph MD Primary Care Provider + [phone] Hamida Evans PharmD Unavailable [phone] January Unavailable Galdino Lee MD Unavailable [phone] Sabine Martinez Unavailable Adis Hurley MD Unavailable Encounter Details Date Type Department Care Team (Late st Contact Info) Description 09/28/2023 Abstract [facility] [address] [place], [place] [phone] Clara Joseph MD [address] [place], [place] [phone] Social History Tobacco Use Types Packs/Day Years Used Date Smoking Tobacco: Never Passive Smoke Exposure: Never Smokeless Tobacco: Never Depression Answer Date Recorded Patient Health Questionnaire-9 Score 7 12/17/2022 Housing Stability Answer Date Recorded What is your housing situation today? I have ghadaevelyn tripathi 07/27/[address] you [...] Description 08/23/2025 10:15 AM EST Office Visit [facility] [address] [place] [phone] Clara Joseph MD [address] [place] [address] 09/25/2025 9:00 AM EST Medication Management [facility] [address] [place] [phone] Hamida Evans PharmD [address] [place] [address] 11/24/2025 8:45 AM EST Office Visit [facility] [address] [place] [phone] Lillian Crawford [address] [place] [address] documented as of this encounter Goals Goal Patient Goal Type Associated Problems Recent Progress Patient-Stated? Author Blood Pressure < 140/90 Blood Pressure 112/58(2024 9:28 AM EDT) No Hamida Herman PharmJohn Hemoglobin A1c < 7 Result Component 7.4( 9:17 AM EDT) No Hamida Herman PharmD documented as of this encounter Procedures Procedure Name Priority Date/Time Associated Diagnosis Comments HM DIABETES EYE EXAM Routine 09/25/2023 documented in this encounter Results * Diabetes Eye Exam (09/25/2023) Eye Exam Normal Normal us Historical Provider HEALTH MAINTENANCE Final Result documented in this encounter Visit Diagnoses Not on filedocumented in this encounter Additional Health Concerns Assessment Noted Time PHQ-9 Depression Total Score: 7 12/18/19 23 10:36 AM EST documented as of this encounter Care Teams Business Management Associate Relationship Specialty Start Date End Date Clara Joseph MD [address] [place] [address] PCP - General Family Medicine 10/12/18 Hamida Evans PharmD [address] [place] [address] Pharmacist Internal Medicine 01/07/23January [address] 3rd [place] [address] Gastroenterology 09/30/24 Galdino Lee MD [address] [place] [address] Ophthalmology 10/24/24 Sabine Martinez [address] [place] [address] Orthopaedic Surgery 11/08/24 Adis Hurley MD [address] [place] [address] Vascular Surgery 07/24/25 Mary Patel PA-C Vascular 10/13/24 documented as of this encounter
--- OUTSIDE RECORDS SUMMARY | 2025-07-28 07:30 | XMS_ITS | Encounter Summary ---
Author Organization [employer] Address [address] [facility] 7t [place] [address] Care Team Providers Care Desktop Architect Name Role Phone Clara Joseph MD Primary Care Provider +- [phone] Hamida Evans PharmD Unavailable [phone] Daniel, Gertrudis Unavailable Galdino Lee MD Unavailable [phone] Sabine Martinez Unavailable Adis Hurley MD Unavailable Reason for Referral * Consultation (Routine) - Authorized Specialty Diagnoses / Procedures Referred By Contac t Referred To Contact Pharmacy Diagnoses Type 2 diabetes mellitus without complication, without long-term current use of insulin ([facility]) Clara Joseph MD [address] [place] [phone] Phone: tel: fax: Referral ID Status Reason Start Date Expiration Date Visits Requested Visits Authorized [id number] Authorized Consult and Treat 06/04/2025 06/04/2026 6 6 Encounter Details Date Type Department Care Team (Late st Contact Info) Description 06/04/2025 Orders Only [facility] [address] [place] [address] [phone] Clara Joseph MD [address] [place] [address] [phone] Type 2 diabetes mellitus without complication, without long-term current use of insulin (CMS/HCC) (Primary Dx) Social History Tobacco Use Types Packs/Day Years [...] Description 08/23/2025 10:15 AM EST Office Visit [facility] [address] [place] [phone] Clara Joseph MD [address] [place] [address] 09/25/2025 9:00 AM EST Medication Management [facility] [address] [place] [address] Hamida Evans PharmD [address] [place] [address] 11/24/2025 8:45 AM EST Office Visit [facility] [address] [place] [address] Yvette, Lillian [address] [place] [address] Scheduled Referrals Name Type Priority Associated Diagnoses Orde r Schedule Referral to Pharmacy CDTM Outpatient Referral Routine Type 2 diabetes mellitus without complication, without long-term current use of insulin ([facility]) Ordered: 06/04/2025 documented as of this encounter Goals Goal Patient Goal Type Associated Problems Recent Progress Patient-Stated? Author Blood Pressure < 140/90 Blood Pressure 112/58(2024 9:28 AM EDT) No Hamida Herman PharmD Hemoglobin A1c < 7 Result Component 7.4( 9:17 AM EDT) No Hamida Herman PharmD documented as of this encounter Visit Diagnoses Diagnosis Type 2 diabetes mellitus without complication, without long-term current use of insulin ([facility])- Primary documented in this encounter Additional Health Concerns Assessment Noted Time PHQ-9 Depression Total Score: 16 03/08/ 025 10:11 AM EDT documented as of this encounter Care Teams Desktop Architect Relationship Specialty Start Date End Date Clara Joseph MD [address] [place] [phone] PCP - General Family Medicine 10/12/18 Hamida Evans PharmD [address] [place] [address] Pharmacist Internal Medicine 01/07/23 Fredy Gertrudis [address] [place] [address] 3rd [place] [address] Gastroenterology 09/30/24 Galdino Lee MD [address] [place] [address] Ophthalmology 10/24/24 Sabine Martinez [address] [place] [address] Orthopaedic Surgery 11/08/24 Adis Hurley MD [address] [place] [address] Vascular Surgery 07/24/25 Mary Patel PA-C Vascular 10/13/24 documented as of this encounter
--- OUTSIDE RECORDS SUMMARY | 2025-07-28 07:30 | XMS_ITS | Encounter Summary ---
Author Organization [employer] Address [address] [facility] 7t [place] [address] Care Team Providers Care Cut Off Machine Operator Name Role Phone Clara Joseph MD Primary Care Provider + [phone] Hamida Evans PharmD Unavailable [phone] January Unavailable Galdino Lee MD Unavailable [phone] Sabine Martinez Unavailable Adis Hurley MD Unavailable Encounter Details Date Type Department Care Team (Latest Contact Info) Description 12/27/2018 Abstract [facility] Dental, Provider, DDS Social History [...] Description 08/23/2025 10:15 AM EST Office Visit [facility] [address] [place] [address] [phone] Clara Joseph MD [address] [place] [phone] 09/25/2025 9:00 AM EST Medication Management [facility] [address] [place] [phone] Hamida Evans, PharmD [address] [place] [address] 11/24/2025 8:45 AM EST Office Visit [facility] [address] [place] [address] Lillian Crawford [address] [place] [address] documented as of this encounter Visit Diagnoses Not on filedocumented in this encounter Care Teams Cut Off Machine Operator Relationship Specialty Start Date End Date Clara Joseph MD [address] [place] [address] PCP - General Family Medicine 10/12/18 Hamida Evans, PharmD [address] [place] [address] Pharmacist Internal Medicine 01/07/23January [address] 3rd [place] [address] Gastroenterology 09/30/24 Galdino Lee MD [address] [place] [address] Ophthalmology 10/24/24 Sabine Martinez [address] [address] [place] [address] Orthopaedic Surgery 11/08/24 Adis Hurley MD [address] [place] [address] Vascular Surgery 07/24/25 Mary Patel PA-C Vascular 10/13/24 documented as of this encounter
--- OUTSIDE RECORDS SUMMARY | 2025-07-28 07:30 | XMS_ITS | Encounter Summary ---
Author Organization [employer] Address [address] [facility] 7t [place] [address] Care Team Providers Care Care Taker Name Role Phone Clara Joseph MD Primary Care Provider +1- [phone] Hamida Evans PharmD Unavailable [phone] January Unavailable Galdino Lee MD Unavailable [phone] Sabine Martinez Unavailable Adis Hurley MD Unavailable Encounter Details Date Type Department Care Team (Late st Contact Info) Description 04/05/2024 Orders Only [facility] [address] [place], [place] [phone] Provider, MD Irineo Social History Tobacco Use [...] Description 08/23/2025 10:15 AM EST Office Visit [facility] [address] [place] [address] Clara Joseph MD [address] [place] [address] 09/25/2025 9:00 AM EST Medication Management [facility] [address] [place] [address] Hamida Evans PharmD [address] [place] [address] 11/24/2025 8:45 AM EST Office Visit [facility] ADULT DENTAL [address] [place] [address] Lillian Crawford [address] [place] [address] documented as of this encounter Goals Goal Patient Goal Type Associated Problems Recent Progress Patient-Stated? Author Blood Pressure < 140/90 Blood Pressure 112/58(2024 9:28 AM EDT) No Hamida Herman, PharmD Hemoglobin A1c < [...] documented as of this encounter Care Teams Care Taker Relationship Specialty Start Date End Date Clara Joseph MD [address] [place] [address] PCP - General Family Medicine 10/12/18 Hamida Evans, QuocD [address] [place] [address] Pharmacist Internal Medicine 01/07/23January [address] 3rd [place] [address] Gastroenterology 09/30/24 Galdino Lee MD [address] [place] [address] Ophthalmology 10/24/24 Sabine Martinez [address] [place] [address] Orthopaedic Surgery 11/08/24 Adis Hurley MD [address] [place] [address] Vascular Surgery 07/24/25 Mary Patel PA-C Vascular 10/13/24 documented as of this encounter
--- OUTSIDE RECORDS SUMMARY | 2025-07-28 07:30 | XMS_ITS | Encounter Summary ---
Author Organization [employer] Address [address] [facility] 7t [place] [address] Care Team Providers Care Mcat Instructor Name Role Phone Clara Joseph MD Primary Care Provider Hamida Evans PharmD Unavailable Daniel, Gertrudis Unavailable Galdino Lee MD Unavailable Sabine Martinez Unavailable Adis Hurley MD Unavailable Reason for Visit * Reason Comments Med Refill Encounter Details Date Type Department Care Team (Late st Contact Info) Description 02/04/2023 Refill [facility] [address] [place], [place] [phone] Clara Joseph MD 230 [place] [address] Onychomycosis of left great toe Social History [...] EST Office Visit [facility] [address] [place] [address] Clara Joseph MD 230 [place] [address] 09/25/2025 9:00 AM EST Medication Management [facility] [address] [place] [address] Hamida Evans PharmD [address] [place] [address] 11/24/2025 8:45 AM EST Office Visit [facility]AL [address] [place] [address] Yvette Lillian [address] [place] [address] documented as of this encounter Goals Goal [...] documented as of this encounter Care Teams Mcat Instructor Relationship Specialty Start Date End Date Clara Joseph MD [address] [place] [address] [phone] PCP - General Family Medicine 10/12/18 Hamida Evans PharmD [address] [place] [address] Pharmacist Internal Medicine 01/07/23 Fredy Gertrudis [address] 3rd [place] [address] Gastroenterology 09/30/24 Galdino Lee MD [address] [place] [address] Ophthalmology 10/24/24 Sabine Martinez [address] [place] [address] Orthopaedic Surgery 11/08/24 Adis Hurley MD [address] [place] [address] Vascular Surgery 07/24/25 Mary Patel PA-C Vascular 10/13/24 documented as of this encounter
--- OUTSIDE RECORDS SUMMARY | 2025-07-28 07:30 | XMS_ITS | Encounter Summary ---
Author Organization [employer] Address [address] [facility] 7t [place] [address] Care Team Providers Care Potato Picker Name Role Phone Clara Joseph MD Primary Care Provider Hamida Evans PharmD Unavailable January Unavailable Galdino Lee MD Unavailable [phone] Sabine Martinez Unavailable Adis Hurley MD Unavailable Reason for Visit * Reason Onset Date Comments Nurse Triage 09/05/2024 Encounter Details Date Type Department Care Team (Late st Contact Info) Description 09/05/2024 Telephone [facility] [address] [place], [place] [phone] Clara Joseph MD 230 [place], [place] [phone] Nurse Triage Social History Tobacco Use Types [...] 09/05/2024 12:14 PM EST [place]riage [place] [id number]. Pt reports multiple symptoms. Headache, abdominal pain [...] provider. Pt is advised to come to [facility] which is open till 8pm today to see a provider. Pt agrees to ask sister for a ride to come to [facility] today. Insurance is verified as active. Protocol [...] You become worse * Telephone Encounter - Afshansotogurpreet Dexter - 09/05/2024 11:42 AM EST Symptom: Leg Pain - Not From Injury Outcome: Schedule an urgent appointment (within 1 hour) or talk to a nurse or provider soon Reason: Trouble walking The caller accepted this outcome. documented in this encounter Plan of Treatment Upcoming Encounters Date Type Department Care Team (Late st Contact Info) Description 08/23/2025 10:15 AM EST Office Visit [facility] [address] [place] [address] Clara Joseph MD 230 [place] [address] 09/25/2025 9:00 AM EST Medication Management [facility] [address] [place] [address] Hamida Evans PharmD [address] [place] [address] 11/24/2025 8:45 AM EST Office Visit [facility] ADULT DENTAL [address] [place] [address] Lillian Crawford [address] [place] [address] documented as of this encounter Goals Goal Patient Goal Type Associated Problems Recent Progress Patient-Stated? Author Blood Pressure < 140/90 Blood Pressure 112/58(2024 9:28 AM EDT) No Arts-Hamida Skelton, PharmD Hemoglobin A1c < 7 Result Component 7.4( 9:17 AM EDT) No Hamida Herman PharmD documented as of this encounter Visit Diagnoses Not on filedocumented in this encounter Additional Health Concerns Assessment Noted Time PHQ-9 Depression Total Score: 4 0405/20 24 10:43 AM EDT documented as of this encounter Care Teams Potato Picker Relationship Specialty Start Date End Date Clara Joseph MD 230 [place] [address] PCP - General Family Medicine 10/12/18 Hamida Evans, QuocD 230 [place] [address] Pharmacist Internal Medicine 01/07/23January [address] 3rd [place] [address] Gastroenterology 09/30/24 Galdino Lee MD [address] [place] [address] Ophthalmology 10/24/24 Sabine Martinez [address] [place] [address] Orthopaedic Surgery 11/08/24 Adis Hurley MD [address] [place] [address] Vascular Surgery 07/24/25 Mary Patel PA-C Vascular 10/13/24 documented as of this encounter
--- OUTSIDE RECORDS SUMMARY | 2025-07-28 07:30 | XMS_ITS | Encounter Summary ---
Author Organization [employer] Address 75 [facility] 7t [place] [address] Care Team Providers Care Direct Response Consultant Name Role Phone Clara Joseph MD Primary Care Provider [phone]- [phone] Hamida Evans PharmD Unavailable January Unavailable Galdino Lee MD Unavailable Sabine Martinez Unavailable Adis Hurley MD Unavailable Encounter Details Date Type Department Care Team (Late st Contact Info) Description 03/19/2023 Abstract [facility] 230 [place], [place] [phone] Clara Joseph MD [address] [place], [place] [phone] Social History Tobacco Use Types Packs/Day Years [...] Description 08/23/2025 10:15 AM EST Office Visit [facility] [address] [place] [address] Clara Joseph MD 230 [place] [address] 09/25/2025 9:00 AM EST Medication Management [facility] [address] [place] [address] Piers-PinedaLuz Marina guerrerosa, PharmD [address] [place] [address] 11/24/2025 8:45 AM EST Office Visit [facility] ADULT DENT[facility] 230 [place] [address] Lillian Crawford 230 [place] [address] documented as of this encounter Goals Goal Patient Goal Type Associated Problems Recent Progress Patient-Stated? Author Blood Pressure < 140/90 Blood Pressure 112/58(2024 9:28 AM EDT) No Piers-Gambl e, Hamida, PharmD Hemoglobin A1c < 7 Result Component 7.4( 9:17 AM EDT) No Piers-Gambl e, Hamida, PharmD documented as [...] documented as of this encounter Care Teams Direct Response Consultant Relationship Specialty Start Date End Date Clara Joseph MD 230 [place] [address] PCP - General Family Medicine 10/12/18 Hamida Evans PharmD [address] [place] [address] Pharmacist Internal Medicine 01/07/23January [address] 3rd [place] [address] Gastroenterology 09/30/24 Galdino Lee MD [address] [facility] [address] [address] [place] [address] Ophthalmology 10/24/24 Sabine Martinez [address] [place] [address] Orthopaedic Surgery 11/08/24 Adis Hurley MD [address] [place] [address] Vascular Surgery 07/24/25 Mary Patel PA-C Vascular 10/13/24 documented as of this encounter
--- OUTSIDE RECORDS SUMMARY | 2025-07-28 07:30 | XMS_ITS | Encounter Summary ---
Author Organization [employer] Address 75 [facility] 7t [place] [address] Care Team Providers Care Steam Pressure Chamber Operator Name Role Phone Clara Joseph MD Primary Care Provider + [phone] Hamida Evans PharmD Unavailable [phone] January Unavailable Galdino Lee MD Unavailable [phone] Sabine Martinez Unavailable Adis Hurley MD Unavailable Encounter Details Date Type Department Care Team (Latest Contact Info) Description 10/01/2021 Abstract [facility] CONVERSIONS Dental, Provider, DDS Social History [...] Description 08/23/2025 10:15 AM EST Office Visit [facility] MED[facility]INE [address] [place] [address] [phone] Clara Joseph MD [address] [place] [address] [phone] 09/25/2025 9:00 AM EST Medication Management [facility] [address] [place] [address] [phone] Hamida Evans, PharmD 230 [place] [address] 11/24/2025 8:45 AM EST Office Visit [facility] ADULT DENTAL 230 [place] [address] Lillian Crawford 230 [place] [address] documented as of this encounter Visit Diagnoses Not on filedocumented in this encounter Care Teams Steam Pressure Chamber Operator Relationship Specialty Start Date End Date Clara Joseph MD 230 [place] [address] PCP - General Family Medicine 10/12/18 Hamida Evans, PharmD 230 [place] [address] Pharmacist Internal Medicine 01/07/23January [address] 3rd [place] [address] Gastroenterology 09/30/24 Galdino Lee MD [address] [place] [address] Ophthalmology 10/24/24 Sabine Martinez [address] [place] [address] Orthopaedic Surgery 11/08/24 Adis Hurley MD [address] [place] [address] Vascular Surgery 07/24/25 Mary Patel PA-C Vascular 10/13/24 documented as of this encounter
--- OUTSIDE RECORDS SUMMARY | 2025-07-28 07:30 | XMS_ITS | Encounter Summary ---
Author Organization [employer] Address [address] [facility] 7t [place] [address] Care Team Providers Care Contracting Analyst Name Role Phone Clara Joseph MD Primary Care Provider + [phone] Hamida Evans PharmD Unavailable [phone] January Unavailable Galdino Lee MD Unavailable [phone] Sabine Martinez Unavailable Adis Hurley MD Unavailable Encounter Details Date Type Department Care Team (Late st Contact Info) Description 09/30/2024 Orders Only [facility] 230 [place], [place] [phone] Clara Joseph MD 230 [place], [place] [phone] Social History Tobacco Use Types Packs/Day Years [...] Description 08/23/2025 10:15 AM EST Office Visit [facility] [address] [place] [address] Clara Joseph MD 230 [place] [address] 09/25/2025 9:00 AM EST Medication Management [facility] [address] [place] [address] Hamida Evans, PharmD [address] [place] [address] 11/24/2025 8:45 AM EST Office Visit [facility] ADULT DENT[facility] 230 [place] [address] Lillian Crawford 230 [place] [address] documented as of this encounter Goals Goal Patient Goal Type Associated Problems Recent Progress Patient-Stated? Author Blood Pressure < 140/90 Blood Pressure 112/58(2024 9:28 AM EDT) No PiersHamida Ivy PharmD Hemoglobin A1c < 7 Result Component 7.4( 5 9:17 AM EDT) No Hamida Herman PharmD documented as of this encounter Visit Diagnoses Not on filedocumented in this encounter Additional Health Concerns Assessment Noted Time PHQ-9 Depression Total Score: 4 01/15/20 24 10:43 AM EDT documented as of this encounter Care Teams Contracting Analyst Relationship Specialty Start Date End Date Clara Joseph MD 230 [place] [address] PCP - General Family Medicine 10/12/18 Hamida Evans PharmD 230 [place] [address] Pharmacist Internal Medicine 01/07/23 Gertrudis Daniel [address] 3rd [place] [address] Gastroenterology 09/30/24 Galdino Lee MD [address] [place] [address] Ophthalmology 10/24/24 Sabine Martinez [address] [facility] [address] [facility] [address] [place] [address] Orthopaedic Surgery 11/08/24 Adis Hurley MD [address] [place] [address] Vascular Surgery 07/24/25 Mary Patel PA-C Vascular 10/13/24 documented as of this encounter
--- OUTSIDE RECORDS SUMMARY | 2025-07-28 07:30 | XMS_ITS | Encounter Summary ---
Author Organization [employer] Address 75 [facility] 7t [place] [address] Care Team Providers Care Certified Hyperbaric Technician Name Role Phone Clara Joseph MD Primary Care Provider [phone]- [phone] Hamida Evans PharmD Unavailable January Unavailable Galdino Lee MD Unavailable [phone] Sabine Martinez Unavailable Adis Hurley MD Unavailable Encounter Details Date Type Department Care Team (Late st Contact Info) Description 03/19/2023 Abstract [facility] 230 [place], [place] [phone] Clara Joseph MD 230 [place], [place] [phone] Social History Tobacco Use Types Packs/Day Years [...] Description 08/23/2025 10:15 AM EST Office Visit [facility] [address] [place] [address] Clara Joseph MD [address] [place] [address] 09/25/2025 9:00 AM EST Medication Management [facility] [address] [place] [address] Hamida Evans, PharmD [address] [place] [address] 11/24/2025 8:45 AM EST Office Visit [facility] ADULT DENTAL [address] [place] [address] Lillian Crawford [address] [place] [address] documented as of this encounter Goals Goal Patient Goal Type Associated Problems Recent Progress Patient-Stated? Author Blood Pressure < 140/90 Blood Pressure 112/58(2024 9:28 AM EDT) No Hamida Herman, PharmD Hemoglobin A1c < 7 Result Component 7.4( 9:17 AM EDT) No Hamida Herman, PharmD documented as of this encounter Visit Diagnoses Not on filedocumented in this encounter Additional Health Concerns Assessment Noted Time PHQ-9 Depression Total Score: 7 12/18/19 23 10:36 AM EST documented as of this encounter Care Teams Certified Hyperbaric Technician Relationship Specialty Start Date End Date Clara Joseph MD [address] [place] [address] [phone] PCP - General Family Medicine 10/12/18 Hamida Evans, PharmD [address] [place] [address] [phone] Pharmacist Internal Medicine 01/07/23January [address] 3rd [place] [address] Gastroenterology 09/30/24 Galdino Lee MD [address] [place] [address] Ophthalmology 10/24/24 Sabine Martinez [address] [place] [address] Orthopaedic Surgery 11/08/24 Adis Hurley MD [address] [place] [address] Vascular Surgery 07/24/25 Mary Patel PA-C Vascular 10/13/24 documented as of this encounter
--- OUTSIDE RECORDS SUMMARY | 2025-07-28 07:30 | XMS_ITS | Encounter Summary ---
Author Organization [employer] Address [address] [facility] 7t [place] [address] Care Team Providers Care Manager Specialty Name Role Phone Clara Joseph MD Primary Care Provider + [phone] Hamida Evans PharmD Unavailable January Unavailable Galdino Lee MD Unavailable [phone] Sabine Martinez Unavailable Adis Hurley MD Unavailable Reason for Visit * Reason Comments Med Refill Encounter Details Date Type Department Care Team (Late st Contact Info) Description 12/08/2024 Refill [facility] 230 [place], [place] [phone] Clara Joseph MD 230 [place], [place] [phone] Type 2 diabetes mellitus without complication, without long-term current use of insulin ([facility]) Social History Tobacco Use Types Packs/Day Years [...] Description 08/23/2025 10:15 AM EST Office Visit [facility]INE [address] [place] [address] Clara Joseph MD [address] [place] [address] 09/25/2025 9:00 AM EST Medication Management [facility] MED[facility]INE [address] [place] [address] Hamida Evans, QuocD [address] [place] [address] 11/24/2025 8:45 AM EST Office Visit [facility] ADULT DENTAL [address] [place] [address] Lillian Crawford [address] [place] [address] documented as of this encounter Goals Goal [...] without long-term current use of insulin (HCC) documented in this encounter Additional Health Concerns Assessment Noted Time PHQ-9 Depression Total Score: 4 01/15/20 24 10:43 AM EDT documented as of this encounter Care Teams Manager Specialty Relationship Specialty Start Date End Date Clara Joseph MD 230 [place] [address] PCP - General Family Medicine 10/12/18 Hamida Evans PharmD 230 [place] [address] Pharmacist Internal Medicine 01/07/23January [address] 3rd [place] [address] Gastroenterology 09/30/24 Galdino Lee MD [address] [facility] [address] [place] [address] Ophthalmology 10/24/24 Sabine Martinez [address] [facility] [address] [place] [address] Orthopaedic Surgery 11/08/24 Adis Hurley MD [address] [facility] [address] [place] [address] Vascular Surgery 07/24/25 Mary Patel PA-C Vascular 10/13/24 documented as of this encounter
--- OUTSIDE RECORDS SUMMARY | 2025-07-28 07:30 | XMS_ITS | Encounter Summary ---
Author Organization [employer] Address 75 [facility] 7t [place] [address] Care Team Providers Care Tripe Washer Name Role Phone Clara Joseph MD Primary Care Provider [phone]- [phone] Hamida Evans PharmD Unavailable DanielJanuary Unavailable Galdino Lee MD Unavailable Sabine Martinez Unavailable Adis Hurley MD Unavailable Reason for Visit * Reason Onset Date Comments Appointment Request 01/07/2023 Encounter Details Date Type Department Care Team (Late st Contact Info) Description 01/07/2023 Telephone [facility] 230 [place], [place] [phone] Clara Joseph MD 230 [place], [place] [phone] Appointment Request Social History Tobacco Use Types [...] an appt with provider to speak about WASH OIL COOLER OPERATOR services. Please contact pt at [phone] Turkmen Speaker documented in this encounter Plan of Treatment Upcoming Encounters Date Type Department Care Team (Late st Contact Info) Description 08/23/2025 10:15 AM EST Office Visit [facility] [address] [place] [address] Clara Joseph MD 230 [place] [address] 09/25/2025 9:00 AM EST Medication Management [facility] [address] [place] [address] Piers-Pineda, Hamida, PharmD 230 [place] [address] 11/24/2025 8:45 AM EST Office Visit [facility]ULT DENT[facility] [address] [place] [address] Lillian Crawford [address] [place] [address] documented as of this encounter Goals Goal [...] Time PHQ-9 Depression Total Score: 7 12/18/19 10:36 AM EST documented as of this encounter Care Teams Tripe Washer Relationship Specialty Start Date End Date Clara Joseph MD 230 [place] [address] PCP - General Family Medicine 10/12/18 Hamida Evans PharmD 230 [place] [address] Pharmacist Internal Medicine 01/07/23January [address] 3rd [place] [address] Gastroenterology 09/30/24 Galdino Lee MD [address] [place] [address] Ophthalmology 10/24/24 Sabine Martinez [address] [facility] [address] [place] [address] Orthopaedic Surgery 11/08/24 Adis Hurley MD [address] [place] [address] Vascular Surgery 07/24/25 Mary Patel PA-C Vascular 10/13/24 documented as of this encounter
--- OUTSIDE RECORDS SUMMARY | 2025-07-28 07:30 | XMS_ITS | Encounter Summary ---
Author Organization [employer] Address 75 [facility] 7t [place] [address] Care Team Providers Care Change Booth Attendant Name Role Phone Clara Joseph MD Primary Care Provider [phone]- [phone] Hamida Evans PharmD Unavailable January Unavailable Galdino Lee MD Unavailable [phone] Sabine Martinez Unavailable Adis Hurley MD Unavailable Encounter Details Date Type Department Care Team (Late st Contact Info) Description 03/19/2023 Abstract [facility] 230 [place], [place] [phone] Clara Joseph MD 230 [place], [place] [phone] Social History Tobacco Use Types Packs/Day Years [...] Description 08/23/2025 10:15 AM EST Office Visit [facility] [address] [place] [address] Clara Joseph MD [address] [place] [address] 09/25/2025 9:00 AM EST Medication Management [facility] [address] [place] [address] Hamida Evans, PharmD [address] [place] [address] 11/24/2025 8:45 AM EST Office Visit [facility] ADULT DENTAL [address] [place] [address] Lillian Crawford [address] [place] [address] documented as of this encounter Goals Goal [...] documented as of this encounter Care Teams Change Booth Attendant Relationship Specialty Start Date End Date Clara Joseph MD [address] [place] [address] [phone] PCP - General Family Medicine 10/12/18 Hamida Evans, PharmD [address] [place] [address] [phone] Pharmacist Internal Medicine 01/07/23January [address] 3rd [place] [address] Gastroenterology 09/30/24 Galdino Lee MD [address] [place] [address] Ophthalmology 10/24/[address] [facility] [place] [address] Orthopaedic Surgery 11/08/24 Adis Hurley MD [address] [place] [address] Vascular Surgery 07/24/25 Mary Patel PA-C Vascular 10/13/24 documented as of this encounter
--- OUTSIDE RECORDS SUMMARY | 2025-07-28 07:30 | XMS_ITS | Encounter Summary ---
Author Organization [employer] Address [address] [facility] 7t [place] [address] Care Team Providers Care Information Technology Advisor Name Role Phone Clara Joseph MD Primary Care Provider +1- [phone] Hamida Evans PharmD Unavailable January Unavailable Galdino Lee MD Unavailable Sabine Martinez Unavailable Adis Hurley MD Unavailable Encounter Details Date Type Department Care Team (Late st Contact Info) Description 03/19/2023 Abstract [facility] MEDICINE [address] [place], [place] [phone] Clara Joseph MD 230 [place], [place] [phone] Social History Tobacco Use Types Packs/Day Years [...] Description 08/23/2025 10:15 AM EST Office Visit [facility] MEDICINE [address] [place] [address] Clara Joseph MD [address] [place] [address] 09/25/2025 9:00 AM EST Medication Management [facility] MEDICINE [address] [place] [phone] ArtsHamida Tapia, PharmD [address] [place] [address] 11/24/2025 8:45 AM EST Office Visit [facility] ADULT DENTAL [address] [place] [address] Lillian Crawford [address] [place] [address] documented as of this encounter Goals Goal Patient Goal Type Associated Problems Recent Progress Patient-Stated? Author Blood Pressure < 140/90 Blood Pressure 112/58(2024 9:28 AM EDT) No Hamida Herman, PharmD Hemoglobin A1c < 7 Result Component 7.4( 9:17 AM EDT) No Hamida eHrman, PharmD documented as of this encounter Procedures Procedure Name Priority Date/Time Associated Diagnosis Comments COLONOSCOPY Routine 02/26/2023 3:21 PM EDT documented in this encounter Visit Diagnoses Not on filedocumented in this encounter Additional Health Concerns Assessment Noted Time PHQ-9 Depression Total Score: 7 12/18/19 23 10:36 AM EST documented as of this encounter Care Teams Information Technology Advisor Relationship Specialty Start Date End Date Clara Joseph MD [address] [place] [address] PCP - General Family Medicine 10/12/18 Hamida Evans PharmD [address] [place] [address] [place] [address] Pharmacist Internal Medicine 01/07/23 Fredy Gertrudis [address] 3rd Floor [place] [address] Gastroenterology 09/30/24 Galdino Lee MD [address] [place] [address] Ophthalmology 10/24/24 Sabine Martinez [address] [place] [address] Orthopaedic Surgery 11/08/24 Adis Hurley MD [address] [place] [address] Vascular Surgery 07/24/25 Mary Patel PA-C Vascular 10/13/24 documented as of this encounter
--- OUTSIDE RECORDS SUMMARY | 2025-07-28 07:30 | XMS_ITS | Encounter Summary ---
Author Organization [employer] Address [address] [facility] 7t [place] [address] Care Team Providers Care Avionics Electronics Technician Name Role Phone Clara Joseph MD Primary Care Provider +1- [phone] Hamida Evans PharmD Unavailable +1- [phone] Daniel, Gertrudis Unavailable Galdino Lee MD Unavailable [phone] Sabine Martinez Unavailable Adis Hurley MD Unavailable Encounter Details Date Type Department Care Team (Late st Contact Info) Description 04/06/2023 Abstract [facility] ADULT DENTAL [address] [place], [place] [phone] Yvette, Lillian [address] [place], [place] [phone] Social History Tobacco Use Types Packs/Day Years [...] Description 08/23/2025 10:15 AM EST Office Visit [facility] MEDICINE [address] [place] [address] Clara Joseph MD [address] [place] [address] 09/25/2025 9:00 AM EST Medication Management [facility] MEDICINE [address] [place] [address] Hamida Evans, PharmD [address] [place] [address] 11/24/2025 8:45 AM EST Office Visit [facility] ADULT DENTAL [address] [place] [address] Lillian Crawford [address] [place] [address] documented as of this encounter Goals Goal [...] documented as of this encounter Care Teams Avionics Electronics Technician Relationship Specialty Start Date End Date Clara Joseph MD [address] [place] [address] PCP - General Family Medicine 10/12/18 Hamida Evans, PharmD [address] [place] [address] Pharmacist Internal Medicine 01/07/[address] 3rd Floor [place] [address] Gastroenterology 09/30/24 Galdino Lee MD [address] [place] [address] Ophthalmology 10/24/24 Sabine Martinez [address] [place] [address] Orthopaedic Surgery 11/08/24 Adis Hurley MD [address] [place] [address] Vascular Surgery 07/24/25 Mary Patel PA-C Vascular 10/13/24 documented as of this encounter
--- OUTSIDE RECORDS SUMMARY | 2025-07-28 07:30 | XMS_ITS | Encounter Summary ---
Author Organization [employer] Address 75 [facility] 7t [place] [address] Care Team Providers Care Putty Tinter Maker Name Role Phone Clara Joseph MD Primary Care Provider +1- [phone] Hamida Evans PharmD Unavailable [phone] Daniel, Gertrudis Unavailable Galdino Lee MD Unavailable Sabine Martinez Unavailable Adis Hurley MD Unavailable Encounter Details Date Type Department Care Team (Late st Contact Info) Description 10/20/2022 Orders Only [facility] CHC MED & PEDS [address] [place], [place] [phone] Marina Mendes LPN Social History Tobacco Use [...] Description 08/23/2025 10:15 AM EST Office Visit [address] [place] [address] [phone] Clara Joseph MD [address] [place] [address] [phone] 09/25/2025 9:00 AM EST Medication Management [facility] MEDICINE 230 [place] [address] Hamida Evans PharmD [address] [place] [address] 11/24/2025 8:45 AM EST Office Visit [facility] ADULT DENTAL 230 [place] [address] Lillian Crawford 230 [place] [address] documented as of this encounter Visit Diagnoses Not on filedocumented in this encounter Care Teams Putty Tinter Maker Relationship Specialty Start Date End Date Clara Joseph MD [address] [place] [address] PCP - General Family Medicine 10/12/18 Hamida Evans PharmD [address] [place] [address] Pharmacist Internal Medicine 01/07/23January [address] 3rd [place] [address] Gastroenterology 09/30/24 Galdino Lee MD [address] [place] [address] Ophthalmology 10/24/24 Sabine Martinez [address] [place] [address] Orthopaedic Surgery 11/08/24 Adis Hurley MD [address] [place] [address] Vascular Surgery 07/24/25 Mary Patel PA-C Vascular 10/13/24 documented as of this encounter
--- OUTSIDE RECORDS SUMMARY | 2025-07-28 07:30 | XMS_ITS | Encounter Summary ---
Author Organization [employer] Address 75 [facility] 7t [place] [address] Care Team Providers Care Retail Team Leader Name Role Phone Clara Joseph MD Primary Care Provider +1- [phone] Hamida Evans PharmD Unavailable Gertrudis Daniel Unavailable Galdino Lee MD Unavailable Sabine Martinez Unavailable Adis Hurley MD Unavailable Encounter Details Date Type Department Care Team (Late st Contact Info) Description 11/14/2022 Abstract [facility] MEDICINE [address] [place] [address] [phone] Clara Joseph MD [address] [place] [address] [phone] Social History Tobacco Use Types Packs/Day Years [...] Description 08/23/2025 10:15 AM EST Office Visit [facility] MEDICINE [address] [place] [address] [phone] Clara Joseph MD [address] [place] [address] [phone] 09/25/2025 9:00 AM EST Medication Management [facility] MEDICINE 230 [place] [address] Hamida Evans PharmD 230 [place] [address] 11/24/2025 8:45 AM EST Office Visit [facility] ADULT DENTAL 230 [place] [address] Yvette, Lillian 230 [place] [address] documented as of this encounter Procedures Procedure [...] HEALTH MAINTENANCE Final Result * Colonoscopy (02/22/2014) Pathologist [facility] Colonoscopy normal with Dr. Mejia Historical Provider HEALTH MAINTENANCE Final Result documented in this encounter Visit Diagnoses Not on filedocumented in this encounter Care Teams Retail Team Leader Relationship Specialty Start Date End Date Clara Joseph MD [address] [place] [address] PCP - General Family Medicine 10/12/18 Hamida Evans, QuocD [address] [place] [address] Pharmacist Internal Medicine 01/07/[address] 3rd [place] [address] Gastroenterology 09/30/24 Galdino Lee MD [address] [place] [address] Ophthalmology 10/24/24 Sabine Martinez [address] [place] [address] Orthopaedic Surgery 11/08/24 Adis Hurley MD [address] [place] [address] Vascular Surgery 07/24/25 Mary Patel PA-C Vascular 10/13/24 documented as of this encounter
--- NOTE | 2025-07-28 07:43 | MHC.OFFVIS ---
Vital Signs 07/28/25 07:44 Height 5 ft 4 in Weight 148 lb BMI 25.4 Intake Visit Reasons: Left GSV Venaseal T Rail Turner Required: No Accompanied by: Self / Same As Patient Allergies No Known Allergies Allergy (Verified 07/28/25 07:44) [facility] Medical History Benign meningioma Depression Dyslipidemia Hypertension Hypothyroid Anemia Surgical History H/O dilation and curettage H/O colonoscopy History of tubal ligation Family History Mother Vaginal cancer Breast cancer Maternal Aunt Cancer Maternal Uncle Cancer Social History Alcohol intake: never Patient Tobacco Use Status: Never used Tobacco Current occupational status: unemployed Physical Exam Vital Signs: BMI result Body Mass Index 25.4 Office Procedures Vascular Office Procedure Details Details: Diagnosis: Left Leg varicose veins with inflammation Procedure: Endovenous Ablation of the left Great Saphenous Vein with VenaSeal Closure System Anesthesia: Local infiltration 5 cc, Aircraft Charter Dispatcher: none Estimated Blood Loss: min Specimen: none Duplex ultrasound was used to map out the insufficient saphenous vein, and access was determined and marked on the overlying skin. The depth and diameter of the vein(s) to be treated was documented. The patient was placed supine on the procedure table and the leg was prepped and draped using sterile technique. Ultasound guidance was again used to localize the access site. 1% lidocaine was injected as a local anesthetic in the subcutaneous tissues at the target location in the GSV in the lower leg. Using ultrasound guidance, access was gained at this location with the 19 gauge thin walled access needle and followed by introduction of a short guidewire, location confirmed with ultrasound. A small, 3 mm incision was made at the access site to allow for introduction and placement of the 7 Fr x7cm introducer/dilator. The dilator and guidewire were removed. The 0.035 guidewire from the VenaSeal kit was then introduced and positioned at the saphenofemoral junction using ultrasound guidance. The 80 cm 7 Fr introducer sheath/dilator was positioned 5cm from the saphenofemoral junction. The guidewire and dilator were removed, and the remaining sheath was flushed with sterile saline, with the syringe remaining in place prior to the next steps. The cyanoacrylate adhesive was precisely primed into the 5 F delivery catheter and this catheter/syringe combination was attached within the dispenser gun. This assembly was introduced through the 7F sheath and positioned 5 cm caudal of the saphenofemoral junction under ultrasound guidance. The steps from the IFU were followed for dispensing amounts, locations and compression times, 2 aliquots proximally with 3 minutes of compression, and 1 aliquot every 3 cm distally with 30 sec of compression along the course of the vessel. Following the last injection and compression sequence, the catheter and introducer sheath were pulled out from the access site. Hemostasis was achieved with manual compression and an adhesive bandage was applied to the incision. Ultrasound confirmed complete coaptation and closure of the treated segments of the GSV, and the absence of any DVT at the saphenofemoral junction. Treatment time was approximately 5 minutes and the vein length treated was 32 cm. The drapes were removed and the patient cleaned and prepared for discharge. Post op ultrasound check is scheduled for 48-72 hours and the patient was given written post-op instructions. 39364 - Endoven Ther Chem Adhes 1st All charges added?: Procedure code (CPT) selection complete Assessment & Plan Assessment & Plan (1) Varicose veins of left lower extremity with inflammation: Comment: 07/28/2025 - left great saphenous vein Cyanoacralate ablation Code(s): I83.12 - Varicose veins of left lower extremity with inflammation Category: Medical Plan: See op note Coding Level of Care Code Procedure Only Diagnoses Varicose veins of left lower extremity with inflammation I83.12 CPT Codes Details - Vascular 3: 54774 - Endoven Ther Chem Adhes 1st ([id number])
[2025-07-28 07:44] VITALS: BMI 25.4
== END 2025-07-28 08:29 | disposition home or self-care (01) ==
LOC: HO.HVS 07:27
PROVIDERS: PCP Family Medicine; Visit Provider Surgery Vascular Surgery
DX: I83.12 Varicose veins of left lower extremity with inflammation (principal)
CPT/HCPCS: 36482

== ENCOUNTER → 2025-07-28 07:26 | Outpatient (BNVA) | payer OTHER, SELFPAY | PROVIDERS: PCP Family Medicine; Visit Provider Surgery Vascular Surgery | DX: I83.12 Varicose veins of left lower extremity with inflammation (principal) | CPT/HCPCS: 36482; J2003 ==

== ENCOUNTER 2025-08-10 08:46 | Outpatient (AMB) | payer OTHER, SELFPAY ==
[2025-08-10 09:01] VITALS: BMI 25.4
--- NOTE | 2025-08-10 09:01 | MHC.OFFVIS ---
Vital Signs 08/10/25 09:01 Height 5 ft 4 in Weight 148 lb BMI 25.4 Intake Visit Reasons: 2 week follow up L RFA 07/28/25 Intake Note: 2 week follow up Left LE Venaseal 07/28/25. Pt states Left thigh feels good, has some concerns about calf and tretibial pain on Left LE. NO concerns of Right LE. Show Design Supervisor Required: Yes Show Design Supervisor Language: Hong Konger Accompanied by: Self / Same As Patient Allergies No Known Allergies Allergy (Verified 08/10/25 09:03) HPI HPI 2 week follow up L RFA 07/28/25: Details: The patient is a 59-year-old female presenting for a routine post-procedural follow-up after undergoing left great saphenous vein ablation. The procedure was performed to address issues related to the left leg, and the patient reports mild pain in the area, which is expected to improve over time. Overall, the healing process appears satisfactory, with no significant complications noted. [facility] Medical History Benign meningioma Depression Dyslipidemia Hypertension Hypothyroid Anemia Surgical History H/O dilation and curettage H/O colonoscopy History of tubal ligation Family History Mother Vaginal cancer Breast cancer Maternal Aunt Cancer Maternal Uncle Cancer Social History Alcohol intake: never Patient Tobacco Use Status: Never used Tobacco Current occupational status: unemployed Review of Systems Const Reports as per HPI ENT Reports no additional complaints Card Denies chest pain, Denies chest pain at rest and Denies chest pain with activity Resp Denies chest congestion and Denies cough GI Reports no additional complaints Musc Details: pain over varicosities, aching of lower extremities, swelling, cramping, heaviness and tiredness, itching Denies abnormal gait Skin/Breast Reports pruritus and Denies wounds Neuro Reports no additional complaints and Denies abnormal gait Psych Denies no additional complaints Physical Exam Vital Signs: BMI result Body Mass Index 25.4 Const General: cooperative, healthy appearing and comfortable Orientation/consciousness: oriented to person, oriented to place and oriented to time Neck Carotids: no bruits Chest Chest palpation & inspection: normal inspection of the chest and normal palpation of entire chest wall Resp Effort & Inspection: normal respiratory effort and able to speak in complete sentences Cardio Rate: regular rate Heart sounds: S1 normal heart sound present and S2 normal heart sound present Peripheral pulses: Peripheral pulses 2+ throughout GI Inspection: Yes normal to inspection Skin Other: +2 edema, large rope-like varicosities greater than 4 mm CEAP Classification C4 - skin color changes Ep - Etiology Primary As - superficial veins P - reflux General skin exam: dry skin Neuro General: oriented to person, oriented to place and oriented to time Extrem Right lower extremity: full ROM, normal capillary refill and edema Left lower extremity: full ROM, normal capillary refill and edema Psych Mental Status: mental status grossly normal Assessment & Plan Assessment & Plan (1) Varicose veins of left lower extremity with inflammation: Comment: 07/28/2025 - left great saphenous vein Cyanoacralate ablation Code(s): I83.12 - Varicose veins of left lower extremity with inflammation Category: Medical Plan: The patient has done extremely well with all venous treatments. Patient's may often experience postprocedure phlebitic episodes and I have discussed with the patient use of warm compresses and NSAIDS if tolerated for pain discomfort. In addition, I have discussed continued conservative measures including use of compression, leg elevation, and exercise. The patient was also given an information sheet regarding appropriate use of compression stockings and future purchases. Thank you for allowing us to care for your patient with venous disease. Plan Patient was informed and verbally consented to the use of an ambient scribe for clinic note documentation during this visit. Patient Instructions: - Monitor the healing process and report any significant changes or concerns. - Use compression stockings as recommended to aid in recovery. Coding Level of Care Code Est Pt Level 3 (09644) Diagnoses Varicose veins of left lower extremity with inflammation I83.12
--- OUTSIDE RECORDS SUMMARY | 2025-08-10 09:40 | XMS_ITS | Encounter Summary ---
Author Organization [employer] Address [address] [facility] 7t [place] [address] Care Team Providers Care Solar Sales Advisor Name Role Phone Clara Joseph MD Primary Care Provider +- [phone] Hamida Evans PharmD Unavailable [phone] Daniel, Gertrudis Unavailable Galdino Lee MD Unavailable Sabine Martinez Unavailable Adis Hurley MD Unavailable Encounter Details Date Type Department Care Team (Late st Contact Info) Description 10/20/2022 Orders Only [facility] CHC MED & PEDS [address] [place], [place] [phone] Marina Mendes LPN Social History Tobacco Use [...] Description 08/23/2025 10:15 AM EST Office Visit [address] [phone] Clara Joseph MD [address] [place] [address] [phone] 09/25/2025 9:00 AM EST Medication Management [facility] MEDICINE [address] [place] [address] Hamida Evans PharmD 230 [place] [address] 11/24/2025 8:45 AM EST Office Visit [facility] ADULT DENTAL [address] [place] [address] Lillian Crawford 230 [place] [address] documented as of this encounter Visit Diagnoses Not on filedocumented in this encounter Care Teams Solar Sales Advisor Relationship Specialty Start Date End Date Clara Joseph MD 230 [place] [address] PCP - General Family Medicine 10/12/18 Hamida Evans PharmD 230 [place] [address] Pharmacist Internal Medicine 01/07/23January [address] 3rd [place] [address] Gastroenterology 09/30/24 Galdino Lee MD [address] [place] [address] Ophthalmology 10/24/24 Sabine Martinez [address] [place] [address] Orthopaedic Surgery 11/08/24 Adis Hurley MD [address] [place] [address] Vascular Surgery 07/24/25 Mary Patel PA-C Vascular 10/13/24 documented as of this encounter
--- OUTSIDE RECORDS SUMMARY | 2025-08-10 09:40 | XMS_ITS | Encounter Summary ---
Author Organization [employer] Address [address] [facility] 7t [place] [address] Care Team Providers Care Gore Inserter Name Role Phone Clara Joseph MD Primary Care Provider [phone]- [phone] Hamida Evans PharmD Unavailable January Unavailable Galdino Lee MD Unavailable Sabine Martinez Unavailable Adis Hurley MD Unavailable Reason for Visit * Reason Onset Date Comments Nurse Triage 09/05/2024 Encounter Details Date Type Department Care Team (Late st Contact Info) Description 09/05/2024 Telephone [facility] MEDICINE 230 [place], [place] [phone] Clara Joseph MD [address] [place], [place] [phone] Nurse Triage Social History Tobacco Use Types [...] 09/05/2024 12:14 PM EST Triage call [place] [employer] [place] [id number]. Pt reports multiple symptoms. Headache, abdominal pain [...] provider. Pt is advised to come to [facility] which is open till 8pm today to see a provider. Pt agrees to ask sister for a ride to come to [facility] today. Insurance is verified as active. [...] Description 08/23/2025 10:15 AM EST Office Visit [facility] MEDICINE [address] [place] [address] Clara Joseph MD [address] [place] [address] 09/25/2025 9:00 AM EST Medication Management [facility] MEDICINE [address] [place] [address] Hamida Evans PharmD [address] [place] [address] 11/24/2025 8:45 AM EST Office Visit [facility] ADULT DENTAL [address] [place] [address] Lillian Crawford [address] [place] [address] documented as of this encounter Goals Goal [...] documented as of this encounter Care Teams Gore Inserter Relationship Specialty Start Date End Date Clara Joseph MD [address] [place] [address] PCP - General Family Medicine 10/12/18 Hamida Evans, QuocD [address] [place] [address] Pharmacist Internal Medicine 01/07/23January [address] 3rd [place] [address] Gastroenterology 09/30/24 Galdino Lee MD [address] [place] [address] Ophthalmology 10/24/24 Sabine Martinez [address] [place] [address] Orthopaedic Surgery 11/08/24 Adis Hurley MD [address] [place] [address] Vascular Surgery 07/24/25 Mary Patel PA-C Vascular 10/13/24 documented as of this encounter
--- OUTSIDE RECORDS SUMMARY | 2025-08-10 09:40 | XMS_ITS | Encounter Summary ---
Author Organization [employer] Address 75 [facility] 7t [place] [address] Care Team Providers Care Community Organization Aide Name Role Phone Clara Joseph MD Primary Care Provider [phone]- [phone] Hamida Evans PharmD Unavailable +1- [phone] January Unavailable Galdino Lee MD Unavailable [phone] Sabine Martinez Unavailable Adis Hurley MD Unavailable Encounter Details Date Type Department Care Team (Late st Contact Info) Description 04/05/2024 Orders Only [facility] [address] [place], [place] [phone] Provider, MD Irineo Social History Tobacco Use [...] 10:15 AM EST Office Visit [facility] MEDICINE [address] [place] [address] Clara Joseph MD [address] [place] [address] 09/25/2025 9:00 AM EST Medication Management [facility] MEDICINE [address] [place] [address] Hamida Evans PharmD [address] [place] [address] 11/24/2025 8:45 AM EST Office Visit [facility] ADULT DENTAL [address] [place] [address] Lillian Crawford [address] [place] [address] documented as of this encounter Goals Goal [...] documented as of this encounter Care Teams Community Organization Aide Relationship Specialty Start Date End Date Clara Joseph MD [address] [place] [address] PCP - General Family Medicine 10/12/18 Hamida Evans, QuocD [address] [place] [address] Pharmacist Internal Medicine 01/07/23January [address] 3rd [place] [address] Gastroenterology 09/30/24 Galdino Lee MD [address] [place] [address] Ophthalmology 10/24/24 Sabine Martinez [address] [place] [address] Orthopaedic Surgery 11/08/24 Adis Hurley MD [address] [place] [address] Vascular Surgery 07/24/25 Mary Patel PA-C Vascular 10/13/24 documented as of this encounter
--- OUTSIDE RECORDS SUMMARY | 2025-08-10 09:40 | XMS_ITS | Encounter Summary ---
Author Organization [employer] Address 75 [facility] 7t [place] [address] Care Team Providers Care Ladies Locker Room Attendant Name Role Phone Clara Joseph MD Primary Care Provider +1- [phone] Hamida Evans PharmD Unavailable [phone] January Unavailable Galdino Lee MD Unavailable Sabine Martinez Unavailable Adis Hurley MD Unavailable Encounter Details Date Type Department Care Team (Late st Contact Info) Description 03/19/2023 Abstract [facility] MEDICINE [address] [place], [place] [phone] Clara Joseph MD [address] [place], [place] [phone] Social History Tobacco Use Types Packs/Day Years [...] Description 08/23/2025 10:15 AM EST Office Visit [facility] MEDICINE [address] [place] [address] Clara Joseph MD [address] [place] [address] 09/25/2025 9:00 AM EST Medication Management [facility] MEDICINE [address] [place] [address] Piers-PinedaLuz Marina guerrerosa, PharmD [address] [place] [address] 11/24/2025 8:45 AM EST Office Visit [facility] ADULT DENTAL [address] [place] [address] Lillian Crawford [address] [place] [address] documented as of this encounter Goals Goal [...] documented as of this encounter Care Teams Ladies Locker Room Attendant Relationship Specialty Start Date End Date Clara Joseph MD [address] [place] [address] PCP - General Family Medicine 10/12/18 Hamida Evans PharmD [address] [place] [address] Pharmacist Internal Medicine 01/07/23January [address] 3rd [place] [address] Gastroenterology 09/30/24 Galdino Lee MD [address] [place] [address] Ophthalmology 10/24/24 Sabine Martinez [address] [place] [address] Orthopaedic Surgery 11/08/24 Adis Hurley MD [address] [place] [address] Vascular Surgery 07/24/25 Mary Patel PA-C Vascular 10/13/24 documented as of this encounter
--- OUTSIDE RECORDS SUMMARY | 2025-08-10 09:40 | XMS_ITS | Encounter Summary ---
Author Organization [employer] Address 75 [facility] 7t [place] [address] Care Team Providers Care Skelp Processor Name Role Phone Clara Joseph MD Primary Care Provider +1- [phone] Hamida Evans PharmD Unavailable [phone] January Unavailable Galdino Lee MD Unavailable [phone] Sabine Martinez Unavailable Adis Hurley MD Unavailable Encounter Details Date Type Department Care Team (Late st Contact Info) Description 03/19/2023 Abstract [facility] MEDICINE 230 [place], [place] [phone] Clara Joseph MD 230 [place], [place] [phone] Social History Tobacco Use Types Packs/Day Years [...] Description 08/23/2025 10:15 AM EST Office Visit [facility] MEDICINE [address] [place] [address] Clara Joseph MD [address] [place] [address] 09/25/2025 9:00 AM EST Medication Management [facility] MEDICINE [address] [place] [address] Hamida Evans, PharmD [address] [place] [address] 11/24/2025 8:45 AM EST Office Visit [facility] ADULT DENTAL [address] [place] [address] Lillian Crawford [address] [place] [address] documented as of this encounter Goals Goal [...] documented as of this encounter Care Teams Skelp Processor Relationship Specialty Start Date End Date Clara Joseph MD [address] [place] [address] [phone] PCP - General Family Medicine 10/12/18 Hamida Evans, PharmD [address] [place] [address] [phone] Pharmacist Internal Medicine 01/07/23January [address] 3rd [place] [address] Gastroenterology 09/30/24 Galdino Lee MD [address] [place] [address] Ophthalmology 10/24/24 Sabine Martinez [address] [place] [address] Orthopaedic Surgery 11/08/24 Adis Hurley MD [address] [place] [address] Vascular Surgery 07/24/25 Mary Patel PA-C Vascular 10/13/24 documented as of this encounter
--- OUTSIDE RECORDS SUMMARY | 2025-08-10 09:40 | XMS_ITS | Encounter Summary ---
Author Organization [employer] Address 75 [facility] 7t [place] [address] Care Team Providers Care Clinical Cytogeneticist Name Role Phone Clara Joseph MD Primary Care Provider + [phone] Hamida Evans PharmD Unavailable [phone] January Unavailable Galdino Lee MD Unavailable [phone] Sabine Martinez Unavailable Adis Hurley MD Unavailable Encounter Details Date Type Department Care Team (Latest Contact Info) Description 12/27/2018 Abstract [facility] CONVERSIONS Dental, Provider, [...] Description 08/23/2025 10:15 AM EST Office Visit [facility] MEDICINE [address] [place] [address] [phone] Clara Joseph MD [address] [place] [address] [phone] 09/25/2025 9:00 AM EST Medication Management [facility] MEDICINE [address] [place] [address] [phone] Hamida Evans, PharmD 230 [place] [address] 11/24/2025 8:45 AM EST Office Visit [facility] ADULT DENTAL 230 [place] [address] Lillian Crawford [address] [place] [address] documented as of this encounter Visit Diagnoses Not on filedocumented in this encounter Care Teams Clinical Cytogeneticist Relationship Specialty Start Date End Date Clara Joseph MD 230 [place] [address] PCP - General Family Medicine 10/12/18 Hamida Evans, PharmD 230 [place] [address] Pharmacist Internal Medicine 01/07/23January [address] 3rd [place] [address] Gastroenterology 09/30/24 Galdino Lee MD [address] [place] [address] Ophthalmology 10/24/24 Sabine Martinez [address] [place] [address] Orthopaedic Surgery 11/08/24 Adis Hurley MD [address] [place] [address] Vascular Surgery 07/24/25 Mary Patel PA-C Vascular 10/13/24 documented as of this encounter
--- OUTSIDE RECORDS SUMMARY | 2025-08-10 09:40 | XMS_ITS | Encounter Summary ---
Author Organization [employer] Address 75 [facility] 7t [place] [address] Care Team Providers Care Automobile Painter Name Role Phone Clara Joseph MD Primary Care Provider +- [phone] Hamida Evans PharmD Unavailable [phone] Daniel, Gertrudis Unavailable Galdino Lee MD Unavailable [phone] Sabine Martinez Unavailable Aids Hurley MD Unavailable Reason for Referral * Consultation (Routine) - Authorized Specialty Diagnoses / Procedures Referred By Contac t Referred To Contact Pharmacy Diagnoses Type 2 diabetes mellitus without complication, without long-term current use of insulin ([facility]) Clara Joseph MD [address] [place] [address] Phone: tel: fax: Referral ID Status Reason Start Date Expiration Date Visits Requested Visits Authorized [id number] Authorized Consult and Treat 06/04/2025 06/04/2026 6 6 Encounter Details Date Type Department Care Team (Late st Contact Info) Description 06/04/2025 Orders Only [facility] MEDICINE [address] [place] [address] [phone] Clara Joseph MD [address] [place] [address] [phone] Type 2 diabetes mellitus without complication, without [...] EST Office Visit [facility] MEDICINE [address] [place] [address] Clara Joseph MD 230 [place] [address] 09/25/2025 9:00 AM EST Medication Management [facility] MEDICINE [address] [place] [address] Hamida Evans PharmD [address] [place] [address] 11/24/2025 8:45 AM EST Office Visit [facility] ADULT DENTAL 230 [place] [address] Yvette, Lillian 230 [place] [address] Scheduled Referrals Name Type Priority Associated Diagnoses Orde r Schedule Referral to Pharmacy CDTM Outpatient Referral Routine Type 2 diabetes mellitus without complication, without long-term current use of insulin ([facility]) Ordered: 06/04/2025 documented as of this encounter [...] complication, without long-term current use of insulin ([facility])- Primary documented in this encounter Additional Health Concerns Assessment Noted Time PHQ-9 Depression Total Score: 16 03/08/ 025 10:11 AM EDT documented as of this encounter Care Teams Automobile Painter Relationship Specialty Start Date End Date Clara Joseph MD [address] [place] [address] PCP - General Family Medicine 10/12/18 Hamida Evans PharmD [address] [place] [address] Pharmacist Internal Medicine 01/07/23 Fredy Gertrudis [address] [place] [address] 3rd [place] [address] Gastroenterology 09/30/24 Galdino Lee MD [address] [place] [address] Ophthalmology 10/24/24 Sabine Martinez [address] [place] [address] Orthopaedic Surgery 11/08/24 Adis Hurley MD [address] [place] [address] Vascular Surgery 07/24/25 Mary Patel PA-C Vascular 10/13/24 documented as of this encounter
--- OUTSIDE RECORDS SUMMARY | 2025-08-10 09:40 | XMS_ITS | Encounter Summary ---
Author Organization [employer] Address 75 [facility] 7t [place] [address] Care Team Providers Care Animal Nutrition Consultant Name Role Phone Clara Joseph MD Primary Care Provider + [phone] Hamida Evans PharmD Unavailable [phone] January Unavailable Galdino Lee MD Unavailable [phone] Sabine Martinez Unavailable Adis Hurley MD Unavailable Encounter Details Date Type Department Care Team (Late st Contact Info) Description 09/28/2023 Abstract [facility] MEDICINE 230 [place], [place] [phone] Clara Joseph MD 230 [place], [place] [phone] Social History Tobacco Use Types Packs/Day Years [...] Description 08/23/2025 10:15 AM EST Office Visit [facility] MEDICINE [address] [place] [address] Clara Joseph MD [address] [place] [address] 09/25/2025 9:00 AM EST Medication Management [facility] MEDICINE [address] [place] [address] Hamida Evans PharmD [address] [place] [address] 11/24/2025 8:45 AM EST Office Visit [facility] ADULT DENTAL [address] [place] [address] Lillian Crawford [address] [place] [address] documented as of this encounter Goals Goal [...] documented as of this encounter Care Teams Animal Nutrition Consultant Relationship Specialty Start Date End Date Clara Joseph MD 230 [place] [address] PCP - General Family Medicine 10/12/18 Hamida Evans PharmD [address] [place] [address] Pharmacist Internal Medicine 01/07/23January [address] 3rd [place] [address] Gastroenterology 09/30/24 Galdino Lee MD [address] [place] [address] Ophthalmology 10/24/24 Sabine Martinez [address] [place] [address] Orthopaedic Surgery 11/08/24 Adis Hurley MD [address] [place] [address] Vascular Surgery 07/24/25 Mary Patel PA-C Vascular 10/13/24 documented as of this encounter
--- OUTSIDE RECORDS SUMMARY | 2025-08-10 09:40 | XMS_ITS | Encounter Summary ---
Author Organization [employer] Address 75 [facility] 7t [place] [address] Care Team Providers Care News Internship Name Role Phone Clara Joseph MD Primary Care Provider + [phone] Hamida Evans PharmD Unavailable [phone] January Unavailable Galdino Lee MD Unavailable [phone] Sabine Martinez Unavailable Adis Hurley MD Unavailable Encounter Details Date Type Department Care Team (Latest Contact Info) Description 10/01/[address] [facility] CONVERSIONS Dental, Provider, DDS Social History [...] EST Office Visit [facility] MEDICINE [address] [place] [address] [phone] Clara Joseph MD [address] [place] [address] [phone] 09/25/2025 9:00 AM EST Medication Management [facility] MEDICINE [address] [place] [address] [phone] Hamida Evans, PharmD 230 [place] [address] 11/24/2025 8:45 AM EST Office Visit [facility] ADULT DENTAL [address] [place] [address] Lillian Crawford [address] [place] [address] documented as of this encounter Visit Diagnoses Not on filedocumented in this encounter Care Teams News Internship Relationship Specialty Start Date End Date Clara Joseph MD 230 [place] [address] PCP - General Family Medicine 10/12/18 Hamida Evans, PharmD 230 [place] [address] Pharmacist Internal Medicine 01/07/23January [address] 3rd [place] [address] Gastroenterology 09/30/24 Galdino Lee MD [address] [place] [address] Ophthalmology 10/24/24 Sabine Martinez [address] [place] [address] Orthopaedic Surgery 11/08/24 Adis Hurley MD [address] [place] [address] Vascular Surgery 07/24/25 Mary Patel PA-C Vascular 10/13/24 documented as of this encounter
--- OUTSIDE RECORDS SUMMARY | 2025-08-10 09:40 | XMS_ITS | Encounter Summary ---
Author Organization [employer] Address 75 [facility] 7t [place] [address] Care Team Providers Care Architecture Intern Name Role Phone Clara Joseph MD Primary Care Provider +1- [phone] Hamida Evans PharmD Unavailable Daniel, Gertrudis Unavailable Galdino Lee MD Unavailable [phone] Sabine Martinez Unavailable Adis Hurley MD Unavailable Reason for Visit * Reason Onset Date Comments Appointment Request 01/07/2023 Encounter Details Date Type Department Care Team (Late st Contact Info) Description 01/07/2023 Telephone [facility] MEDICINE 230 [place], [place] [phone] Clara Joseph MD [address] [place], [place] [phone] Appointment Request Social History Tobacco Use Types [...] an appt with provider to speak about DISTRICT SERVICE MANAGER services. Please contact pt at [phone] Kinyarwanda Speaker documented in this encounter Plan of Treatment Upcoming Encounters Date Type Department Care Team (Late st Contact Info) Description 08/23/2025 10:15 AM EST Office Visit [facility] MEDICINE [address] [place] [phone] Clara Joseph MD [address] [place] [address] 09/25/2025 9:00 AM EST Medication Management [facility] MEDICINE [address] [place] [address] Piers-Pineda, Hamida, PharmD [address] [place] [address] 11/24/2025 8:45 AM EST Office Visit [facility] ADULT DENTAL 230 [place] [address] Lillian Crawford 230 [place] [address] documented as of this encounter Goals Goal [...] documented as of this encounter Care Teams Architecture Intern Relationship Specialty Start Date End Date Clara Joseph MD [address] [place] [address] PCP - General Family Medicine 10/12/18 Hamida Evans PharmD [address] [place] [address] Pharmacist Internal Medicine 01/07/23January [address] 3rd [place] [address] Gastroenterology 09/30/24 Galdino Lee MD [address] [place] [address] Ophthalmology 10/24/24 Sabine Martinez [address] [place] [address] Orthopaedic Surgery 11/08/24 Adis Hurley MD [address] [place] [address] Vascular Surgery 07/24/25 Mary Patel PA-C Vascular 10/13/24 documented as of this encounter
--- OUTSIDE RECORDS SUMMARY | 2025-08-10 09:40 | XMS_ITS | Encounter Summary ---
Author Organization [employer] Address 75 [facility] 7t [place] [address] Care Team Providers Care Electric Spot Welder Name Role Phone Clara Joseph MD Primary Care Provider +1- [phone] Hamida Evans PharmD Unavailable January Unavailable Galdino Lee MD Unavailable [phone] Sabine Martinez Unavailable Adis Hurley MD Unavailable Encounter Details Date Type Department Care Team (Late st Contact Info) Description 03/19/2023 Abstract [facility] MEDICINE 230 [place], [place] [phone] Clara Joseph MD 230 [place], [place] [phone] Social History Tobacco Use Types Packs/Day Years [...] Visit [facility] MEDICINE [address] [place] [address] Clara Joseph MD [address] [place] [address] 09/25/2025 9:00 AM EST Medication Management [facility] MEDICINE [address] [place] [address] ArtsHamida Tapia, PharmD [address] [place] [address] 11/24/2025 8:45 AM EST Office Visit [facility] ADULT DENTAL [address] [place] [address] Lillian Crawford 230 [place] [address] documented as of this encounter Goals Goal Patient Goal Type Associated Problems Recent Progress Patient-Stated? Author Blood Pressure < 140/90 Blood Pressure 112/58(2024 9:28 AM EDT) No Hamida Herman, PharmD Hemoglobin A1c < 7 Result Component 7.4( 9:17 AM EDT) No Hamida Herman, PharmD documented as of this encounter Procedures Procedure Name Priority Date/Time Associated Diagnosis Comments COLONOSCOPY Routine 02/26/2023 3:21 PM EDT documented in this encounter Visit Diagnoses Not on filedocumented in this encounter Additional Health Concerns Assessment Noted Time PHQ-9 Depression Total Score: 7 12/18/19 23 10:36 AM EST documented as of this encounter Care Teams Electric Spot Welder Relationship Specialty Start Date End Date Clara Joseph MD [address] [place] [address] PCP - General Family Medicine 10/12/18 Hamida Evans PharmD [address] [place] [address] [place] [address] Pharmacist Internal Medicine 01/07/23 Fredy Gertrudis [address] 3rd Floor [place] [address] Gastroenterology 09/30/24 Galdino Lee MD [address] [place] [address] Ophthalmology 10/24/24 Sabine Martinez [address] [facility] [place] [address] Orthopaedic Surgery 11/08/24 Adis Hurley MD [address] [place] [address] Vascular Surgery 07/24/25 Mary Patel PA-C Vascular 10/13/24 documented as of this encounter
--- OUTSIDE RECORDS SUMMARY | 2025-08-10 09:40 | XMS_ITS | Encounter Summary ---
Author Organization [employer] Address 75 [facility] 7t [place] [address] Care Team Providers Care Securities Compliance Examiner Name Role Phone Clara Joseph MD Primary Care Provider +1- [phone] Hamida Evans PharmD Unavailable [phone]- [phone] Daniel, Gertrudis Unavailable Galdino Lee MD Unavailable [phone] Sabine Martinez Unavailable Adis Hurley MD Unavailable Encounter Details Date Type Department Care Team (Late st Contact Info) Description 04/06/2023 Abstract [facility] ADULT DENTAL 230 [place], [place] [phone] Yvette, Lillian [address] [place], [place] [phone] Social History Tobacco Use Types Packs/Day Years [...] Description 08/23/2025 10:15 AM EST Office Visit [facility] MEDICINE [address] [place] [address] Clara Joseph MD [address] [place] [address] 09/25/2025 9:00 AM EST Medication Management [facility] MEDICINE [address] [place] [address] Hamida Evans, PharmD [address] [place] [address] 11/24/2025 8:45 AM EST Office Visit [facility] ADULT DENTAL [address] [place] [address] Lillian Crawford [address] [place] [address] documented as of this encounter Goals Goal [...] documented as of this encounter Care Teams Securities Compliance Examiner Relationship Specialty Start Date End Date Clara Joseph MD [address] [place] [address] PCP - General Family Medicine 10/12/18 Hamida Evans, PharmD [address] [place] [address] Pharmacist Internal Medicine 01/07/[address] 3rd Floor [place] [address] Gastroenterology 09/30/24 Galdino Lee MD [address] [place] [address] Ophthalmology 10/24/[address] [facility] [place] [address] Orthopaedic Surgery 11/08/24 Adis Hurley MD [address] [place] [address] Vascular Surgery 07/24/25 Mary Patel PA-C Vascular 10/13/24 documented as of this encounter
--- OUTSIDE RECORDS SUMMARY | 2025-08-10 09:40 | XMS_ITS | Encounter Summary ---
Author Organization [employer] Address 75 [facility] 7t [place] [address] Care Team Providers Care Health And Safety Technician Name Role Phone Clara Joseph MD Primary Care Provider Hamida Evans PharmD Unavailable Daniel, Gertrudis Unavailable Galdino Lee MD Unavailable [phone] Sabine Martinez Unavailable Adis Hurley MD Unavailable Reason for Visit * Reason Comments Med Refill Encounter Details Date Type Department Care Team (Late st Contact Info) Description 02/04/2023 Refill [facility] MEDICINE [address] [place], [place] [phone] Clara Joseph MD [address] [place] [address] Onychomycosis of left great toe Social History [...] 10:15 AM EST Office Visit [facility] MEDICINE [address] [place] [address] Clara Joseph MD [address] [place] [address] 09/25/2025 9:00 AM EST Medication Management [facility] MEDICINE [address] [place] [address] Hamida Evans PharmD [address] [place] [address] 11/24/2025 8:45 AM EST Office Visit [facility] ADULT DENTAL [address] [place] [address] Yvette Lillian [address] [place] [address] documented as of this encounter Goals Goal [...] documented as of this encounter Care Teams Health And Safety Technician Relationship Specialty Start Date End Date Clara Joseph MD [address] [place] [address] [phone] PCP - General Family Medicine 10/12/18 Hamida Evans PharmD [address] [place] [address] Pharmacist Internal Medicine 01/07/23 Fredy Gertrudis [address] 3rd [place] [address] Gastroenterology 09/30/24 Galdino Lee MD [address] [place] [address] Ophthalmology 10/24/24 Sabine Martinez [address] [place] [address] Orthopaedic Surgery 11/08/24 Adis Hurley MD [address] [place] [address] Vascular Surgery 07/24/25 Mary Patel PA-C Vascular 10/13/24 documented as of this encounter
--- OUTSIDE RECORDS SUMMARY | 2025-08-10 09:40 | XMS_ITS | Encounter Summary ---
Author Organization [employer] Address [address] [facility] 7t [place] [address] Care Team Providers Care Operating Room Aide Name Role Phone Clara Joseph MD Primary Care Provider + [phone] Hamida Evans PharmD Unavailable January Unavailable Galdino Lee MD Unavailable [phone] Sabine Martinez Unavailable Adis Hurley MD Unavailable Reason for Visit * Reason Comments Med Refill Encounter Details Date Type Department Care Team (Late st Contact Info) Description 12/08/2024 Refill [facility] MEDICINE [address] [place], [place] [phone] Clara Joseph MD [address] [place], [place] [phone] Type 2 diabetes mellitus without complication, without long-term current use of insulin ([facility]) Social History Tobacco Use Types [...] Description 08/23/2025 10:15 AM EST Office Visit [facility] MEDICINE [address] [place] [phone] Clara Joseph MD [address] [place] [phone] 09/25/2025 9:00 AM EST Medication Management [facility]INE [address] [place] [phone] Hamida Evans, QuocD [address] [place] [phone] 11/24/2025 8:45 AM EST Office Visit [facility] ADULT DENTAL [address] [place] [phone] Lillian Crawford [address] [place] [phone] documented as of this encounter Goals Goal [...] documented as of this encounter Care Teams Operating Room Aide Relationship Specialty Start Date End Date Clara Joseph MD [address] [place] [address] PCP - General Family Medicine 10/12/18 Hamida Evans PharmD [address] [place] [address] Pharmacist Internal Medicine 01/07/23January [address] 3rd [place] [address] Gastroenterology 09/30/24 Galdino Lee MD [address] [facility] [address] [place] [address] Ophthalmology 10/24/24 Sabine Martinez [address] [place] [address] Orthopaedic Surgery 11/08/24 Adis Hurley MD [address] [place] [address] Vascular Surgery 07/24/25 Mary Patel PA-C Vascular 10/13/24 documented as of this encounter
--- OUTSIDE RECORDS SUMMARY | 2025-08-10 09:40 | XMS_ITS | Encounter Summary ---
Author Organization [employer] Address [address] [facility] 7t [place] [address] Care Team Providers Care Herb Counselor Name Role Phone Clara Joseph MD Primary Care Provider [phone]- [phone] Hamida Evans PharmD Unavailable Gertrudis Daniel Unavailable Galdino Lee MD Unavailable Sabine Martinez Unavailable Adis Hurley MD Unavailable Encounter Details Date Type Department Care Team (Late st Contact Info) Description 11/14/2022 Abstract [facility] MEDICINE [address] [place] [address] [phone] Clara Joseph MD [address] [place] [address] [phone] Social History Tobacco Use Types Packs/Day Years [...] Office Visit [facility] MEDICINE [address] [place] [address] [phone] Clara Joseph MD [address] [place] [address] [phone] 09/25/2025 9:00 AM EST Medication Management [facility] MEDICINE [address] [place] [address] Hamida Evans PharmD [address] [place] [address] 11/24/2025 8:45 AM EST Office Visit [facility] ADULT DENTAL [address] [place] [address] Yvette, Lillian [address] [place] [address] documented as of this encounter Procedures Procedure [...] MAINTENANCE Final Result * Colonoscopy (02/22/2014) Pathologist [facility] Colonoscopy normal with Dr. Mejia Historical Provider HEALTH MAINTENANCE Final Result documented in this encounter Visit Diagnoses Not on filedocumented in this encounter Care Teams Herb Counselor Relationship Specialty Start Date End Date Clara Joseph MD [address] [place] [phone] PCP - General Family Medicine 10/12/18 Hamida Evans, QuocD [address] [place] [phone] Pharmacist Internal Medicine 01/07/[address]rd [place] [address] Gastroenterology 09/30/24 Galdino Lee MD [address] [place] [address] Ophthalmology 10/24/[address] [place] [address] Orthopaedic Surgery 11/08/24 Adis Hurley MD [address] [place] [address] Vascular Surgery 07/24/25 Mary Patel PA-C Vascular 10/13/24 documented as of this encounter
--- OUTSIDE RECORDS SUMMARY | 2025-08-10 09:40 | XMS_ITS | Encounter Summary ---
Author Organization [employer] Address [address] [facility] 7t [place] [address] Care Team Providers Care Continuous Wave Operator Name Role Phone Clara Joseph MD Primary Care Provider + [phone] Hamida Evans PharmD Unavailable [phone] January Unavailable Galdino Lee MD Unavailable [phone] Sabine Martinez Unavailable Adis Hurley MD Unavailable Encounter Details Date Type Department Care Team (Late st Contact Info) Description 09/30/2024 Orders Only [facility] MEDICINE [address] [place], [place] [phone] Clara Joseph MD [address] [place], [place] [phone] Social History Tobacco Use Types Packs/Day Years [...] Description 08/23/2025 10:15 AM EST Office Visit [facility] [address] [place] [phone] Clara Joseph MD [address] [place] [address] 09/25/2025 9:00 AM EST Medication Management [facility] [address] [place] [phone] Hamida Evans, PharmD [address] [place] [phone] 11/24/2025 8:45 AM EST Office Visit [facility] ADULT DENTAL [address] [place] [address] Lillian Crawford [address] [place] [address] documented as of this encounter Goals Goal [...] documented as of this encounter Care Teams Continuous Wave Operator Relationship Specialty Start Date End Date Clara Joseph MD [address] [place] [address] PCP - General Family Medicine 10/12/18 Hamida Evans PharmD [address] [place] [address] Pharmacist Internal Medicine 01/07/23 Gertrudis Daniel [address]rd [place] [address] Gastroenterology 09/30/24 Galdino Lee MD [address] [place] [address] Ophthalmology 10/24/24 Sabine Martinez [address] [place] [address] Orthopaedic Surgery 11/08/24 Adis Hurley MD [address] [place] [address] Vascular Surgery 07/24/25 Mary Patel PA-C Vascular 10/13/24 documented as of this encounter
--- OUTSIDE RECORDS SUMMARY | 2025-08-10 09:40 | XMS_ITS | Clinical Summary ---
Author Organization [employer] Address [address] [place] [address] Care Team Providers Care Aircraft Design Engineer Name Role Phone Clara Joseph MD Primary Care Provider + [phone] Hamida Evans PharmD Unavailable +- [phone] January Unavailable Galdino Lee MD Unavailable [phone] Sabine Martinez Unavailable Adis Hurley MD Unavailable Allergies No known active allergies Medications escitalopram (Lexapro) 20 MG tabletIndications :Depressive disorder Take 20 mg by mouth Once per day. 022 Active atenolol (Tenormin) 25 MG tabletIndications :Primary [...] DO NOT BREAK, CRUSH, DISSOLVE OR CHEW 025 Active rosuvastatin (Crestor) 40 MG tabletIndications :Dyslipidemia TAKE 1 TABLET BY MOUTH AT BEDTIME 90 tablet 3 025 Active linaGLIPtin (Tradjenta) 5 MG tabletIndications :Type 2 diabetes mellitus without complication, without long-term current use of insulin ([facility]) Take 1 tablet (5 mg) by mouth Once per day. 90 tablet 3 025 Active Multiple Vitamin (multivitamin) capsule PT REPORTS PURCHASING OTC Active Turmeric-Tracie 130-5 MG chewable tablet PT REPORTS PURCHASING OTC Active FREESTYLE LITE test stripIndications: Type 2 diabetes mellitus without complication, without long-term current use of insulin ([facility]) TEST BLOOD SUGAR THREE TIMES DAILY 100 strip 11 025 Active Jardiance 25 MGIndications:Typ e 2 diabetes mellitus without complication, without long-term current use of insulin ([facility]) TAKE 1 TABLET BY MOUTH EVERY MORNING 30 tablet 6 025 Active acetaminophen (Tylenol 8 Hour) 650 MG ER tablet Take 1 tablet (650 mg) by mouth every 8 (eight) hours if needed for mild pain. Do not crush, chew, or split. 30 tablet 025 Active glipiZIDE (Glucotrol) 5 MG tabletIndications :Type 2 diabetes mellitus without complication, without long-term current use of insulin ([facility]) TAKE 1 TABLET BY MOUTH BEFORE BREAKFAST AND 2 TABLETS BEFORE DINNER. DO NOT TAKE IF SKIPPING MEAL. 270 tablet 025 Active lisinopril 5 MG tabletIndications :Hypertension, unspecified type,Type 2 diabetes mellitus without complication, without long-term current use of insulin ([facility]) TAKE 1 TABLET BY MOUTH EVERY EVENING 30 tablet 5 025 Active melatonin tabletIndications :Primary insomnia TAKE 1 TABLET BY MOUTH AT BEDTIME NEEDED FOR SLEEP 30 tablet 5 025 Active TRUEplus Lancets 33G miscIndications:T ype 2 diabetes mellitus without complication, without long-term current use of insulin ([facility]) USE THREE TIMES DAILY TO TEST BLOOD SUGAR 100 each 11 025 Active levothyroxine (Synthroid, Levoxyl) 75 MCG tabletIndications :Acquired hypothyroidism TAKE 1 TABLET BY MOUTH EVERY MORNING 90 tablet 3 025 Active lisinopril 5 MG tabletIndications :Hypertension, unspecified type,Type 2 diabetes mellitus without complication, without long-term current use of insulin ([facility]) TAKE 1 TABLET BY MOUTH EVERY EVENING 30 tablet 11 024 2024 Discontinued levothyroxine (Synthroid, Levoxyl) 75 MCG tabletIndications :Acquired hypothyroidism TAKE 1 TABLET BY MOUTH EVERY MORNING 90 tablet 3 024 2024 Discontinued TRUEplus Lancets 33G miscIndications:T ype 2 diabetes mellitus without complication, without long-term current use of insulin ([facility]) TEST BLOOD SUGAR THREE TIMES DAILY 100 each 5 025 2024 Discontinued melatonin tabletIndications :Primary insomnia TAKE 1 TABLET BY MOUTH AT BEDTIME NEEDED FOR SLEEP 30 tablet 5 025 2024 Discontinued(R eorder (will not trigger notification to Pharmacy)) neomycin-polymyxi n-dexAMETHasone (Polydex) 3.5-36916-0.1 ointment ophthalmic ointment 2024 Discontinued(O ther) glipiZIDE (Glucotrol) 5 MG tabletIndications :Type 2 diabetes mellitus without complication, without long-term current use of insulin ([facility]) TAKE 1 TABLET BY MOUTH TWICE DAILY BEFORE BREAKFAST AND DINNER. DO NOT TAKE IF SKIPPING MEAL. 180 tablet 3 025 2024 Discontinued amoxicillin (Amoxil) 500 MG capsule Take 1 capsule (500 mg) by mouth every 8 (eight) hours for 7 days. 21 capsule 2024 Active Problems Patient Care Coordination No te Formatting of this note migh t be different from the original. Enrolled in [facility] DM and HTN clinic with Hamida Evans, QuocD, [facility] [employer] Vice President Payment: Jeaneth, member services number [phone] Dean Of Men Agency: [facility] Problem Noted Date Diagnosed Date Tendonitis 07/07/2025 [...] we do not have them translated into Micronesian, she states she does read a little Albanian) and where to purchase good compression stockings as well. I had the railway switch operator discuss the type of compression stockings and [...] new symptoms. The office telephone contact is [phone]. Meningioma (CMS/HCC) 10/24/2024 Postmenopausal 10/24/2024 Overview (10/24/2024): - Prescribed MAGNESIUM OXIDE 400 PO 10/24/24 Assessment & Plan (10/24/2024 12:53 PM EST): - Prescribed MAGNESIUM OXIDE 400 PO 10/24/24 Gastroesophageal reflux disease 10/24/2024 Left hip pain 09/30/2024 Overview (11/08/2024): - hip LT min 2V w/wo pel 10/18/23 IMPRESSION: Moderate joint space narrowing. -seen by Dr. Martinez [facility] 11/08/24 and given cortisone [...] of blood transfusion s as patient is Mandaen 04/05/2024 Colon cancer screening 09/23/2023 Overview (10/24/2024): [...] by followed by Dr. Galdino Lee of [facility] -dental home is pt does not remember name -health care proxy filed Assessment & Plan (03/08/2025 10:21 AM EDT): -next physical due after 03/08/26 -eye care facilitated by followed by Dr. Galdino Lee of [facility] -dental home is pt does not remember name -health care proxy filed Assessment & Plan (09/23/2023 11:18 AM EST): -next physical due after January, -eye care facilitated by followed by Dr. 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 - S/p surgical resection 03/23/17 at [facility]. - Continued instability, dizziness and right [...] nerve. - S/p surgical resection 03/23/17 at [facility]. - Continued instability, dizziness and right [...] nerve. - S/p surgical resection 03/23/17 at [facility]. - Continued instability, dizziness and right [...] nerve. - S/p surgical resection 03/23/17 at [facility]. - Continued instability, dizziness and right facial numbness and decreased taste. 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) 12/17/2022 Overview (03/08/2025): Depression. - Pt followed [...] CDTM by Dr. Hamida Evans PharmD, [facility]. Lab Results Component Value Date HGBA1C 8.0 (A) 02/10/2025 HGBA1C 8.2 (A) 11/04/2024 HGBA1C 7.1 (A) 08/23/2024 Lab Results Component Value Date CREATININE 0.80 10/22/2024 EGFR >60 10/22/2024 MICROALBCREU TNP 02/29/2024 LDLCHOLCAL 79 01/04/2025 -Santi/Arb: lisinopril 5mg -Statin therapy: rosuvastatin 40mg -zetia added by CDTM [facility] -Diabetic eye exam: with Dr. [...] CDTM by Dr. Hamida Evans PharmJohn, [facility]. Lab Results Component Value Date HGBA1C 8.0 (A) 02/10/2025 HGBA1C 8.2 (A) 11/04/2024 HGBA1C 7.1 (A) 08/23/2024 Lab Results Component Value Date CREATININE 0.80 10/22/2024 EGFR >60 10/22/2024 MICROALBCREU TNP 02/29/2024 LDLCHOLCAL 79 01/04/2025 -Santi/Arb: lisinopril 5mg -Statin therapy: rosuvastatin 40mg -zetia added by CDTM [facility] -Diabetic eye exam: with Dr. [...] CDTM by Dr. Hamida Evans PharmD, [facility]. Lab Results Component Value Date HGBA1C 5.4 [...] rosuvastatin for high intensity statin by CDTM [facility] - Rosuvastatin increased from 20mg once daily to 40mg once daily by [facility] 08/23/24 due to hyperlipidemia LDL Cholesterol [...] to rosuvastatin for high intensity statin by [facility] - Rosuvastatin increased from 20mg once daily to 40mg once daily by [facility] 08/23/24 due to hyperlipidemia LDL Cholesterol [...] vinegar soaks and treat with.. Benign meningioma (CMS/HCC) 11/21/2021 12/17/2022 Encounters Date Type Department Care Team Description 08/10/2025 Refill [facility] [address] [place] [address] Clara Joseph MD Acquired hypothyroidism 07/31/2025 Refill [facility] [address] [place] [address] Clara Joseph MD Type 2 diabetes mellitus without complication, without long-term current use of insulin ([facility]) 07/28/2025 Refill [facility] [address] [place] [address] Dayna Adan MD Primary insomnia 07/28/2025 Refill [facility] [address] [place] [address] Clara Joseph MD Hypertension, unspecified type; Type 2 diabetes mellitus without complication, without long-term current use of insulin ([facility]); Primary insomnia 07/17/2025 Travel 07/10/2025 Telephone [facility] [address] [facility] [place] [address] Clara Joseph MD August Recalls 07/10/2025 Travel 07/07/2025 11:30 AM EDT Office Visit [facility] [address] [place] [address] Henok Cristina DDS Alveolitis of jaw, right (Primary Dx) 06/28/2025 9:00 AM EDT Office Visit [facility] [address] [facility] [place] [address] Henok Cristina DDS Periodontal disease (Primary Dx) 06/22/2025 Refill [facility] [address] [place] [address] Clara Joseph MD Type 2 diabetes mellitus without complication, without long-term current use of insulin (CMS/HCC) 06/04/2025 Orders Only [facility] [address] [place] [address] Clara Joseph MD Type 2 diabetes mellitus without complication, without long-term current use of insulin ([facility]) (Primary Dx) 06/02/2025 Telephone [facility] [address] [place] [address] Hamida Evans, PharmD 06/02/2025 Travel 05/26/2025 Orders Only [facility] External Provider, [facility] 05/15/2025 8:00 AM EDT Office Visit [facility] [address] [place] [address] Lillian Crawford Localized gingival recession, moderate (Primary Dx); Dental calculus; Abfraction; Periodontal disease; Excessive attrition of teeth, limited to enamel from Last 3 Months Immunizations Immunization Administration [...] Description 08/23/2025 10:15 AM EST Office Visit [facility] [address] [place] [phone] Clara Joseph MD [address] [place] [phone] 09/25/2025 9:00 AM EST Medication Management [facility] [address] [place] [phone] Hamida Evans, PharmD [address] [place] [address] 11/24/2025 8:45 AM EST Office Visit [facility] [address] [place] [address] Lillian Crawford [address] [place] [address] Health Maintenance Due Date Last Done Comments CT Colonography 1965 FIT DNA/Cologuard 1965 Sigmoidoscopy 1965 FIT 02/10/2024 02/09/2023, 02/09/2023 FOBT 02/10/2024 02/09/2023, 02/09/2023 Diabetes: Hemoglobin A1C 09/02/2025 025, 03/09/2025, 03/08/2025, Additional history exists Depression Monitoring 09/08/2025 03/08/2025, 05/28/2 025 Alcohol/Substance Use Screening 09/30/2025 09/30/2024 Diabetes: [...] Additional history exists Dental X-Ray: [facility]ings 05/16/2026 05/15/20 25, 05/11/2024, 04/02/2023, Additional history exists Tobacco Screening [...] 9:17 AM EDT) No Hamida Herman PharmD Procedures [...] complication, without long-term current use of insulin ([facility]) VASC US LOWER EXTREMITY VENOUS INSUFFICIENCY BILATERAL [...] :00 AM EDT Dental calculus Periodontal disease ALBUMIN, RANDOM URINE W/CREATININE Routine 03/09/2025 10:10 AM EDT Type 2 diabetes mellitus without complication, without long-term current use of insulin ([facility]) LIPID PANEL, STANDARD Routine 01/04/2025 9:18 AM [...] Media Lot # [id number] Lot# Expiration Date [id number] Blood 06/02/2025 9:17 AM EDT Clara Joseph MD POINT OF CARE TEST ENTER/E DIT ORDERABLES Final Result * VASC US Lower Extremity Venous Insufficiency Bilateral (05/26/2025 1:31 PM EDT) 05/26/2025 1:31 PM EDT Narrative [facility] - 05/26/2025 4:13 PM EDT [address] [address] Ultrasound Report Signed Patient: Jolie Werner MR#: [id number] : 1965 Acct:[id number] Age/Sex: 59 / F ADM Date: 05/26/25 Loc: HO.US Attending Dr: Mary Patel PA-C Ordering Physician: Mary Patel PA-C Date of Service: 05/26/25 Procedure(s): US venous insuf bilat Accession Number(s): [id number] cc: Clara Joseph MD; Mary Patel PA-C [...] Robert Huynh MD 05/26/2025 04:10 PM EDT Dictated By: Robert Brown MD Signed By: <Electronically signed by Robert Allison MD in OV> 05/26/25 1610 DD/ 1331 TD/TT: 05/26/25 1423 Small Animal Caretaker: Procedure Note Donotuseinterpreter, Image - 05/26/[address] [address] Ultrasound Report Signed Patient: Yeimy WerneradMR#: [id number] : 1965Acct:[id number] Age/Sex: 59 / FADM Date: 05/26/25 Loc: HO.US Attending Dr: Mary Patel PA-C Ordering Physician: Mary Patel PA-C Date of Service: 05/26/25 Procedure(s): US venous insuf bilat Accession Number(s): [id number] cc: Clara Joseph MD; Mary Patel PA-C [...] 05/26/25 1610 DD/ 1331 TD/TT: 05/26/25 1423 Small Animal Caretaker: [facility] External Provider CV VASC ULAR PROCEDURES Final Result Performing Organization Address [facility]/ZIP Co de Phone Number [facility] [address] [place] [phone] * Albumin, Random Urine W/Creatinine (03/09/2025 10:10 AM EDT) Creatinine, Urine 35.79 mg/dL [facility] Microalbumin Urine <5.0 mg/L [facility] Microalbum Creatinine Ratio Ur TNP <30 ug/mg cr [facility] Comment:Unable to calculate albumin/creatinine ratio due to lowmicroalbumin or creatinine result. Urine 03/09/2025 10:1 0 AM EDT 03/09/2025 12:03 PM EDT Clara Joseph MD LAB URINE ORDERABLES Final Result Performing Organization Address [facility]/ZIP Co de Phone Number [facility] [address] [place] [phone] * Lipid Panel, Standard (01/04/2025 9:18 AM EDT) Triglycerides 50 <150 mg/dL [facility] Comment:Desirable Triglyceri de: less than 150 mg/dLBorderline High Triglyceride 150-199 mg/dLHigh Triglyceride: 200-499 mg/dLVery High Triglyceride: greater than or equal to 5OO mg/dL Cholesterol 146 <200 mg/dL [facility] Comment:Desirable Cholestero l: less than 200 mg/dLBorderline High Cholesterol: 200-239 mg/dLHigh Cholesterol: greater than 239 mg/dL LDL Cholesterol Calculated 79 <100 mg/dL [facility] Comment:Desirable LDL: less than 100 mg/dLNear Optimal/Above Optimal LDL: 110- 129 mg/dLBorderline High LDL: 130-159 mg/dLHigh LDL: 160-189 mg/dLVery High LDL: greater than or equal to 190 mg/dL HDL Cholesterol 57 >40 mg/dL [facility] Comment:Desirable HDL: great er than 40 mg/dL Note: This HDL assay may give artificially low results in patients with liver disease. 01/04/2025 9:18 AM EDT 01/04/2025 11:05 AM EDT Clara Joseph MD LAB BLOOD ORDERABLES Final Result [facility] [address] [place] [address] [phone] * BI Mammogram Screening Tomosynthesis Bilateral (10/28/2024 2:30 PM EST) Anatomical Region Laterality Modality Breast Bilateral Mammography 10/28/2024 2:30 PM EST Narrative 11/06/2024 4:16 PM EST [facility] [address] [place] [address] Mammography Report Signed Patient: Jolie Werner MR#: [id number] : 1965 Acct:[id number] Age/Sex: 59 / F ADM Date: 10/28/24 Loc: HO.MAMMO Attending Dr: Clara Joseph MD Ordering Physician: Clara Joseph MD Results: 1N egative Date of Service: 10/28/24 Follow Up: 1 Year From Orig inal Mammogram Procedure(s): MM tomosynthesis screening BI Accession Number(s): [id number] cc: Clara Joseph MD EXAMINATION: MM SCREENING [...] by: Bridgett Delong DO 11/06/2024 04:13 PM [facility] Dictated By: Bridgett Delong DO Signed By: <Electronically signed by Bridgett Delong DO in OV> 11/06/24 1613 DD/ 1430 TD/TT: 10/28/24 1450 Small Animal Caretaker: Procedure Note Donotuseinterpreter, Image - 11/06/2024 [facility] [address] [place] [address] Mammography Report Signed Patient: Yeimy WerneradMR#: [id number] : 1965Acct:[id number] Age/Sex: 59 / FADM Date: 10/28/24 Loc: HO.MAMMO Attending Dr: Clara Joseph MD Ordering Physician: Clara Joseph MDResults: 1N egative Date of Service: 10/28/24Follow Up: 1 Year From Orig inal Mammogram Procedure(s): MM tomosynthesis screening BI Accession Number(s): [id number] cc: Clara Joseph MD EXAMINATION: MM SCREENING [...] 11/06/24 1613 DD/ 1430 TD/TT: 10/28/24 1450 Small Animal Caretaker: Clara Joseph MD IMG BI PROCEDURES Edited [...] Hepatitis C Antibody NON-REACT EILEEN NON-REACT EILEEN [employer] [facility] [place] [facility] Aerospacet Index 0.16 <1.00 [employer] [place] [facility] Comment: HCV antibody was non-reactive. There is no laboratory evidence of HCV infection. In most cases, no further action is required. However, if recent HCV exposure is suspected, a test for HCV RNA (test code 14856) is suggested. For additional information please refer to http://Instabank.Talkpush/faq/BQI27u3 (This link is being provided for informational/ educational purposes only.) Blood Venous blood specimen / Unknown 01/20/2023 8:39 AM EDT 01/20/2023 8:40 AM EDT Narrative [facility] - 01/20/2023 10:18 PM EDT FASTING:YES FASTING: YES Clara Joseph MD LAB BLOOD ORDERABLES Final Result [facility] [address], [place] [address] [facility] [place] [email or web address] [address] [place] [address] * HIV-1/2 Antigen and Antibodies, Fourth Generation, with Reflexes (01/20/2023 8:39 AM EDT) Pathologist [facility] HIV Antigen/Antibody, 4th Generation NON-REAC TIVE NON-REAC TIVE [employer] [place] [email or web address] Comment: HIV-1 antigen and HIV-1/HIV-2 antibodies were [...] purpose. For additional information please refer to http://Instabank.Talkpush/faq/NMM279 (This link is being provided for informational/ educational purposes only.) The performance of this assay has not been clinically validated in patients less than 2 years old. Blood Venous blood specimen / Unknown 01/20/2023 8:39 AM EDT 01/20/2023 8:40 AM EDT Narrative [facility] - 01/20/2023 10:18 PM EDT FASTING:YES FASTING: YES Clara Joseph MD LAB BLOOD ORDERABLES Final Result [facility] [address], [place] [address] [facility] [address] [place] [address] * THINPREP TIS PAP AND HPV mRNA E6/E7, CT/NG, TRICH (03/14/2022 12:12 PM EDT) Chlamydia trachomatis RNA, TMA, Urogenital NOT DETECTED NOT DETECTED [facility] Clinical Information: None given [facility] COMMENT SEE COMMENT [facility] Comment: The analytical performance characteristics of this assay, when used to test SurePath(TM) specimens have been determined by [employer]. The modifications have not been cleared or approved by the FDA. This assay has been validated pursuant to the CLIA regulations and is used for clinical purposes. For additional information, please refer to https://education.Talkpush/faq/FOL329 (This link is being provided for information/ [...] has been evaluated with computer assisted technology. [facility] Pocket And Pulley Machine Operator: SEE COMMENT [facility] Comment: CMG, CT(ASCP) CT screening location: [address] [address] HPV nRNA E6/E7 Not Detected Not Detected [facility] Comment: Methodology: Certified Lactation Educator-Mediated Amplification This assay detects E6/E7 viral messenger RNA (mRNA) from 14 high-risk HPV types (16,18,31,33,35,39,45,51,52,56,58,59,66,68). Cervical sources are required for HPV testing. If a vaginal source from a patient who has had a total hysterectomy with removal of cervix was submitted, please contact the testing laboratory for alternative testing options. For additional information, please refer to http://Instabank.Talkpush/faq/VIT943v5 (This link if provided for information/ educational [...] of this assay have been determined by [employer]. The modifications have not been cleared or approved by the FDA. This assay has been validated pursuant to the CLIA regulations and is used for clinical purposes. For additional information, please refer to http://Instabank.Talkpush/ faq/Trichomonastma (This link is being provided for information/ educational purposes only.) 03/14/2022 12:1 2 PM EDT Clara Joseph MD LAB PATHOLOGY ORDERABLES F inal Result Performing Organization Address [facility]/State/ZIP Co de Phone Number [facility] [address] * Pap Smear (03/14/2022 12:00 AM EDT) Swab [facility] Provider MD LAB CYTOLOGY ORDERABLES F inal Result Performing Organization Address City/[facility]/ZIP Co de Phone Number IMAGING from Last 3 Months or Most Recently Relevant to Health Maintenance Insurance [facility] CARE < [address] [facility] STANDARD [facility] Advance Directives Documents on File Type Date Recorded Patient Superintendent Construction Expl anation Advance Directives and Living Will 09/30/2024 Health Care Proxy 09/30/24 Care Teams Aircraft Design Engineer Relationship Specialty Start Date End Date Gaines, MD Clara [address] [place] [address] PCP - General Family Medicine 10/12/18 Hamida Evans, QuocD [address] [place] [address] Pharmacist Internal Medicine 01/07/23January [address]rd [place] [address] Gastroenterology 09/30/24 Galdino Lee MD [address] [place] [address] Ophthalmology 10/24/24 Sabine Martinez [address] [place] [address] Orthopaedic Surgery 11/08/24 Adis Hurley MD [address] [place] [address] Vascular Surgery 07/24/25 Mary Patel PA-C Vascular 10/13/24
--- OUTSIDE RECORDS SUMMARY | 2025-08-10 09:40 | XMS_ITS | Encounter Summary ---
Author Organization [employer] Address [address] [facility] 7t [place] [address] Care Team Providers Care Undergraduate Intern Name Role Phone Clara Joseph MD Primary Care Provider + [phone] Hamida Evans PharmD Unavailable [phone] DanielJanuary Unavailable Galdino Lee MD Unavailable [phone] Sabine Martinez Unavailable Adis Hurley MD Unavailable Reason for Visit * Reason Comments Med Refill Encounter Details Date Type Department Care Team (Late st Contact Info) Description 08/10/2025 Refill [facility] [address] [place], [place] [phone] Clara Joseph MD [address] [place], [place] [phone] Acquired hypothyroidism Social History Tobacco Use Types Packs/Day Years [...] the past 12 months, has t he [employer], gas, oil or water [employer] threatened to shut off services in your [...] Description 08/23/2025 10:15 AM EST Office Visit [facility] [address] [place] [phone] Clara Joseph MD [address] [place] [address] 09/25/2025 9:00 AM EST Medication Management [facility] [address] [place] [address] Hamida Evans, PharmD [address] [place] [address] 11/24/2025 8:45 AM EST Office Visit [facility] [address] [place] [phone] Lillian Crawford [address] [place] [address] documented as of this encounter Goals Goal Patient Goal Type Associated Problems Recent Progress Patient-Stated? Author Blood Pressure < 140/90 Blood Pressure 112/58(2024 9:28 AM EDT) No Hamida Herman PharmJohn Hemoglobin A1c < 7 Result Component 7.4( 9:17 AM EDT) No Hamida Herman PharmD documented as of this encounter Visit Diagnoses Diagnosis Acquired hypothyroidism Unspecified hypothyroidism documented in this encounter Additional Health Concerns Assessment Noted Time PHQ-9 Depression Total Score: 16 025 10:11 AM EDT documented as of this encounter Care Teams Undergraduate Intern Relationship Specialty Start Date End Date Clara Joseph MD [address] [place] [address] PCP - General Family Medicine 10/12/18 Hamida Evans PharmD [address] [place] [address] Pharmacist Internal Medicine 01/07/23January [address] 3rd [place] [address] Gastroenterology 09/30/24 Galdino Lee MD [address] [place] [address] Ophthalmology 10/24/24 Sabine Martinez [address] [place] [address] Orthopaedic Surgery 11/08/24 Adis Hurley MD [address] [place] [address] Vascular Surgery 07/24/25 Mary Patel PA-C Vascular 10/13/24 documented as of this encounter
--- OUTSIDE RECORDS SUMMARY | 2025-08-10 09:40 | XMS_ITS | Encounter Summary ---
Author Organization [employer] Address [address] [facility] 7t [place] [address] Care Team Providers Care Microfilm Operator Name Role Phone Clara Joseph MD Primary Care Provider [phone]- [phone] Hamida Evans PharmD Unavailable January Unavailable Galdino Lee MD Unavailable Sabine Martinez Unavailable Adis Hurley MD Unavailable Encounter Details Date Type Department Care Team (Late st Contact Info) Description 03/19/2023 Abstract [facility] [address] [place], [place] [phone] Clara Joseph MD 230 [place], [place] [phone] Social History Tobacco Use Types Packs/Day Years [...] Description 08/23/2025 10:15 AM EST Office Visit [facility] [address] [place] [address] Clara Joseph MD [address] [place] [address] 09/25/2025 9:00 AM EST Medication Management [facility] [address] [place] [address] Hamida Evans, PharmD [address] [place] [address] 11/24/2025 8:45 AM EST Office Visit [facility] ADULT DENTAL [address] [place] [phone] Lillian Crawford [address] [place] [address] documented as of this encounter Goals Goal [...] documented as of this encounter Care Teams Microfilm Operator Relationship Specialty Start Date End Date Clara Joseph MD [address] [place] [address] [phone] PCP - General Family Medicine 10/12/18 Hamida Evans, PharmD [address] [place] [address] [phone] Pharmacist Internal Medicine 01/07/23January [address] 3rd [place] [address] Gastroenterology 09/30/24 Galdino Lee MD [address] [place] [address] Ophthalmology 10/24/24 Sabine Martinez [address] [place] [address] Orthopaedic Surgery 11/08/24 Adis Hurley MD [address] [place] [address] Vascular Surgery 07/24/25 Mary Patel PA-C Vascular 10/13/24 documented as of this encounter
== END 2025-08-10 09:44 | disposition home or self-care (01) ==
LOC: HO.HVS 08:47
PROVIDERS: PCP Family Medicine; Visit Provider Surgery Vascular Surgery
DX: I83.12 Varicose veins of left lower extremity with inflammation (principal)
CPT/HCPCS: 99213

== ENCOUNTER → 2025-08-10 08:46 | Outpatient (BNVA) | payer OTHER, SELFPAY | PROVIDERS: PCP Family Medicine; Visit Provider Surgery Vascular Surgery | DX: Z48.812 Encounter for surgical aftercare following surgery on the circulatory system (principal); I83.12 Varicose veins of left lower extremity with inflammation | CPT/HCPCS: 99212 ==

== ENCOUNTER 2025-09-26 08:39 | Outpatient (REF) | payer OTHER, SELFPAY ==
--- OUTSIDE RECORDS SUMMARY | 2025-09-26 09:19 | XMS_ITS | Encounter Summary ---
Author Organization [employer] Address [address] [facility] 7t [place] [address] Care Team Providers Care Water Main Installer Helper Name Role Phone Clara Joseph MD Primary Care Provider + [phone] Hamida Evans PharmD Unavailable January Unavailable Galdino Lee MD Unavailable [phone] Sabine Martinez Unavailable Adis Hurley MD Unavailable Reason for Visit * Reason Comments Med Refill Encounter Details Date Type Department Care Team (Late st Contact Info) Description 12/08/2024 Refill [facility] [address] [place], [place] [phone] Clara Joseph MD [address] [place], [place] [phone] Type 2 diabetes mellitus without complication, without long-term current use of insulin ([facility]) Social History Tobacco Use Types Packs/Day Years [...] Care Team (Late st Contact Info) Description 11/24/2025 8:45 AM EST Office Visit [facility] ADULT DENTAL [address] [place] [address] Yvette, Lillian [address] [place] [address] 11/28/2025 9:00 AM EST Medication Management [facility] [address] [place] [address] Hamida Evans PharmD [address] [place] [address] documented as of this encounter Goals Goal Patient Goal Type Associated Problems Recent Progress Patient-Stated? Author Blood Pressure < 140/90 Blood Pressure 120/60(2024 9:12 AM EST) No Hamida Herman PharmD Hemoglobin A1c < 7 Result Component 7(08/23/2025 10:27 AM EST) No Hamida Herman, PharmD documented as of this encounter Visit Diagnoses Diagnosis Type 2 diabetes mellitus without complication, without long-term current use of insulin (HCC) documented in this encounter Additional Health Concerns Assessment Noted Time PHQ-9 Depression Total Score: 4 01/15/20 10:43 AM EDT documented as of this encounter Care Teams Water Main Installer Helper Relationship Specialty Start Date End Date Clara Joseph MD [address] [place] [address] PCP - General Family Medicine 10/12/18 Hamida Evans, PharmD [address] [place] [address] Pharmacist Internal Medicine 01/07/23DanielJanuary [address] 3rd [place] [address] Gastroenterology 09/30/24 Galdino Lee MD [address] [place] [address] Ophthalmology 10/24/24 Sabine Martinez [address] [place] [address] Orthopaedic Surgery 11/08/24 Adis Hurley MD [address] [place] [address] Vascular Surgery 07/24/25 Mary Patel PA-C Vascular 10/13/24 documented as of this encounter
--- OUTSIDE RECORDS SUMMARY | 2025-09-26 09:19 | XMS_ITS | Encounter Summary ---
Author Organization [employer] Address [address] [facility] 7t [place] [address] Care Team Providers Care Squash Centre Manager Name Role Phone Clara Joseph MD Primary Care Provider [phone]- [phone] Hamida Evans PharmD Unavailable [phone] January Unavailable Galdino Lee MD Unavailable [phone] Sabine Martinez Unavailable Adis Hurley MD Unavailable Encounter Details Date Type Department Care Team (Late st Contact Info) Description 04/05/2024 Orders Only [facility] [address] [place], [place] [phone] Provider, MD Irineo Social History Tobacco Use [...] 8:45 AM EST Office Visit [facility] ADULT DENTAL [address] [place] [address] Yvette, Lillian [address] [place] [address] 11/28/2025 9:00 AM EST Medication Management [facility] 230 [place] [address] Hamida Evans, QuocD [address] [place] [address] documented as of this encounter Goals Goal Patient Goal Type Associated Problems Recent Progress Patient-Stated? Author Blood Pressure < 140/90 Blood Pressure 120/60(2024 9:12 AM EST) No ArtsHamida Ivy, PharmD Hemoglobin A1c < 7 Result Component 7(08/23/2025 10:27 AM EST) No Hamida Herman, PharmD documented as of this encounter Procedures Procedure Name Priority Date/Time Associated Diagnosis Comments HM COLONOSCOPY Routine 01/30/2024 12:30 PM EDT documented in this encounter Results * Hm Colonoscopy (01/30/2024 12:30 PM EDT) Historical Provider HEALTH MAINTENANCE Final Result documented in this encounter Visit Diagnoses Not on filedocumented in this encounter Additional Health Concerns Assessment Noted Time PHQ-9 Depression Total Score: 4 01/15/20 24 10:43 AM EDT documented as of this encounter Care Teams Squash Centre Manager Relationship Specialty Start Date End Date Clara Joseph MD [address] [place] [address] PCP - General Family Medicine 10/12/18 Hamida Evans, QuocD [address] [place] [address] Pharmacist Internal Medicine 01/07/[address] 3rd [place] [address] Gastroenterology 09/30/24 Galdino Lee MD [address] [place] [address] Ophthalmology 10/24/24 Sabine Martinez [address] [place] [address] Orthopaedic Surgery 11/08/24 Adis Hurley MD [address] [place] [address] Vascular Surgery 07/24/25 Mary Patel PA-C Vascular 10/13/24 documented as of this encounter
--- OUTSIDE RECORDS SUMMARY | 2025-09-26 09:19 | XMS_ITS | Encounter Summary ---
Author Organization [email or web address] Address [address] [facility] 7t [place] [address] Care Team Providers Care Cook Soup Name Role Phone Clara Joseph MD Primary Care Provider + [phone] Hamida Evans PharmD Unavailable [phone] January Unavailable Galdino Lee MD Unavailable [phone] Sabine Martinez Unavailable Adis Hurley MD Unavailable Encounter Details Date Type Department Care Team (Late st Contact Info) Description 09/30/2024 Orders Only [facility] [address] [place], [place] [phone] Clara Joseph MD [address] [place], [place] [phone] Social History Tobacco Use Types Packs/Day Years [...] Description 11/24/2025 8:45 AM EST Office Visit [facility] ADULT DENTAL [address] [place] [address] Yvette, Lillian [address] [place] [address] 11/28/2025 9:00 AM EST Medication Management [facility] [address] [place] [address] Hamida Evans PharmD [address] [place] [address] documented as of this encounter Goals Goal Patient Goal Type Associated Problems Recent Progress Patient-Stated? Author Blood Pressure < 140/90 Blood Pressure 120/60(2024 9:12 AM EST) No Hamida Herman, PharmD Hemoglobin A1c < 7 Result Component 7(08/23/2025 10:27 AM EST) No Hamida Herman PharmD documented as of this encounter Visit Diagnoses Not on filedocumented in this encounter Additional Health Concerns Assessment Noted Time PHQ-9 Depression Total Score: 4 04/05/20 24 10:43 AM EDT documented as of this encounter Care Teams Cook Soup Relationship Specialty Start Date End Date Clara Joseph MD [address] [place] [address] PCP - General Family Medicine 10/12/18 Hamida Evans, Fletcher [address] [place] [address] Pharmacist Internal Medicine 01/07/23January [address] 3rd [place] [address] Gastroenterology 09/30/24 Galdino Lee MD [address] [place] [address] Ophthalmology 10/24/24 Sabine Martinez [address] [place] [address] Orthopaedic Surgery 11/08/24 Adis Hurley MD [address] [place] [address] Vascular Surgery 07/24/25 Mary Patel PA-C Vascular 10/13/24 documented as of this encounter
--- OUTSIDE RECORDS SUMMARY | 2025-09-26 09:19 | XMS_ITS | Clinical Summary ---
Author Organization [employer] Address [address] [place] [address] Care Team Providers Care Clinic Coordinator Name Role Phone Clara Joseph MD Primary Care Provider [phone]- [phone] Hamida Evans PharmD Unavailable [phone] January Unavailable Galdino Lee MD Unavailable [phone] Sabine Martinez Unavailable Adis Hurley MD Unavailable Allergies No known active allergies Medications escitalopram (Lexapro) 20 MG tabletIndications: Depressive disorder Take 20 mg by mouth Once per day. 2 Active atenolol (Tenormin) 25 MG tabletIndications: Primary [...] per day. 90 tablet 3 5 Active omeprazole (PriLOSEC) [address] [...] complication, without long-term current use of insulin ([facility]) Take 1 tablet (5 mg) by mouth Once per day. 90 tablet 3 5 Active Multiple Vitamin (multivitamin) capsule PT REPORTS PURCHASING OTC Active Turmeric-Tracie 130-5 MG chewable tablet PT REPORTS PURCHASING OTC Active FREESTYLE LITE test stripIndications:T ype 2 diabetes mellitus without complication, without long-term current use of insulin ([facility]) TEST BLOOD SUGAR THREE TIMES DAILY 100 strip 11 09/05/2025 12:06 PM EST 5 Active Jardiance 25 MGIndications:Type 2 diabetes mellitus without complication, without long-term current use of insulin ([facility]) TAKE 1 TABLET BY MOUTH EVERY MORNING 30 tablet 6 5 Active acetaminophen (Tylenol 8 Hour) 650 MG ER tablet Take 1 tablet (650 mg) by mouth every 8 (eight) hours if needed for mild pain. Do not crush, chew, or split. 30 tablet 5 Active glipiZIDE (Glucotrol) 5 MG tabletIndications: Type 2 diabetes mellitus without complication, without long-term current use of insulin ([facility]) TAKE 1 TABLET BY MOUTH BEFORE BREAKFAST AND 2 TABLETS BEFORE DINNER. DO NOT TAKE IF SKIPPING MEAL. 270 tablet 5 Active lisinopril 5 MG tabletIndications: Hypertension, unspecified type,Type 2 diabetes mellitus without complication, without long-term current use of insulin ([facility]) TAKE 1 TABLET BY MOUTH EVERY EVENING 30 tablet 5 5 Active melatonin tabletIndications: Primary insomnia TAKE 1 TABLET BY MOUTH AT BEDTIME NEEDED FOR SLEEP 30 tablet 5 09/05/2025 12:06 PM EST 5 Active TRUEplus Lancets 33G miscIndications:Ty pe 2 diabetes mellitus without complication, without long-term current use of insulin ([facility]) USE THREE TIMES DAILY TO TEST BLOOD SUGAR 100 each 11 5 Active levothyroxine (Synthroid, Levoxyl) 75 MCG tabletIndications: Acquired hypothyroidism TAKE 1 TABLET BY MOUTH EVERY MORNING 90 tablet 3 5 Active Flaxseed, Linseed, (FLAX SEEDS PO) Patient purchasing OTC Active Active Problems Patient Care Coordination No te Formatting of this note migh t be different from the original. Enrolled in [facility] DM and HTN clinic with Hamida Evans PharmD, [facility] Cloth Colorer: Jeaneth, member services number [phone] Housekeeper Nanny Agency: [facility] Problem Noted Date Diagnosed Date Transaminitis 03/09/2025 Overview (05/03/2025): Lab Results Component [...] of diffuse hepatocellular process. Assessment & Plan (08/23/2025 12:21 PM EST): Lab Results Component Value Date AST 65 (H) 03/09/2025 AST 43 (H) 01/04/2025 AST 16 04/09/2023 AST 13 01/20/2023 ALT 97 (H) 03/09/2025 ALT 65 (H) 01/04/2025 ALT 17 04/09/2023 ALT 17 01/20/2023 TOTALBILIRUB 0.7 03/09/2025 TOTALBILIRUB 1.0 01/04/2025 INR 1.0 10/22/2024 PLT 155 (L) 10/22/2024 CREATININE 0.80 10/22/2024 NA 138 10/22/2024 -stable, likely metabolic dysfunction-associated steatotic liver disease -Us ordered 03/09/25 -continue to avoid hepatotoxic agents Assessment & Plan (03/09/2025 4:05 PM EDT): [...] veins of both lower extremities 025 Overview (08/22/2025): -seen by James Patel 10/2024 the patient [...] we do not have them translated into [place]ian, she states she does read a little Yoruba) and where to purchase good compression stockings as well. I had the time study clerk discuss the type of compression stockings and [...] new symptoms. The office telephone contact is [phone]. -seen by Dr. Hurley 07/23/25 plan for eft great saphenous vein Cyanoacralate ablation Postmenopausal 10/24/2024 Overview (10/24/2024): - Prescribed MAGNESIUM OXIDE 400 PO 10/24/24 Assessment & Plan (08/23/2025 12:21 PM EST): - Prescribed MAGNESIUM OXIDE 400 PO 10/24/24 Orders: Vitamin D, 25-Hydroxy, Total, Immunoassay; Future Assessment & Plan (10/24/2024 12:53 PM EST): - Prescribed MAGNESIUM OXIDE 400 PO 10/24/24 Gastroesophageal reflux disease 10/24/2024 Left hip pain 09/30/2024 Overview (11/08/2024): - hip LT min 2V w/wo pel 10/18/23 IMPRESSION: Moderate joint space narrowing. -seen by Dr. Martinez [facility] 11/08/24 and given cortisone [...] of blood transfusion s as patient is Cheondoism 04/05/2024 Colon cancer screening 09/23/2023 Overview (10/24/2024): [...] by followed by Dr. Galdino Lee of [facility] -dental home is pt does not remember name -health care proxy filed Assessment & Plan (03/08/2025 10:21 AM EDT): -next physical due after 03/08/26 -eye care facilitated by followed by Dr. Galdino Lee of [facility] -dental home is pt does not remember name -health care proxy filed Assessment & Plan (09/23/2023 11:18 AM EST): -next physical due after January, -eye care facilitated by followed by Dr. Galdino Lee of [facility] -dental home is pt does [...] nerve. - S/p surgical resection 03/23/17 at [facility] in [place]. - Continued instability, dizziness and right facial numbness and decreased taste. 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 - Pt followed by therapist and psychiatry. - She is compliant wit Clonazepam and Citalopram. Assessment & Plan (08/23/2025 12:21 PM EST): Depression. - Pt followed by therapist [...] 02/29/2024 TSH 3.59 01/20/2023 Assessment & Plan (08/23/2025 12:21 PM EST): Lab Results Component Value Date TSH 3.06 [...] - Continue levothyroxine 75mcg. Allergic rhinitis 01/31/2013 Type 2 diabetes mellitus wit hout complication, without long-term current use of insulin 06/25/2012 Overview (09/25/2025): Diabetes is controlled. Diabetes is followed with pharmacy [facility] by Dr. Hamida Evans PharmJohn, [facility]. Lab Results Component Value Date HGBA1C 7.0 (A) 08/23/2025 HGBA1C 7.4 (A) 06/02/2025 HGBA1C 8.1 (H) 03/09/2025 Lab Results Component Value Date CREATININE 0.80 10/22/2024 EGFR >60 10/22/2024 MICROALBCREU TNP 03/09/2025 MICROALBCREU TNP 02/29/2024 LDLCHOLCAL 79 01/04/2025 -Santi/Arb: lisinopril 5mg -Statin therapy: rosuvastatin 40mg -zetia added by [facility] -Diabetic eye exam: with Dr. Lee in 02/10/25 -Diabetic foot exam: 09/23/23 -Continue lifestyle modifications -Continue current medications: - Jardiance 25 mg -Discontinue Metformin 500 mg 01/15/24 due to GI upset. -Trulicity discontinued due to GI upset; tradjenta 5mg once daily started - Glipizide 5mg *Patient was last seen in [facility] clinic 09/25/25; patient to continue glipizide 5mg before breakfast and 10mg before dinner. Assessment & Plan (08/23/2025 12:21 PM EST): Diabetes is controlled. Diabetes is followed with pharmacy [facility] by Dr. Hamida Evans PharmD, [facility]. Lab Results Component Value Date HGBA1C 7.0 (A) 08/23/2025 HGBA1C 7.4 (A) 06/02/2025 HGBA1C 8.1 (H) 03/09/2025 Lab Results Component Value Date CREATININE 0.80 10/22/2024 EGFR >60 10/22/2024 MICROALBCREU TNP 03/09/2025 MICROALBCREU TNP 02/29/2024 LDLCHOLCAL 79 01/04/2025 -Santi/Arb: lisinopril 5mg -Statin therapy: rosuvastatin 40mg -zetia added by [facility] -Diabetic eye exam: with Dr. Lee in 02/10/25 -Diabetic foot exam: 09/23/23 -Continue lifestyle modifications -Continue current medications: - Jardiance 25 mg -Discontinue Metformin 500 mg 01/15/24 due to GI upset. -Trulicity discontinued due to GI upset; tradjenta 5mg once daily started - Glipizide 5mg once daily before dinner Orders: Albumin, Random Urine W/Creatinine; Future Hepatic Function Panel; Future Lipid Panel, Standard; Future Hemoglobin A1c; Future Basic Metabolic Panel; Future POCT glucose manually resulted POCT glycosylated hemoglobin (Hgb A1c) Assessment & Plan (03/08/2025 10:19 AM EDT): Diabetes is controlled. Diabetes is followed with pharmacy [facility] by Dr. Hamida Evans PharmD, [facility]. Lab Results Component Value Date HGBA1C 8.0 (A) 02/10/2025 HGBA1C 8.2 (A) 11/04/2024 HGBA1C 7.1 (A) 08/23/2024 Lab Results Component Value Date CREATININE 0.80 10/22/2024 EGFR >60 10/22/2024 MICROALBCREU TNP 02/29/2024 LDLCHOLCAL 79 01/04/2025 -Santi/Arb: lisinopril 5mg -Statin therapy: rosuvastatin 40mg -zetia added by [facility] -Diabetic eye exam: with Dr. Lee [...] pharmacy CDTM by Dr. Hamida Evans PharmD, [facility]. Lab Results Component Value Date HGBA1C 5.4 [...] Not controlled. A1c 10.2% 12/17/22. Referral to [facility] 12/17/22. Dyslipidemia 06/25/2012 Overview (08/23/2025): Lab Results Component Value Date TRIG 50 01/04/2025 TRIG 61 04/09/2023 CHOL 146 01/04/2025 LDLCHOLCAL 79 01/04/2025 HDL 57 01/04/2025 -Previously changed from pravastatin to rosuvastatin for high intensity statin by [facility] - Rosuvastatin increased from 20mg once daily to 40mg once daily by [facility] 08/23/24 due to hyperlipidemia LDL Cholesterol Calculated Date Value Ref Range Status 01/04/2025 79 <100 mg/dL Final Comment: Desirable LDL: less than 100 mg/dLNear Optimal/Above Optimal LDL: 110-129 mg/dLBorderline High LDL: 130-159 mg/dLHigh LDL: 160-189 mg/dLVery High LDL: greater than or equal to 190 mg/dL Assessment & Plan (08/23/2025 12:21 PM EST): Lab Results Component Value Date TRIG 50 01/04/2025 TRIG 61 04/09/2023 CHOL 146 01/04/2025 LDLCHOLCAL 79 01/04/2025 HDL 57 01/04/2025 -Previously changed from pravastatin to rosuvastatin for high intensity statin by [facility] - Rosuvastatin increased from 20mg once daily to 40mg once daily by [facility] 08/23/24 due to hyperlipidemia [...] to rosuvastatin for high intensity statin by [facility] - Rosuvastatin increased from 20mg once daily to 40mg once daily by [facility] 08/23/24 due to hyperlipidemia [...] modifications -Continue current medications Assessment & Plan (08/23/2025 12:21 PM EST): -Blood pressure is at goal -Continue [...] Subconjunctival hemorrhage of left eye 07/07/2025 07/24/2025 Tendonitis 07/07/2025 08/22/2025 Varicose veins of both lower extremities with inflammation 07/07/2025 08/22/2025 Assessment & Plan (08/23/2025 12:21 PM EST): Doing much better after surgery. Localized gingival recession, moderate 05/15/2025 07/24/2025 Dental calculus 05/15/2025 07/24/2025 Abfraction 05/15/2025 07/24/2025 Alveolitis of jaw, right 05/15/2025 Excessive attrition of teeth , limited to enamel 05/15/2025 07/24/2025 Meningioma (CMS/HCC) 10/24/2024 025 Dizzy 09/30/2024 10/20/2024 Abfraction 06/17/2024 03/08/2025 Tooth [...] Encounters Date Type Department Care Team Description 09/26/2025 Refill [facility] [address] [place] [address] [phone] Clara Joseph MD Primary hypertension 09/25/2025 Travel 08/23/2025 10:15 AM EST Office Visit [facility] [address] [place] [address] [phone] Clara Joseph MD Type 2 diabetes mellitus without complication, without long-term current use of insulin ([facility]) (Primary Dx); Primary hypertension; Dyslipidemia; 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 prior episode (CMS/HCC) (HCC); Hypothyroidism, unspecified type; Transaminitis; Varicose veins of both lower extremities with inflammation; Encounter for immunization; Postmenopausal 08/23/2025 Travel 08/22/2025 Telephone [facility] [address] [place] [address] [phone] Clara Joseph MD chart prep 08/10/2025 Refill [facility] [address] [place] [address] [phone] Clara Joseph MD Acquired hypothyroidism 07/31/2025 Refill [facility] [address] [place] [address] [phone] Clara Joseph MD Type 2 diabetes mellitus without complication, without long-term current use of insulin (HCC) 07/28/2025 Refill [facility] [address] [place] [address] [phone] Dayna Adan MD Primary insomnia 07/28/2025 Refill [facility] [address] [place] [address] [phone] Clara Joseph MD Hypertension, unspecified type; Type 2 diabetes mellitus without complication, without long-term current use of insulin (HCC); Primary insomnia 07/17/2025 Travel 07/10/2025 Telephone [facility] [address] [place] [phone] Clara Joseph MD August Recalls 07/10/2025 Travel 07/07/2025 11:30 AM EDT Office Visit [facility] [address] [place] [phone] Henok Cristina DDS Alveolitis of jaw, right (Primary Dx) 06/28/2025 9:00 AM EDT Office Visit [facility] [address] [place] [phone] Henok Cristina DDS Periodontal disease (Primary Dx) from Last 3 Months Immunizations Immunization Administration Dates Next Due Hep B, adult 07/18/2015,09/13/2014,05/01/2014 Influenza injectable quadriv alent IIV4 with preservative 07/02/2018 Influenza injectable quadriv alent preservative free 07/01/2023,06/30/2022,07/23/2021,08/02,08/04/2019,07/18/2015 Influenza, IIV3, injectable 09/13/2014, 0 Influenza, Split (incl. rachel fied surface antigen) 06/29/2013,06/25/2012 Influenza, seasonal, injecta ble, preservative free 07/17/2025,06/30/2024,07/07/2016 Meningococcal Polysaccharide A,C,Y,W-135 TT Conjugate 08/23/2025 Pfizer Covid-19 Vaccine 12+ 06/30/2024,1 ,09/01/2022,01/16,12/26/2020 Pfizer [...] Answer Date Recorded Patient Health Questionnaire-9 Score 0 08/23/2025 Patient Health Questionnaire-9 Score 0 08/23/2025 Last PHQ-9: Questionnaire Data Not on file 1 10/23/2024 Housing Stability Answer Date Recorded What is [...] Answer Date Recorded Patient Health Questionnaire-2 Score 0 08/23/2025 Internet Access Answer Date Recorded Internet Access [...] Sign Reading Time Taken Comments Blood Pressure 120/60 09/25/2025 9:12 AM EST Pulse 62 09/25/2025 9:12 AM EST Temperature 37.2 C (98.9 F) 08/23/2025 10:03 AM EST Respiratory Rate 20 08/23/2025 10:0 3 AM EST Oxygen Saturation 98% 08/23/2025 10: 03 AM EST Inhaled Oxygen Concentration - - Weight 69.3 kg (152 lb 12.8 oz) 025 10:03 AM EST Height 162.6 cm (5' 4 ) 10/24/2024 11:3 9 AM EST Body Mass Index 26.23 10/24/2024 11:39 AM EST Plan of Treatment Upcoming Encounters Date Type Department Care Team (Late st Contact Info) Description 11/24/2025 8:45 AM EST Office Visit [facility] [address] [place] [address] Yvette, Lillian [address] [place] [address] 11/28/2025 9:00 AM EST Medication Management [facility] [address] [place] [address] Hamida Evans, PharmD [address] [place] [address] Health Maintenance Due Date Last Done Comments CT Colonography 1965 FIT DNA/Cologuard 1965 Sigmoidoscopy 1965 FIT 02/10/2024 02/09/2023, 02/09/2023 FOBT 02/10/2024 02/09/2023, 02/09/2023 Diabetes: Foot Exam 09/30/2025 09/30/2024, 09/30/2024, 09/30/2024, Additional history exists Dental Oral Exam 11/16/2025 05/15/2025, , 04/02/2023, Additional history exists Dental Prophylaxis 11/16/2025 05/15/2025, 0 11/14/2024, 05/11/2024, Additional history exists Diabetes: Hemoglobin A1C 11/23/2025 025, 06/02/2025, 03/09/2025, Additional history exists Lipid Panel 01/04/2026 01/04/2025, 09/13, 05/02/2024, Additional history exists Disability Screening 03/08/2026 03/08/2025 SDOH Screening 03/08/2026 03/08/2025 Diabetes: Urine Protein Screening 03/09/2026 03/09/2025, 02/29/2024, 03/12/2021, Additional history exists Dental X-Ray: Bitewings 05/16/2026 05/15/20, 05/11/2024, 04/02/2023, Additional history exists Alcohol/Substance Use Screening 08/23/2026 08/23/2025 Depression Screening 08/23/2026 08/23/2025, 08/23/20 Tobacco Screening 08/23/2026 08/23/2025 Mammogram 10/28/2026 10/28/2024, 10/12, 10/03/2022, Additional history [...] Aged 60 years or older Completed 01/26/2024 Influenza Vaccine Completed 07/17/2025, , 07/01/2023, Additional history exists COVID-19 Vaccine Completed 07/20/2025, , 07/15/2023, Additional history exists Meningococcal Vaccine Discontinued 08/23/2025 HIB Vaccines Discontinued HPV Vaccines Aged Out No longer eligi ble based on patient's age to complete this topic Hepatitis A Vaccines Aged Out No long er eligible based on patient's age to complete this topic IPV Vaccines Aged Out No longer eligi ble based on patient's age to complete this topic Meningococcal B Vaccine Discontinued RSV under 20 months Aged Out No longe r eligible based on patient's age to complete this topic Rotavirus Vaccines Aged Out No longer eligible based on patient's age to complete this topic Goals Goal Patient Goal Type Associated Problems Recent Progress Patient-Stated? Author Blood Pressure < 140/90 Blood Pressure 120/60(2024 9:12 AM EST) No Hamida Herman, PharmJohn Hemoglobin A1c < 7 Result Component 7(08/23/2025 10:27 AM EST) No Hamida Herman PharmD Help patients manage their type 2 diabetes Care Plan Help patients manage their type 2 diabetes No Orly Mariee MA Weekly blood pressure task Care Plan Weekly blood pressure task No Orly Mariee MA Help patients manage their type 2 diabetes Care Plan Help patients manage their type 2 diabetes No Orly Mariee MA Patient has chronic kidney disease Care Plan Patient has chronic kidney disease No Orly Mariee MA Weekly blood pressure task Care Plan Weekly blood pressure task No Orly Mariee MA Patient has chronic kidney disease Care Plan Patient has chronic kidney disease No Orly Mariee MA Weekly blood pressure task Care Plan Weekly blood pressure task No Hamida Herman PharmD Weekly blood pressure task Care Plan Weekly blood pressure task No Hamida Herman PharmD Patient has chronic kidney disease Care Plan Patient has chronic kidney disease No Hamida Herman PharmD Patient has chronic kidney disease Care Plan Patient has chronic kidney disease No Hamida Herman PharmD Procedures Procedure Name Priority Date/Time Associated Diagnosis Comments POCT GLUCOSE Routine 08/23/2025 10:28 AM EST Type 2 diabetes mellitus without complication, without long-term current use of insulin ([facility]) POCT GLYCOSYLATED HEMOGLOBIN (HGB A1C) Routine 08/23/2025 10:27 AM EST Type 2 diabetes mellitus without complication, without long-term current use of insulin ([facility]) PANORAMIC RADIOGRAPHIC IMAGE Routine 07/07/2025 11:30 AM EDT CASE PRESENTATION, DETAILED AND EXTENSIVE TREATMENT PLANNING Routine 06/28/2025 9:00 AM EDT 32 EXTRACTION, ERUPTED TOOTH REQ REMOVAL OF BONE AND/OR SECTIONING OF TOOTH Routine 06/28/2025 9:00 AM EDT PROPHYLAXIS - ADULT Routine 05/15/2025 8 :00 AM EDT Dental calculus Periodontal disease BITEWINGS - 4 RADIOGRAPHIC IMAGES Routine 05/15/2025 8:00 AM EDT Localized gingival recession, moderate Dental calculus Abfraction Periodontal disease Excessive attrition of teeth, limited to enamel PERIODIC ORAL EVALUATION - ESTABLISHED PATIENT Routine 05/15/2025 8:00 AM EDT ALBUMIN, RANDOM URINE W/CREATININE Routine 03/09/2025 10:10 AM EDT Type 2 diabetes mellitus without complication, without long-term current use of insulin ([facility]) LIPID PANEL, STANDARD Routine 01/04/2025 9:18 AM [...] Maintenance Results * POCT glucose manually resulted (08/23/2025 10:28 AM EST) Glucose Blood, POC 155 60 - 200 mg/dL QC Media Lot # [id number] Lot# Expiration Date 3,026 Blood Capillary blood specimen / Unknown 08/23/2025 10:28 AM EST Clara Joseph MD POINT OF CARE TEST ENTER/E DIT ORDERABLES Final Result * (ABNORMAL) POCT glycosylated hemoglobin (Hgb A1c) (08/23/2025 10:27 AM EST) Hemoglobin A1C 7.0(A) 4.0 - 5.7 % QC Media Lot # [id number] Lot# Expiration Date 016,027 Blood Capillary blood specimen / Unknown 08/23/2025 10:27 AM EST Clara Joseph MD POINT OF CARE TEST ENTER/E DIT ORDERABLES Final Result * Albumin, Random Urine W/Creatinine (03/09/2025 10:10 AM EDT) Creatinine, Urine 35.79 mg/dL [facility] Microalbumin Urine <5.0 mg/L [facility] Microalbum Creatinine Ratio Ur TNP <30 ug/mg cr [facility] Comment:Unable to calculate albumin/creatinine ratio due to lowmicroalbumin or creatinine result. Urine 03/09/2025 10:1 0 AM EDT 03/09/2025 12:03 PM EDT us Clara Joseph MD LAB URINE ORDERABLES Final Result [facility] [address] [place] [address] [phone] * Lipid Panel, Standard (01/04/2025 9:18 AM EDT) Triglycerides 50 <150 mg/dL [facility] Comment:Desirable Triglyceri de: less than 150 mg/dLBorderline High Triglyceride 150-199 mg/dLHigh Triglyceride: 200-499 mg/dLVery High Triglyceride: greater than or equal to 5OO mg/dL Cholesterol 146 <200 mg/dL [facility] Comment:Desirable Cholestero l: less than 200 mg/dLBorderline High Cholesterol: 200-239 mg/dLHigh Cholesterol: greater than 239 mg/dL LDL Cholesterol Calculated 79 <100 mg/dL [facility] Comment:Desirable LDL: less than 100 mg/dLNear Optimal/Above Optimal LDL: 110- 129 mg/dLBorderline High LDL: 130-159 mg/dLHigh LDL: 160-189 mg/dLVery High LDL: greater than or equal to 190 mg/dL HDL Cholesterol 57 >40 mg/dL [facility] Comment:Desirable HDL: grea ter than 40 mg/dL Note: This HDL assay may give artificially low results in patients with liver disease. 01/04/2025 9:18 AM EDT 01/04/2025 11:05 AM EDT Clara Joseph MD LAB BLOOD ORDERABLES Final Result [facility] [address] [place] [address] [phone] * BI Mammogram Screening Tomosynthesis Bilateral (10/28/2024 2:30 PM EST) Anatomical Region Laterality Modality Breast Bilateral Mammography 10/28/2024 2:30 PM EST Narrative 11/06/2024 4:16 PM EST [address] [place] [address] Mammography Report Signed Patient: Jolie Werner MR#: [id number] : 1965 Acct:[id number] Age/Sex: 59 / F ADM Date: 10/28/24 Loc: HO.MAMMO Attending Dr: Clara Joseph MD Ordering Physician: Clara Joseph MD Results: 1N egative Date of Service: 10/28/24 Follow Up: 1 Year From Orig ina Mammogram Procedure(s): MM tomosynthesis screening BI Accession Number(s): [id number] cc: Clara Joseph MD EXAMINATION: MM SCREENING [...] Bridgett Delong DO 11/06/2024 04:13 PM EST RP Dictated By: Bridgett Delong DO Signed By: <Electronically signed by Bridgett Delong DO in OV> 11/06/24 1613 DD/ 1430 TD/TT: 10/28/24 1450 [employer] Pet[employer] Operator: Procedure Note Donotuseinterpreter, Image - 11/06/[address] [facility] [address] [place] [address] Mammography Report Signed Patient: Yeimy WerneradMR#: [id number] : 1965Acct:[id number] Age/Sex: 59 / FADM Date: 10/28/24 Loc: HO.MAMMO Attending Dr: Clara Joseph MD Ordering Physician: Clara Joseph MDResults: 1N egative Date of Service: 10/28/24Follow Up: 1 Year From Orig inal Mammogram Procedure(s): MM tomosynthesis screening BI Accession Number(s): [id number] cc: Clara Joseph MD EXAMINATION: MM SCREENING [...] Bridgett Delong DO 11/06/2024 04:13 PM EST RP Dictated By: Bridgett Delong DO Signed By: <Electronically signed by Bridgett Delong DO in OV> 11/06/24 1613 DD/ 1430 TD/TT: 10/28/24 1450 [employer] Pet[employer] Operator: Result [facility] [facility] Clara Joseph MD IMG BI PROCEDURES Edited R esult - Final * Hm Colonoscopy (01/30/2024 12:30 PM EDT) Result [facility] Historical Provider HEALTH MAINTENANCE Final Result * Hm Diabetes Eye Exam (09/25/2023) Eye Exam Normal Normal Result [facility] Historical Provider HEALTH MAINTENANCE Final Result * Fecal Globin by Immunochemistry (02/09/2023 3:08 PM EDT) Stool Rectal contents / Unknown 02/09/2023 3:08 PM EDT Result [facility] Historical Provider LAB BODY FLUIDS AND STOOL S ORDERABLES Final Result * Hepatitis C Antibody with Reflex to HCV, RNA, Quantitative, Real-Time PCR (01/20/2023 8:39 AM EDT) Hepatitis C Antibody NON-REACT EILEEN NON-REACT EILEEN [facility] [facility] [place] [facility] Index 0.16 <1.00 [facility] Comment: HCV antibody was non-reactive. There is no laboratory evidence of HCV infection. In most cases, no further action is required. However, if recent HCV exposure is suspected, a test for HCV RNA (test code 61241) is suggested. For additional information please refer to http://education.[employer]/faq/BJP98a4 (This link is being provided for informational/ educational purposes only.) Blood Venous blood specimen / Unknown 01/20/2023 8:39 AM EDT 01/20/2023 8:40 AM EDT Narrative [facility] - 01/20/2023 10:18 PM EDT FASTING:YES FASTING: YES Result [facility] Clara Joseph MD LAB BLOOD ORDERABLES Final Result [facility] [address] [place] [address], [place] [address] [facility] [address] [place] [address] * HIV-1/2 Antigen and Antibodies, Fourth Generation, with Reflexes (01/20/2023 8:39 AM EDT) HIV Antigen/Antibody, 4th Generation NON-REAC TIVE NON-REAC TIVE [facility] [facility] [employer] [facility] Comment: HIV-1 antigen and HIV-1/HIV-2 antibodies were [...] purpose. For additional information please refer to http://education.[employer]/faq/YKD181 (This link is being provided for informational/ educational purposes only.) The performance of this assay has not been clinically validated in patients less than 2 years old. Blood Venous blood specimen / Unknown 01/20/2023 8:39 AM EDT 01/20/2023 8:40 AM EDT Narrative [facility] - 01/20/2023 10:18 PM EDT FASTING:YES FASTING: YES Clara Joseph MD LAB BLOOD ORDERABLES Final Result [facility] [address], [place] [address] [facility] [address] [place] [address] * THINPREP TIS PAP AND HPV mRNA E6/E7, CT/NG, TRICH (03/14/2022 12:12 PM EDT) Chlamydia trachomatis RNA, TMA, Urogenital NOT DETECTED NOT DETECTED [facility] Clinical Information: None given [facility] COMMENT SEE COMMENT [facility] Comment: The analytical performance characteristics of this assay, when used to test SurePath(TM) specimens have been determined by [facility] [facility]. The modifications have not been cleared or approved by the FDA. This assay has been validated pursuant to the CLIA regulations and is used for clinical purposes. For additional information, please refer to https://Hyper Urban Level User [place].[employer]/faq/QRA559 (This link is being provided for information/ [...] along with historic and current clinical information. Comment: This Pap test has been evaluated with computer assisted technology. [facility] Pearler: SEE COMMENT [facility] Comment: CMG, CT(ASCP) CT screening location: [place] [address] HPV nRNA E6/E7 Not Detected Not Detected [facility] Comment: Methodology: Drain Tiler-Mediated Amplification This assay detects E6/E7 viral messenger RNA (mRNA) from 14 high-risk HPV types (16,18,31,33,35,39,45,51,52,56,58,59,66,68). Cervical sources are required for HPV testing. If a vaginal source from a patient who has had a total hysterectomy with removal of cervix was submitted, please contact the testing laboratory for alternative testing options. For additional information, please refer to http://education.[employer]/faq/DBZ158w3 (This link if provided for information/ educational purposes only.) Interpretation/Re sult: Negative for intraepithelial lesion or malignancy. [facility] LMP: NONE GIVEN [facility] Neisseria gonorrhoeae RNA, TMA, Urogenital NOT DETECTED NOT DETECTED [facility] Prev. BX: NONE [facility]IV[facility] Prev. PAP: NONE GIVEN [facility] SOURCE: Cervix [facility] Statement Of Adequacy: SEE COMMENT [facility] Comment: Satisfactory for evaluation. Endocervical/transformation zone component present. Age and/or menstrual status not provided Trichomonas vaginalis, QL, TMA, PAP Vial NOT DETECTED NOT DETECTED [facility] Comment: The analytical performance characteristics of this assay have been determined by [facility]. The modifications have not been cleared or approved by the FDA. This assay has been validated pursuant to the CLIA regulations and is used for clinical purposes. For additional information, please refer to http://education.[employer]/ faq/Trichomonastma (This link is being provided for information/ educational purposes only.) 03/14/2022 12:1 2 PM EDT Clara Joseph MD LAB PATHOLOGY ORDERABLES F inal Result [facility] [address] * Pap Smear (03/14/2022 12:00 AM EDT) Swab Historical Provider LAB CYTOLOGY ORDERABLES F inal Result IMAGING from Last 3 Months or Most Recently Relevant to Health Maintenance Additional Health Concerns Active Problems Noted Date Diagnosed Date Help patients manage their type 2 diabetes 08/23 Weekly blood pressure task 08/23/2025 Help patients manage their type 2 diabetes 08/23 Patient has chronic kidney disease 08/23/2025 Weekly blood pressure task 08/23/2025 Patient has chronic kidney disease 08/23/2025 Weekly blood pressure task 09/22/2025 Weekly blood pressure task 09/22/2025 Patient has chronic kidney disease 09/22/2025 Patient has chronic kidney disease 09/22/2025 Insurance [facility] < 65 [facility] Advance Directives Documents on File Type Date Recorded 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 Advance Directives and Living Will 09/30/2024 Health Care Proxy 09/30/24 Care Teams Clinic Coordinator Relationship Specialty Start Date End Date Her[place], MD Clara [address] [place] [address] PCP - General Family Medicine 10/12/18 Hamida Evans, QuocD 230 [place] [address] Pharmacist Internal Medicine 01/07/[address] 3rd [place] [address] Gastroenterology 09/30/24 Galdino Lee MD [address] [place] [address] Ophthalmology 10/24/24 Sabine Martinez [address] [place] [address] Orthopaedic Surgery 11/08/24 Adis Hurley MD [address] [place] [address] Vascular Surgery 07/24/25 Mary Patel PA-C Vascular 10/13/24
--- OUTSIDE RECORDS SUMMARY | 2025-09-26 09:20 | XMS_ITS | Encounter Summary ---
Author Organization [employer] Address [address] [facility] 7t [place] [address] Care Team Providers Care Tibco Developer Name Role Phone Clara Joseph MD Primary Care Provider [phone]- [phone] Hamida Evans PharmD Unavailable January Unavailable Galdino Lee MD Unavailable [phone] Sabine Martinez Unavailable Adis Hurley MD Unavailable Encounter Details Date Type Department Care Team (Late st Contact Info) Description 03/19/2023 Abstract [facility] MEDICINE 230 [place], [place] [phone] Clara Joseph MD 230 [place], [place] [phone] Social History Tobacco Use Types Packs/Day Years [...] Description 11/24/2025 8:45 AM EST Office Visit [facility] ADULT DENTAL 230 [place] [address] Lillian Crawford 230 [place] [address] 11/28/2025 9:00 AM EST Medication Management [facility] MEDICINE 230 [place] [address] Hamida Evans PharmD 230 [place] [address] documented as of this encounter Goals Goal [...] documented as of this encounter Care Teams Tibco Developer Relationship Specialty Start Date End Date Clara Joseph MD [address] [place] [address] PCP - General Family Medicine 10/12/18 Hamida Evans PharmD [address] [place] [address] Pharmacist Internal Medicine 01/07/[address] 3[address] [place] [address] Gastroenterology 09/30/24 Galdino Lee MD [address] [place] [address] Ophthalmology 10/24/24 Sabine Martinez [address] [place] [address] Orthopaedic Surgery 11/08/24 Adis Hurley MD [address] [place] [address] Vascular Surgery 07/24/25 Mary Patel PA-C Vascular 10/13/24 documented as of this encounter
--- OUTSIDE RECORDS SUMMARY | 2025-09-26 09:20 | XMS_ITS | Encounter Summary ---
Author Organization [employer] Address [address] [facility] 7t [place] [address] Care Team Providers Care Market Research Manager Name Role Phone Clara Joseph MD Primary Care Provider + [phone] Hamida Evasn PharmD Unavailable [phone] January Unavailable Galdino Lee MD Unavailable [phone] Sabine Martinez Unavailable Adis Hurley MD Unavailable Encounter Details Date Type Department Care Team (Late st Contact Info) Description 09/28/2023 Abstract [facility] MEDICINE 230 [place], [place] [phone] Clara Joseph MD 230 [place], [place] [phone] Social History Tobacco Use Types Packs/Day Years [...] Description 11/24/2025 8:45 AM EST Office Visit [facility] ADULT DENTAL 230 [place] [address] Yvette, Lillian 230 [place] [address] 11/28/2025 9:00 AM EST Medication Management [facility] MEDICINE 230 [place] [address] Hamida Evans, PharmD 230 [place] [address] documented as of this encounter Goals Goal Patient Goal Type Associated Problems Recent Progress Patient-Stated? Author Blood Pressure < 140/90 Blood Pressure 120/60(2024 9:12 AM EST) No Arts-Hamida Skelton, PharmD Hemoglobin A1c < 7 Result Component 7(08/23/2025 10:27 AM EST) No Hamida Herman, PharmD documented as of this encounter Procedures Procedure Name Priority Date/Time Associated Diagnosis Comments DIABETES EYE EXAM Routine 09/25/2023 documented in this encounter Results * Diabetes Eye Exam (09/25/2023) [facility] Signature Eye Exam Normal Normal us Historical Provider HEALTH MAINTENANCE Final Result documented in this encounter Visit Diagnoses Not on filedocumented in this encounter Additional Health Concerns Assessment Noted Time PHQ-9 Depression Total Score: 7 12/18/19 23 10:36 AM EST documented as of this encounter Care Teams Market Research Manager Relationship Specialty Start Date End Date Clara Joseph MD 230 [place] [address] PCP - General Family Medicine 10/12/18 Hamida Evans, QuocD [address] [place] [address] Pharmacist Internal Medicine 01/07/[address] 3rd [place] [address] Gastroenterology 09/30/24 Galdino Lee MD [address] [facility] [address] [address] [place] [address] Ophthalmology 10/24/24 Sabine Martinez [address] [place] [address] Orthopaedic Surgery 11/08/24 Adis Hurley MD [address] [place] [address] Vascular Surgery 07/24/25 Mary Patel PA-C Vascular 10/13/24 documented as of this encounter
--- OUTSIDE RECORDS SUMMARY | 2025-09-26 09:20 | XMS_ITS | Encounter Summary ---
Author Organization [employer] Address [address] [facility] 7t [place] [address] Care Team Providers Care Manager Mac Name Role Phone Clara Joseph MD Primary Care Provider [phone]- [phone] Hamida Evans PharmD Unavailable January Unavailable Galdino Lee MD Unavailable Sabine Martinez Unavailable Adis Hurley MD Unavailable Encounter Details Date Type Department Care Team (Late st Contact Info) Description 03/19/2023 Abstract [facility] MEDICINE 230 [place], [place] [phone] Clara Joseph MD 230 [place], [place] [phone] Social History Tobacco Use Types Packs/Day Years [...] Description 11/24/2025 8:45 AM EST Office Visit [facility] ADULT DENTAL 230 [place], [place] [phone] Qasim Crawfordaris 230 [place] [address] 11/28/2025 9:00 AM EST Medication Management [facility] MEDICINE [address] [place] [address] Hamida Evans PharmD 230 [place] [address] documented as of this encounter Goals Goal Patient Goal Type Associated Problems Recent Progress Patient-Stated? Author Blood Pressure < 140/90 Blood Pressure 120/60(2024 9:12 AM EST) No Arts-Luz Marina Skeltonsa, PharmD Hemoglobin [...] as of this encounter Care Teams Manager Mac Relationship Specialty Start Date End Date Clara Joseph MD [address] [place] [phone] PCP - General Family Medicine 10/12/18 Hamida Evans PharmD 230 [place] [address] Pharmacist Internal Medicine 01/07/23 Gertrudis Daniel [address] [place] [address] Gastroenterology 09/30/24 Galdino Lee MD [address] [place] [address] Ophthalmology 10/24/24 Sabine Martinez [address] [place] [address] Orthopaedic Surgery 11/08/24 Adis Hurley MD [address] [place] [address] Vascular Surgery 07/24/25 Mary Patel PA-C Vascular 10/13/24 documented as of this encounter
--- OUTSIDE RECORDS SUMMARY | 2025-09-26 09:20 | XMS_ITS | Encounter Summary ---
Author Organization [employer] Address [address] [facility] 7t [place] [address] Care Team Providers Care Power System Engineer Name Role Phone Clara Joseph MD Primary Care Provider [phone] Hamida Evans PharmD Unavailable Daniel, Gertrudis Unavailable Galdino Lee MD Unavailable Sabine Martinez Unavailable Adis Hurley MD Unavailable Reason for Visit * Reason Comments Med Refill Encounter Details Date Type Department Care Team (Late st Contact Info) Description 02/04/2023 Refill [facility] MEDICINE 230 [place], [place] [phone] Clara Joseph MD 230 [place] [address] Onychomycosis of left great toe Social History [...] Description 11/24/2025 8:45 AM EST Office Visit [facility] ADULT DENTAL 230 [place] [address] Lillian Crawford 230 [place] [address] 11/28/2025 9:00 AM EST Medication Management [facility] MEDICINE 230 [place] [address] Hamida Evans, PharmD 230 [place] [address] documented as of this encounter Goals Goal [...] documented as of this encounter Care Teams Power System Engineer Relationship Specialty Start Date End Date Clara Joseph MD [address] [place] [address] PCP - General Family Medicine 10/12/18 Hamida Evans, PharmD [address] [place] [address] Pharmacist Internal Medicine 01/07/23 Fredy Gertrudis [address] [facility] 3rd [place] [address] Gastroenterology 09/30/24 Galdino Lee MD [address] [place] [address] Ophthalmology 10/24/24 Sabine Martinez [address] [place] [address] [address] [place] [address] Orthopaedic Surgery 11/08/24 Adis Hurley MD [address] [place] [address] Vascular Surgery 07/24/25 Mary Patel PA-C Vascular 10/13/24 documented as of this encounter
--- OUTSIDE RECORDS SUMMARY | 2025-09-26 09:20 | XMS_ITS | Encounter Summary ---
Author Organization [employer] Address [address] [facility] 7t [place] [address] Care Team Providers Care Pin Sorter And Bagger Name Role Phone Clara Joseph MD Primary Care Provider [phone]- [phone] Hamida Evans PharmD Unavailable Daniel, Gertrudis Unavailable Galdino Lee MD Unavailable Sabine Martinez Unavailable Adis Hurley MD Unavailable Reason for Visit * Reason Onset Date Comments Appointment Request 01/07/2023 Encounter Details Date Type Department Care Team (Late st Contact Info) Description 01/07/2023 Telephone [facility] 230 [place], [place] [phone] Clara Joseph MD 230 [place], [place] [phone] Appointment Request Social History Tobacco Use Types [...] an appt with provider to speak about MARGARINE CHURN OPERATOR services. Please contact pt at [phone] Mongolian Speaker documented in this encounter Plan of Treatment Upcoming Encounters Date Type Department Care Team (Late st Contact Info) Description 11/24/2025 8:45 AM EST Office Visit [facility] D[facility]AL 230 [place] [address] Yvette, Lillian 230 [place] [address] 11/28/2025 9:00 AM EST Medication Management [facility] 230 [place] [address] ArtsHamida Tapia, PharmD 230 [place] [address] documented as of this encounter Goals Goal Patient Goal Type Associated Problems Recent Progress Patient-Stated? Author Blood Pressure < 140/90 Blood Pressure 120/60(2024 9:12 AM EST) No Piers-Gambl e, Hamida, PharmD Hemoglobin A1c < 7 Result Component 7(08/23/2025 10:27 AM EST) No Piers-Gambl e, Hamida, PharmD documented as of this encounter Visit Diagnoses Not on filedocumented in this encounter Additional Health Concerns Assessment Noted Time PHQ-9 Depression Total Score: 7 12/18/19 23 10:36 AM EST documented as of this encounter Care Teams Pin Sorter And Bagger Relationship Specialty Start Date End Date Clara Joseph MD 230 [place] [address] PCP - General Family Medicine 10/12/18 ArtsLuz Marina Tapiasa, PharmD 230 [facility] [place] [address] Pharmacist Internal Medicine 01/07/23 Gertrudis Daniel [address] 3rd Floor [place] [address] Gastroenterology 09/30/24 Galdino Lee MD [address] [place] [address] Ophthalmology 10/24/24 Sabine Martinez [address] [place] [address] Orthopaedic Surgery 11/08/24 Adis Hurley MD [address] [place] [address] Vascular Surgery 07/24/25 Mary Patel PA-C Vascular 10/13/24 documented as of this encounter
--- OUTSIDE RECORDS SUMMARY | 2025-09-26 09:20 | XMS_ITS | Encounter Summary ---
Author Organization [employer] Address [address] [facility] 7t [place] [address] Care Team Providers Care Lead Painter Name Role Phone Opal Clara LUCAS Primary Care Provider + [phone] Hamida Evans PharmD Unavailable [phone] January Unavailable Galdino Lee MD Unavailable [phone] Sabine Martinez Unavailable Adis Hurley MD Unavailable Encounter Details Date Type Department Care Team (Latest Contact Info) Description 12/27/2018 Abstract [facility] CONVERSIONS Dental, Provider, DDS Social History Tobacco [...] Description 11/24/2025 8:45 AM EST Office Visit [facility] ADULT DENTAL 230 [place], [place] [phone] Qasim Crawfordaris 230 [place], [place] [phone] 11/28/2025 9:00 AM EST Medication Management [facility] MEDICINE 230 [place], [place] [phone] Hamida Evans, PharmD 230 [place] [address] documented as of this encounter Visit Diagnoses Not on filedocumented in this encounter Care Teams Lead Painter Relationship Specialty Start Date End Date Clara Joseph MD 230 [place] [address] PCP - General Family Medicine 10/12/18 Hamida Evans, QuocD 230 [place] [address] Pharmacist Internal Medicine 01/07/23DanielJanuary [address] 3rd [place] [address] Gastroenterology 09/30/24 Galdino Lee MD [address] [place] [address] Ophthalmology 10/24/24 Sabine Martinez [address] [facility] [address] [facility] [address] [place] [address] Orthopaedic Surgery 11/08/24 Adis Hurley MD [address] [place] [address] Vascular Surgery 07/24/25 Mary Patel PA-C Vascular 10/13/24 documented as of this encounter
--- OUTSIDE RECORDS SUMMARY | 2025-09-26 09:20 | XMS_ITS | Encounter Summary ---
Author Organization [employer] Address [address] [facility] 7t [place] [address] Care Team Providers Care Screening Representative Name Role Phone Clara Joseph MD Primary Care Provider [phone]- [phone] Hamida Evans PharmD Unavailable Daniel, Gertrudis Unavailable Galdino Lee MD Unavailable [phone] Sabine Martinez Unavailable Adis Hurley MD Unavailable Encounter Details Date Type Department Care Team (Late st Contact Info) Description 04/06/2023 Abstract [facility] ADULT DENTAL 230 [place], [place] [phone] Yvette, Lillian 230 [place], [place] [phone] Social History Tobacco Use Types Packs/Day Years [...] Description 11/24/2025 8:45 AM EST Office Visit [facility] ADULT DENTAL 230 [place] [address] Lillian Crawford 230 [place] [address] 11/28/2025 9:00 AM EST Medication Management [facility] MEDICINE 230 [place] [address] Hamida Evans, PharmD 230 [place] [address] documented as of this encounter Goals Goal [...] documented as of this encounter Care Teams Screening Representative Relationship Specialty Start Date End Date Clara Joseph MD [address] [place] [address] PCP - General Family Medicine 10/12/18 Hamida Evans, PharmD [address] [place] [address] Pharmacist Internal Medicine 01/07/23January [address] 3rd [place] [address] Gastroenterology 09/30/24 Galdino Lee MD [address] [place] [address] Ophthalmology 10/24/24 Sabine Martinez [address] [place] [address] Orthopaedic Surgery 11/08/24 Adis Hurley MD [address] [place] [address] Vascular Surgery 07/24/25 Mary Patel PA-C Vascular 10/13/24 documented as of this encounter
--- OUTSIDE RECORDS SUMMARY | 2025-09-26 09:20 | XMS_ITS | Encounter Summary ---
Author Organization [employer] Address 75 [facility] 7t [place] [address] Care Team Providers Care Wincher Name Role Phone Clraa Joseph MD Primary Care Provider + [phone] Hamida Evans PharmD Unavailable [phone] DanielJanuary Unavailable Galdino Lee MD Unavailable [phone] Sabine Martinez Unavailable Adis Hurley MD Unavailable Reason for Visit * Reason Comments Med Refill Encounter Details Date Type Department Care Team (Late st Contact Info) Description 09/26/2025 Refill [facility] MEDICINE [address] [place], [place] [phone] Clara Joseph MD [address] [place], [place] [phone] Primary hypertension Social History Tobacco Use Types Packs/Day Years [...] the past 12 months, has t he [employer], gas, oil or water [employer] threatened to shut off services in your [...] Description 11/24/2025 8:45 AM EST Office Visit [facility] ADULT DENTAL [address] [place] [address] Yvette, Lillian [address] [place] [address] 11/28/2025 9:00 AM EST Medication Management [facility] MEDICINE [address] [place] [address] Hamida Evans, PharmD [address] [place] [address] documented as of this encounter Goals Goal Patient Goal Type Associated Problems Recent Progress Patient-Stated? Author Blood Pressure < 140/90 Blood Pressure 120/60(2024 9:12 AM EST) No Hamida Herman, PharmJohn Hemoglobin A1c < 7 Result Component 7(08/23/2025 10:27 AM EST) No Hamida Herman PharmJohn Help patients manage their type 2 diabetes [...] Weekly blood pressure task No Hamida Herman PharmJohn Weekly blood pressure task Care Plan Weekly blood pressure task No Hamida Herman PharmJohn Patient has chronic kidney disease Care Plan Patient has chronic kidney disease No Hamida Herman PharmD Patient has chronic kidney disease Care Plan Patient has chronic kidney disease No Hamida Herman PharmJohn documented as of this encounter Visit Diagnoses Diagnosis Primary hypertension Unspecified essential hypertension documented in this encounter Additional Health Concerns Active Problems Noted Date [...] 09/22/2025 Patient has chronic kidney disease 09/22/2025 Assessment Noted Time PHQ-9 Depression Total Score: 0 08/23/20 25 10:05 AM EST documented as of this encounter Care Teams Wincher Relationship Specialty Start Date End Date Clara Joseph MD [address] [place] [address] PCP - General Family Medicine 10/12/18 Hamida Evans, PharmD [address] [place] [address] Pharmacist Internal Medicine 01/07/23January [address] 3rd [place] [address] Gastroenterology 09/30/24 Galdino Lee MD [address] [place] [address] Ophthalmology 10/24/24 Sabine Martinez [address] [place] [address] Orthopaedic Surgery 11/08/24 Adis Hurley MD [address] [place] [address] Vascular Surgery 07/24/25 Mary Patel PA-C Vascular 10/13/24 documented as of this encounter
--- OUTSIDE RECORDS SUMMARY | 2025-09-26 09:20 | XMS_ITS | Encounter Summary ---
Author Organization [email or web address] Address 75 [facility] 7t [place] [address] Care Team Providers Care Icing Mixer Name Role Phone Opal Clara LUCAS Primary Care Provider + [phone] Hamida Evans PharmD Unavailable [phone] January Unavailable Galdino Lee MD Unavailable [phone] Sabine Martinez Unavailable Adis Hurley MD Unavailable Encounter Details Date Type Department Care Team (Latest Contact Info) Description 10/01/2021 Abstract [facility] CONVERSIONS Dental, Provider, DDS Social History [...] Description 11/24/2025 8:45 AM EST Office Visit [facility] ADULT DENTAL [address] [place], [place] [phone] Qasim Crawfordaris [address] [place], [place] [phone] 11/28/2025 9:00 AM EST Medication Management [facility] MEDICINE [address] [place], [place] [phone] Hamida Evans, PharmD [address] [place] [address] documented as of this encounter Visit Diagnoses Not on filedocumented in this encounter Care Teams Icing Mixer Relationship Specialty Start Date End Date Clara Joseph MD [address] [place] [address] PCP - General Family Medicine 10/12/18 Hamida Evans, QuocD [address] [place] [address] Pharmacist Internal Medicine 01/07/[address] 3rd [place] [address] Gastroenterology 09/30/24 Galdino Lee MD [address] [place] [address] Ophthalmology 10/24/24 Sabine Martinez [address] [place] [address] Orthopaedic Surgery 11/08/24 Adis Hurley MD [address] [place] [address] Vascular Surgery 07/24/25 Mary Patel PA-C Vascular 10/13/24 documented as of this encounter
--- OUTSIDE RECORDS SUMMARY | 2025-09-26 09:20 | XMS_ITS | Encounter Summary ---
Author Organization [employer] Address 75 [facility] 7t [place] [address] Care Team Providers Care House Carpenter Helper Name Role Phone Clara Joseph MD Primary Care Provider +- [phone] Hamida Evans PharmD Unavailable [phone] Daniel, Gertrudis Unavailable Galdino Lee MD Unavailable [phone] Sabine Martinez Unavailable Adis Hurley MD Unavailable Reason for Referral * Consultation (Routine) - Authorized Specialty Diagnoses / Procedures Referred By Contac t Referred To Contact Pharmacy Diagnoses Type 2 diabetes mellitus without complication, without long-term current use of insulin (HCC) Clara Joseph MD [address] [place] [address] Phone: tel: fax: Referral ID Status Reason Start Date Expiration Date Visits Requested Visits Authorized [id number] Authorized Consult and Treat 06/04/2025 06/04/2026 6 6 Encounter Details Date Type Department Care Team (Late st Contact Info) Description 06/04/2025 Orders Only [facility] MEDICINE [address] [place] [address] [phone] Clara Joseph MD [address] [place] [address] [phone] Type 2 diabetes mellitus without complication, without [...] Description 11/24/2025 8:45 AM EST Office Visit [facility] ADULT DENTAL [address] [place] [address] Lillian Crawford [address] [place] [address] 11/28/2025 9:00 AM EST Medication Management [facility] MEDICINE [address] [place] [address] Hamida Evans PharmD 230 [place] [address] Scheduled Referrals Name Type Priority Associated Diagnoses Orde r Schedule Referral to Pharmacy CDTM Outpatient Referral Routine Type 2 diabetes mellitus without complication, without long-term current use of insulin ([facility]) Ordered: 06/04/2025 documented as of this encounter [...] long-term current use of insulin ([facility])- Primary documented in this encounter Additional Health Concerns Assessment Noted Time PHQ-9 Depression Total Score: 16 03/08/ 025 10:11 AM EDT documented as of this encounter Care Teams House Carpenter Helper Relationship Specialty Start Date End Date Clara Joseph MD [address] [place] [address] PCP - General Family Medicine 10/12/18 Hamida Evans PharmD [address] [place] [address] Pharmacist Internal Medicine 01/07/23January [address] 3rd [place] [address] Gastroenterology 09/30/24 Galdino Lee MD [address] [place] [address] Ophthalmology 10/24/24 Sabine Martinez [address] [place] [address] [address] [place] [address] Orthopaedic Surgery 11/08/24 Adis Hurley MD [address] [facility] [address] [place] [address] Vascular Surgery 07/24/25 Mary Patel PA-C Vascular 10/13/24 documented as of this encounter
--- OUTSIDE RECORDS SUMMARY | 2025-09-26 09:20 | XMS_ITS | Encounter Summary ---
Author Organization [employer] Address 75 [facility] 7t [place] [address] Care Team Providers Care Shut Off Worker Name Role Phone Clara Joseph MD Primary Care Provider Hamida Evans PharmD Unavailable January Unavailable Galdino Lee MD Unavailable [phone] Sabine Martinez Unavailable Adis Hurley MD Unavailable Reason for Visit * Reason Onset Date Comments Nurse Triage 09/05/2024 Encounter Details Date Type Department Care Team (Late st Contact Info) Description 09/05/2024 Telephone [facility] MEDICINE [address] [place], [place] [phone] Clara Joseph MD [address] [place], [place] [phone] Nurse Triage Social History Tobacco Use Types [...] 09/05/2024 12:14 PM EST Triage call [place] [employer] [place] [id number]. Pt reports multiple symptoms. Headache, abdominal pain [...] provider. Pt is advised to come to [facility] which is open till 8pm today to see a provider. Pt agrees to ask sister for a ride to come to [facility] today. Insurance is verified as active. Protocol [...] You become worse * Telephone Encounter - Belengurpreet Dexter - 09/05/2024 11:42 AM EST Symptom: Leg Pain - Not From Injury Outcome: Schedule an urgent appointment (within 1 hour) or talk to a nurse or provider soon Reason: Trouble walking The caller accepted this outcome. documented in this encounter Plan of Treatment Upcoming Encounters Date Type Department Care Team (Late st Contact Info) Description 11/24/2025 8:45 AM EST Office Visit [facility] ADULT DENTAL [address] [place] [address] Lillian Crawford [address] [place] [address] 11/28/2025 9:00 AM EST Medication Management [facility] MEDICINE [address] [place] [address] Piers-Pineda, Hamida, PharmD 230 [place] [address] documented as of this encounter Goals Goal [...] documented as of this encounter Care Teams Shut Off Worker Relationship Specialty Start Date End Date Clara Joseph MD 230 [place] [address] PCP - General Family Medicine 10/12/18 Hamida Evans, Fletcher 230 [place] [address] Pharmacist Internal Medicine 01/07/23 Gertrudis Daniel [address] 3rd [place] [address] Gastroenterology 09/30/24 Galdino Lee MD [address] [place] [address] Ophthalmology 10/24/24 Sabine Martinez [address] [facility] [facility] [address] [place] [address] Orthopaedic Surgery 11/08/24 Adis Hurley MD [address] [facility] [place] [address] Vascular Surgery 07/24/25 Mary Patel PA-C Vascular 10/13/24 documented as of this encounter
--- OUTSIDE RECORDS SUMMARY | 2025-09-26 09:20 | XMS_ITS | Encounter Summary ---
Author Organization [employer] Address 75 [facility] 7t [place] [address] Care Team Providers Care Crtts Name Role Phone Clara Joseph MD Primary Care Provider [phone]- [phone] Hamida Evans PharmD Unavailable [phone] January Unavailable Galdino Lee MD Unavailable Sabine Martinez Unavailable Adis Hurley MD Unavailable Encounter Details Date Type Department Care Team (Late st Contact Info) Description 03/19/2023 Abstract [facility] MEDICINE [address] [place], [place] [phone] Clara Joseph MD [address] [place], [place] [phone] Social History Tobacco Use Types Packs/Day Years [...] Description 11/24/2025 8:45 AM EST Office Visit [facility] ADULT DENTAL [address] [place] [address] Lillian Crawford [address] [place] [address] 11/28/2025 9:00 AM EST Medication Management [facility] MEDICINE [address] [place] [address] Hamida Evans, PharmD [address] [place] [address] documented as of this encounter Goals Goal [...] documented as of this encounter Care Teams Crtts Relationship Specialty Start Date End Date Clara Joseph MD [address] [place] [address] PCP - General Family Medicine 10/12/18 Hamida Evans, PharmD [address] [place] [address] Pharmacist Internal Medicine 01/07/23January [address] 3rd [place] [address] Gastroenterology 09/30/24 Galdino Lee MD [address] [place] [address] Ophthalmology 10/24/24 Sabine Martinez [address] [place] [address] [address] [place] [address] Orthopaedic Surgery 11/08/24 Adis Hurley MD [address] [place] [address] Vascular Surgery 07/24/25 Mary Patel PA-C Vascular 10/13/24 documented as of this encounter
--- OUTSIDE RECORDS SUMMARY | 2025-09-26 09:20 | XMS_ITS | Encounter Summary ---
Author Organization [employer] Address 75 [facility] 7t [place] [address] Care Team Providers Care Case Picker Name Role Phone Clara Joseph MD Primary Care Provider +1- [phone] Hamida Evans PharmD Unavailable [phone] January Unavailable Galdino Lee MD Unavailable Sabine Martinez Unavailable Adis Hurley MD Unavailable Encounter Details Date Type Department Care Team (Late st Contact Info) Description 03/19/2023 Abstract [facility] MEDICINE [address] [place], [place] [phone] Clara Joseph MD [address] [place], [place] [phone] Social History Tobacco Use Types Packs/Day Years [...] Description 11/24/2025 8:45 AM EST Office Visit [facility] ADULT DENTAL [address] [place] [address] Lillian Crawford [address] [place] [address] 11/28/2025 9:00 AM EST Medication Management [facility] MEDICINE [address] [place] [address] Hamida Evans, PharmD [address] [place] [address] documented as of this encounter Goals Goal [...] documented as of this encounter Care Teams Case Picker Relationship Specialty Start Date End Date Clara Joseph MD [address] [place] [address] PCP - General Family Medicine 10/12/18 Hamida Evans, PharmD [address] [place] [address] Pharmacist Internal Medicine 01/07/23January [address] 3rd [place] [address] Gastroenterology 09/30/24 Galdino Lee MD [address] [place] [address] Ophthalmology 10/24/24 Sabine Martinez [address] [place] [address] [address] [place] [address] Orthopaedic Surgery 11/08/24 Adis Hurley MD [address] [facility] [address] [place] [address] Vascular Surgery 07/24/25 Mary Patel PA-C Vascular 10/13/24 documented as of this encounter
--- OUTSIDE RECORDS SUMMARY | 2025-09-26 09:20 | XMS_ITS | Encounter Summary ---
Author Organization [employer] Address 75 [facility] 7t [place] [address] Care Team Providers Care Assistant Professor Of English Name Role Phone Clara Joseph MD Primary Care Provider [phone]- [phone] Hamida Evans PharmD Unavailable Daniel, Gertrudis Unavailable Galdino Lee MD Unavailable Sabine Martinez Unavailable Adis Hurley MD Unavailable Encounter Details Date Type Department Care Team (Late st Contact Info) Description 11/14/2022 Abstract [facility] MEDICINE [address] [place], [place] [phone] Clara Joseph MD 230 [place], [place] [phone] Social History Tobacco Use Types Packs/Day Years [...] 8:45 AM EST Office Visit [facility] ADULT DENTAL [address] [place], [place] [phone] Lillian Crawford [address] [place] [address] 11/28/2025 9:00 AM EST Medication Management [facility] MEDICINE [address] [place] [address] Hamida Evans PharmD 230 [place] [address] documented as of this encounter Procedures Procedure Name Priority Date/Time Associated Diagnosis Comments PAP SMEAR Routine 03/14/2022 12:00 AM EDT MAMMOGRAPHY Routine 10/02/2021 COLONOSCOPY Routine 02/22/2014 documented in this encounter Results * Pap Smear (03/14/2022 12:00 AM EDT) Swab Historical Provider LAB CYTOLOGY ORDERABLES F inal Result IMAGING * Mammography (10/02/2021) HM Mammogram normal Anatomical Region Laterality Modality Other Historical Provider HEALTH MAINTENANCE Final Result * Colonoscopy (02/22/2014) Colonoscopy normal with Dr. Mejia Historical Provider HEALTH MAINTENANCE Final Result documented in this encounter Visit Diagnoses Not on filedocumented in this encounter Care Teams Assistant Professor Of English Relationship Specialty Start Date End Date Clara Joseph MD [address] [place] [address] PCP - General Family Medicine 10/12/18 Hamida Evans, PharmD [address] [place] [address] Pharmacist Internal Medicine 01/07/23 Fredy January [address] [place] [address] Drive 3rd [place] [address] Gastroenterology 09/30/24 Galdino Lee MD [address] [place] [address] Ophthalmology 10/24/24 Sabine Martinez [address] [place] [address] Dr [address] [place] [address] Orthopaedic Surgery 11/08/24 Adis Hurley MD [address] [place] [address] Vascular Surgery 07/24/25 Mary Patel PA-C Vascular 10/13/24 documented as of this encounter
--- OUTSIDE RECORDS SUMMARY | 2025-09-26 09:20 | XMS_ITS | Encounter Summary ---
Author Organization [employer] Address 75 [facility] 7t [place] [address] Care Team Providers Care Rubber Cutting Machine Tender Name Role Phone Clara Joseph MD Primary Care Provider + [phone] Hamida Evans PharmD Unavailable [phone] Gertrudis Daniel Unavailable Galdino Lee MD Unavailable [phone] Sabine Martinez Unavailable Adis Hurley MD Unavailable Encounter Details Date Type Department Care Team (Late st Contact Info) Description 10/20/2022 Orders Only [facility] MED & PEDS [address] [place], [place] [phone] Marina Mendes LPN Social History Tobacco Use [...] Description 11/24/2025 8:45 AM EST Office Visit [facility] ADULT DENTAL 230 [place], [place] [phone] Yvette Lillian 230 [place], [place] [phone] 11/28/2025 9:00 AM EST Medication Management [facility] MEDICINE [address] [place] [address] Hamiad Evans, PharmD 230 [place] [address] documented as of this encounter Visit Diagnoses Not on filedocumented in this encounter Care Teams Rubber Cutting Machine Tender Relationship Specialty Start Date End Date Clara Joseph MD [address] [place] [address] PCP - General Family Medicine 10/12/18 Hamida Evans, PharmD 230 [place] [address] Pharmacist Internal Medicine 01/07/23 Fredy Gertrudis [address] 3rd [place] [address] Gastroenterology 09/30/24 Galdino Lee MD [address] [place] [address] Ophthalmology 10/24/24 Sabine Martinez [address] [place] [address] Orthopaedic Surgery 11/08/24 Adis Hurley MD [address] [place] [address] Vascular Surgery 07/24/25 Mary Patel PA-C Vascular 10/13/24 documented as of this encounter
--- OUTSIDE RECORDS SUMMARY | 2025-09-26 09:20 | XMS_ITS | Encounter Summary ---
Author Organization [employer] Address 75 [facility] 7t [place] [address] Care Team Providers Care Fiberglass Quality Technician Name Role Phone Clara Joseph MD Primary Care Provider +- [phone] Hamida Evans PharmD Unavailable [phone] January Unavailable Galdino Lee MD Unavailable [phone] Sabine Martinez Unavailable Adis Hurley MD Unavailable Encounter Details Date Type Department Care Team (Latest Contact Info) Description 09/25/2025 Travel Social History Tobacco Use Types Packs/Day [...] Description 11/24/2025 8:45 AM EST Office Visit [facility] ADULT DENTAL [address] [place] [address] Yvette, Lillian [address] [place] [address] 11/28/2025 9:00 AM EST Medication Management [facility] MEDICINE [address] [place] [address] Hamida Evans, PharmD 230 [place] [address] documented as of this encounter Goals Goal Patient Goal Type Associated Problems Recent Progress Patient-Stated? Author Blood Pressure < 140/90 Blood Pressure 120/60(2024 9:12 AM EST) No Hamida Herman, PharmD Hemoglobin A1c < 7 Result Component 7(08/23/2025 10:27 AM EST) No Hamida Herman, PharmJohn Help patients manage their type 2 [...] Care Plan Weekly blood pressure task No Alf-Ashal e, Hamida, PharmD Weekly blood pressure task Care Plan Weekly blood pressure task No Piers-Gambl e, Hamida, PharmD Patient has chronic kidney disease Care Plan Patient has chronic kidney disease No Piers-Gambl e, Hamida, PharmD Patient has chronic kidney disease Care Plan Patient has chronic kidney disease No Piers-Gambl e, Hamida, PharmD documented as of this encounter Visit Diagnoses Not on filedocumented in this encounter Additional Health Concerns Active [...] documented as of this encounter Care Teams Fiberglass Quality Technician Relationship Specialty Start Date End Date Clara Joseph MD [address] [place] [address] PCP - General Family Medicine 10/12/18 Hamida Evans, PharmD [address] [place] [address] Pharmacist Internal Medicine 01/07/23January [address] 3rd [place] [address] Gastroenterology 09/30/24 Galdino Lee MD [address] [place] [address] Ophthalmology 10/24/24 Sabine Martinez [address] [place] [address] Dr [address] [place] [address] Orthopaedic Surgery 11/08/24 Adis Hurley MD [address] [place] [address] Vascular Surgery 07/24/25 Mary Patel PA-C Vascular 10/13/24 documented as of this encounter
[2025-09-26 12:05] LABS: Alanine Aminotransferase 53 U/L (0-31); Albumin Level 4.2 g/dL (3.5-5.0); Alkaline Phosphatase 75 U/L (39-117); Anion Gap 11 (12-20); Aspartate Amino Transferase 36 U/L (5-31); Blood Urea Nitrogen 17 mg/dL (9-16); Calcium 9.3 mg/dL (8.4-10.2); Carbon Dioxide 24 mmol/L (22-29); Chloride 108 mmol/L (96-108); Cholesterol 138 mg/dL (<200); Estimated Glomerular Filt Rate > 60; HDL Cholesterol 51 mg/dL (>40); Potassium 4.2 mmol/L (3.3-5.1); Sodium 139 mmol/L (135-145); Total Protein 7.5 g/dL (6.5-8.0); Triglycerides 46 mg/dL (<150)
[2025-09-26 12:08] LABS: Microalbum/Creatinine Ratio Ur 7.8 ug/mg cr (<30)
== END 2025-09-26 08:40 | disposition home or self-care (01) ==
LOC: HO.HHCL 08:39
PROVIDERS: PCP Family Medicine; Visit Provider Family Medicine
DX: Z13.21 Encounter for screening for nutritional disorder (principal); E11.9 Type 2 diabetes mellitus without complications; Z78.0 Asymptomatic menopausal state
CPT/HCPCS: 36415; 80048; 80061; 80076; 82043; 82306; 82570; 83036